=== PATIENT | male | born 1945 | race Two or more races ===

== ENCOUNTER 2020-03-23 13:17 | Outpatient (REF) | payer MEDICARE, SELFPAY | END 2020-03-23 13:18 | disposition home or self-care (01) | LOC: HO.LAB 13:17 | PROVIDERS: Absent Provider Internal Medicine; PCP Internal Medicine; Visit Provider Internal Medicine | DX: Z20.828 Contact with and (suspected) exposure to other viral communicable diseases (principal) | CPT/HCPCS: 85610; 99211; C9803; U0003 ==

== ENCOUNTER → 2020-04-27 10:31 | Outpatient (BNVA) | payer MEDICARE, SELFPAY | PROVIDERS: PCP Internal Medicine; Visit Provider Internal Medicine | DX: I48.0 Paroxysmal atrial fibrillation (principal); Z79.01 Long term (current) use of anticoagulants; Z51.81 Encounter for therapeutic drug level monitoring | CPT/HCPCS: 85610; 99211 ==

== ENCOUNTER → 2020-05-25 08:52 | Outpatient (BNVA) | payer MEDICARE, SELFPAY | PROVIDERS: PCP Internal Medicine; Visit Provider Internal Medicine | DX: I48.0 Paroxysmal atrial fibrillation (principal); Z51.81 Encounter for therapeutic drug level monitoring; Z79.01 Long term (current) use of anticoagulants | CPT/HCPCS: 85610; 99211 ==

== ENCOUNTER → 2020-06-23 10:00 | Outpatient (BNVA) | payer MEDICARE, SELFPAY | PROVIDERS: PCP Internal Medicine; Visit Provider Internal Medicine | DX: I48.0 Paroxysmal atrial fibrillation (principal); Z51.81 Encounter for therapeutic drug level monitoring; Z79.01 Long term (current) use of anticoagulants | CPT/HCPCS: 85610; 99211 ==

== ENCOUNTER → 2020-07-21 10:07 | Outpatient (BNVA) | payer MEDICARE, SELFPAY | PROVIDERS: PCP Internal Medicine; Visit Provider Internal Medicine | DX: I48.0 Paroxysmal atrial fibrillation (principal); Z79.01 Long term (current) use of anticoagulants; Z51.81 Encounter for therapeutic drug level monitoring | CPT/HCPCS: 85610; 99211 ==

== ENCOUNTER 2020-08-04 21:27 | Emergency (ER) | payer MEDICARE, SELFPAY ==
--- NOTE | ~2020-08-04 | XR_ITS ---
EXAMINATION: RIGHT FOOT 3 VIEWS CLINICAL INFORMATION: Pain and swelling following injury. COMPARISON: None. TECHNIQUE: AP, lateral, oblique views of the right foot were obtained. FINDINGS: There are no fractures or dislocations. There is no significant soft tissue swelling. No ankle joint effusion is identified. There are small calcaneal spurs. XR/XR foot RT min 3V IMPRESSION: No evidence for acute injury. Small calcaneal spurs.
[2020-08-04 21:43] VITALS: BP 140/74; PULSE 95; RESP 16; TEMP 36.7; O2SAT 97; BMI 30.5
[2020-08-04 21:55] VITALS: BP 140/74; PULSE 95; RESP 16; TEMP 36.7; O2SAT 97
--- NOTE | 2020-08-04 22:51 | ED.LOWEXIN ---
HPI - Extremity Injury (Lower) General Chief Complaint: Extremity Injury, Lower Stated Complaint: Leg injury Time Seen by Provider: 08/04/20 22:51 Source: patient Mode of arrival: ambulatory Limitations: language barrier (Patient's friend is interpreting for him.) History of Present Illness HPI Narrative: Patient is a 75-year-old male with a past medical history of AFib on Coumadin who presents with his friend after dropping a heavy pipe on his left foot 3 days ago. He states he is able to ambulate but is limping secondary to pain. He states he took Tylenol but that did not help him. He denies any other injuries or lacerations. Related Data Home Medications Medication Instructions Recorded Confirmed atorvastatin 80 mg tablet 80 mg PO DAILY 04/27/20 04/27/20 blood sugar diagnostic #10 ea 04/27/20 04/27/20 dulaglutide 0.75 mg/0.5 mL mg SUBCUT QWEEK 04/27/20 04/27/20 subcutaneous pen injector glipizide 5 mg tablet 0 mg PO 04/27/20 04/27/20 lisinopril 5 mg tablet 5 mg PO DAILY 04/27/20 04/27/20 tamsulosin 0.4 mg capsule 0 mg PO 04/27/20 04/27/20 tramadol 50 mg tablet 50 mg PO TID PRN 04/27/20 04/27/20 Previous Rx's Medication Instructions Recorded warfarin 5 mg tablet 5 mg PO DAILY #90 tab 03/23/20 Allergies Allergy/AdvReac Type Severity Reaction Status Date / Time ibuprofen [From Motrin] Allergy Mild SWELLING Verified 07/21/20 10:08 SALMON AdvReac Mild VOMITING Uncoded 12/31/19 15:55 Review of Systems Review of Systems: Yes all other systems are reviewed and are negative [facility] Past Medical History Medical History Diabetes Social History Social History Advance Directives: No Advance Directives Information Provided: Yes Physical Exam Vital Signs: Vital Signs: Last Vital Signs Temp 98.1 F 08/04/20 21:55 Pulse 95 08/04/20 21:55 Resp 16 08/04/20 21:55 BP 140/74 H 08/04/20 21:55 Pulse Ox 97 08/04/20 21:55 Body Mass Index 30.5 Const: General: cooperative, healthy appearing, comfortable and no acute distress Nutritional Appearance: average body habitus Orientation/consciousness: patient oriented x3 Eyes: General: appearance normal, both eyes and all related structures Neck: Neck: Yes normal visual inspection, Yes full ROM and Yes supple Resp: Effort & Inspection: normal respiratory effort and able to speak in complete sentences Neuro: General: patient oriented x3 Extrem: Right lower extremity: ankle Details: normal to inspection and normal ROM; no tenderness, no swelling, no abrasions, no lacerations and no ecchymosis and foot Details: normal capillary refill, abnormal to inspection Details: joint swelling (all MCP joints have full ROM but painful with ecchymosis, slight swelling); not erythematous, tenderness Location: of the dorsal foot and of the mid foot, toes with normal ROM, ecchymosis, vascular exam Details: dorsalis pedis pulse present, posterior tibial pulse present and normal capillary refill; not cool and no cyanosis, tendon exam Details: active flexion normal, active flexion abnormal, active extension normal and active extension abnormal and motor-sensory exam Details: light-touch normal; no abrasion and no laceration MDM - Extremity Injury (Lower) Imaging Data xray right foot: Attestation: I personally reviewed and interpreted this imaging study as follows: Radiologist's impression: [address] [id number] ReportSigned Patient: Tono De Los Santos#: [id number]: 1945cct:[id number]/Sex: 75 / MADM Date: 08/04/20Loc: HO.EDAttending Dr: Ordering Physician: Generic ED Physician Date of Service: 08/04/20 Procedure(s): XR foot RT min 3V Accession Number(s): [id number] cc: Generic ED Physician~ EXAMINATION: RIGHT FOOT 3 VIEWS CLINICAL INFORMATION: Pain and swelling following injury. COMPARISON: None. TECHNIQUE: AP, lateral, oblique views of the right foot were obtained. FINDINGS: There are no fractures or dislocations. There is no significant soft tissue swelling. No ankle joint effusion is identified. There are small calcaneal spurs. XR/XR foot RT min 3V IMPRESSION: No evidence for acute injury. Small calcaneal spurs. Dictated By:HARRY ANGULO MDSigned By:<Electronically signed by HARRY ANGULO MD in OV>08/04/202233 DD/ 49TD/TT: Track Coach: WP Discharge Plan Discharge Clinical Impression: Contusion of foot, right Qualifiers: Encounter type: initial encounter Qualified Code(s): S90.31XA - Contusion of right foot, initial encounter Patient Disposition: Home, Self-Care Instructions: Contusion in Adults (ED) Additional Instructions: Today, your x-ray of right foot was negative for any fracture or dislocation. We will wrap the foot for you in give you a walker to help you ambulate. Please rest it ice it and if her pain gets worse, please follow-up with your PCP or the orthopedic doctor I have referred you to, see below. Prescriptions: No Action warfarin 5 mg tablet 5 mg PO DAILY Qty: 90 RF: 0 tamsulosin 0.4 mg capsule 0 mg PO RF: 0 Trulicity 0.75 mg/0.5 mL pen injector subcut QWEEK RF: 0 tramadol 50 mg tablet 50 mg PO TID PRNRF: 0 atorvastatin 80 mg tablet 80 mg PO DAILY RF: 0 glipizide 5 mg tablet 0 mg PO RF: 0 lisinopril 5 mg tablet 5 mg PO DAILY RF: 0 (DME) FreeStyle Lite Strips Strip See Rx Instructions ea Not Applicable BID Qty: 10 RF: 0 Referrals: Marquez Rice MD [Physician] - 2 days (right foot contusion)
[2020-08-04 22:55] VITALS: BP 103/65; PULSE 88; RESP 16; TEMP 36.8; O2SAT 98
== END 2020-08-04 23:24 | disposition home or self-care (01) ==
PROVIDERS: Emergency Provider Internal Medicine; PCP Internal Medicine
DX: S90.31XA Contusion of right foot, initial encounter (principal); M79.671 Pain in right foot; Y29.XXXA Contact with blunt object, undetermined intent, initial encounter; Y93.9 Activity, unspecified; Y92.009 Unspecified place in unspecified non-institutional (private) residence as the place of occurrence of the external cause; Y99.9 Unspecified external cause status; Z79.899 Other long term (current) drug therapy
CPT/HCPCS: 73630; 99284

== ENCOUNTER 2020-10-12 01:06 | Emergency (ER) | payer MEDICARE, SELFPAY ==
--- NOTE | ~2020-10-12 | CT_ITS ---
EXAMINATION: CT HEAD WITHOUT CONTRAST CLINICAL INFORMATION: closed head injury, on Coumadin COMPARISON: 03/09/2013 TECHNIQUE: Contiguous axial imaging was performed from the skull base to vertex without intravenous administration of contrast. This CT examination was performed using dose optimization techniques as appropriate, variously including the following: *Automated exposure control *Adjustment of mA and/or kV according to patient size (this includes techniques or standardized protocols for targeted exams where dose is matched to indication/reason for exam; i.e. extremities or head) *Use of iterative reconstruction technique DLP: 703 mGy-cm FINDINGS: There is no evidence of acute intracranial hemorrhage or territorial infarction. No abnormal mass effect or midline shift is seen. Meneses to white matter differentiation is well preserved. No extra-axial fluid collections are identified. The ventricles are normal in size. There is no abnormal attenuation within the brain parenchyma. Calcific atherosclerosis is present within the cavernous and supraclinoid segments of the internal carotid arteries. Globes are aphakic. The osseous structures and soft tissues are normal. The mastoid air cells and visualized portions of the paranasal sinuses are well aerated. CT/CT head/brain wo con IMPRESSION: No acute intracranial pathology.
[2020-10-12 01:25] VITALS: BP 130/70; BP 152/73; PULSE 70; PULSE 73; RESP 15; TEMP 36.5; O2SAT 98; BMI 30.1
--- NOTE | 2020-10-12 01:41 | ED.DIZZY ---
HPI - Dizziness General Chief Complaint: Dizziness Stated Complaint: DIARRHEA AND DIZZINESS Time Seen by Provider: 10/12/20 01:41 Source: patient Mode of arrival: ambulatory Limitations: no limitations History of Present Illness HPI Narrative: patient withhistory of AFib on Coumadin was working outside all day around 11 a.m. hit by a small metal to right forehead without any significant injury no loss of consciousness no nausea no vomiting later during the day patient started feeling weak and dizzy with slight headache went to [employer] which was also very hot feel weak and dizzy since then had 3 loose bowels no significant abdominal pain no chest pain no palpitation or shortness of breath Related Data Home Medications Medication Instructions Recorded Confirmed atorvastatin 80 mg tablet 80 mg PO DAILY 04/27/20 04/27/20 blood sugar diagnostic #10 ea 04/27/20 04/27/20 dulaglutide 0.75 mg/0.5 mL mg SUBCUT QWEEK 04/27/20 04/27/20 subcutaneous pen injector glipizide 5 mg tablet 0 mg PO 04/27/20 04/27/20 lisinopril 5 mg tablet 5 mg PO DAILY 04/27/20 04/27/20 tamsulosin 0.4 mg capsule 0 mg PO 04/27/20 04/27/20 tramadol 50 mg tablet 50 mg PO TID PRN 04/27/20 04/27/20 Previous Rx's Medication Instructions Recorded warfarin 5 mg tablet 5 mg PO DAILY #90 tab 03/23/20 Allergies Allergy/AdvReac Type Severity Reaction Status Date / Time ibuprofen [From Motrin] Allergy Mild SWELLING Verified 07/21/20 10:08 SALMON AdvReac Mild VOMITING Uncoded 12/31/19 15:55 Review of Systems Review of Systems: Constitutional : No Weight loss, No Fever, No Chills ENT/Mouth : No sore throat, No Rhinorrhea Eyes: No Eye Pain, No Swelling Cardiovascular : No Chest Pain, no palpitations Respiratory : No Cough, No Sputum, no shortness of breath Gastrointestinal : no Nausea, No Vomiting, + Diarrhea, No abdominal Pain, no black stools Genitourinary : No Dysuria, No Urinary Frequency Musculoskeletal : No joint pain, No Myalgias, No Joint Swelling Skin : No Skin Lesions, No rash Neuro : No Weakness, No Numbness, + Dizziness, + Headache Psych : No Anxiety/Panic, No Depression Heme/Lymph: No Bruising, No Lymphadenopathy Endocrine : No Polyuria, No Polydipsia All other systems reviewed and are negative [facility] Past Medical History Medical History Diabetes Diabetes High cholesterol Hypertension Social History Social History Alcohol intake: never Patient Tobacco Use Status: Never used Tobacco Use of substances other than those prescribed or required for medical reasons: No Advance Directives: No Advance Directives Information Provided: No Physical Exam Vital Signs: Vital Signs: Last Vital Signs Temp 97.7 F 10/12/20 01:25 Pulse 70 10/12/20 01:25 Resp 15 10/12/20 01:25 BP 152/73 H 10/12/20 01:25 Pulse Ox 98 10/12/20 01:25 Body Mass Index 30.1 Appearance: Alert. Oriented X3. No acute distress. Eyes: PERRLA, No Nystagmus HEENT: Pharynx normal. Oral Mucosa moist superficial abrasion at right eyebrow Neck: Normal inspection. Neck supple. CVS: Normal heart rate and rhythm. Pulses normal. Respiratory: No respiratory distress. Equal air entry bilateral, no wheezing/rales/rhonchi Abdomen: Soft and nontender. Bowel sounds are present, no mass palpable, no CVA tenderness Skin: Skin warm and dry. Normal skin color. Normal skin turgor. Extremities: No lower extremity edema. No calf tenderness Neuro: Oriented X 3. No motor deficit. No sensory deficit.No cerebellar signs , cranial nerves II-XII intact MDM - Dizziness MDM Narrative Medical decision making narrative: patient's symptoms likely from heat exhaustion CT head is negative for any acute bleed labs stable discharge patient home Lab Data Attestation: I reviewed the patient's lab results. Result diagrams: 10/12/20 02:55 10/12/20 02:55 Labs: Lab Results 10/12/20 10/12/20 10/12/20 Range/Units 02:55 02:55 02:55 WBC 12.7 H (4.8-10.8) X10*3/uL RBC 4.58 L (4.60-5.80) X10*6/uL Hgb 14.4 (14.0-18.0) g/dl Hct 42.0 (42-52) % MCV 91.7 (80-98) fL MCH 31.4 (27.0-33.0) pg MCHC 34.3 (31.0-36.0) g/dl RDW 13.4 (11.0-16.0) % Plt Count 162 (160-400) X10*3/uL MPV 9.8 (9.4-12.4) fL Immature Gran % (Auto) 0.2 (0.0-0.4) % Neut % (Auto) 78.2 H (45-73) % Lymph % (Auto) 15.6 L (20-40) % Fillmore % (Auto) 4.9 (2-11) % Eos % (Auto) 0.9 (0-4) % Baso % (Auto) 0.2 (0-2) % Lymph # (Auto) 2.0 (1.2-4.9) X10*3/uL Fill[place] # (Auto) 0.6 (0.1-1.2) X10*3/uL Eos # (Auto) 0.1 (0.0-0.4) X10*3/uL Baso # (Auto) 0.0 (0.0-0.2) X10*3/uL Abs Immat Gran (auto) 0.03 (0.00-0.03) X10*3/uL Absolute Neuts (auto) 9.9 H (2.0-8.3) X10*3/uL Absolute Nucleated RBC 0.000 (0.0-0.012) X10*3/uL Nucleated RBC % (auto) 0.0 (0.0-0.2) /100WBC PT 36.9 H (10.8-13.0) SEC INR 3.1 H (0.9-1.1) Sodium 138 (135-145) mmol/L Potassium 3.9 (3.3-5.1) mmol/L Chloride 106 (96-108) mmol/L Carbon Dioxide 22 (22-29) mmol/L Anion Gap 14 (12-20) BUN 16 (9-16) mg/dL Creatinine 1.00 (0.5-1.4) mg/dL Estim Creat Clear Calc 59.5 Estimated GFR > 60 Random Glucose 257 H (60-115) mg/dL Calcium 9.1 (8.4-10.2) mg/dL Magnesium 2.1 (1.6-2.6) mg/dL Total Bilirubin 0.6 (0.0-1.0) mg/dL Direct Bilirubin 0.2 (0.0-0.5) mg/dL AST 18 (5-37) U/L ALT 20 (0-40) U/L Alkaline Phosphatase 102 (39-117) U/L Total Protein 6.7 (6.5-8.0) g/dL Albumin 3.9 (3.5-5.0) g/dL ECG Data Attestation: I personally reviewed and interpreted this ECG as follows: Interpretation: normal sinus rhythm heart rate 74 beats per minute normal axis normal intervals no acute ischemia Discharge Plan Discharge Clinical Impression: Minor closed head injury Heat exhaustion Qualifiers: Encounter type: initial encounter Qualified Code(s): T67.5XXA - Heat exhaustion, unspecified, initial encounter Patient Disposition: Home, Self-Care Instructions: Heat Exhaustion (ED), Head Injury (ED) Additional Instructions: stay in cool shaded area Drink plenty of fluids. Follow with PCP if any concern Prescriptions: No Action warfarin 5 mg tablet 5 mg PO DAILY Qty: 90 RF: 0 tamsulosin 0.4 mg capsule 0 mg PO RF: 0 Trulicity 0.75 mg/0.5 mL pen injector subcut QWEEK RF: 0 tramadol 50 mg tablet 50 mg PO TID PRNRF: 0 atorvastatin 80 mg tablet 80 mg PO DAILY RF: 0 glipizide 5 mg tablet 0 mg PO RF: 0 lisinopril 5 mg tablet 5 mg PO DAILY RF: 0 (DME) FreeStyle Lite Strips Strip See Rx Instructions ea Not Applicable BID Qty: 10 RF: 0
--- NOTE | 2020-10-12 01:48 | ECG_ITS ---
Test Reason : DIZZYNESS Blood Pressure : / mmHG Vent. Rate : 074 BPM Atrial Rate : 074 BPM P-R Int : 182 ms QRS Dur : 088 ms QT Int : 430 ms P-R-T Axes : 074 079 068 degrees QTc Int : 477 ms Normal sinus rhythm Normal ECG When compared with ECG of 12-OCT-2020 02:09, Premature supraventricular complexes are no longer Present Referred By: Wilton Galvez Electronically Signed By:HERBERT BELTRE MD
[2020-10-12] MEDS: 0.9 % Sodium Chloride 1,000 ML 999 ML IVCONT (02:30)
[2020-10-12 02:59] LABS: MANUAL DIFF FLAG NO
[2020-10-12 03:04] LABS: Basophils Percent Auto 0.2 % (0-2); Eosinophils Absolute Auto 0.1 X10*3/uL (0.0-0.4); Eosinophils Percent Auto 0.9 % (0-4); Hemoglobin 14.4 g/dl (14.0-18.0); Imm Gran Abs Auto 0.03 X10*3/uL (0.00-0.03); Imm Gran Pct Auto 0.2 % (0.0-0.4); Lymphocytes Percent Auto 15.6 % (20-40); Mean Corpuscular HGB Conc 34.3 g/dl (31.0-36.0); Mean Corpuscular Hemoglobin 31.4 pg (27.0-33.0); Mean Corpuscular Volume 91.7 fL (80-98); Mean Platelet Volume 9.8 fL (9.4-12.4); Monocytes Absolute Auto 0.6 X10*3/uL (0.1-1.2); Monocytes Percent Auto 4.9 % (2-11); Neutrophils Absolute Auto 9.9 X10*3/uL (2.0-8.3); Neutrophils Percent Auto 78.2 % (45-73); Platelet Count 162 X10*3/uL (160-400); Red Blood Count 4.58 X10*6/uL (4.60-5.80); Red Cell Distribution Width 13.4 % (11.0-16.0); White Blood Count 12.7 X10*3/uL (4.8-10.8)
[2020-10-12 03:12] LABS: INTERNATIONAL NORM RATIO 3.1 (0.9-1.1); Prothrombin Time 36.9 SEC (10.8-13.0)
[2020-10-12 03:37] LABS: Alanine Aminotransferase 20 U/L (0-40); Albumin Level 3.9 g/dL (3.5-5.0); Alkaline Phosphatase 102 U/L (39-117); Anion Gap 14 (12-20); Aspartate Amino Transferase 18 U/L (5-37); Bilirubin Direct 0.2 mg/dL (0.0-0.5); Bilirubin Total 0.6 mg/dL (0.0-1.0); Blood Urea Nitrogen 16 mg/dL (9-16); Calcium 9.1 mg/dL (8.4-10.2); Carbon Dioxide 22 mmol/L (22-29); Chloride 106 mmol/L (96-108); Creatinine Clr Calc Pharmacy 59.5; Estimated Glomerular Filt Rate > 60; Glucose Random 257 mg/dL (60-115); Magnesium 2.1 mg/dL (1.6-2.6); Potassium 3.9 mmol/L (3.3-5.1); Sodium 138 mmol/L (135-145); Total Protein 6.7 g/dL (6.5-8.0)
== END 2020-10-12 04:15 | disposition home or self-care (01) ==
PROVIDERS: Emergency Provider Internal Medicine
DX: S09.90XA Unspecified injury of head, initial encounter (principal); W22.8XXA Striking against or struck by other objects, initial encounter; T67.5XXA Heat exhaustion, unspecified, initial encounter; X58.XXXA Exposure to other specified factors, initial encounter; I10 Essential (primary) hypertension; E11.9 Type 2 diabetes mellitus without complications; I48.91 Unspecified atrial fibrillation; Z79.01 Long term (current) use of anticoagulants; Z79.84 Long term (current) use of oral hypoglycemic drugs; Z79.899 Other long term (current) drug therapy; Y93.9 Activity, unspecified; Y92.89 Other specified places as the place of occurrence of the external cause; Y99.9 Unspecified external cause status
CPT/HCPCS: 36415; 70450; 80048; 80076; 83735; 85025; 85610; 93005; 96360; 99284

== ENCOUNTER → 2020-10-26 09:57 | Outpatient (BNVA) | payer MEDICARE, SELFPAY | PROVIDERS: PCP Internal Medicine; Visit Provider Internal Medicine | DX: I48.0 Paroxysmal atrial fibrillation (principal); Z51.81 Encounter for therapeutic drug level monitoring; Z79.01 Long term (current) use of anticoagulants | CPT/HCPCS: 85610; 99211 ==

== ENCOUNTER → 2020-11-09 10:15 | Outpatient (BNVA) | payer MEDICARE, SELFPAY | PROVIDERS: PCP Internal Medicine; Visit Provider Internal Medicine | DX: I48.0 Paroxysmal atrial fibrillation (principal); Z51.81 Encounter for therapeutic drug level monitoring; Z79.01 Long term (current) use of anticoagulants | CPT/HCPCS: 85610; 99211 ==

== ENCOUNTER 2020-11-17 18:53 | Emergency (ER) | payer MEDICARE, SELFPAY ==
--- NOTE | ~2020-11-17 | XR_ITS ---
EXAMINATION: XR CHEST CLINICAL INFORMATION: Cough and mucus. Pain COMPARISON: Chest 04/27/2019 TECHNIQUE: 2 views of the chest were obtained. FINDINGS: The lungs are well-expanded and clear. There is a calcified 4 mm nodule left upper lobe, stable. Heart size and pulmonary vascularity is normal. No gross bony abnormality seen. XR/XR chest 2V IMPRESSION: No acute cardiac pulmonary process seen. No major change compared 04/27/2019.
[2020-11-17 19:05] VITALS: BP 137/64; PULSE 93; RESP 18; TEMP 36.8; O2SAT 97; BMI 30.5
[2020-11-17 20:04] LABS: IDNOW Serial# 9DD0AD1C; Strep A Nucleic Acid Negative (Negative)
[2020-11-17 20:21] LABS: Influenza A PCR NEGATIVE (Negative); Influenza B PCR NEGATIVE (Negative); Resp Syncy Virus RNA Qual PCR NEGATIVE (Negative); SARS COV2 PCR INHOUSE NEGATIVE (Negative)
--- NOTE | 2020-11-17 21:46 | ED.URI ---
HPI - URI/Sore Throat General Chief Complaint: Upper Respiratory Symptoms Stated Complaint: weakness Time Seen by Provider: 11/17/20 21:40 Source: patient Mode of arrival: ambulatory Limitations: no limitations History of Present Illness HPI Narrative: This is a 75 years old the presented to the emergency department complaining of cough congestion green sputum, and sore throat. Denies any fever shortness of breath MD elicited complaint: cough Onset (ago): day(s) (3) Consistency: constant Severity: moderate Description of mucous: green Exacerbating factors: nothing Relieving factors: nothing Associated symptoms: denies other symptoms Related Data Home Medications Medication Instructions Recorded Confirmed atorvastatin 80 mg tablet 80 mg PO DAILY 04/27/20 04/27/20 blood sugar diagnostic #10 ea 04/27/20 04/27/20 dulaglutide 0.75 mg/0.5 mL mg SUBCUT QWEEK 04/27/20 04/27/20 subcutaneous pen injector glipizide 5 mg tablet 0 mg PO 04/27/20 04/27/20 lisinopril 5 mg tablet 5 mg PO DAILY 04/27/20 04/27/20 tamsulosin 0.4 mg capsule 0 mg PO 04/27/20 04/27/20 tramadol 50 mg tablet 50 mg PO TID PRN 04/27/20 04/27/20 Previous Rx's Medication Instructions Recorded warfarin 5 mg tablet 5 mg PO DAILY #90 tab 03/23/20 doxycycline monohydrate 100 mg 100 mg PO BID #14 cap 11/17/20 capsule Allergies Allergy/AdvReac Type Severity Reaction Status Date / Time ibuprofen [From Motrin] Allergy Mild SWELLING Verified 11/17/20 19:05 SALMON AdvReac Mild VOMITING Uncoded 12/31/19 15:55 Review of Systems Review of Systems: Yes all other systems are reviewed and are negative Constitutional: Constitutional: Reports as per HPI and Reports no additional constitutional complaints Cardiovascular: Cardiovascular: Reports no additional cardiovascular complaints Respiratory: Respiratory: Reports chest congestion and Reports cough Integumentary/Breasts: Skin/Breast: Reports system reviewed and no additional complaints, except as docu Neurologic: Reports system reviewed and no additional complaints, except as documented Psychiatric: Psychiatric: Reports no additional psychiatric complaints PMFSH Past Medical History Attestation statement: The following information was validated with the patient. Medical History Diabetes Diabetes Heart attack High cholesterol Hypertension Social History Social History Alcohol intake: never Patient Tobacco Use Status: Never used Tobacco Advance Directives: No Advance Directives Information Provided: No Physical Exam Vital Signs: Vital Signs: Last Vital Signs Temp 98.3 F 11/17/20 19:05 Pulse 93 11/17/20 19:05 Resp 18 11/17/20 19:05 BP 137/64 11/17/20 19:05 Pulse Ox 97 11/17/20 19:05 Body Mass Index 30.5 Const: Other: He looks well is not toxic-appearing is comfortable sitting in the chair General: cooperative HENMT: Head: Yes normal to inspection Ears: hearing grossly normal bilaterally Mouth: Normal oral and palatal mucosa present Throat: Yes other (Redness of the pharynx noted and no exudation) Neck: Neck: Yes normal visual inspection and Yes full ROM Thyroid: Thyroid normal Chest: Chest palpation & inspection: normal inspection of the chest Resp: Effort & Inspection: normal respiratory effort and able to speak in complete sentences Auscultation: clear to auscultation bilaterally Cardio: Jugular venous distension: no JVD and JVD Heart sounds: S1 normal heart sound present GI: Inspection: Yes normal to inspection Palpation (GI): Soft to palpation Skin: General skin exam: no rashes or lesions noted and elasticity normal MDM - URI/Sore Throat Lab Data Attestation: I reviewed the patient's lab results. Labs: Lab Results 11/17/20 11/17/20 Range/Units 19:38 19:38 Coronavirus (PCR) NEGATIVE (Negative) Influenza Type A (PCR) NEGATIVE (Negative) Influenza Type B (PCR) NEGATIVE (Negative) RSV RNA Qual (PCR) NEGATIVE (Negative) S. pyogenes GrpA YANELIS Negative (Negative) Imaging Data Chest x-ray: My impression: NAD Discharge Plan Discharge Clinical Impression: Bronchitis Patient Disposition: Home, Self-Care Instructions: Acute Bronchitis (ED) Additional Instructions: Please follow-up with your primary care physician or return if you worse Prescriptions: New doxycycline monohydrate 100 mg capsule 100 mg PO BID Qty: 14 RF: 0 No Action warfarin 5 mg tablet 5 mg PO DAILY Qty: 90 RF: 0 tamsulosin 0.4 mg capsule 0 mg PO RF: 0 Trulicity 0.75 mg/0.5 mL pen injector subcut QWEEK RF: 0 tramadol 50 mg tablet 50 mg PO TID PRNRF: 0 atorvastatin 80 mg tablet 80 mg PO DAILY RF: 0 glipizide 5 mg tablet 0 mg PO RF: 0 lisinopril 5 mg tablet 5 mg PO DAILY RF: 0 (DME) FreeStyle Lite Strips Strip See Rx Instructions ea Not Applicable BID Qty: 10 RF: 0 Referrals: Stef Valencia MD [Primary Care Provider] - 2 days Interventions: ED Discharge Assessment Last Done: 11/17/20 22:08 Discharge Date/Time: 11/17/20 22:10
== END 2020-11-17 22:10 | disposition home or self-care (01) ==
PROVIDERS: Emergency Provider Emergency Medicine; PCP Internal Medicine
DX: J20.8 Acute bronchitis due to other specified organisms (principal); R05 Cough; Z20.822 Contact with and (suspected) exposure to COVID-19; Z79.899 Other long term (current) drug therapy
CPT/HCPCS: 0241U; 36415; 71046; 87651; 99283

== ENCOUNTER → 2021-02-14 08:32 | Outpatient (BNVA) | payer MEDICARE, SELFPAY | PROVIDERS: PCP Internal Medicine; Visit Provider Internal Medicine | DX: I48.0 Paroxysmal atrial fibrillation (principal); Z51.81 Encounter for therapeutic drug level monitoring; Z79.01 Long term (current) use of anticoagulants | CPT/HCPCS: 85610; 99211 ==

== ENCOUNTER 2021-03-11 19:15 | Emergency (ER) | payer MEDICARE, SELFPAY ==
[2021-03-11 20:02] LABS: COVID-19 Test Negative (Negative)
[2021-03-11 20:15] VITALS: BP 109/56; PULSE 83; RESP 15; TEMP 36.8; O2SAT 98; BMI 31.5
[2021-03-11] MEDS: Acetaminophen 325 MG TABLET 975 MG PO (21:25)
--- NOTE | 2021-03-11 21:45 | ED_ITS ---
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 Related Data Home Medications Medication Instructions Recorded Confirmed atorvastatin 80 mg tablet 80 mg PO DAILY 04/27/20 02/14/21 blood sugar diagnostic #10 ea 04/27/20 02/14/21 dulaglutide 0.75 mg/0.5 mL mg SUBCUT QWEEK 04/27/20 02/14/21 subcutaneous pen injector glipizide 5 mg tablet 0 mg PO 04/27/20 02/14/21 lisinopril 5 mg tablet 5 mg PO DAILY 04/27/20 02/14/21 tamsulosin 0.4 mg capsule 0 mg PO 04/27/20 02/14/21 tramadol 50 mg tablet 50 mg PO TID PRN 04/27/20 02/14/21 Previous Rx's Medication Instructions Recorded warfarin 5 mg tablet 5 mg PO DAILY #90 tab 03/23/20 doxycycline monohydrate 100 mg 100 mg PO BID #14 cap 11/17/20 capsule Allergies Allergy/AdvReac Type Severity Reaction Status Date / Time ibuprofen [From Motrin] Allergy Mild SWELLING Verified 02/14/21 08:42 SALMON AdvReac Mild VOMITING Uncoded 02/14/21 08:42 Review of Systems Review of Systems: Pertinent positives and negatives as stated in HPI 10 point review of systems is otherwise negative. REPLACED BY [facility] Past Medical History Source: nursing notes reviewed Medical History Diabetes Diabetes Heart attack High cholesterol Hypertension Social History Social History Alcohol intake: never Patient Tobacco Use Status: Never used Tobacco Advance Directives: No Physical Exam Vital Signs: Vital Signs: Last Vital Signs Temp 98.2 F 03/11/21 20:15 Pulse 83 03/11/21 20:15 Resp 15 03/11/21 20:15 BP 109/56 L 03/11/21 20:15 Pulse Ox 98 03/11/21 20:15 Body Mass Index 31.5 VITAL SIGNS: Reviewed. GENERAL: Well developed, well nourished, in no acute distress. HEAD: Normocephalic/atraumatic EYES: PERRLA, EOMI OROPHARYNX: no oral lesions noted, posterior pharynx clear LUNGS: Normal breath sounds. No adventitious sounds or accessory muscle use. SpO2<98> CARDIOVASCULAR: Regular rate and rhythm without noted murmurs, no JVD or lower extremity edema. ABDOMEN: Soft, non-tender, non-distended with bowel sounds. NEUROLOGIC: Alert and oriented x 4. Course Course Course Narrative: This is a 75-year-old male, COVID-19 vaccinated and asymptomatic for any symptoms despite exposure 2 days ago. Review of COVID-19 testing is negative and patient was informed of all results and cautioned that he would need to be retested in 3-4 days and in the meantime should practice social distancing and continue to wear a mask at all times. Medical Decision Making Lab Data Labs: Lab Results 03/11/21 Range/Units 19:41 COVID-19 ([facility]ORDON) Negative (Negative) COVID-19 Clin Com See Note Discharge Plan Discharge Clinical Impression: Exposure to COVID-19 virus, Lab test negative for COVID-19 virus Patient Disposition: Home, Self-Care Instructions: COVID-19 (Coronavirus Disease 2019) (ED), Covid-19 Viral Syndrome and Novel Coronavirus (ED) Hey/Ath Additional Instructions: 1. Reanude todos los medicamentos caseros. 2. Darinel un seguimiento con goodman proveedor de atenci?n primaria en los pr?ximos 2-3 d?as para reevaluar goodman prueba de COVID 19. 3. Contin?e con la distancia social y use goodman m?scara en todo momento. Regrese a la fidencio de emergencias si los s?ntomas empeoran, марина fiebre, escalofr?os, dolor de garganta, p?rdida del gusto u olfato. Prescriptions: No Action doxycycline monohydrate 100 mg capsule 100 mg PO BID Qty: 14 RF: 0 warfarin 5 mg tablet 5 mg PO DAILY Qty: 90 RF: 0 tamsulosin 0.4 mg capsule 0 mg PO RF: 0 Trulicity 0.75 mg/0.5 mL pen injector subcut QWEEK RF: 0 tramadol 50 mg tablet 50 mg PO TID PRNRF: 0 atorvastatin 80 mg tablet 80 mg PO DAILY RF: 0 glipizide 5 mg tablet 0 mg PO RF: 0 lisinopril 5 mg tablet 5 mg PO DAILY RF: 0 (DME) FreeStyle Lite Strips Strip See Rx Instructions ea Not Applicable BID Qty: 10 RF: 0 Referrals: Stef Valencia MD [Primary Care Provider] - 2 days (COVID-19 exposure but testing negative) Print Language: Congolese
== END 2021-03-11 21:58 | disposition home or self-care (01) ==
PROVIDERS: Emergency Provider Student in an Organized Health Care Education/Training Program; PCP Internal Medicine
DX: R51.9 Headache, unspecified (principal); E11.9 Type 2 diabetes mellitus without complications; I10 Essential (primary) hypertension; I25.2 Old myocardial infarction; Z20.822 Contact with and (suspected) exposure to COVID-19
CPT/HCPCS: 36415; 87635; 99283; 99284

== ENCOUNTER → 2021-03-17 14:41 | Outpatient (BNVA) | payer MEDICARE, SELFPAY | PROVIDERS: PCP Internal Medicine; Visit Provider Internal Medicine | DX: I48.0 Paroxysmal atrial fibrillation (principal); Z51.81 Encounter for therapeutic drug level monitoring; Z79.01 Long term (current) use of anticoagulants | CPT/HCPCS: 85610; 99211 ==

== ENCOUNTER 2021-04-21 13:46 | Outpatient (REF) | payer MEDICARE, SELFPAY ==
[2021-04-21 14:55] LABS: Binax Internal Control QC Valid; Binax Now Covid-19 Ag Negative (Negative)
== END 2021-04-21 13:47 | disposition home or self-care (01) ==
LOC: HO.LAB 13:46
PROVIDERS: Visit Provider Internal Medicine
DX: Z20.822 Contact with and (suspected) exposure to COVID-19 (principal)
CPT/HCPCS: 36415; C9803

== ENCOUNTER → 2021-06-13 09:22 | Outpatient (BNVA) | payer MEDICARE, SELFPAY | PROVIDERS: PCP Internal Medicine; Visit Provider Internal Medicine | DX: I48.0 Paroxysmal atrial fibrillation (principal); Z51.81 Encounter for therapeutic drug level monitoring; Z79.01 Long term (current) use of anticoagulants | CPT/HCPCS: 85610; 99211 ==

== ENCOUNTER → 2021-06-19 09:35 | Outpatient (BNVA) | payer MEDICARE, SELFPAY | PROVIDERS: PCP Internal Medicine; Visit Provider Internal Medicine | DX: I48.0 Paroxysmal atrial fibrillation (principal); Z51.81 Encounter for therapeutic drug level monitoring; Z79.01 Long term (current) use of anticoagulants | CPT/HCPCS: 85610; 99211 ==

== ENCOUNTER → 2021-06-26 09:20 | Outpatient (BNVA) | payer MEDICARE, SELFPAY | PROVIDERS: PCP Internal Medicine; Visit Provider Internal Medicine | DX: I48.0 Paroxysmal atrial fibrillation (principal); Z51.81 Encounter for therapeutic drug level monitoring; Z79.01 Long term (current) use of anticoagulants | CPT/HCPCS: 85610; 99211 ==

== ENCOUNTER → 2021-07-03 09:02 | Outpatient (BNVA) | payer MEDICARE, SELFPAY | PROVIDERS: PCP Internal Medicine; Visit Provider Internal Medicine | DX: Z13.89 Encounter for screening for other disorder (principal) ==

== ENCOUNTER → 2021-07-04 09:32 | Outpatient (BNVA) | payer MEDICARE, SELFPAY | PROVIDERS: PCP Internal Medicine; Visit Provider Internal Medicine | DX: I48.0 Paroxysmal atrial fibrillation (principal); Z51.81 Encounter for therapeutic drug level monitoring; Z79.01 Long term (current) use of anticoagulants | CPT/HCPCS: 85610; 99211 ==

== ENCOUNTER 2021-10-30 14:30 | Outpatient (REF) | payer MEDICARE, SELFPAY ==
[2021-10-30 14:57] LABS: COVID-19 Test Negative (Negative); IDNOW Serial# 55D5AD1C
== END 2021-10-30 14:31 | disposition home or self-care (01) ==
LOC: HO.LAB 14:30
PROVIDERS: Visit Provider Internal Medicine
DX: Z20.822 Contact with and (suspected) exposure to COVID-19 (principal)
CPT/HCPCS: 87635; C9803

== ENCOUNTER → 2021-11-01 10:23 | Outpatient (BNVA) | payer MEDICARE, SELFPAY | PROVIDERS: PCP Internal Medicine; Visit Provider Internal Medicine | DX: I48.0 Paroxysmal atrial fibrillation (principal); Z51.81 Encounter for therapeutic drug level monitoring; Z79.01 Long term (current) use of anticoagulants | CPT/HCPCS: 85610; 99211 ==

== ENCOUNTER → 2021-11-29 09:30 | Outpatient (BNVA) | payer MEDICARE, SELFPAY | PROVIDERS: PCP Internal Medicine; Visit Provider Internal Medicine | DX: I48.0 Paroxysmal atrial fibrillation (principal); Z79.01 Long term (current) use of anticoagulants; Z51.81 Encounter for therapeutic drug level monitoring | CPT/HCPCS: 85610; 99211 ==

== ENCOUNTER → 2021-12-13 09:35 | Outpatient (BNVA) | payer MEDICARE, SELFPAY | PROVIDERS: PCP Internal Medicine; Visit Provider Internal Medicine | DX: I48.0 Paroxysmal atrial fibrillation (principal); Z79.01 Long term (current) use of anticoagulants; Z51.81 Encounter for therapeutic drug level monitoring | CPT/HCPCS: 85610; 99211 ==

== ENCOUNTER → 2022-01-03 09:41 | Outpatient (BNVA) | payer MEDICARE, SELFPAY | PROVIDERS: PCP Internal Medicine; Visit Provider Internal Medicine | DX: I48.0 Paroxysmal atrial fibrillation (principal); Z79.01 Long term (current) use of anticoagulants; Z51.81 Encounter for therapeutic drug level monitoring | CPT/HCPCS: 85610; 99211 ==

== ENCOUNTER → 2022-03-06 10:09 | Outpatient (BNVA) | payer MEDICARE, SELFPAY | PROVIDERS: PCP Internal Medicine; Visit Provider Internal Medicine | DX: I48.0 Paroxysmal atrial fibrillation (principal); Z79.01 Long term (current) use of anticoagulants; Z51.81 Encounter for therapeutic drug level monitoring | CPT/HCPCS: 85610; 99211 ==

== ENCOUNTER → 2022-03-20 10:18 | Outpatient (BNVA) | payer MEDICARE, SELFPAY | PROVIDERS: PCP Internal Medicine; Visit Provider Internal Medicine | DX: I48.0 Paroxysmal atrial fibrillation (principal); Z79.01 Long term (current) use of anticoagulants; Z51.81 Encounter for therapeutic drug level monitoring | CPT/HCPCS: 85610; 99211 ==

== ENCOUNTER 2022-04-05 16:55 | Emergency (ER) | payer MEDICARE, SELFPAY ==
--- NOTE | ~2022-04-05 | CT_ITS ---
EXAMINATION: CT ANGIOGRAM OF THE CHEST WITH AND WITHOUT CONTRAST (CT PULMONARY ANGIOGRAM FOR PE) CLINICAL INFORMATION: Short of breath COMPARISON: Chest radiograph from today. CT 10/22/2015 TECHNIQUE: Prior to contrast administration, noncontrast localization images were obtained. Subsequently, multidetector volumetric imaging was performed from the thoracic inlet to below the diaphragms following the administration of 65 mL Omnipaque 350 intravenous contrast. No contrast reaction reported Sagittal, coronal, and MIP oblique sagittal reformatted images were obtained on the CT workstation, uploaded to PACS, and reviewed. This CT examination was performed using dose optimization techniques as appropriate, variously including the following: *Automated exposure control *Adjustment of mA and/or kV according to patient size (this includes techniques or standardized protocols for targeted exams where dose is matched to indication/reason for exam; i.e. extremities or head) *Use of iterative reconstruction technique Total exam dose-length product 282 mGy-cm FINDINGS: QUALITY OF STUDY/CONTRAST BOLUS: Satisfactory. PULMONARY ARTERIES: No central or segmental pulmonary emboli. THORACIC AORTA: No aneurysm or dissection. LUNG: The central airways are patent. Calcified granuloma of the left upper lobe. Bronchial wall thickening, particularly in the lower lungs. No suspicious pulmonary nodules. PLEURA: No pleural effusion or pneumothorax. MEDIASTINUM: Normal heart size. Mild coronary artery calcifications. No pericardial effusion. No hilar or mediastinal lymphadenopathy. No evidence of septal bowing or right heart strain. CHEST WALL/AXILLA: No axillary or internal mammary lymphadenopathy.
[2022-04-05 17:09] VITALS: BP 146/80; PULSE 108; RESP 20; TEMP 36.8; O2SAT 96; BMI 31.5
--- NOTE | 2022-04-05 17:11 | ED.GENADULT ---
HPI - General Adult General Chief complaint: Upper Respiratory Symptoms <BING Mcdonald - Last Filed: 04/09/22 12:50> Stated complaint: cough,sob <BING Mcdonald - Last Filed: 04/09/22 12:50> Time Seen by Provider: 04/05/22 17:43 <BING Mcdonald - Last Filed: 04/09/22 12:50> Source: patient <Lora Chou MD - Last Filed: 04/06/22 02:07> Mode of arrival: ambulatory <Lora Chou MD - Last Filed: 04/06/22 02:07> Limitations: no limitations <Lora Chou MD - Last Filed: 04/06/22 02:07> History of Present Illness HPI narrative: Patient comes to the emergency room complaining of coughing and sore throat. When patient arrived to the emergency room, it was noted the patient's heart rate was between 160-190. Patient states that he has no chest pain or shortness of breath, no fluttering sensation. Patient states that he has history of atrial fibrillation, to his knowledge he does not take any medication for rate control, takes Coumadin daily. <Lora Chou MD - Last Filed: 04/06/22 02:07> Related Data Home medications: Home Medications Medication Instructions Recorded Confirmed atorvastatin 80 mg tablet 80 mg PO DAILY 04/27/20 06/19/21 blood sugar diagnostic #10 ea 04/27/20 06/19/21 glipizide 5 mg tablet 0 mg PO 04/27/20 06/19/21 lisinopril 5 mg tablet 5 mg PO DAILY 04/27/20 06/19/21 tamsulosin 0.4 mg capsule 0 mg PO 04/27/20 06/19/21 tramadol 50 mg tablet 50 mg PO TID PRN 04/27/20 06/19/21 blood-glucose meter (FreeStyle #1 ea 06/19/21 06/19/21 Lite Meter kit) finasteride 5 mg tablet 5 mg PO DAILY 06/19/21 06/19/21 pen needle, diabetic 32 gauge x #50 ea 06/19/21 06/19/21 5/32 (BD Keira 2nd Gen Pen Needle) semaglutide 0.25 mg or 0.5 mg (2 0.25 mg subcut QWEEK 06/19/21 06/19/21 mg/1.5 mL) subcutaneous pen injector (Ozempic) Previous Rx's Medication Instructions Recorded warfarin 5 mg tablet 5 mg PO DAILY #90 tabs 03/23/20 benzocaine 15 mg lozenges 15 mg mucous membrane Q2-3H PRN 04/06/22 sore throat #18 ea metoprolol succinate 50 mg 50 mg PO DAILY #30 tabs 04/06/22 tablet,extended release 24 hr <BING Mcdonald - Last Filed: 04/09/22 12:50> Allergies/adverse reactions: Allergies Allergy/AdvReac Type Severity Reaction Status Date / Time ibuprofen [From Motrin] Allergy Mild SWELLING Verified 03/20/22 10:18 SALMON AdvReac Mild VOMITING Uncoded 03/20/22 10:18 <BING Mcdonald - Last Filed: 04/09/22 12:50> Review of Systems Review of Systems: Constitutional : No Weight loss, No Fever, No Chills, No Night Sweats, No Fatigue, No Malaise ENT/Mouth : No Hearing loss, No Ear Pain, No Nasal Congestion, No Sinus Pain, No Hoarseness, No sore throat, No Rhinorrhea, No Swallowing Difficulty Eyes: No Eye Pain, No Swelling, No Redness, No Foreign Body, No Discharge, No Vision Changes Cardiovascular : No Chest Pain, No SOB, No Dyspnea on Exertion, No Orthopnea, No Edema, No Palpitations Respiratory : Complaining of dry cough, sore throat from coughing, no wheezing. Gastrointestinal : No Nausea, No Vomiting, No Diarrhea, No Constipation, No abdominal Pain, No Hematochezia, No Melena Genitourinary : no irregular bleeding, No Dysuria, No Urinary Frequency, No Hematuria, No Urinary Incontinence, No Urgency, No Flank Pain, No Urinary Flow Changes, No Hesitancy Musculoskeletal : No joint pain, No Myalgias, No Joint Swelling Skin : No Skin Lesions, No rash Neuro : No Weakness, No Numbness, No Paresthesias, No Loss of Consciousness, No Dizziness, No Headache Psych : No Anxiety/Panic, No Depression, No SI/HI/AH/VH, No Social Issues, Heme/Lymph: No Bruising, No Bleeding,No Lymphadenopathy Endocrine : No Polyuria, No Polydipsia, No Temperature Intolerance <Lora Chou MD - Last Filed: 04/06/22 02:07> [facility] Past Medical History Medical History: Medical History Current use of anticoagulant therapy Diabetes Diabetes Heart attack High cholesterol Hypertension Paroxysmal A-fib <BING Mcdonald - Last Filed: 04/09/22 12:50> Social History Social History: Social History Alcohol intake: never Patient Tobacco Use Status: Never used Tobacco Smoked in Last 30 Days: No Use of substances other than those prescribed or required for medical reasons: No Advance Directives: No Advance Directives Information Provided: Yes <BING Mcdonald - Last Filed: 04/09/22 12:50> Physical Exam ED Vital Signs: Vital Signs - 24 hr 04/05/22 17:09 04/05/22 18:11 04/05/22 20:58 Temperature 98.3 F 98.3 F Pulse Rate 108 H 120 H 91 Respiratory Rate 20 18 17 Blood Pressure 146/80 H 102/64 113/73 Pulse Oximetry 96 98 Oxygen Delivery Method Room Air Room Air 04/05/22 23:37 04/06/22 01:12 04/06/22 01:53 Temperature 98.4 F 98.3 F Pulse Rate 111 H 90 Respiratory Rate 17 14 Blood Pressure 126/84 121/67 Pulse Oximetry 98 97 98 Oxygen Delivery Method Room Air Room Air Room Air BMI result Body Mass Index 31.5 <BING Mcdonald - Last Filed: 04/09/22 12:50> Vital Signs - 24 hr 04/05/22 17:09 04/05/22 18:11 04/05/22 20:58 Temperature 98.3 F 98.3 F Pulse Rate 108 H 120 H 91 Respiratory Rate 20 18 17 Blood Pressure 146/80 H 102/64 113/73 Pulse Oximetry 96 98 Oxygen Delivery Method Room Air Room Air 04/05/22 23:37 04/06/22 01:12 04/06/22 01:53 Temperature 98.4 F 98.3 F Pulse Rate 111 H 90 Respiratory Rate 17 14 Blood Pressure 126/84 121/67 Pulse Oximetry 98 97 98 Oxygen Delivery Method Room Air Room Air Room Air BMI result Body Mass Index 31.5 <Lora Chou MD - Last Filed: 04/06/22 02:07> Const Other: Appearance: Alert. Oriented X3. No acute distress. Well-appearing Eyes: Pupils equal, round and reactive to light. ENT: Pharynx normal. Neck: Normal inspection. Neck supple. No lymph nodes noted. No crepitus CVS: Irregularly irregular heart rate between 160 and 190 Pulses normal. Normal S1 and S2 Respiratory: No respiratory distress. Breath sounds normal. No Wheezing. No rales Abdomen: Soft and nontender. No rigidity. No distention. Skin: Skin warm and dry. Normal skin color. Normal skin turgor. Extremities: No lower extremity edema. No Lacerations. No Rash Neuro: Oriented X 3. No motor deficit. No sensory deficit. Moving all extremities. No slurred speech. CN 2 through 12 grossly intact Psych: calm, cooperative, normal affect <Lora Chou MD - Last Filed: 04/06/22 02:07> Course Course Course Narrative: RME: Patient states he had covid two weeks ago, but still has the same cough from when he had covid. patient had antibiotides treatment and is now negative, but the cough never left. Chest xray. EKG and cardiac labs ordered due to slight tachycardia. <BING Mcdonald - Last Filed: 04/09/22 12:50> RME: Patient states he had covid two weeks ago, but still has the same cough from when he had covid. patient had antibiotides treatment and is now negative, but the cough never left. Chest xray. EKG and cardiac labs ordered due to slight tachycardia. Patient's blood pressure initially 102/64, heart rate between 160 and 190. Patient was given 1 dose of digoxin IV push 0.25mg Patient also received 1 dose of calcium gluconate, current blood pressure 129/71 Well, would recommend a CT scan for pulmonary embolism. EKG has low voltage, unclear reason why patient was initially hypotensive. D-dimer negative, patient's INR is 3.8. CT scan. Pulmonary embolism is negative. Patient received an additional dose of 15 mg of Cardizem, patient's heart rate in the 90s, blood pressure 124 systolic. Patient asymptomatic. Patient requesting medication for his sore throat. Discussed with the patient possible admission for observation. Patient declined, patient states that he would prefer to be sent home, patient feels well. Discussed with the patient that he will be started on metoprolol for rate control, it is to follow-up with Cardiology, agrees with plan. <Lora Chou MD - Last Filed: 04/06/22 02:07> Medications Administered Discontinued Medications Generic Name Dose Route Start Last Admin Trade Name Freq PRN Reason Stop Dose Admin Digoxin 0.25 mg 04/05/22 17:53 04/05/22 17:58 Digoxin 0.5 Mg/2 Ml Ampul IVPUSH 04/05/22 17:54 0.25 mg ONCE ONE Administration Diltiazem HCl 20 mg 04/05/22 19:12 04/05/22 20:13 Diltiazem Hcl 50 Mg/10 Ml Vial IVPUSH 04/05/22 19:13 20 mg STAT STA Administration Diltiazem HCl 15 mg 04/06/22 00:27 04/06/22 01:11 Diltiazem Hcl 50 Mg/10 Ml Vial IVPUSH 04/06/22 00:28 15 mg STAT STA Administration Calcium Gluconate 2 gm in 100 mls @ 50 mls/hr 04/05/22 17:55 04/05/22 19:56 Calcium Gluconate IV 04/05/22 19:54 Infused ONCE ONE Infusion Iohexol 100 ml 04/05/22 20:06 04/05/22 20:07 Iohexol 350 Mg/Ml 100 Ml Infus..Btl IV 04/05/22 20:07 65 ml ONCE ONE Administration Lidocaine HCl 15 ml 04/06/22 02:04 04/06/22 03:23 Lidocaine Hcl Viscous 2 % 15 Ml Solution MUCOUS MEM 04/06/22 02:05 15 ml ONCE ONE Administration <BING Mcdonald - Last Filed: 04/09/22 12:50> Medications Administered Discontinued Medications Generic Name Dose Route Start Last Admin Trade Name Freq PRN Reason Stop Dose Admin Digoxin 0.25 mg 04/05/22 17:53 04/05/22 17:58 Digoxin 0.5 Mg/2 Ml Ampul IVPUSH 04/05/22 17:54 0.25 mg ONCE ONE Administration Diltiazem HCl 20 mg 04/05/22 19:12 04/05/22 20:13 Diltiazem Hcl 50 Mg/10 Ml Vial IVPUSH 04/05/22 19:13 20 mg STAT STA Administration Diltiazem HCl 15 mg 04/06/22 00:27 04/06/22 01:11 Diltiazem Hcl 50 Mg/10 Ml Vial IVPUSH 04/06/22 00:28 15 mg STAT STA Administration Calcium Gluconate 2 gm in 100 mls @ 50 mls/hr 04/05/22 17:55 04/05/22 19:56 Calcium Gluconate IV 04/05/22 19:54 Infused ONCE ONE Infusion Iohexol 100 ml 04/05/22 20:06 04/05/22 20:07 Iohexol 350 Mg/Ml 100 Ml Infus..Btl IV 04/05/22 20:07 65 ml ONCE ONE Administration Lidocaine HCl 15 ml 04/06/22 02:04 04/06/22 03:23 Lidocaine Hcl Viscous 2 % 15 Ml Solution MUCOUS MEM 04/06/22 02:05 15 ml ONCE ONE Administration <Lora Chou MD - Last Filed: 04/06/22 02:07> Medical Decision Making Lab Data Result Diagrams: : 04/05/22 17:51 04/05/22 17:51 <BING Mcdonald - Last Filed: 04/09/22 12:50> Labs: Lab Results 04/05/22 04/05/22 04/05/22 Range/Units 17:51 17:51 17:51 WBC 10.1 (4.8-10.8) X10*3/uL RBC 5.55 (4.60-5.80) X10*6/uL Hgb 16.7 (14.0-18.0) g/dl Hct 50.0 (42.0-52.0) % MCV 90.1 (80.0-98.0) fL MCH 30.1 (27.0-33.0) pg MCHC 33.4 (31.0-36.0) g/dl RDW 13.2 (11.0-16.0) % Plt Count 218 (160-400) X10*3/uL MPV 9.3 L (9.4-12.4) fL Immature Gran % (Auto) 0.4 (0.0-0.4) % Neut % (Auto) 61.5 (45-73) % Lymph % (Auto) 28.2 (20-40) % [place] % (Auto) 8.4 (2-11) % Eos % (Auto) 1.2 (0-4) % Baso % (Auto) 0.3 (0-2) % Lymph # (Auto) 2.9 (1.2-4.9) X10*3/uL [place] # (Auto) 0.9 (0.1-1.2) X10*3/uL Eos # (Auto) 0.1 (0.0-0.4) X10*3/uL Baso # (Auto) 0.0 (0.0-0.2) X10*3/uL Abs Immat Gran (auto) 0.04 H (0.00-0.03) X10*3/uL Absolute Neuts (auto) 6.2 (2.0-8.3) x10*3/uL Absolute Nucleated RBC 0.000 (0.0-0.012) X10*3/uL Nucleated RBC % (auto) 0.0 (0.0-0.2) /100WBC PT 45.9 H (10.0-13.1) SEC INR 3.8 H (0.9-1.1) APTT 47.4 H (26.0-36.4) SEC D-Dimer High Sensitivty < 150 NG/ML Sodium 136 (135-145) mmol/L Potassium 4.4 (3.3-5.1) mmol/L Chloride 104 (96-108) mmol/L Carbon Dioxide 21 L (22-29) mmol/L Anion Gap 15 (12-20) BUN 10 (9-16) mg/dL Creatinine 0.96 (0.5-1.4) mg/dL Estim Creat Clear Calc 62.4 Estimated GFR > 60 Random Glucose 214 H (60-115) mg/dL Calcium 9.1 (8.4-10.2) mg/dL Total Bilirubin 1.4 H (0.0-1.0) mg/dL AST 31 (5-37) U/L ALT 27 (0-40) U/L Alkaline Phosphatase 108 (39-117) U/L Troponin I High Sens (<3.5-35.0) ng/L B-Natriuretic Peptide (<100) pg/mL Total Protein 7.5 (6.5-8.0) g/dL Albumin 3.8 (3.5-5.0) g/dL 04/05/22 04/05/22 Range/Units 17:51 17:51 WBC (4.8-10.8) X10*3/uL RBC (4.60-5.80) X10*6/uL Hgb (14.0-18.0) g/dl Hct (42.0-52.0) % MCV (80.0-98.0) fL MCH (27.0-33.0) pg MCHC (31.0-36.0) g/dl RDW (11.0-16.0) % Plt Count (160-400) X10*3/uL MPV (9.4-12.4) fL Immature Gran % (Auto) (0.0-0.4) % Neut % (Auto) (45-73) % Lymph % (Auto) (20-40) % [place] % (Auto) (2-11) % Eos % (Auto) (0-4) % Baso % (Auto) (0-2) % Lymph # (Auto) (1.2-4.9) X10*3/uL [place] # (Auto) (0.1-1.2) X10*3/uL Eos # (Auto) (0.0-0.4) X10*3/uL Baso # (Auto) (0.0-0.2) X10*3/uL Abs Immat Gran (auto) (0.00-0.03) X10*3/uL Absolute Neuts (auto) (2.0-8.3) x10*3/uL Absolute Nucleated RBC (0.0-0.012) X10*3/uL Nucleated RBC % (auto) (0.0-0.2) /100WBC PT (10.0-13.1) SEC INR (0.9-1.1) APTT (26.0-36.4) SEC D-Dimer High Sensitivty NG/ML Sodium (135-145) mmol/L Potassium (3.3-5.1) mmol/L Chloride (96-108) mmol/L Carbon Dioxide (22-29) mmol/L Anion Gap (12-20) BUN (9-16) mg/dL Creatinine (0.5-1.4) mg/dL Estim Creat Clear Calc Estimated GFR Random Glucose (60-115) mg/dL Calcium (8.4-10.2) mg/dL Total Bilirubin (0.0-1.0) mg/dL AST (5-37) U/L ALT (0-40) U/L Alkaline Phosphatase (39-117) U/L Troponin I High Sens < 3.5 (<3.5-35.0) ng/L B-Natriuretic Peptide 75 (<100) pg/mL Total Protein (6.5-8.0) g/dL Albumin (3.5-5.0) g/dL <BING Mcdonald - Last Filed: 04/09/22 12:50> Lab Results 04/05/22 04/05/22 04/05/22 Range/Units 17:51 17:51 17:51 WBC 10.1 (4.8-10.8) X10*3/uL RBC 5.55 (4.60-5.80) X10*6/uL Hgb 16.7 (14.0-18.0) g/dl Hct 50.0 (42.0-52.0) % MCV 90.1 (80.0-98.0) fL MCH 30.1 (27.0-33.0) pg MCHC 33.4 (31.0-36.0) g/dl RDW 13.2 (11.0-16.0) % Plt Count 218 (160-400) X10*3/uL MPV 9.3 L (9.4-12.4) fL Immature Gran % (Auto) 0.4 (0.0-0.4) % Neut % (Auto) 61.5 (45-73) % Lymph % (Auto) 28.2 (20-40) % [place] % (Auto) 8.4 (2-11) % Eos % (Auto) 1.2 (0-4) % Baso % (Auto) 0.3 (0-2) % Lymph # (Auto) 2.9 (1.2-4.9) X10*3/uL [place] # (Auto) 0.9 (0.1-1.2) X10*3/uL Eos # (Auto) 0.1 (0.0-0.4) X10*3/uL Baso # (Auto) 0.0 (0.0-0.2) X10*3/uL Abs Immat Gran (auto) 0.04 H (0.00-0.03) X10*3/uL Absolute Neuts (auto) 6.2 (2.0-8.3) x10*3/uL Absolute Nucleated RBC 0.000 (0.0-0.012) X10*3/uL Nucleated RBC % (auto) 0.0 (0.0-0.2) /100WBC PT 45.9 H (10.0-13.1) SEC INR 3.8 H (0.9-1.1) APTT 47.4 H (26.0-36.4) SEC D-Dimer High Sensitivty < 150 NG/ML Sodium 136 (135-145) mmol/L Potassium 4.4 (3.3-5.1) mmol/L Chloride 104 (96-108) mmol/L Carbon Dioxide 21 L (22-29) mmol/L Anion Gap 15 (12-20) BUN 10 (9-16) mg/dL Creatinine 0.96 (0.5-1.4) mg/dL Estim Creat Clear Calc 62.4 Estimated GFR > 60 Random Glucose 214 H (60-115) mg/dL Calcium 9.1 (8.4-10.2) mg/dL Total Bilirubin 1.4 H (0.0-1.0) mg/dL AST 31 (5-37) U/L ALT 27 (0-40) U/L Alkaline Phosphatase 108 (39-117) U/L Troponin I High Sens (<3.5-35.0) ng/L B-Natriuretic Peptide (<100) pg/mL Total Protein 7.5 (6.5-8.0) g/dL Albumin 3.8 (3.5-5.0) g/dL 04/05/22 04/05/22 Range/Units 17:51 17:51 WBC (4.8-10.8) X10*3/uL RBC (4.60-5.80) X10*6/uL Hgb (14.0-18.0) g/dl Hct (42.0-52.0) % MCV (80.0-98.0) fL MCH (27.0-33.0) pg MCHC (31.0-36.0) g/dl RDW (11.0-16.0) % Plt Count (160-400) X10*3/uL MPV (9.4-12.4) fL Immature Gran % (Auto) (0.0-0.4) % Neut % (Auto) (45-73) % Lymph % (Auto) (20-40) % [place] % (Auto) (2-11) % Eos % (Auto) (0-4) % Baso % (Auto) (0-2) % Lymph # (Auto) (1.2-4.9) X10*3/uL [place] # (Auto) (0.1-1.2) X10*3/uL Eos # (Auto) (0.0-0.4) X10*3/uL Baso # (Auto) (0.0-0.2) X10*3/uL Abs Immat Gran (auto) (0.00-0.03) X10*3/uL Absolute Neuts (auto) (2.0-8.3) x10*3/uL Absolute Nucleated RBC (0.0-0.012) X10*3/uL Nucleated RBC % (auto) (0.0-0.2) /100WBC PT (10.0-13.1) SEC INR (0.9-1.1) APTT (26.0-36.4) SEC D-Dimer High Sensitivty NG/ML Sodium (135-145) mmol/L Potassium (3.3-5.1) mmol/L Chloride (96-108) mmol/L Carbon Dioxide (22-29) mmol/L Anion Gap (12-20) BUN (9-16) mg/dL Creatinine (0.5-1.4) mg/dL Estim Creat Clear Calc Estimated GFR Random Glucose (60-115) mg/dL Calcium (8.4-10.2) mg/dL Total Bilirubin (0.0-1.0) mg/dL AST (5-37) U/L ALT (0-40) U/L Alkaline Phosphatase (39-117) U/L Troponin I High Sens < 3.5 (<3.5-35.0) ng/L B-Natriuretic Peptide 75 (<100) pg/mL Total Protein (6.5-8.0) g/dL Albumin (3.5-5.0) g/dL <Lora Chou MD - Last Filed: 04/06/22 02:07> Critical Care Time Critical Care Time Critical Care Time: Yes <Lora Chou MD - Last Filed: 04/06/22 02:07> Total Critical Care Time: 60 <Lora Chou MD - Last Filed: 04/06/22 02:07> Attestation: I have personally provided critical care time. Time includes review of lab data, radiology results, discussion with consultants, and monitoring for potential decompensation. Intervention performed as documented. <Lora Chou MD - Last Filed: 04/06/22 02:07> Discharge Plan Discharge Clinical Impression: Paroxysmal A-fib <BING Mcdonald - Last Filed: 04/09/22 12:50> Patient Disposition: Home, Self-Care <BING Mcdonald - Last Filed: 04/09/22 12:50> Instructions: A-fib (Atrial Fibrillation) (DC) <BING Mcdonald - Last Filed: 04/09/22 12:50> Additional Instructions: Please follow-up with your primary care physician tomorrow. If you have any worsening or new symptoms, please return to the emergency room or call 911 <BING Mcdonald - Last Filed: 04/09/22 12:50> Prescriptions: New metoprolol succinate 50 mg tablet extended release 24 hr 50 mg PO DAILY Qty: 30 0RF benzocaine 15 mg lozenge 15 mg mucous membrane Q2-3H PRN (Reason: sore throat) Qty: 18 0RF No Action warfarin 5 mg tablet 5 mg PO DAILY Qty: 90 0RF Protocol: Dose Management Condition: Saturday (Week One) Dose/Route: 2.5 mg Instruction: 0.5 x 5 mg tablets Condition: Saturday Dose/Route: 5 mg Instruction: 1 x 5 mg tablet Condition: Saturday Dose/Route: 2.5 mg Instruction: 0.5 x 5 mg tablets Condition: Saturday Dose/Route: 2.5 mg Instruction: 0.5 x 5 mg tablets Condition: Dose/Route: 5 mg Instruction: 1 x 5 mg tablet Condition: Saturday Dose/Route: 2.5 mg Instruction: 0.5 x 5 mg tablets Condition: Saturday Dose/Route: 2.5 mg Instruction: 0.5 x 5 mg tablets Condition: Saturday (Week Two) Dose/Route: 2.5 mg Instruction: 0.5 x 5 mg tablets Condition: Saturday Dose/Route: 5 mg Instruction: 1 x 5 mg tablet Condition: Saturday Dose/Route: 2.5 mg Instruction: 0.5 x 5 mg tablets Condition: Saturday Dose/Route: 2.5 mg Instruction: 0.5 x 5 mg tablets Condition: Dose/Route: 5 mg Instruction: 1 x 5 mg tablet Condition: Saturday Dose/Route: 2.5 mg Instruction: 0.5 x 5 mg tablets Condition: Saturday Dose/Route: 2.5 mg Instruction: 0.5 x 5 mg tablets Protocol Text: Adjustment Start Date: Saturday03/20/22 INR Value: 3.1 INR Date: 03/20/22 Recheck Date: 04/03/22 Additional Instructions: cont reg dosing eat greens to lower inr call with any medication chagnes Rx Instructions: 5MG X2, 2.5MGX5 tamsulosin 0.4 mg capsule 0 mg PO tramadol 50 mg tablet 50 mg PO TID PRN atorvastatin 80 mg tablet 80 mg PO DAILY glipizide 5 mg tablet 0 mg PO lisinopril 5 mg tablet 5 mg PO DAILY (DME) FreeStyle Lite Strips Strip See Rx Instructions Not Applicable BID Qty: 10 Rx Instructions: As directed Ozempic 0.25 mg or 0.5 mg(2 mg/1.5 mL) pen injector 0.25 mg subcut QWEEK (DME) pen needle, diabetic [BD Keira 2nd Gen Pen Needle] 32 gauge x 5/32 needle See Rx Instructions .ROUTE .MEDSUPPLY Qty: 50 Rx Instructions: As directed finasteride 5 mg tablet 5 mg PO DAILY (DME) blood-glucose meter [FreeStyle Lite Meter] Kit See Rx Instructions .ROUTE TID Qty: 1 Rx Instructions: As directed <BING Mcdonald - Last Filed: 04/09/22 12:50> Interventions: ED Discharge Assessment Last Done: 04/06/22 03:41 <BING Mcdonald - Last Filed: 04/09/22 12:50> Discharge Date/Time: 04/06/22 03:43 <BING Mcdonald - Last Filed: 04/09/22 12:50>
--- NOTE | 2022-04-05 17:12 | ECG_ITS ---
Test Reason : SOB Blood Pressure : / mmHG Vent. Rate : 145 BPM Atrial Rate : 000 BPM P-R Int : 000 ms QRS Dur : 080 ms QT Int : 270 ms P-R-T Axes : 000 088 052 degrees QTc Int : 419 ms Atrial fibrillation with rapid ventricular response Abnormal ECG When compared with ECG of 12-OCT-2020 02:12, Atrial fibrillation has replaced Sinus rhythm Vent. rate has increased BY 71 BPM Referred By: Lora Chou Electronically Signed By:Farrukh Mathis
--- NOTE | 2022-04-05 17:30 | ECG_ITS ---
Test Reason : TACHYCARDIA Blood Pressure : / mmHG Vent. Rate : 126 BPM Atrial Rate : 000 BPM P-R Int : 000 ms QRS Dur : 082 ms QT Int : 310 ms P-R-T Axes : 000 085 049 degrees QTc Int : 448 ms Atrial fibrillation with rapid ventricular response Low voltage QRS Abnormal ECG When compared with ECG of 05-APR-2022 17:34, No significant change was found Referred By: Duglas Shannon Electronically Signed By:Farrukh Mathis
[2022-04-05] MEDS: Digoxin 0.5 MG/2 ML AMPUL 0.25 MG IVPUSH (17:58)
[2022-04-05 18:01] LABS: MANUAL DIFF FLAG NO
[2022-04-05 18:05] LABS: Basophils Percent Auto 0.3 % (0-2); Eosinophils Absolute Auto 0.1 X10*3/uL (0.0-0.4); Eosinophils Percent Auto 1.2 % (0-4); Hemoglobin 16.7 g/dl (14.0-18.0); Imm Gran Abs Auto 0.04 X10*3/uL (0.00-0.03); Imm Gran Pct Auto 0.4 % (0.0-0.4); Lymphocytes Absolute Auto 2.9 X10*3/uL (1.2-4.9); Lymphocytes Percent Auto 28.2 % (20-40); Mean Corpuscular HGB Conc 33.4 g/dl (31.0-36.0); Mean Corpuscular Hemoglobin 30.1 pg (27.0-33.0); Mean Corpuscular Volume 90.1 fL (80.0-98.0); Mean Platelet Volume 9.3 fL (9.4-12.4); Monocytes Absolute Auto 0.9 X10*3/uL (0.1-1.2); Monocytes Percent Auto 8.4 % (2-11); Neutrophils Absolute Auto 6.2 x10*3/uL (2.0-8.3); Neutrophils Percent Auto 61.5 % (45-73); Platelet Count 218 X10*3/uL (160-400); Red Blood Count 5.55 X10*6/uL (4.60-5.80); Red Cell Distribution Width 13.2 % (11.0-16.0); White Blood Count 10.1 X10*3/uL (4.8-10.8)
[2022-04-05] MEDS: Calcium Gluconate/NaCl,Iso-Osm 2 GM/100 ML PLAST..BAG IV (18:07)
[2022-04-05 18:11] VITALS: BP 102/64; PULSE 120; RESP 18
[2022-04-05 18:13] LABS: INTERNATIONAL NORM RATIO 3.8 (0.9-1.1); Prothrombin Time 45.9 SEC (10.0-13.1)
[2022-04-05 18:15] LABS: Partial Thromboplastin Time 47.4 SEC (26.0-36.4)
[2022-04-05 18:27] LABS: D Dimer High Sensitivity < 150 NG/ML
[2022-04-05 18:30] LABS: Alanine Aminotransferase 27 U/L (0-40); Albumin Level 3.8 g/dL (3.5-5.0); Alkaline Phosphatase 108 U/L (39-117); Anion Gap 15 (12-20); Aspartate Amino Transferase 31 U/L (5-37); Bilirubin Total 1.4 mg/dL (0.0-1.0); Blood Urea Nitrogen 10 mg/dL (9-16); Calcium 9.1 mg/dL (8.4-10.2); Carbon Dioxide 21 mmol/L (22-29); Chloride 104 mmol/L (96-108); Creatinine Clr Calc Pharmacy 62.4; Estimated Glomerular Filt Rate > 60; Glucose Random 214 mg/dL (60-115); Potassium 4.4 mmol/L (3.3-5.1); Sodium 136 mmol/L (135-145); Total Protein 7.5 g/dL (6.5-8.0)
[2022-04-05 18:32] LABS: B Type Natriuretic Peptide 75 pg/mL (<100)
[2022-04-05 18:38] LABS: Troponin-I High Sensitivity < 3.5 ng/L (<3.5-35.0)
[2022-04-05] MEDS: iohexoL 350 MG/ML 100 ML INFUS..BTL IV (20:07)
[2022-04-05] MEDS: dilTIAZem HCL 50 MG/10 ML VIAL 20 MG IVPUSH (20:13)
[2022-04-05 20:58] VITALS: BP 113/73; PULSE 91; RESP 17; TEMP 36.8; O2SAT 98
[2022-04-05 23:37] VITALS: BP 126/84; PULSE 111; RESP 17; TEMP 36.9; O2SAT 98
[2022-04-06] MEDS: dilTIAZem HCL 50 MG/10 ML VIAL 15 MG IVPUSH (01:11)
[2022-04-06 01:12] VITALS: O2SAT 97
[2022-04-06 01:53] VITALS: BP 121/67; PULSE 90; RESP 14; TEMP 36.8; O2SAT 98
--- NOTE | 2022-04-06 02:46 | PM.IMHP ---
History of Present Illness Date of Service: 04/06/22 [facility] Medical History Current use of anticoagulant therapy Diabetes Diabetes Heart attack High cholesterol Hypertension Paroxysmal A-fib Social History Alcohol intake: never Patient Tobacco Use Status: Never used Tobacco Smoked in Last 30 Days: No Use of substances other than those prescribed or required for medical reasons: No Advance Directives: No Advance Directives Information Provided: Yes Meds Allergies Allergy/AdvReac Type Severity Reaction Status Date / Time ibuprofen [From Motrin] Allergy Mild SWELLING Verified 03/20/22 10:18 SALMON AdvReac Mild VOMITING Uncoded 03/20/22 10:18 Home Medications Medication Instructions Recorded Confirmed Last Taken Type atorvastatin 80 mg tablet 80 mg PO DAILY 04/27/20 06/19/21 Unknown History blood sugar diagnostic #10 ea 04/27/20 06/19/21 Unknown History glipizide 5 mg tablet 0 mg PO 04/27/20 06/19/21 Unknown History lisinopril 5 mg tablet 5 mg PO DAILY 04/27/20 06/19/21 Unknown History tamsulosin 0.4 mg capsule 0 mg PO 04/27/20 06/19/21 Unknown History tramadol 50 mg tablet 50 mg PO TID PRN 04/27/20 06/19/21 Unknown History blood-glucose meter (FreeStyle #1 ea 06/19/21 06/19/21 Unknown History Lite Meter kit) finasteride 5 mg tablet 5 mg PO DAILY 06/19/21 06/19/21 Unknown History pen needle, diabetic 32 gauge x #50 ea 06/19/21 06/19/21 Unknown History (BD Keira 2nd Gen Pen Needle) semaglutide 0.25 mg or 0.5 mg (2 0.25 mg subcut QWEEK 06/19/21 06/19/21 Unknown History mg/1.5 mL) subcutaneous pen injector (Ozempic) Physical Exam Vital Signs and Narrative: Vital Signs: Last Vital Signs Temp 98.3 F 04/06/22 01:53 Pulse 90 04/06/22 01:53 Resp 14 04/06/22 01:53 BP 121/67 04/06/22 01:53 Pulse Ox 98 04/06/22 01:53 O2 Del Method 04/06/22 01:53 BMI result Body Mass Index 31.5 Results Labs CBC and Chem 7: 04/05/22 17:51 04/05/22 17:51 Labs: Laboratory Results - last 24 hr 04/05/22 04/05/22 04/05/22 17:51 17:51 17:51 MCV 90.1 MCH 30.1 MCHC 33.4 RDW 13.2 Plt Count 218 MPV 9.3 L Immature Gran % (Auto) 0.4 Neut % (Auto) 61.5 Lymph % (Auto) 28.2 [place] % (Auto) 8.4 Eos % (Auto) 1.2 Baso % (Auto) 0.3 Lymph # (Auto) 2.9 [place] # (Auto) 0.9 Eos # (Auto) 0.1 Baso # (Auto) 0.0 Abs Immat Gran (auto) 0.04 H Absolute Neuts (auto) 6.2 Absolute Nucleated RBC 0.000 Nucleated RBC % (auto) 0.0 PT 45.9 H INR 3.8 H APTT 47.4 H D-Dimer High Sensitivty < 150 Anion Gap 15 Estim Creat Clear Calc 62.4 Estimated GFR > 60 Random Glucose 214 H Calcium 9.1 Total Bilirubin 1.4 H AST 31 ALT 27 Alkaline Phosphatase 108 Troponin I High Sens B-Natriuretic Peptide Total Protein 7.5 Albumin 3.8 04/05/22 04/05/22 17:51 17:51 MCV MCH MCHC RDW Plt Count MPV Immature Gran % (Auto) Neut % (Auto) Lymph % (Auto) [place] % (Auto) Eos % (Auto) Baso % (Auto) Lymph # (Auto) [place] # (Auto) Eos # (Auto) Baso # (Auto) Abs Immat Gran (auto) Absolute Neuts (auto) Absolute Nucleated RBC Nucleated RBC % (auto) PT INR APTT D-Dimer High Sensitivty Anion Gap Estim Creat Clear Calc Estimated GFR Random Glucose Calcium Total Bilirubin AST ALT Alkaline Phosphatase Troponin I High Sens < 3.5 B-Natriuretic Peptide 75 Total Protein Albumin Imaging Radiologist's Impressions: Impressions Chest X-Ray 04/05/22 17:22 IMPRESSION: Mild cardiomegaly. No acute process seen. 4 mm calcified nodule left upper lobe unchanged to previous chest x-ray 11/17/2020.. Chest CTA 04/05/22 20:04 IMPRESSION: 1. No pulmonary embolism. 2. Bronchial wall thickening can be seen with a small airways process such as asthma or atypical/viral infection. 3. Cholelithiasis. VTE: negative Assessment and Plan Time Spent With Patient Time: Total time managing care of this patient today ____ minutes. Quality VTE VTE Risk Level:: Medical - low VTE Device Contraindication: Treatment Not Indicated VTE Drug Contraindication: N/A - Med Ordered
[2022-04-06] MEDS: Lidocaine HCl Viscous 2 % 15 ML SOLUTION MUCOUS MEM (03:23)
== END 2022-04-06 03:43 | disposition home or self-care (01) ==
PROVIDERS: Physician Assistant; Emergency Provider Emergency Medicine; PCP Internal Medicine
DX: I48.0 Paroxysmal atrial fibrillation (principal); R06.02 Shortness of breath; E11.9 Type 2 diabetes mellitus without complications; I10 Essential (primary) hypertension; E78.5 Hyperlipidemia, unspecified; Z79.01 Long term (current) use of anticoagulants; Z79.02 Long term (current) use of antithrombotics/antiplatelets; Z79.899 Other long term (current) drug therapy
CPT/HCPCS: 36415; 71045; 71275; 80053; 83880; 84484; 85025; 85379; 85610; 85730; 93005; 96365; 96375; 96376; 99285; J0610; J1160; Q9967

== ENCOUNTER → 2022-04-11 10:03 | Outpatient (BNVA) | payer MEDICARE, SELFPAY | PROVIDERS: PCP Internal Medicine; Visit Provider Internal Medicine | DX: I48.0 Paroxysmal atrial fibrillation (principal); Z79.01 Long term (current) use of anticoagulants; Z51.81 Encounter for therapeutic drug level monitoring | CPT/HCPCS: 85610; 99211 ==

== ENCOUNTER → 2022-04-25 10:51 | Outpatient (BNVA) | payer MEDICARE, SELFPAY | PROVIDERS: PCP Internal Medicine; Visit Provider Internal Medicine | DX: I48.0 Paroxysmal atrial fibrillation (principal); Z79.01 Long term (current) use of anticoagulants; Z51.81 Encounter for therapeutic drug level monitoring | CPT/HCPCS: 85610; 99211 ==

== ENCOUNTER → 2022-05-09 10:07 | Outpatient (BNVA) | payer MEDICARE, SELFPAY | PROVIDERS: PCP Internal Medicine; Visit Provider Internal Medicine | DX: I48.0 Paroxysmal atrial fibrillation (principal); Z79.01 Long term (current) use of anticoagulants; Z51.81 Encounter for therapeutic drug level monitoring | CPT/HCPCS: 85610; 99211 ==

== ENCOUNTER → 2022-05-30 10:18 | Outpatient (BNVA) | payer MEDICARE, SELFPAY | PROVIDERS: PCP Internal Medicine; Visit Provider Internal Medicine | DX: I48.0 Paroxysmal atrial fibrillation (principal); Z51.81 Encounter for therapeutic drug level monitoring; Z79.01 Long term (current) use of anticoagulants | CPT/HCPCS: 85610; 99211 ==

== ENCOUNTER → 2022-07-05 09:01 | Outpatient (BNVA) | payer MEDICARE, SELFPAY | PROVIDERS: PCP Internal Medicine; Visit Provider Internal Medicine | DX: I48.0 Paroxysmal atrial fibrillation (principal); Z79.01 Long term (current) use of anticoagulants; Z51.81 Encounter for therapeutic drug level monitoring | CPT/HCPCS: 85610; 99211 ==

== ENCOUNTER → 2022-08-02 09:13 | Outpatient (BNVA) | payer MEDICARE, SELFPAY | PROVIDERS: PCP Internal Medicine; Visit Provider Internal Medicine | DX: I48.0 Paroxysmal atrial fibrillation (principal); Z79.01 Long term (current) use of anticoagulants; Z51.81 Encounter for therapeutic drug level monitoring | CPT/HCPCS: 85610; 99211 ==

== ENCOUNTER 2022-08-24 07:24 | Outpatient (REF) | payer MEDICARE, SELFPAY ==
--- NOTE | ~2022-08-24 | XR_ITS ---
EXAMINATION :AP bilateral knee standing. Bilateral knee. CLINICAL INDICATIONS: Pain in bilateral knee. TECHNIQUE: AP bilateral knee standing 1 view. 2 views each knee. FINDINGS: AP bilateral knee standing: There is moderate right and mild left medial compartment loss of joint space. There is a small defect along the medial femoral condyle articular surface suggestive of osteochondritis dissecans. Mild periapical spurring lateral compartment right knee is noted. Right knee: There is moderate loss of patellofemoral compartment joint space with periarticular spurring and minimal joints effusion. No bony spurring or fracture seen. Left knee: There is moderate suprapatellar joint effusion with loss of patellofemoral compartment joint space with anterior superior patellar spurring. No acute fracture or lytic process seen. XR/XR knee RT 2V IMPRESSION: 1. Degenerative arthritic changes medial and patellofemoral compartment both knees with periarticular spurring and minimal joint effusion right knee. Moderate joint effusion left knee 2. There is a small defect along the medial femoral condyle articular surface right knee suggestive of osteochondritis dissecans. 3. There is moderate suprapatellar joint effusion left knee.
--- NOTE | ~2022-08-24 | XR_ITS ---
EXAMINATION :AP bilateral knee standing. Bilateral knee. CLINICAL INDICATIONS: Pain in bilateral knee. TECHNIQUE: AP bilateral knee standing 1 view. 2 views each knee. FINDINGS: AP bilateral knee standing: There is moderate right and mild left medial compartment loss of joint space. There is a small defect along the medial femoral condyle articular surface suggestive of osteochondritis dissecans. Mild periapical spurring lateral compartment right knee is noted. Right knee: There is moderate loss of patellofemoral compartment joint space with periarticular spurring and minimal joints effusion. No bony spurring or fracture seen. Left knee: There is moderate suprapatellar joint effusion with loss of patellofemoral compartment joint space with anterior superior patellar spurring. No acute fracture or lytic process seen. XR/XR knee standing BI IMPRESSION: 1. Degenerative arthritic changes medial and patellofemoral compartment both knees with periarticular spurring and minimal joint effusion right knee. Moderate joint effusion left knee 2. There is a small defect along the medial femoral condyle articular surface right knee suggestive of osteochondritis dissecans. 3. There is moderate suprapatellar joint effusion left knee.
--- NOTE | ~2022-08-24 | XR_ITS ---
EXAMINATION :AP bilateral knee standing. Bilateral knee. CLINICAL INDICATIONS: Pain in bilateral knee. TECHNIQUE: AP bilateral knee standing 1 view. 2 views each knee. FINDINGS: AP bilateral knee standing: There is moderate right and mild left medial compartment loss of joint space. There is a small defect along the medial femoral condyle articular surface suggestive of osteochondritis dissecans. Mild periapical spurring lateral compartment right knee is noted. Right knee: There is moderate loss of patellofemoral compartment joint space with periarticular spurring and minimal joints effusion. No bony spurring or fracture seen. Left knee: There is moderate suprapatellar joint effusion with loss of patellofemoral compartment joint space with anterior superior patellar spurring. No acute fracture or lytic process seen. XR/XR knee LT 2V IMPRESSION: 1. Degenerative arthritic changes medial and patellofemoral compartment both knees with periarticular spurring and minimal joint effusion right knee. Moderate joint effusion left knee 2. There is a small defect along the medial femoral condyle articular surface right knee suggestive of osteochondritis dissecans. 3. There is moderate suprapatellar joint effusion left knee.
== END 2022-08-24 07:25 | disposition home or self-care (01) ==
LOC: HO.HOSX 07:24
PROVIDERS: Visit Provider Physician Assistant
DX: M17.0 Bilateral primary osteoarthritis of knee (principal); Z79.899 Other long term (current) drug therapy; Z79.01 Long term (current) use of anticoagulants
CPT/HCPCS: 73560; 73565; 99202

== ENCOUNTER 2022-08-31 18:30 | Emergency (ER) | payer MEDICARE, SELFPAY ==
--- NOTE | ~2022-08-31 | CT_ITS ---
EXAMINATION: CT ABDOMEN AND PELVIS WITH CONTRAST CLINICAL INFORMATION: Left lower quadrant pain COMPARISON: October 19, 2015 TECHNIQUE: Multidetector volumetric images were obtained from the superior aspect of the liver through the pubic symphysis following administration 85 mL of Omnipaque 350 intravenous contrast. Sagittal and coronal reformatted images were obtained on the technologist's workstation. Oral contrast: No This CT examination was performed using dose optimization techniques as appropriate, variously including the following: *Automated exposure control *Adjustment of mA and/or kV according to patient size (this includes techniques or standardized protocols for targeted exams where dose is matched to indication/reason for exam; i.e. extremities or head) *Use of iterative reconstruction technique DLP: 583 mGy-cm FINDINGS: LUNG BASES: There is some bronchial wall thickening seen. No confluent parenchymal disease. Artery artery calcifications seen. No pleural or pericardial effusion. LIVER, GALLBLADDER, AND BILIARY TREE: The liver is normal in size, shape, and attenuation. No focal hepatic lesion or biliary ductal dilatation is present. Cholelithiasis is present without evidence of acute cholecystitis. PANCREAS: Unremarkable. No mass or peripancreatic inflammatory change. SPLEEN: Unremarkable. ADRENAL GLANDS: Unremarkable. KIDNEYS AND URETERS: The kidneys are normal in size, shape, and attenuation. No hydronephrosis, hydroureter, or calculi seen. There is bilateral perinephric stranding present.. There is a 3.6 cm right renal cyst within the lower pole. BLADDER: Large mass impression from large prostate median lobe. Otherwise unremarkable. GASTROINTESTINAL TRACT: No dilated loops of large or small bowel are evident. No free air or free fluid is noted. There is moderate sigmoid diverticulosis without adjacent fat stranding or fluid collection to suggest acute diverticulitis. No pericolonic inflammatory change. No significant bowel wall thickening is appreciated. The appendix is visualized and appears unremarkable. ABDOMINAL WALL: No significant hernia is appreciated. LYMPH NODES: No lymphadenopathy appreciated. VASCULAR: No abdominal aortic aneurysm. Portal vein is patent. There is nonocclusive calcified plaque at the ostium of the visceral vessels. PELVIC VISCERA: Prostate gland is enlarged. OSSEOUS STRUCTURES: No suspicious destructive bony lesions identified. There is calcification of the anterior longitudinal ligament about the lower thoracic and upper lumbar spine. CT/CT abdomen pelvis w IV con IMPRESSION: Cholelithiasis without evidence of acute cholecystitis. No evidence of obstructive uropathy. No evidence of ileus or bowel obstruction. No findings to suggest acute diverticulitis. Fleischner guidelines were followed.
[2022-08-31 18:42] VITALS: BP 114/70; BP 159/70; PULSE 60; RESP 18; TEMP 36.3; O2SAT 98; BMI 31.7
--- NOTE | 2022-08-31 19:06 | ED.ABDPAIN ---
HPI - Abdominal Pain General Chief Complaint: Nausea/Vomiting/Diarrhea Stated Complaint: abdominal pain vomiting Time Seen by Provider: 08/31/22 18:57 Source: patient Mode of arrival: EMS Limitations: no limitations History of Present Illness HPI narrative: Patient comes to the emergency room complaining of left lower quadrant pain that started 1 hour prior to arrival. Patient states that he was sitting when the pain started suddenly. Patient states that the pain radiates towards the back. Patient vomited once, denies any diarrhea constipation, patient feeling attended. Denies fever chills. Patient denies flank pain but states that earlier today he might have passed a stone Related Data Home Medications Medication Instructions Recorded Confirmed atorvastatin 80 mg tablet 80 mg PO DAILY 04/27/20 08/24/22 blood sugar diagnostic #10 ea 04/27/20 08/24/22 glipizide 5 mg tablet 0 mg PO 04/27/20 08/24/22 tamsulosin 0.4 mg capsule 0 mg PO 04/27/20 08/24/22 tramadol 50 mg tablet 50 mg PO TID PRN 04/27/20 08/24/22 blood-glucose meter (FreeStyle #1 ea 06/19/21 08/24/22 Lite Meter kit) finasteride 5 mg tablet 5 mg PO DAILY 06/19/21 08/24/22 pen needle, diabetic 32 gauge x #50 ea 06/19/21 08/24/22 (BD Keira 2nd Gen Pen Needle) semaglutide 0.25 mg or 0.5 mg (2 0.25 mg subcut QWEEK 06/19/21 08/24/22 mg/1.5 mL) subcutaneous pen injector (Ozempic) lisinopril 5 mg tablet 5 mg PO DAILY 07/05/22 08/24/22 metoprolol succinate 25 mg 25 mg PO DAILY 07/05/22 08/24/22 tablet,extended release 24 hr dulaglutide 1.5 mg/0.5 mL mg subcut 08/24/22 08/24/22 subcutaneous pen injector (Trulicity) Previous Rx's Medication Instructions Recorded warfarin 5 mg tablet 5 mg PO DAILY #90 tabs 03/23/20 metoprolol succinate 50 mg 50 mg PO DAILY #30 tabs 04/06/22 tablet,extended release 24 hr hyoscyamine sulfate 0.125 mg tablet 0.125 mg PO QID #10 tabs 08/31/22 Allergies Allergy/AdvReac Type Severity Reaction Status Date / Time acetaminophen [From Percocet] Allergy Intermediate Headache Verified 08/24/22 08:27 oxycodone [From Percocet] Allergy Intermediate Headache Verified 08/24/22 08:27 ibuprofen [From Motrin] Allergy Mild SWELLING Verified 08/24/22 08:27 SALMON AdvReac Mild VOMITING Uncoded 08/24/22 08:27 Review of Systems Review of Systems Constitutional : No Weight loss, No Fever, No Chills, No Night Sweats, No Fatigue, No Malaise ENT/Mouth : No Hearing loss, No Ear Pain, No Nasal Congestion, No Sinus Pain, No Hoarseness, No sore throat, No Rhinorrhea, No Swallowing Difficulty Eyes: No Eye Pain, No Swelling, No Redness, No Foreign Body, No Discharge, No Vision Changes Cardiovascular : No Chest Pain, No SOB, No Dyspnea on Exertion, No Orthopnea, No Edema, No Palpitations Respiratory : No Cough, No Sputum, No Wheezing, No Smoke Exposure, No Dyspnea Gastrointestinal : Complaining of nausea involve No Diarrhea, No Constipation, complaining of left lower quadrant pain,, No Hematochezia, No Melena Genitourinary : no irregular bleeding, No Dysuria, No Urinary Frequency, No Hematuria, No Urinary Incontinence, No Urgency, No Flank Pain, No Urinary Flow Changes, No Hesitancy Musculoskeletal : No joint pain, No Myalgias, No Joint Swelling Skin : No Skin Lesions, No rash Neuro : No Weakness, No Numbness, No Paresthesias, No Loss of Consciousness, No Dizziness, No Headache Psych : No Anxiety/Panic, No Depression, No SI/HI/AH/VH, No Social Issues, Heme/Lymph: No Bruising, No Bleeding,No Lymphadenopathy Endocrine : No Polyuria, No Polydipsia, No Temperature Intolerance [facility] Past Medical History Medical History Current use of anticoagulant therapy Diabetes Diabetes Heart attack High cholesterol Hypertension Paroxysmal A-fib Social History Social History (Updated 08/24/22 @ 08:28 by [facility] Alcohol intake: never Patient Tobacco Use Status: Never used Tobacco Smoked in Last 30 Days: No Use of substances other than those prescribed or required for medical reasons: No Advance Directives: No Advance Directives Information Provided: Yes 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 Oriented X3. No acute distress. Eyes: Pupils equal, round and reactive to light. ENT: Pharynx normal. Neck: Normal inspection. Neck supple. No lymph nodes noted. No crepitus CVS: Normal heart rate and rhythm. Pulses normal. Normal S1 and S2 Respiratory: No respiratory distress. Breath sounds normal. No Wheezing. No rales Abdomen: Soft , mild tenderness to palpation in the left lower quadrant, no flank pain, No rigidity. No distention. Skin: Skin warm and dry. Normal skin color. Normal skin turgor. Extremities: No lower extremity edema. No Lacerations. No Rash Neuro: Oriented X 3. No motor deficit. No sensory deficit. Moving all extremities. No slurred speech. CN 2 through 12 grossly intact Psych: calm, cooperative, normal affect Course Course Course Narrative: -patient's labs pending -patient receiving IV fluids, Zofran morphine Medical Decision Making Medical Decision Making [facility] Narrative: Patient well blood cell count within normal limits. -CT scan does not show any abnormality that may explain the patient's pain. At this time, patient feels well, no abdominal pain. Patient ready for discharge Lab Data [facility] Lab Attestation statement: I reviewed the patient's lab results. 08/31/22 19:08/31/22 11:55 Labs: Lab Results 08/31/22 08/31/22 08/31/22 Range/Units 11:55 19: 19: WBC 10.6 (4.8-10.8) X10*3/uL RBC 4.69 (4.60-5.80) X10*6/uL Hgb 15.0 (14.0-18.0) g/dl Hct 42.9 (42.0-52.0) % MCV 91.5 (80.0-98.0) fL MCH 32.0 (27.0-33.0) pg MCHC 35.0 (31.0-36.0) g/dl RDW 13.2 (11.0-16.0) % Plt Count 177 (160-400) X10*3/uL MPV 9.5 (9.4-12.4) fL Immature Gran % (Auto) 0.3 (0.0-0.4) % Neut % (Auto) 62.2 (45-73) % Lymph % (Auto) 26.1 (20-40) % [place] % (Auto) 7.9 (2-11) % Eos % (Auto) 3.1 (0-4) % Baso % (Auto) 0.4 (0-2) % Lymph # (Auto) 2.8 (1.2-4.9) X10*3/uL [place] # (Auto) 0.8 (0.1-1.2) X10*3/uL Eos # (Auto) 0.3 (0.0-0.4) X10*3/uL Baso # (Auto) 0.0 (0.0-0.2) X10*3/uL Abs Immat Gran (auto) 0.03 (0.00-0.03) X10*3/uL Absolute Neuts (auto) 6.6 (2.0-8.3) x10*3/uL Absolute Nucleated RBC 0.000 (0.0-0.012) X10*3/uL Nucleated RBC % (auto) 0.0 (0.0-0.2) /100WBC PT 25.6 H (10.0-13.1) SEC INR 2.2 H (0.9-1.1) Sodium 144 (135-145) mmol/L Potassium 4.6 (3.3-5.1) mmol/L Chloride 105 (96-108) mmol/L Carbon Dioxide 32 H (22-29) mmol/L Anion Gap 12 (12-20) BUN 15 (9-16) mg/dL Creatinine 1.00 (0.5-1.4) mg/dL Estim Creat Clear Calc 59.2 Estimated GFR > 60 Random Glucose 170 H (60-115) mg/dL Calcium 10.0 D (8.4-10.2) mg/dL Magnesium 2.0 (1.6-2.6) mg/dL Total Bilirubin 1.2 H (0.0-1.0) mg/dL Direct Bilirubin 0.3 (0.0-0.5) mg/dL AST 44 H (5-37) U/L ALT 44 H (0-40) U/L Alkaline Phosphatase 97 (39-117) U/L Total Protein 7.8 (6.5-8.0) g/dL Albumin 4.3 (3.5-5.0) g/dL Lipase 37 (8-78) U/L Urine Color Urine Appearance Urine pH (5.0-9.0) Ur Specific [place] (1.005-1.025) Urine Protein (Neg-Trace) mg/dL Urine Glucose (UA) (Negative) mg/dL Urine Ketones (Negative) mg/dL Urine Blood (Negative) Urine Nitrite (Negative) Ur Leukocyte Esterase (Negative) 08/31/22 Range/Units 20:23 WBC (4.8-10.8) X10*3/uL RBC (4.60-5.80) X10*6/uL Hgb (14.0-18.0) g/dl Hct (42.0-52.0) % MCV (80.0-98.0) fL MCH (27.0-33.0) pg MCHC (31.0-36.0) g/dl RDW (11.0-16.0) % Plt Count (160-400) X10*3/uL MPV (9.4-12.4) fL Immature Gran % (Auto) (0.0-0.4) % Neut % (Auto) (45-73) % Lymph % (Auto) (20-40) % [place] % (Auto) (2-11) % Eos % (Auto) (0-4) % Baso % (Auto) (0-2) % Lymph # (Auto) (1.2-4.9) X10*3/uL [place] # (Auto) (0.1-1.2) X10*3/uL Eos # (Auto) (0.0-0.4) X10*3/uL Baso # (Auto) (0.0-0.2) X10*3/uL Abs Immat Gran (auto) (0.00-0.03) X10*3/uL Absolute Neuts (auto) (2.0-8.3) x10*3/uL Absolute Nucleated RBC (0.0-0.012) X10*3/uL Nucleated RBC % (auto) (0.0-0.2) /100WBC PT (10.0-13.1) SEC INR (0.9-1.1) Sodium (135-145) mmol/L Potassium (3.3-5.1) mmol/L Chloride (96-108) mmol/L Carbon Dioxide (22-29) mmol/L Anion Gap (12-20) BUN (9-16) mg/dL Creatinine (0.5-1.4) mg/dL Estim Creat Clear Calc Estimated GFR Random Glucose (60-115) mg/dL Calcium (8.4-10.2) mg/dL Magnesium (1.6-2.6) mg/dL Total Bilirubin (0.0-1.0) mg/dL Direct Bilirubin (0.0-0.5) mg/dL AST (5-37) U/L ALT (0-40) U/L Alkaline Phosphatase (39-117) U/L Total Protein (6.5-8.0) g/dL Albumin (3.5-5.0) g/dL Lipase (8-78) U/L Urine Color Yellow Urine Appearance Turbid Urine pH 7.5 (5.0-9.0) Ur Specific [place] 1.020 (1.005-1.025) Urine Protein Negative (Neg-Trace) mg/dL Urine Glucose (UA) Negative (Negative) mg/dL Urine Ketones Negative (Negative) mg/dL Urine Blood Negative (Negative) Urine Nitrite Negative (Negative) Ur Leukocyte Esterase Negative (Negative) Radiology Impression Discussion of test interpretation with radiology: I have reviewed the radiologist's reading. Radiologist Impression: FINDINGS: LUNG BASES: There is some bronchial wall thickening seen. No confluent parenchymal disease. Artery artery calcifications seen. No pleural or pericardial effusion. LIVER, GALLBLADDER, AND BILIARY TREE: The liver is normal in size, shape, and attenuation. No focal hepatic lesion or biliary ductal dilatation is present. Cholelithiasis is present without evidence of acute cholecystitis.? PANCREAS: Unremarkable. No mass or peripancreatic inflammatory change. SPLEEN: Unremarkable.? ADRENAL GLANDS: Unremarkable.? KIDNEYS AND URETERS: The kidneys are normal in size, shape, and attenuation. No hydronephrosis, hydroureter, or calculi seen. There is bilateral perinephric stranding present.. There is a 3.6 cm right renal cyst within the lower pole. BLADDER: Large mass impression from large prostate median lobe. Otherwise unremarkable.? GASTROINTESTINAL TRACT: No dilated loops of large or small bowel are evident. No free air or free fluid is noted. There is moderate sigmoid diverticulosis without adjacent fat stranding or fluid collection to suggest acute diverticulitis. No pericolonic inflammatory change. No significant bowel wall thickening is appreciated. The appendix is visualized and appears unremarkable.? ABDOMINAL WALL: No significant hernia is appreciated.? LYMPH NODES: No lymphadenopathy appreciated. VASCULAR: No abdominal aortic aneurysm. Portal vein is patent. There is nonocclusive calcified plaque at the ostium of the visceral vessels. PELVIC VISCERA: Prostate gland is enlarged.? OSSEOUS STRUCTURES: No suspicious destructive bony lesions identified. There is calcification of the anterior longitudinal ligament about the lower thoracic and upper lumbar spine.? CT/CT abdomen pelvis w IV con IMPRESSION: Cholelithiasis without evidence of acute cholecystitis. ? No evidence of obstructive uropathy. ? No evidence of ileus or bowel obstruction. ? No findings to suggest acute diverticulitis. ? Fleischner guidelines were followed. Medications Administered Discontinued Medications Generic Name Dose Route Start Last Admin Trade Name Freq PRN Reason Stop Dose Admin Sodium Chloride 1,000 mls @ 999 mls/hr 08/31/22 19:04 08/31/22 20:38 Ns IVCONT 08/31/22 20:04 Infused .Q1H1M ONE Infusion Iohexol 100 ml 08/31/22 20:34 08/31/22 20:35 Iohexol 350 Mg/Ml 100 Ml Infus..Btl IV 08/31/22 20:35 85 ml ONCE ONE Administration Morphine Sulfate 4 mg 08/31/22 19:04 08/31/22 19:25 Morphine Sulfate 4 Mg/Ml Cartridge IVPUSH 08/31/22 19:05 4 mg ONCE ONE Administration Protocol Ondansetron HCl 4 mg 08/31/22 19:04 08/31/22 19:25 Ondansetron Hcl 4 Mg/2 Ml Vial IVPUSH 08/31/22 19:05 4 mg ONCE ONE Administration Discharge Plan Discharge Clinical Impression: Abdominal pain Patient Disposition: Home, Self-Care Instructions: Abdominal Pain (ED) Additional Instructions: Please follow-up with your primary care physician tomorrow. If you have any worsening or new symptoms, please return to the emergency room or call 911 Prescriptions: New hyoscyamine sulfate 0.125 mg tablet 0.125 mg PO QID Qty: 10 0RF No Action metoprolol succinate 50 mg tablet extended release 24 hr 50 mg PO DAILY Qty: 30 0RF warfarin 5 mg tablet 5 mg PO DAILY Qty: 90 0RF Protocol: Dose Management Condition: Saturday (Week One) Dose/Route: 2.5 mg Instruction: 0.5 x 5 mg tablets Condition: Saturday Dose/Route: 5 mg Instruction: 1 x 5 mg tablet Condition: Saturday Dose/Route: 2.5 mg Instruction: 0.5 x 5 mg tablets Condition: Saturday Dose/Route: 2.5 mg Instruction: 0.5 x 5 mg tablets Condition: Dose/Route: 2.5 mg Instruction: 0.5 x 5 mg tablets Condition: Saturday Dose/Route: 2.5 mg Instruction: 0.5 x 5 mg tablets Condition: Saturday Dose/Route: 2.5 mg Instruction: 0.5 x 5 mg tablets Condition: Saturday (Week Two) Dose/Route: 2.5 mg Instruction: 0.5 x 5 mg tablets Condition: Saturday Dose/Route: 5 mg Instruction: 1 x 5 mg tablet Condition: Saturday Dose/Route: 2.5 mg Instruction: 0.5 x 5 mg tablets Condition: Saturday Dose/Route: 2.5 mg Instruction: 0.5 x 5 mg tablets Condition: Dose/Route: 2.5 mg Instruction: 0.5 x 5 mg tablets Condition: Saturday Dose/Route: 2.5 mg Instruction: 0.5 x 5 mg tablets Condition: Saturday Dose/Route: 2.5 mg Instruction: 0.5 x 5 mg tablets Protocol Text: Adjustment Start Date: 08/02/22 INR Value: 2.3 INR Date: 08/02/22 Recheck Date: 08/30/22 Additional Instructions: INR is in range continue same dosing balance greens and reds in diet, be consistent Rx Instructions: 5MG X2, 2.5MGX5 tamsulosin 0.4 mg capsule 0 mg PO tramadol 50 mg tablet 50 mg PO TID PRN atorvastatin 80 mg tablet 80 mg PO DAILY glipizide 5 mg tablet 0 mg PO (DME) FreeStyle Lite Strips Strip See Rx Instructions Not Applicable BID Qty: 10 Rx Instructions: As directed Ozempic 0.25 mg or 0.5 mg(2 mg/1.5 mL) pen injector 0.25 mg subcut QWEEK (DME) pen needle, diabetic [BD Keira 2nd Gen Pen Needle] 32 gauge x 5/32 needle See Rx Instructions .ROUTE .MEDSUPPLY Qty: 50 Rx Instructions: As directed finasteride 5 mg tablet 5 mg PO DAILY (DME) blood-glucose meter [FreeStyle Lite Meter] Kit See Rx Instructions .ROUTE TID Qty: 1 Rx Instructions: As directed lisinopril 5 mg tablet 5 mg PO DAILY metoprolol succinate 25 mg tablet extended release 24 hr 25 mg PO DAILY Trulicity 1.5 mg/0.5 mL pen injector subcut
[2022-08-31] MEDS: ondansetron HCL 4 MG/2 ML VIAL IVPUSH (19:25)
[2022-08-31] MEDS: Morphine Sulfate 4 MG/ML CARTRIDGE IVPUSH (19:25)
[2022-08-31 19:26] LABS: MANUAL DIFF FLAG NO
[2022-08-31] MEDS: 0.9 % Sodium Chloride 1,000 ML 999 ML IVCONT (19:27)
[2022-08-31 19:34] LABS: Basophils Percent Auto 0.4 % (0-2); Eosinophils Absolute Auto 0.3 X10*3/uL (0.0-0.4); Eosinophils Percent Auto 3.1 % (0-4); Hematocrit 42.9 % (42.0-52.0); Imm Gran Abs Auto 0.03 X10*3/uL (0.00-0.03); Imm Gran Pct Auto 0.3 % (0.0-0.4); Lymphocytes Absolute Auto 2.8 X10*3/uL (1.2-4.9); Lymphocytes Percent Auto 26.1 % (20-40); Mean Corpuscular Volume 91.5 fL (80.0-98.0); Mean Platelet Volume 9.5 fL (9.4-12.4); Monocytes Absolute Auto 0.8 X10*3/uL (0.1-1.2); Monocytes Percent Auto 7.9 % (2-11); Neutrophils Absolute Auto 6.6 x10*3/uL (2.0-8.3); Neutrophils Percent Auto 62.2 % (45-73); Platelet Count 177 X10*3/uL (160-400); Red Blood Count 4.69 X10*6/uL (4.60-5.80); Red Cell Distribution Width 13.2 % (11.0-16.0); White Blood Count 10.6 X10*3/uL (4.8-10.8)
[2022-08-31 19:44] LABS: INTERNATIONAL NORM RATIO 2.2 (0.9-1.1); Prothrombin Time 25.6 SEC (10.0-13.1)
[2022-08-31 19:55] LABS: Alanine Aminotransferase 44 U/L (0-40); Albumin Level 4.3 g/dL (3.5-5.0); Alkaline Phosphatase 97 U/L (39-117); Anion Gap 12 (12-20); Aspartate Amino Transferase 44 U/L (5-37); Bilirubin Direct 0.3 mg/dL (0.0-0.5); Bilirubin Total 1.2 mg/dL (0.0-1.0); Blood Urea Nitrogen 15 mg/dL (9-16); Carbon Dioxide 32 mmol/L (22-29); Chloride 105 mmol/L (96-108); Creatinine Clr Calc Pharmacy 59.2; Estimated Glomerular Filt Rate > 60; Glucose Random 170 mg/dL (60-115); Lipase 37 U/L (8-78); Potassium 4.6 mmol/L (3.3-5.1); Sodium 144 mmol/L (135-145); Total Protein 7.8 g/dL (6.5-8.0)
[2022-08-31 20:00] VITALS: BP 121/59; PULSE 91; RESP 16; TEMP 36.9; O2SAT 98
--- NOTE | 2022-08-31 20:24 | MHC.EDTECH ---
vitals sign taken ,patient urine sample collected and sent to lab .
[2022-08-31] MEDS: iohexoL 350 MG/ML 100 ML INFUS..BTL IV (20:35)
[2022-08-31 20:37] LABS: Appearance Urine Turbid; Color Urine Yellow; Glucose Urine UA Negative (Negative); Leukocyte Esterase Urine Negative (Negative); Nitrite Urine Negative (Negative); PH 7.5 (5.0-9.0); Urine Blood Negative (Negative); Urine Ketones Negative (Negative); Urine Protein Negative (Neg-Trace)
[2022-08-31 21:36] VITALS: BP 102/53; PULSE 84; RESP 16; TEMP 36.6; O2SAT 97
== END 2022-08-31 23:43 | disposition home or self-care (01) ==
PROVIDERS: Physician Assistant Medical; Emergency Provider Emergency Medicine
DX: R10.32 Left lower quadrant pain (principal); R11.2 Nausea with vomiting, unspecified; E11.9 Type 2 diabetes mellitus without complications; Z79.899 Other long term (current) drug therapy; Z79.01 Long term (current) use of anticoagulants; Z79.84 Long term (current) use of oral hypoglycemic drugs
CPT/HCPCS: 36415; 74177; 80048; 80076; 81003; 83690; 83735; 85025; 85610; 96361; 96374; 96375; 99284; J2270; J2405; Q9967

== ENCOUNTER → 2022-09-07 10:26 | Outpatient (BNVA) | payer MEDICARE, SELFPAY | PROVIDERS: PCP Internal Medicine; Visit Provider Internal Medicine | DX: I48.0 Paroxysmal atrial fibrillation (principal); Z79.01 Long term (current) use of anticoagulants; Z51.81 Encounter for therapeutic drug level monitoring | CPT/HCPCS: 85610; 99211 ==

== ENCOUNTER → 2022-09-24 10:49 | Outpatient (BNVA) | payer MEDICARE, SELFPAY | PROVIDERS: PCP Internal Medicine; Visit Provider Nurse Practitioner Family | DX: M79.662 Pain in left lower leg (principal); M17.0 Bilateral primary osteoarthritis of knee; M25.561 Pain in right knee; M25.562 Pain in left knee; Z79.01 Long term (current) use of anticoagulants | CPT/HCPCS: 99202 ==

== ENCOUNTER 2022-11-07 10:18 | Outpatient (AMB) | payer MEDICARE, SELFPAY ==
[2022-11-07 10:30] LABS: Prothrombin Time Whole Bld POC 33.5 sec (11.1-13.5); ~PT, ~INR - Anti Coag Clinic 2.8 (0.9-1.1)
--- NOTE | 2022-11-07 10:35 | MHC.OFFVISCO ---
Intake Intake Visit Reasons: Anticoagulation Allergies acetaminophen [From Percocet] Allergy (Intermediate, Verified 11/07/22 10:26) Headache oxycodone [From Percocet] Allergy (Intermediate, Verified 11/07/22 10:26) Headache ibuprofen [From Motrin] Allergy (Mild, Verified 11/07/22 10:26) SWELLING SALMON Adverse Reaction (Mild, Uncoded 09/07/22 10:28) VOMITING Medication List - Last Reconciled 11/07/22 by Essence Lay RN atorvastatin 80 mg PO DAILY blood sugar diagnostic As directed blood-glucose meter (FreeStyle Lite Meter kit) As directed dulaglutide (Trulicity) 0.75 mg subcut QWEEK dulaglutide (Trulicity) mg subcut finasteride 5 mg PO DAILY glipizide 0 mg PO hyoscyamine sulfate 0.125 mg PO QID lisinopril 5 mg PO DAILY metoprolol succinate ER 25 mg PO DAILY pen needle, diabetic (BD Keira 2nd Gen Pen Needle) As directed semaglutide (Ozempic) 0.25 mg subcut QWEEK tamsulosin 0 mg PO tramadol 50 mg PO TID PRN warfarin 5 mg See Protocol PO DAILY Nursing Note NO CP,SOB,DIET/MED CHANGES,FALLS OR SX OF BLEEDING. CONTINUE PRESENT DOSE AND FOLLOW-UP IN 4 WEEKS. GOOD UNDERSTANDING OF DOSING INSTR. Anti-Coag Initial Assessment Social Hx Patient Tobacco Use Status: Never used Tobacco alcohol intake: never Alcohol intake frequency: does not drink Coding Level of Care Code Est Patient Level 1 Diagnoses Current use of anticoagulant therapy Z79.01 Assessment & Plan Assessment & Plan (1) Current use of anticoagulant therapy: Code(s): Z79.01 - care home (current) use of anticoagulants Category: Medical
== END 2022-11-07 10:37 | disposition home or self-care (01) ==
LOC: HO.ACS 10:18
PROVIDERS: PCP Internal Medicine; Visit Provider Internal Medicine
DX: Z79.01 Long term (current) use of anticoagulants (principal)

== ENCOUNTER → 2022-11-07 10:18 | Outpatient (BNVA) | payer MEDICARE, SELFPAY | PROVIDERS: PCP Internal Medicine; Visit Provider Internal Medicine | DX: I48.0 Paroxysmal atrial fibrillation (principal); Z79.01 Long term (current) use of anticoagulants; Z51.81 Encounter for therapeutic drug level monitoring | CPT/HCPCS: 85610; 99211 ==

== ENCOUNTER 2022-11-23 19:15 | Inpatient (IN) | payer OTHER, SELFPAY ==
--- NOTE | ~2022-11-23 | CT_ITS ---
EXAMINATION: CT ABDOMEN AND PELVIS WITH CONTRAST CLINICAL INFORMATION: Epigastric pain radiating to the back. COMPARISON: 08/31/2022 TECHNIQUE: Multidetector volumetric images were obtained from the superior aspect of the liver through the pubic symphysis following administration 85 mL of Omnipaque 350 intravenous contrast. Sagittal and coronal reformatted images were obtained on the technologist's workstation. Oral contrast: No This CT examination was performed using dose optimization techniques as appropriate, variously including the following: *Automated exposure control *Adjustment of mA and/or kV according to patient size (this includes techniques or standardized protocols for targeted exams where dose is matched to indication/reason for exam; i.e. extremities or head) *Use of iterative reconstruction technique DLP: 557 mGy-cm FINDINGS: LUNG BASES: The visualized lung bases are clear. Coronary artery calcifications. LIVER, GALLBLADDER, AND BILIARY TREE: The liver is normal in size, shape, and attenuation. No focal hepatic lesion or biliary ductal dilatation is present. Distended gallbladder with multiple stones in the gallbladder lumen. No wall thickening or adjacent inflammation. PANCREAS: Unremarkable. SPLEEN: Unremarkable. ADRENAL GLANDS: Unremarkable. KIDNEYS AND URETERS: The kidneys are normal in size, shape, and attenuation. No hydronephrosis, hydroureter, or calculi seen. No perinephric stranding. Simple cyst at the lower pole of the right kidney. No specific follow-up recommended. BLADDER: Unremarkable. GASTROINTESTINAL TRACT: The stomach is unremarkable. Normal caliber small bowel. No obstruction. Fecalization of the distal ileum suggests slow transit. Normal appendix. Scattered colonic diverticulosis which is greatest at the sigmoid colon. No diverticulitis. No free air or free fluid. ABDOMINAL WALL: No significant hernia is appreciated. LYMPH NODES: Normal. VASCULAR: Normal caliber aorta with mild atherosclerotic calcifications. PELVIC VISCERA: Enlarged prostate encroaching into the base of the bladder. The prostate measures 5 cm transverse. OSSEOUS STRUCTURES: No acute or suspicious osseous abnormality. Degenerative change throughout the spine and of both hips. CT/CT abdomen pelvis w IV con IMPRESSION: 1. No acute findings in the abdomen or pelvis. No inflammatory changes. 2. Cholelithiasis without evidence of acute cholecystitis. 3. Colonic diverticulosis without diverticulitis. Fleischner guidelines were followed.
--- NOTE | ~2022-11-23 | MR_ITS ---
EXAMINATION: MR ABDOMEN WITHOUT CONTRAST CLINICAL INFORMATION: Gallstones. Rule out common bile duct stone. COMPARISON: Abdominal ultrasound and CT scan from yesterday TECHNIQUE: MR abdomen is performed without gadolinium contrast. MRCP sequences were also performed. FINDINGS: LUNG BASES: The visualized lung bases are unremarkable. LIVER, GALLBLADDER, AND BILIARY TREE: The liver is normal in size, smooth in contour. There is slight signal loss on out of phase sequences suggestive of mild fatty infiltration. No focal hepatic lesion or biliary ductal dilatation is present. The gallbladder is enlarged. There are gallstones. There is a small amount of pericholecystic fluid. Appearance is concerning for acute cholecystitis. No intra or extrahepatic biliary duct dilatation. The common bile duct measures 2 to 3 mm. No common bile duct stone is seen. There is trace ascites adjacent to the liver. PANCREAS: Unremarkable. Pancreas is normal in signal. The main pancreatic duct is normal in caliber. SPLEEN: Unremarkable. ADRENAL GLANDS: Unremarkable. KIDNEYS AND URETERS: The kidneys are normal in size and shape. No hydronephrosis. No perinephric stranding. 3 cm simple Bosniak type I right renal cyst in the lower pole. No imaging follow-up recommended. GASTROINTESTINAL TRACT: No bowel obstruction. No ascites or fluid collection. ABDOMINAL WALL: No significant hernia is appreciated. LYMPH NODES: No lymphadenopathy. VASCULAR: Unremarkable. OSSEOUS STRUCTURES: Marrow signal normal. MR/MR MRCP IMPRESSION: Enlarged gallbladder, gallstones and small amount of pericholecystic fluid. Appearance is suggestive of acute cholecystitis. Normal caliber intrahepatic and extrahepatic bile ducts. No common bile duct stone seen. Findings will be communicated by the [place] work flow computer engineering technologist.
--- NOTE | ~2022-11-23 | US_ITS ---
EXAMINATION: US ABDOMEN LIMITED CLINICAL INFORMATION: Right upper quadrant pain. COMPARISON: CT abdomen/pelvis from earlier today. TECHNIQUE: Real-time imaging of the gallbladder. US/US abdomen limited FINDINGS/IMPRESSION: Cholelithiasis with mild gallbladder wall thickening measuring up to 0.4 cm and with a positive Kennedy's sign suggesting acute cholecystitis in the appropriate clinical context.
[2022-11-23 19:59] VITALS: BP 124/72; BP 156/70; PULSE 66; PULSE 78; RESP 16; TEMP 36.8; O2SAT 100; O2SAT 96; BMI 32.2
[2022-11-23 20:06] VITALS: BP 164/67; PULSE 63; RESP 20; TEMP 36.6; O2SAT 100
[2022-11-23 20:32] LABS: MANUAL DIFF FLAG NO
[2022-11-23 20:34] LABS: Basophils Percent Auto 0.2 % (0-2); Eosinophils Absolute Auto 0.1 X10*3/uL (0.0-0.4); Eosinophils Percent Auto 0.4 % (0-4); Hemoglobin 14.9 g/dl (14.0-18.0); Imm Gran Abs Auto 0.05 X10*3/uL (0.00-0.03); Imm Gran Pct Auto 0.4 % (0.0-0.4); Lymphocytes Absolute Auto 1.6 X10*3/uL (1.2-4.9); Lymphocytes Percent Auto 12.8 % (20-40); Mean Corpuscular HGB Conc 34.7 g/dl (31.0-36.0); Mean Corpuscular Volume 92.5 fL (80.0-98.0); Mean Platelet Volume 9.4 fL (9.4-12.4); Monocytes Absolute Auto 0.4 X10*3/uL (0.1-1.2); Monocytes Percent Auto 3.5 % (2-11); Neutrophils Absolute Auto 10.5 x10*3/uL (2.0-8.3); Neutrophils Percent Auto 82.7 % (45-73); Platelet Count 167 X10*3/uL (160-400); Red Blood Count 4.65 X10*6/uL (4.60-5.80); White Blood Count 12.7 X10*3/uL (4.8-10.8)
--- NOTE | 2022-11-23 20:37 | ED_ITS ---
HPI - Abdominal Pain General Chief Complaint: Abdominal Pain Stated Complaint: abd pain since yesterday, per ems Time Seen by Provider: 11/23/22 19:36 Source: patient and family Mode of arrival: ambulatory Limitations: no limitations History of Present Illness HPI narrative: 77 yo male hx of PAF on coumadin, prior hernia repair, HLD, DM, HTN here with c/o 2 days upper abdominal pain radiating to the back with nausea but no vomiting and no fevers. He denies diarrhea. He has never had this before. MD elicited complaint: abdominal pain Pertinent past history: none Onset (ago): day(s) (2) Pain Consistency: constant Location: epigastric Severity: severe Quality: stabbing Radiation: back Migration to: no migration Exacerbating factors: eating Relieving factors: nothing Associated symptoms: nausea and vomiting Related Data Home Medications Medication Instructions Recorded Confirmed atorvastatin 80 mg tablet 80 mg PO DAILY 04/27/20 09/07/22 blood sugar diagnostic #10 ea 04/27/20 09/07/22 glipizide 5 mg tablet 0 mg PO 04/27/20 09/07/22 tamsulosin 0.4 mg capsule 0 mg PO 04/27/20 09/07/22 tramadol 50 mg tablet 50 mg PO TID PRN 04/27/20 09/07/22 blood-glucose meter (FreeStyle #1 ea 06/19/21 09/07/22 Lite Meter kit) finasteride 5 mg tablet 5 mg PO DAILY 06/19/21 09/07/22 pen needle, diabetic 32 gauge x #50 ea 06/19/21 09/07/22 (BD Keira 2nd Gen Pen Needle) semaglutide 0.25 mg or 0.5 mg (2 0.25 mg subcut QWEEK 06/19/21 09/07/22 mg/1.5 mL) subcutaneous pen injector (Ozempic) lisinopril 5 mg tablet 5 mg PO DAILY 07/05/22 09/07/22 metoprolol succinate 25 mg 25 mg PO DAILY 07/05/22 09/07/22 tablet,extended release 24 hr dulaglutide 1.5 mg/0.5 mL mg subcut 08/24/22 09/07/22 subcutaneous pen injector ([employer]) dulaglutide 0.75 mg/0.5 mL 0.75 mg subcut QWEEK 09/07/22 09/07/22 subcutaneous pen injector (Trulicity) Previous Rx's Medication Instructions Recorded warfarin 5 mg tablet 5 mg PO DAILY #90 tabs 03/23/20 hyoscyamine sulfate 0.125 mg tablet 0.125 mg PO QID #10 tabs 08/31/22 Allergies Allergy/AdvReac Type Severity Reaction Status Date / Time acetaminophen [From Percocet] Allergy Intermediate Headache Verified 11/07/22 10:26 oxycodone [From Percocet] Allergy Intermediate Headache Verified 11/07/22 10:26 ibuprofen [From Motrin] Allergy Mild SWELLING Verified 11/07/22 10:26 SALMON AdvReac Mild VOMITING Uncoded 09/07/22 10:28 Review of Systems Review of Systems Constitutional : No Weight loss, No Fever, No Chills ENT/Mouth : No sore throat, No Rhinorrhea Eyes: No Swelling, No Redness Cardiovascular : No Chest Pain, No SOB, NoEdema Respiratory : No Cough, No Sputum, No Wheezing Gastrointestinal : Positive Nausea, no Vomiting, no Diarrhea, positive abdominal Pain, No Hematochezia, No Melena Genitourinary : No Dysuria, No Urinary Frequency, No Hematuria, No Urgency Musculoskeletal : No joint pain, No Myalgias, No Joint Swelling Skin : No Skin Lesions, No rash Neuro : No Weakness, No Numbness, No Dizziness, No Headache Psych : No Anxiety/Panic, No Depression Heme/Lymph: No Bruising, No Lymphadenopathy Endocrine : No Polyuria, No Polydipsia All other systems reviewed and are negative. [facility] Past Medical History Attestation statement: The following information was validated with the patient. 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 Oriented X3. No acute distress. Eyes: Pupils equal, round and reactive to light. ENT: Pharynx normal. Neck: Normal inspection. Neck supple. CVS: Normal heart rate and rhythm. Pulses normal. Respiratory: No respiratory distress. Breath sounds normal. Abdomen: Soft and moderate RUQ pain + Stehekin sign Skin: Skin warm and dry. Normal skin color. Normal skin turgor. Extremities: No lower extremity edema. No calf ttp Neuro: Oriented X 3. No motor deficit. No sensory deficit. Course Course Course Narrative: US ordered for biliary colic Reevaluation(s) Reevaluation #1: 2nd dose of pain medications feels better but still in pain Medical Decision Making Medical Decision Making [facility] Narrative: 77 yo male hx of PAF on coumadin, prior hernia repair, HLD, DM, HTN here with c/o 2 days of nausea epigastric pain that radiates to the back no pulsatile mass felt and distal pulses intact dissection/aneurysm seem unlikely he has a + ferrera's sign at this time will obtain basic labs, IV morphine for pain, CT scan of abdomen for pancreatitis/cholelithiasis. Dispo per results and findings. 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 okay to give zon Lab Data [facility] Lab Attestation statement: I reviewed the patient's lab results. 11/23/22 20:25 11/23/22 20:25 Labs: Lab Results 11/23/22 11/23/22 11/23/22 Range/Units 20:25 20:25 20:25 WBC 12.7 H (4.8-10.8) X10*3/uL RBC 4.65 (4.60-5.80) X10*6/uL Hgb 14.9 (14.0-18.0) g/dl Hct 43.0 (42.0-52.0) % MCV 92.5 (80.0-98.0) fL MCH 32.0 (27.0-33.0) pg MCHC 34.7 (31.0-36.0) g/dl RDW 13.0 (11.0-16.0) % Plt Count 167 (160-400) X10*3/uL MPV 9.4 (9.4-12.4) fL Immature Gran % (Auto) 0.4 (0.0-0.4) % Neut % (Auto) 82.7 H (45-73) % Lymph % (Auto) 12.8 L (20-40) % Kendall % (Auto) 3.5 (2-11) % Eos % (Auto) 0.4 (0-4) % Baso % (Auto) 0.2 (0-2) % Lymph # (Auto) 1.6 (1.2-4.9) X10*3/uL Kendall # (Auto) 0.4 (0.1-1.2) X10*3/uL Eos # (Auto) 0.1 (0.0-0.4) X10*3/uL Baso # (Auto) 0.0 (0.0-0.2) X10*3/uL Abs Immat Gran (auto) 0.05 H (0.00-0.03) X10*3/uL Absolute Neuts (auto) 10.5 H (2.0-8.3) x10*3/uL Absolute Nucleated RBC 0.000 (0.0-0.012) X10*3/uL Nucleated RBC % (auto) 0.0 (0.0-0.2) /100WBC PT (11.1-13.3) SEC INR (0.9-1.1) Sodium 139 (135-145) mmol/L Potassium 5.2 H (3.3-5.1) mmol/L Chloride 104 (96-108) mmol/L Carbon Dioxide 24 (22-29) mmol/L Anion Gap 16 (12-20) BUN 17 H (9-16) mg/dL Creatinine 1.10 (0.5-1.4) mg/dL Estim Creat Clear Calc 52.2 Estimated GFR > 60 Random Glucose 240 H (60-115) mg/dL Calcium 9.9 (8.4-10.2) mg/dL Magnesium 1.9 (1.6-2.6) mg/dL Total Bilirubin 1.1 H (0.0-1.0) mg/dL AST 23 (5-37) U/L ALT 32 (0-40) U/L Alkaline Phosphatase 89 (39-117) U/L Total Protein 7.8 (6.5-8.0) g/dL Albumin 4.3 (3.5-5.0) g/dL Lipase 19 (8-78) U/L COVID-19 (GORDON) Negative (Negative) COVID-19 Clin Com See Note 11/23/22 Range/Units 21:10 WBC (4.8-10.8) X10*3/uL RBC (4.60-5.80) X10*6/uL Hgb (14.0-18.0) g/dl Hct (42.0-52.0) % MCV (80.0-98.0) fL MCH (27.0-33.0) pg MCHC (31.0-36.0) g/dl RDW (11.0-16.0) % Plt Count (160-400) X10*3/uL MPV (9.4-12.4) fL Immature Gran % (Auto) (0.0-0.4) % Neut % (Auto) (45-73) % Lymph % (Auto) (20-40) % Kendall % (Auto) (2-11) % Eos % (Auto) (0-4) % Baso % (Auto) (0-2) % Lymph # (Auto) (1.2-4.9) X10*3/uL Kendall # (Auto) (0.1-1.2) X10*3/uL Eos # (Auto) (0.0-0.4) X10*3/uL Baso # (Auto) (0.0-0.2) X10*3/uL Abs Immat Gran (auto) (0.00-0.03) X10*3/uL Absolute Neuts (auto) (2.0-8.3) x10*3/uL Absolute Nucleated RBC (0.0-0.012) X10*3/uL Nucleated RBC % (auto) (0.0-0.2) /100WBC PT 28.3 H (11.1-13.3) SEC INR 2.3 H (0.9-1.1) Sodium (135-145) mmol/L Potassium (3.3-5.1) mmol/L Chloride (96-108) mmol/L Carbon Dioxide (22-29) mmol/L Anion Gap (12-20) BUN (9-16) mg/dL Creatinine (0.5-1.4) mg/dL Estim Creat Clear Calc Estimated GFR Random Glucose (60-115) mg/dL Calcium (8.4-10.2) mg/dL Magnesium (1.6-2.6) mg/dL Total Bilirubin (0.0-1.0) mg/dL AST (5-37) U/L ALT (0-40) U/L Alkaline Phosphatase (39-117) U/L Total Protein (6.5-8.0) g/dL Albumin (3.5-5.0) g/dL Lipase (8-78) U/L COVID-19 (GORDON) (Negative) COVID-19 Clin Com Independent Interpretation I performed an independent interpretation of an: EKG, Ultrasound (cholecystitis) and CT Scan (gallstones) Interpretation: Rate: 68 Rhythm: NSR Gray: normal Normal P waves. Normal SONIA. Normal QRS complex. ST T wave : no MARIA E, inverted T wave in aVL qTC: normal prior studies: no acute ischemia The study has been interpreted contemporaneously by me. . Radiology Impression Discussion of test interpretation with radiology: I have reviewed the radiologist's reading. Independent Historian Clinical information obtained from an independent historian. History obtained from or confirmed by: Friend External Record Review External record reviewed: Inpatient record Medications Administered Discontinued Medications Generic Name Dose Route Start Last Admin Trade Name Freq PRN Reason Stop Dose Admin Iohexol 100 ml 11/23/22 21:31 11/23/22 21:31 Iohexol 350 Mg/Ml 100 Ml Infus..Btl IV 11/23/22 21:32 85 ml ONCE ONE Administration Morphine Sulfate 4 mg 11/23/22 20:41 11/23/22 21:50 Morphine Sulfate 4 Mg/Ml Cartridge IVPUSH 08/11/23 20:42 4 mg ONCE ONE Administration Protocol Ondansetron HCl 4 mg 11/23/22 20:41 11/23/22 21:50 Ondansetron Hcl 4 Mg/2 Ml Vial IVPUSH 11/23/22 20:42 4 mg ONCE ONE Administration Critical Care Time Critical Care Time Critical Care Time: Yes Total Critical Care Time: 35 Attestation: 2 doses of IV pain medications Discharge Plan Discharge Clinical Impression: Cholelithiasis Abdominal pain Qualifiers: Abdominal location: right upper quadrant Qualified Code(s): R10.11 - Right upper quadrant pain Patient Disposition: Admitted As Inpatient
[2022-11-23 20:46] LABS: COVID-19 Test Negative (Negative); IDNOW Serial# BCCEAD1C
[2022-11-23 20:49] LABS: Alanine Aminotransferase 32 U/L (0-40); Albumin Level 4.3 g/dL (3.5-5.0); Alkaline Phosphatase 89 U/L (39-117); Anion Gap 16 (12-20); Aspartate Amino Transferase 23 U/L (5-37); Bilirubin Total 1.1 mg/dL (0.0-1.0); Blood Urea Nitrogen 17 mg/dL (9-16); Calcium 9.9 mg/dL (8.4-10.2); Carbon Dioxide 24 mmol/L (22-29); Chloride 104 mmol/L (96-108); Creatinine Clr Calc Pharmacy 52.2; Estimated Glomerular Filt Rate > 60; Glucose Random 240 mg/dL (60-115); Lipase 19 U/L (8-78); Magnesium 1.9 mg/dL (1.6-2.6); Potassium 5.2 mmol/L (3.3-5.1); Sodium 139 mmol/L (135-145); Total Protein 7.8 g/dL (6.5-8.0)
[2022-11-23 21:26] LABS: INTERNATIONAL NORM RATIO 2.3 (0.9-1.1); Prothrombin Time 28.3 SEC (11.1-13.3)
[2022-11-23] MEDS: iohexoL 350 MG/ML 100 ML INFUS..BTL IV (21:31)
[2022-11-23] MEDS: Morphine Sulfate 4 MG/ML CARTRIDGE IVPUSH ×2 (21:50→23:00)
[2022-11-23] MEDS: ondansetron HCL 4 MG/2 ML VIAL IVPUSH (21:50)
--- NOTE | 2022-11-23 22:25 | ECG_ITS ---
Test Reason : GENERAL MEDICAL Blood Pressure : / mmHG Vent. Rate : 068 BPM Atrial Rate : 068 BPM P-R Int : 172 ms QRS Dur : 084 ms QT Int : 418 ms P-R-T Axes : 080 078 077 degrees QTc Int : 444 ms Sinus rhythm with PACs Low voltage QRS Borderline ECG When compared with ECG of 05-APR-2022 18:28, Sinus rhythm has replaced Atrial fibrillation Vent. rate has decreased BY 58 BPM Nonspecific T wave abnormality no longer evident in Inferior leads Referred By: Kamila Alan Electronically Signed By:Farrukh Mathis
[2022-11-23 22:42] VITALS: BP 170/60; PULSE 63; RESP 20; TEMP 36.8; O2SAT 99
[2022-11-23] MEDS: Piperacillin Sodium/Tazobactam 3.375 GM in 0.9 % Sodium Chloride 50 ML IV (23:00)
--- NOTE | 2022-11-23 23:14 | PC.NURSE ---
per dr looney no blood cultures needed prior to antibiotic administration
[2022-11-23 23:39] VITALS: BP 149/90; PULSE 95; RESP 16; TEMP 36.8; O2SAT 99
[2022-11-24] VITALS (13 sets, daily range): BP systolic 113–164; BP diastolic 65–89; PULSE 65–145; RESP 13–20; TEMP 36.2–37.1; O2SAT 96–100
--- NOTE | 2022-11-24 | ECG_ITS ---
Test Reason : afib Blood Pressure : / mmHG Vent. Rate : 115 BPM Atrial Rate : 000 BPM P-R Int : 000 ms QRS Dur : 080 ms QT Int : 340 ms P-R-T Axes : 000 084 079 degrees QTc Int : 470 ms Atrial fibrillation with rapid ventricular response Nonspecific ST abnormality Abnormal ECG When compared with ECG of 23-NOV-2022 22:49, Atrial fibrillation has replaced Sinus rhythm Vent. rate has increased BY 47 BPM Referred By: Marty Suresh Electronically Signed By:HERBERT BELTRE MD
[2022-11-24] MEDS: Lactated Ringers 500 ML 80 ML IV (00:16)
--- NOTE | 2022-11-24 00:19 | PC.NURSE ---
this rn confirmed with dr hewitt regarding fluid orders. per dr hewitt pt to received LR @ 80ml.hr 500ml tbvi. pt medicated according to mar
[2022-11-24 00:31] LABS: Appearance Urine Clear; Color Urine Yellow; Glucose Urine UA 500 mg/dL (Negative); Leukocyte Esterase Urine Negative (Negative); Nitrite Urine Negative (Negative); Specific Gravity - Urine >= 1.030 (1.005-1.025); Urine Blood Negative (Negative); Urine Ketones Trace mg/dL (Negative); Urine Protein Trace mg/dL (Neg-Trace)
--- NOTE | 2022-11-24 00:33 | MHC.EDTECH ---
PATIENT BELONGINGS LIST DONE ,URINE SAMPLE COLLECTED AND SENT TO LAB ,VITALS SIGN TAKEN .
--- NOTE | 2022-11-24 04:42 | MHC.EDTECH ---
,VITALS SIGN TAKEN ,350 ML URINE EMPTY FROM URINAL ,PT AWAKE IN BED .
[2022-11-24] MEDS: Morphine Sulfate 4 MG/ML CARTRIDGE 3 MG IVPUSH (05:04)
[2022-11-24] MEDS: ondansetron HCL 4 MG/2 ML VIAL IVPUSH (05:05)
--- NOTE | 2022-11-24 05:13 | PC.NURSE ---
pt medicated per Mar, Will continue to monitor. Notified RAMÍREZ Poole.
[2022-11-24] MEDS: Piperacillin Sodium/Tazobactam 3.375 GM in 0.9 % Sodium Chloride 50 ML IV ×3 (06:44→17:23)
[2022-11-24] MEDS: 0.9 % Sodium Chloride Flush 3 ML SYRINGE IVFLUSH (07:27)
--- NOTE | 2022-11-24 07:33 | PC.NURSE ---
pt a&ox3. respiration even and unlabored. pt reporting left and right lower abdominal pain. abdomen soft non tender. bowel sounds hypoactive x4 quadrants. pt normal sinus on tele.
--- NOTE | 2022-11-24 08:29 | PHA.MEDREC ---
Pharmacy Consult ? Medication Reconciliation Pharmacy has completed the medication reconciliation. Spoke to patient to confirm meds. Utilized outreach specialist services. Patient mentioned metformin twice a day, however pharmacy does not have a record of it and he stated that the medication was filled at [facility]. Left off of med rec because cannot confirm dose or dose regimen from pharmacy.
--- NOTE | 2022-11-24 09:13 | P.HPGS_ITS ---
History of Present Illness History of Present Illness Date of Service: 11/27/22 Chief complaint: right upper quadrant pain Narrative: Paulie De Los Santos is a 77 year old male here in the ED for abdominal pain x 2 days. He says this was diffuse but mostly on the lower abdomen and both flanks. He says this comes and goes. He describes having nausea and vomitting yesterday. He also states that he has a history of kidney stones and had cystoscopy in the past. He denies dysuria. He still has this episodic abdominal pain that seems unchanged. Review of Systems Constitutional: Constitutional: Denies chills and Denies fever(s) Cardiovascular: Cardiovascular: Denies chest pain, Denies dyspnea and Denies dyspnea on exertion Respiratory: Respiratory: Denies cough, Denies dyspnea and Denies dyspnea on exertion Gastrointestinal: Gastrointestinal: Denies hematochezia and Denies change in bowel habits Genitourinary: Genitourinary: Denies hematuria and Denies difficulty urinating Musculoskeletal: Musculoskeletal: Denies back pain and Denies limited range of motion Neurologic: Denies focal weakness and Denies convulsions Psychiatric: Psychiatric: Denies depression and Denies mood swings PMFSH Past Medical History Medical History Current use of anticoagulant therapy Diabetes Diabetes Heart attack High cholesterol Hypertension Paroxysmal A-fib Social History Social History Alcohol intake: never Patient Tobacco Use Status: Never used Tobacco service: No Current occupational status: 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 Allergies Allergy/AdvReac Type Severity Reaction Status Date / Time acetaminophen [From Percocet] Allergy Intermediate Headache Verified 11/07/22 10:26 oxycodone [From Percocet] Allergy Intermediate Headache Verified 11/07/22 10:26 ibuprofen [From Motrin] Allergy Mild SWELLING Verified 11/07/22 10:26 SALMON AdvReac Mild VOMITING Uncoded 09/07/22 10:28 Active Medications: Current Medications Piperacillin Sod/Tazobactam (Sod 3.375 gm/ Sodium Chloride) 50 mls @ 100 mls/hr IV Q6H SHANE Last Infusion: 11/24/22 07:26 Dose: Infused Sodium Chloride (Ns) 1,000 mls @ 80 mls/hr IVCONT .[id number] [facility] Last Admin: 11/24/22 00:12 Dose: Not Given Insulin Human Lispro (Insulin Lispro 100 Unit/Ml 3 Ml Vial) 0 unit SUBCUT QIDACHS [facility]; Protocol Morphine Sulfate (Morphine Sulfate 4 Mg/Ml Cartridge) 3 mg IVPUSH Q3H PRN; Protocol PRN Reason: Pain, Severe (Pain Scale 7-10) Last Admin: 11/24/22 05:04 Dose: 3 mg Ondansetron HCl (Ondansetron Hcl 4 Mg/2 Ml Vial) 4 mg IVPUSH Q6H PRN PRN Reason: Nausea Last Admin: 11/24/22 05:05 Dose: 4 mg Pharmacy Consult (Consult Rx Perform Med Rec) 1 each MISCELLANE ONCE PRN PRN Reason: Consult order Sodium Chloride (0.9 % Sodium Chloride Flush 3 Ml Syringe) [facility] Last Admin: 11/24/22 07:27 Dose: 3 ml Home Medications Medication Instructions Recorded Confirmed Last Taken Type atorvastatin 80 mg tablet 80 mg PO DAILY 04/27/20 11/24/22 11/23/22 History blood sugar diagnostic #10 ea 04/27/20 09/07/22 Unknown History tramadol 50 mg tablet 50 mg PO TID PRN Pain 04/27/20 11/24/22 Unknown History blood-glucose meter (FreeStyle #1 ea 06/19/21 09/07/22 Unknown History Lite Meter kit) pen needle, diabetic 32 gauge x #50 ea 06/19/21 09/07/22 Unknown History (BD Keira 2nd Gen Pen Needle) lisinopril 5 mg tablet 5 mg PO DAILY 07/05/22 11/24/22 11/23/22 History metoprolol succinate 25 mg 25 mg PO BID 07/05/22 11/24/22 11/23/22 History tablet,extended release 24 hr dulaglutide 3 mg/0.5 mL 3 mg subcut BECKHAM@0900 11/24/22 11/24/22 11/23/22 History subcutaneous [facility] ([facility]) glipizide 5 mg tablet 10 mg PO BID 11/24/22 11/24/22 11/23/22 History multivitamin 1 tab PO DAILY 11/24/22 11/24/22 11/23/22 History omega 9-qbw-nfy-fish oil 300 1 cap PO DAILY 11/24/22 11/24/22 11/23/22 History mg-1,000 mg capsule,delayed release (Fish Oil) tamsulosin 0.4 mg capsule 0.4 mg PO Q12H 11/24/22 11/24/22 11/23/22 History warfarin 5 mg tablet 2.5 mg PO SUTUWETHFRSA@1800 11/24/22 11/24/22 11/23/22 History warfarin 5 mg tablet 5 mg PO MO@1800 11/24/22 11/24/22 11/19/22 History Physical Exam Vital Signs: Vital Signs: Last Vital Signs Temp 98.1 F 11/24/22 07:27 Pulse 72 11/24/22 07:27 Resp 16 11/24/22 07:27 BP 164/80 H 11/24/22 07:27 Pulse Ox 100 11/24/22 07:27 O2 Del Method Room Air 11/24/22 07:27 BMI result Body Mass Index 32.2 Const: General: no acute distress Orientation/consciousness: patient oriented x3 Neck: Neck: Yes no lymphadenopathy Resp: Auscultation: clear to auscultation bilaterally Cardio: Rhythm: regular rhythm GI: Palpation (GI): Soft to palpation, not firm, Tenderness to palpation present (GI) (tender diffusely but mostly on the lower abdomen, no Kennedy's sign) and no guarding Neuro: General: patient oriented x3 Results Results Labs: Short CBC 11/23/22 Range/Units 20:25 WBC 12.7 H (4.8-10.8) X10*3/uL Hgb 14.9 (14.0-18.0) g/dl Hct 43.0 (42.0-52.0) % Plt Count 167 (160-400) X10*3/uL BMP 11/23/22 20:25 Sodium 139 Potassium 5.2 H Chloride 104 Carbon Dioxide 24 BUN 17 H Creatinine 1.10 Calcium 9.9 Liver Function 11/23/22 Range/Units 20:25 Total Bilirubin 1.1 H (0.0-1.0) mg/dL AST 23 (5-37) U/L ALT 32 (0-40) U/L Alkaline Phosphatase 89 (39-117) U/L Albumin 4.3 (3.5-5.0) g/dL Urine 11/24/22 Range/Units 00:18 Urine Color Yellow Urine Appearance Clear Urine pH 7.0 (5.0-9.0) Ur Specific [place] >= 1.030 H (1.005-1.025) Urine Protein Trace (Neg-Trace) mg/dL Urine Glucose (UA) 500 H (Negative) mg/dL Additional studies: Laboratory Results WBC 12.7 X10*3/uL (4.8-10.8) H 11/23/22 20:25 RBC 4.65 X10*6/uL (4.60-5.80) 11/23/22 20:25 Hgb 14.9 g/dl (14.0-18.0) 11/23/22 20:25 Hct 43.0 % (42.0-52.0) 11/23/22 20:25 MCV 92.5 fL (80.0-98.0) 11/23/22 20:25 MCH 32.0 pg (27.0-33.0) 11/23/22 20:25 MCHC 34.7 g/dl (31.0-36.0) 11/23/22 20:25 RDW 13.0 % (11.0-16.0) 11/23/22 20:25 Plt Count 167 X10*3/uL (160-400) 11/23/22 20:25 MPV 9.4 fL (9.4-12.4) 11/23/22 20:25 Immature Gran % (Auto) 0.4 % (0.0-0.4) 11/23/22 20:25 Neut % (Auto) 82.7 % (45-73) H 11/23/22 20:25 Lymph % (Auto) 12.8 % (20-40) L 11/23/22 20:25 [place] % (Auto) 3.5 % (2-11) 11/23/22 20:25 Eos % (Auto) 0.4 % (0-4) 11/23/22 20:25 Baso % (Auto) 0.2 % (0-2) 11/23/22 20:25 Lymph # (Auto) 1.6 X10*3/uL (1.2-4.9) 11/23/22 20:25 [place] # (Auto) 0.4 X10*3/uL (0.1-1.2) 11/23/22 20:25 Eos # (Auto) 0.1 X10*3/uL (0.0-0.4) 11/23/22 20:25 Baso # (Auto) 0.0 X10*3/uL (0.0-0.2) 11/23/22 20:25 Abs Immat Gran (auto) 0.05 X10*3/uL (0.00-0.03) H 11/23/22 20:25 Absolute Neuts (auto) 10.5 x10*3/uL (2.0-8.3) H 11/23/22 20:25 Absolute Nucleated RBC 0.000 X10*3/uL (0.0-0.012) 11/23/22 20:25 Nucleated RBC % (auto) 0.0 /100WBC (0.0-0.2) 11/23/22 20:25 PT 28.3 SEC (11.1-13.3) H 11/23/22 21:10 INR 2.3 (0.9-1.1) H 11/23/22 21:10 Sodium 139 mmol/L (135-145) 11/23/22 20:25 Potassium 5.2 mmol/L (3.3-5.1) H 11/23/22 20:25 Chloride 104 mmol/L (96-108) 11/23/22 20:25 Carbon Dioxide 24 mmol/L (22-29) 11/23/22 20:25 Anion Gap 16 (12-20) 11/23/22 20:25 BUN 17 mg/dL (9-16) H 11/23/22 20:25 Creatinine 1.10 mg/dL (0.5-1.4) 11/23/22 20:25 Estim Creat Clear Calc 52.2 11/23/22 20:25 Estimated GFR > 60 11/23/22 20:25 Random Glucose 240 mg/dL (60-115) H 11/23/22 20:25 Calcium 9.9 mg/dL (8.4-10.2) 11/23/22 20:25 Magnesium 1.9 mg/dL (1.6-2.6) 11/23/22 20:25 Total Bilirubin 1.1 mg/dL (0.0-1.0) H 11/23/22 20:25 AST 23 U/L (5-37) 11/23/22 20:25 ALT 32 U/L (0-40) 11/23/22 20:25 Alkaline Phosphatase 89 U/L (39-117) 11/23/22 20:25 Total Protein 7.8 g/dL (6.5-8.0) 11/23/22 20:25 Albumin 4.3 g/dL (3.5-5.0) 11/23/22 20:25 Lipase 19 U/L (8-78) 11/23/22 20:25 Urine Color Yellow 11/24/22 00:18 Urine Appearance Clear 11/24/22 00:18 Urine pH 7.0 (5.0-9.0) 11/24/22 00:18 Ur Specific [place] >= 1.030 (1.005-1.025) H 11/24/22 00:18 Urine Protein Trace mg/dL (Neg-Trace) 11/24/22 00:18 Urine Glucose (UA) 500 mg/dL (Negative) H 11/24/22 00:18 Urine Ketones Trace mg/dL (Negative) 11/24/22 00:18 Urine Blood Negative (Negative) 11/24/22 00:18 Urine Nitrite Negative (Negative) 11/24/22 00:18 Ur Leukocyte Esterase Negative (Negative) 11/24/22 00:18 COVID-19 (GORDON) Negative (Negative) 11/23/22 20:25 COVID-19 Clin Com See Note 11/23/22 20:25 Impressions Abdomen/Pelvis CT 11/23/22 21:34 IMPRESSION: 1. No acute findings in the abdomen or pelvis. No inflammatory changes. 2. Cholelithiasis without evidence of acute cholecystitis. 3. Colonic diverticulosis without diverticulitis. Fleischner guidelines were followed. Abdomen Ultrasound 11/23/22 22:05 FINDINGS/IMPRESSION: Cholelithiasis with mild gallbladder wall thickening measuring up to 0.4 cm and with a positive Kennedy's sign suggesting acute cholecystitis in the appropriate clinical context. Assessment and Plan (1) Abdominal pain: Qualifiers: Abdominal location: right upper quadrant Qualified Code(s): R10.11 - Right upper quadrant pain Status: Acute Plan He has had abdominal pain x 2 days. HE describes this is episodic and can be severe. However, he says this is mostly on the lower abdomen and flanks. I have reviewed his CT scan and US images. The GB actuallyly does not appear inflammed on CT although the US was read as with some mild GB wall thickening. His overall pain and tenderness seems quite atypical for cholecystitis. I am waiting for repeat labs including LFTs. In the meantime, I have started him on IV abx. He is written for IV pain meds as well as PO meds. I have held his Coumadin to allow his INR to be subtherapeutic in the event he will require surgery. I have consulted the hospitalist because of his atrial fibrillation. Hs was with him during the discussion. He does not appears toxic. The itnerview was done with an intrepreter. Time Spent With Patient Time: Total time managing care of this patient today ____ minutes. Quality Stroke Does the patient have a stroke diagnosis?: No VTE Prior VTE?: No VTE Risk Level:: Medical - moderate - high VTE Device Contraindication: N/A - Device Ordered VTE Drug Contraindication: Treatment Not Indicated Procedures Date of Service Date of Service: 11/27/22
--- NOTE | 2022-11-24 09:50 | PM.IMCN ---
History of Present Illness Data of Consult Service Date: 11/24/22 Primary Care Provider: Unknown Physician HPI Reason for consult: Medical problems evaluation A 77 year old male with PMH of PAF on Warfarin, DM II, HLD, HTN, BPH among others who presents to the hospital with RUQ pain and tenderness. found to have acute cholecystitis. Hx of afib on Warfarin with rate controlled on Metoprolol. No chest pain, palpitations, SOB, nausea, vomiting, diarrhea or urinary symptoms. Admitted for surgical team. Hospitalist team asked to evaluate for medical problems. 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 Allergies Allergy/AdvReac Type Severity Reaction Status Date / Time acetaminophen [From Percocet] Allergy Intermediate Headache Verified 11/07/22 10:26 oxycodone [From Percocet] Allergy Intermediate Headache Verified 11/07/22 10:26 ibuprofen [From Motrin] Allergy Mild SWELLING Verified 11/07/22 10:26 SALMON AdvReac Mild VOMITING Uncoded 09/07/22 10:28 Active Medications: Current Medications Hydromorphone HCl (Hydromorphone Hcl 0.5 Mg/0.5 Ml Syringe) 0.5 mg IVPUSH Q4H PRN; Protocol PRN Reason: Pain, Severe (Pain Scale 7-10) Piperacillin Sod/Tazobactam (Sod 3.375 gm/ Sodium Chloride) 50 mls @ 100 mls/hr IV Q6H [facility] Last Infusion: 11/24/22 07:26 Dose: Infused Sodium Chloride (Ns) 1,000 mls @ 80 mls/hr IVCONT .[id number] [facility] Last Admin: 11/24/22 00:12 Dose: Not Given Insulin Human Lispro (Insulin Lispro 100 Unit/Ml 3 Ml Vial) 0 unit SUBCUT QIDACHS [facility]; Protocol Ondansetron HCl (Ondansetron Hcl 4 Mg/2 Ml Vial) 4 mg IVPUSH Q6H PRN PRN Reason: Nausea Last Admin: 11/24/22 05:05 Dose: 4 mg Pharmacy Consult (Consult Rx Perform Med Rec) 1 each MISCELLANE ONCE PRN PRN Reason: Consult order Sodium Chloride (0.9 % Sodium Chloride Flush 3 Ml Syringe) 3 ml IVFLUSH [facility] Last Admin: 11/24/22 07:27 Dose: 3 ml Home Medications Medication Instructions Recorded Confirmed Last Taken Type atorvastatin 80 mg tablet 80 mg PO DAILY 04/27/20 11/24/22 11/23/22 History blood sugar diagnostic #10 ea 04/27/20 09/07/22 Unknown History tramadol 50 mg tablet 50 mg PO TID PRN Pain 04/27/20 11/24/22 Unknown History blood-glucose meter (FreeStyle #1 ea 06/19/21 09/07/22 Unknown History Lite Meter kit) pen needle, diabetic 32 gauge x #50 ea 06/19/21 09/07/22 Unknown History (BD Keira 2nd Gen Pen Needle) lisinopril 5 mg tablet 5 mg PO DAILY 07/05/22 11/24/22 11/23/22 History metoprolol succinate 25 mg 25 mg PO BID 07/05/22 11/24/22 11/23/22 History tablet,extended release 24 hr dulaglutide 3 mg/0.5 mL 3 mg subcut BECKHAM@0900 11/24/22 11/24/22 11/23/22 [facility] glipizide 5 mg tablet 10 mg PO BID 11/24/22 11/24/22 11/23/22 History multivitamin 1 tab PO DAILY 11/24/22 11/24/22 11/23/22 History omega 6-qcb-hqn-fish oil 300 1 cap PO DAILY 11/24/22 11/24/22 11/23/22 History mg-1,000 mg capsule,delayed release (Fish Oil) tamsulosin 0.4 mg capsule 0.4 mg PO Q12H 11/24/22 11/24/22 11/23/22 History warfarin 5 mg tablet 2.5 mg PO SUTUWETHFRSA@1800 11/24/22 11/24/22 11/23/22 History warfarin 5 mg tablet 5 mg PO MO@1800 11/24/22 11/24/22 11/19/22 History Physical Exam Vital Signs and Narrative: Vital Signs: Last Vital Signs Temp 98.1 F 11/24/22 07:27 Pulse 72 11/24/22 07:27 Resp 16 11/24/22 07:27 BP 164/80 H 11/24/22 07:27 Pulse Ox 100 11/24/22 07:27 O2 Del Method Room Air 11/24/22 07:27 BMI result Body Mass Index 32.2 Const: Other: Constitutional : Awake, interactive, not in distress Neck : Normal inspection, Supple Cardiovascular : irregular irregular, tachycardia, no JVP, no lower extremity edema Respiratory : good bilateral air entry, no crackles, wheezes or rhonchi Gastrointestinal: soft, lax, Normal bowel sounds, mild RUQ tenderness with positive ferrera sign Skin : Warm, Dry Neurological : Alert & oriented x3, No focal deficit Results Labs 11/23/22 20:25 11/23/22 20:25 Labs: Laboratory Results - last 24 hr 11/23/22 11/23/22 11/23/22 20:25 20:25 20:25 MCV 92.5 MCH 32.0 MCHC 34.7 RDW 13.0 Plt Count 167 MPV 9.4 Immature Gran % (Auto) 0.4 Neut % (Auto) 82.7 H Lymph % (Auto) 12.8 L [place] % (Auto) 3.5 Eos % (Auto) 0.4 Baso % (Auto) 0.2 Lymph # (Auto) 1.6 [place] # (Auto) 0.4 Eos # (Auto) 0.1 Baso # (Auto) 0.0 Abs Immat Gran (auto) 0.05 H Absolute Neuts (auto) 10.5 H Absolute Nucleated RBC 0.000 Nucleated RBC % (auto) 0.0 PT INR Anion Gap 16 Estim Creat Clear Calc 52.2 Estimated GFR > 60 Random Glucose 240 H Calcium 9.9 Magnesium 1.9 Total Bilirubin 1.1 H AST 23 ALT 32 Alkaline Phosphatase 89 Total Protein 7.8 Albumin 4.3 Lipase 19 Urine Color Urine Appearance Urine pH Ur Specific [place] Urine Protein Urine Glucose (UA) Urine Ketones Urine Blood Urine Nitrite Ur Leukocyte Esterase COVID-19 ([facility]) Negative COVID-19 Clin Com See Note 11/23/22 11/24/22 21:10 00:18 MCV MCH MCHC RDW Plt Count MPV Immature Gran % (Auto) Neut % (Auto) Lymph % (Auto) [place] % (Auto) Eos % (Auto) Baso % (Auto) Lymph # (Auto) [place] # (Auto) Eos # (Auto) Baso # (Auto) Abs Immat Gran (auto) Absolute Neuts (auto) Absolute Nucleated RBC Nucleated RBC % (auto) PT 28.3 H INR 2.3 H Anion Gap Estim Creat Clear Calc Estimated GFR Random Glucose Calcium Magnesium Total Bilirubin AST ALT Alkaline Phosphatase Total Protein Albumin Lipase Urine Color Yellow Urine Appearance Clear Urine pH 7.0 Ur Specific [place] >= 1.030 H Urine Protein Trace Urine Glucose (UA) 500 H Urine Ketones Trace Urine Blood Negative Urine Nitrite Negative Ur Leukocyte Esterase Negative COVID-19 ([facility]) COVID-19 Clin Com Imaging Radiologist's Impressions: Impressions Abdomen/Pelvis CT 11/23/22 21:34 IMPRESSION: 1. No acute findings in the abdomen or pelvis. No inflammatory changes. 2. Cholelithiasis without evidence of acute cholecystitis. 3. Colonic diverticulosis without diverticulitis. Fleischner guidelines were followed. Abdomen Ultrasound 11/23/22 22:05 FINDINGS/IMPRESSION: Cholelithiasis with mild gallbladder wall thickening measuring up to 0.4 cm and with a positive Ferrera's sign suggesting acute cholecystitis in the appropriate clinical context. Assessment and Plan (1) Cholelithiasis: Status: Acute (2) Paroxysmal A-fib: Status: Acute Plan A 77 year old male with PMH of PAF on Warfarin, DM II, HLD, HTN, BPH among others who presents to the hospital with RUQ pain and tenderness. found to have acute cholecystitis. Acute cholecystitis As reported on CT and US On IV Abx surgical team following Hold Warfarin for possible surgical intervention EKG reviewed, no chest pain The patient carries mild-moderate radha-operative risk for complication, can go ahead with surgery with no further testing needed Hx PAF w RvR Hold Warfarin full dose Lovenox restart his home Metoprolol XL Use IV MEtoprolol if needed BPH Tamsulosin DM II SSI Hold PO medicaitons HTN Hld Lisinopril and monitor BP Thank you for the consult. will continue to monitor with you as needed Time Spent With Patient Time: Total time managing care of this patient today ____ minutes.
[2022-11-24 09:51] LABS: Hematocrit 46.3 % (42.0-52.0); Hemoglobin 16.1 g/dl (14.0-18.0); Mean Corpuscular HGB Conc 34.8 g/dl (31.0-36.0); Mean Corpuscular Hemoglobin 32.5 pg (27.0-33.0); Mean Corpuscular Volume 93.3 fL (80.0-98.0); Mean Platelet Volume 9.5 fL (9.4-12.4); Platelet Count 181 X10*3/uL (160-400); Red Blood Count 4.96 X10*6/uL (4.60-5.80); Red Cell Distribution Width 13.1 % (11.0-16.0); White Blood Count 14.4 X10*3/uL (4.8-10.8)
[2022-11-24 09:55] LABS: INTERNATIONAL NORM RATIO 1.8 (0.9-1.1); Prothrombin Time 21.8 SEC (11.1-13.3)
[2022-11-24 10:06] LABS: Alanine Aminotransferase 29 U/L (0-40); Albumin Level 4.3 g/dL (3.5-5.0); Alkaline Phosphatase 98 U/L (39-117); Anion Gap 16 (12-20); Aspartate Amino Transferase 20 U/L (5-37); Bilirubin Direct 0.4 mg/dL (0.0-0.5); Bilirubin Total 1.4 mg/dL (0.0-1.0); Blood Urea Nitrogen 13 mg/dL (9-16); Calcium 9.8 mg/dL (8.4-10.2); Carbon Dioxide 27 mmol/L (22-29); Chloride 101 mmol/L (96-108); Creatinine Clr Calc Pharmacy 60.5; Estimated Glomerular Filt Rate > 60; Glucose Random 219 mg/dL (60-115); Potassium 4.5 mmol/L (3.3-5.1); Sodium 139 mmol/L (135-145)
--- NOTE | 2022-11-24 10:17 | ECG_ITS ---
Test Reason : afib Blood Pressure : / mmHG Vent. Rate : 115 BPM Atrial Rate : 000 BPM P-R Int : 000 ms QRS Dur : 080 ms QT Int : 340 ms P-R-T Axes : 000 084 079 degrees QTc Int : 470 ms Atrial fibrillation with rapid ventricular response Nonspecific ST abnormality Abnormal ECG When compared with ECG of 23-NOV-2022 22:49, Atrial fibrillation has replaced Sinus rhythm Vent. rate has increased BY 47 BPM Referred By: Generic ED Physician Electronically Signed By:Farrukh Mathis
--- NOTE | 2022-11-24 10:29 | PC.NURSE ---
pt went into rapid afib. hospitalist notified. ekg obtained. pt reports abdominal pain radiating towards his epigastric region. blood pressure stable at this time. pt medicated for pain. 8/10 pain reported.
[2022-11-24] MEDS: HYDROmorphone HCl 0.5 MG/0.5 ML SYRINGE IVPUSH ×2 (10:32→19:49)
--- NOTE | 2022-11-24 10:43 | PC.NURSE ---
pain meds given to pt. heart rate ranging from 120-160. BP stable.
[2022-11-24] MEDS: 0.9 % Sodium Chloride 1,000 ML 80 ML IVCONT (11:22)
[2022-11-24 11:38] LABS: Glucose, Whole Blood 235 mg/dL (60-115)
[2022-11-24] MEDS: Enoxaparin Sodium 80 MG/0.8 ML SYRINGE SUBCUT ×2 (11:54→23:59)
--- NOTE | 2022-11-24 11:54 | PC.NURSE ---
pt currently is in normal sinus rhythm.
[2022-11-24] MEDS: Metoprolol Succinate ER 25 MG TAB.ER.24H PO ×2 (11:55→21:55)
[2022-11-24] MEDS: Tamsulosin HCL 0.4 MG CAPSULE PO ×2 (11:55→21:55)
[2022-11-24 13:09] LABS: Glucose, Whole Blood 229 mg/dL (60-115)
[2022-11-24] MEDS: Insulin Lispro 100 UNIT/ML 3 ML VIAL SUBCUT ×3 (13:09→21:55)
--- NOTE | 2022-11-24 14:29 | MHC.CM.PN ---
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 PT LIVES WITH SPOUSE. INDEPENDENT AT BASELINE. USES [employer]. + HCP ON FILE +COVID VAX X1 PCP AT [facility]. DP: HOME, NO SERVICES ANTICIPATED BUT OPEN TO [facility] IF NEEDED. FAMILY WILL TRANSPORT. CM WILL CONTINUE TO FOLLOW FOR DC NEEDS/PLAN
--- NOTE | 2022-11-24 15:00 | PC.NURSE ---
report given to S3 nurse.
[2022-11-24 17:23] LABS: Glucose, Whole Blood 210 mg/dL (60-115)
--- NOTE | 2022-11-24 17:28 | PM.EVENT ---
Event Note Date of Service: 11/25/22 Event Note: now comfortable pain much improved abd soft, mild tenderness right side stable VS MRCP reviewed - some GB wall thickening suggestive of acute cholecystitis no CBD stones hold Coumadin to allow INR to become subtherapeutic plan cholecystectomy as inpatient he iand jonadouglas the plan Time Spent With Patient Time: Total time managing care of this patient today ____ minutes.
[2022-11-24 20:36] LABS: Glucose, Whole Blood 213 mg/dL (60-115)
[2022-11-25] VITALS (7 sets, daily range): BP systolic 97–136; BP diastolic 53–88; PULSE 54–110; RESP 16–20; TEMP 36.4–36.8; O2SAT 94–97
[2022-11-25] MEDS: HYDROmorphone HCl 0.5 MG/0.5 ML SYRINGE IVPUSH ×2 (00:01→19:49)
[2022-11-25] MEDS: Metoprolol Tartrate 5 MG/5 ML VIAL IVPUSH ×2 (04:18→08:19)
--- NOTE | 2022-11-25 04:43 | PC.NURSE ---
Patient converted to AFIB on the monitor, fluctuating rate between 130's -140's . Blood pressure 136/88, denies chest pain ,palpation and dizziness. Dr. Ordonez notified, ordered 5 mg of Lopressor IV push. Lopressor given, patient resting, aware of plan of care. Will continue to monitor.
[2022-11-25] MEDS: Piperacillin Sodium/Tazobactam 3.375 GM in 0.9 % Sodium Chloride 50 ML IV ×5 (05:32→23:40)
[2022-11-25 05:39] LABS: Hematocrit 47.7 % (42.0-52.0); Hemoglobin 16.4 g/dl (14.0-18.0); Mean Corpuscular HGB Conc 34.4 g/dl (31.0-36.0); Mean Corpuscular Hemoglobin 32.3 pg (27.0-33.0); Mean Corpuscular Volume 94.1 fL (80.0-98.0); Mean Platelet Volume 10.2 fL (9.4-12.4); Platelet Count 189 X10*3/uL (160-400); Red Blood Count 5.07 X10*6/uL (4.60-5.80); Red Cell Distribution Width 13.2 % (11.0-16.0); White Blood Count 18.5 X10*3/uL (4.8-10.8)
[2022-11-25 05:44] LABS: Prothrombin Time 23.8 SEC (11.1-13.3)
[2022-11-25 05:56] LABS: Alanine Aminotransferase 28 U/L (0-40); Albumin Level 3.7 g/dL (3.5-5.0); Alkaline Phosphatase 79 U/L (39-117); Anion Gap 14 (12-20); Aspartate Amino Transferase 20 U/L (5-37); Bilirubin Direct 0.4 mg/dL (0.0-0.5); Bilirubin Total 1.4 mg/dL (0.0-1.0); Blood Urea Nitrogen 11 mg/dL (9-16); Calcium 8.8 mg/dL (8.4-10.2); Carbon Dioxide 23 mmol/L (22-29); Chloride 105 mmol/L (96-108); Creatinine Clr Calc Pharmacy 66.8; Estimated Glomerular Filt Rate > 60; Glucose Random 201 mg/dL (60-115); Potassium 3.9 mmol/L (3.3-5.1); Sodium 138 mmol/L (135-145); Total Protein 7.2 g/dL (6.5-8.0)
[2022-11-25] MEDS: Metoprolol Succinate ER 25 MG TAB.ER.24H PO (06:15)
--- NOTE | 2022-11-25 06:25 | PC.NURSE ---
Patient still in AFIB on the monitor, maintaining a rate of 100's with occasional spike to 150's. Patient denied chest pain, denies palpitations. Blood pressure 146/86. Dr. Ordonez updated, instructed this RN to give an unscheduled dose of 25 mg of metoprolol. Metoprolol given, patient resting and aware of plan of care. Will continue to monitor.
[2022-11-25] MEDS: Tamsulosin HCL 0.4 MG CAPSULE PO ×2 (07:42→19:49)
[2022-11-25] MEDS: Atorvastatin Calcium 80 MG TABLET PO (07:42)
[2022-11-25] MEDS: Insulin Lispro 100 UNIT/ML 3 ML VIAL SUBCUT ×3 (07:43→16:46)
[2022-11-25 07:50] LABS: Glucose, Whole Blood 209 mg/dL (60-115)
[2022-11-25] MEDS: 0.9 % Sodium Chloride 1,000 ML 999 ML IV (08:20)
[2022-11-25 08:31] LABS: Magnesium 2.1 mg/dL (1.6-2.6)
--- NOTE | 2022-11-25 08:32 | PC.NURSE ---
Addendum entered by Svetlana Lamas RN 11/25/22 15:05: Per MD Riley gtt to be started. Furniture Painter made aware of need for tele bed. Report given to RAMÍREZ Bear and patient transferred to [facility] at approximately 1430. At this time pt stable A&Ox4 and understands needs for transfer, denies chest pain or SOB, HR fluctuating between 120's to 150's Afib. Addendum entered by Svetlana Lamas RN 11/25/22 13:26: Pt HR fluctuating between one teens sand one-thirties, pt asymptomatic, aware. Original Note: MD Mullen made aware via tiger text Pt HR spiked into 190s with ambulation rhythm Afib. At rest pt HR sustaining in 140'-150's, BP 102/71. Pt denies chest pain and SOB. IV metoprolol and NaCl bolus given as ordered. Pt continues to be on tele monitoring.
--- NOTE | 2022-11-25 10:25 | P.PNIM_ITS ---
Subjective Subjective Date of Service: 11/25/22 Interval History: Seen and evaluated this morning in Afib w RvR BP soft Denies any chest pain or SOB but reports feeling palpitations INR at 2 pain under fair control Review of Systems Review of Systems: Yes all other systems are reviewed and are negative Physical Exam Vital Signs: Vital Signs: Last Vital Signs Temp 97.6 F 11/25/22 07:37 Pulse 99 11/25/22 09:38 Resp 17 11/25/22 09:38 BP 130/72 11/25/22 09:38 Pulse Ox 96 11/25/22 09:38 O2 Del Method Room Air 11/25/22 07:37 BMI result Body Mass Index 32.2 Const: Other: Constitutional : Awake, interactive, not in distress Neck : Normal inspection, Supple Cardiovascular : irregular irregular, tachycardia, no JVP, no lower extremity edema Respiratory : good bilateral air entry, no crackles, wheezes or rhonchi Gastrointestinal: soft, lax, Normal bowel sounds, mild RUQ tenderness with positive ferrera sign Skin : Warm, Dry Neurological : Alert & oriented x3, No focal deficit Objective Data Active Medications Acetaminophen (Acetaminophen 325 Mg Tablet) 650 mg PO Q6H PRN PRN Reason: Pain, Mild (Pain Scale 1-3) Atorvastatin Calcium (Atorvastatin Calcium 80 Mg Tablet) 80 mg PO DAILY [facility] Last Admin: 11/25/22 07:42 Dose: 80 mg Documented By: JR Enoxaparin Sodium (Enoxaparin Sodium 80 Mg/0.8 Ml Syringe) 80 mg 1 mg/kg (80 mg) SUBCUT Q12H [facility] Last Admin: 11/24/22 23:59 Dose: 80 mg Documented By: EYAL Hydromorphone HCl (Hydromorphone Hcl 0.5 Mg/0.5 Ml Syringe) 0.5 mg IVPUSH Q4H PRN; Protocol PRN Reason: Pain, Severe (Pain Scale 7-10) Last Admin: 11/25/22 00:01 Dose: 0.5 mg Documented By: EYAL Piperacillin Sod/Tazobactam (Sod 3.375 gm/ Sodium Chloride) 50 mls @ 100 mls/hr IV Q6H [facility] Last Infusion: 11/25/22 06:13 Dose: 0 mls/hr Documented By: HO.OZORALB Sodium Chloride (Ns) 1,000 mls @ 80 mls/hr IVCONT .[id number] [facility] Last Admin: 11/25/22 00:00 Dose: 80 mls/hr Documented By: EYAL Insulin Human Lispro (Insulin Lispro 100 Unit/Ml 3 Ml Vial) 0 unit SUBCUT QIDACHS [facility]; Protocol Last Admin: 11/25/22 07:43 Dose: 4 unit Documented By: JR Metoprolol Succinate (Metoprolol Succinate Er 25 Mg Tab.Er.24h) 25 mg PO BID [facility]; Protocol Last Admin: 11/25/22 07:41 Dose: Not Given Documented By: JR Non-Admin Reason: 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 Ondansetron HCl (Ondansetron Hcl 4 Mg/2 Ml Vial) 4 mg IVPUSH Q6H PRN PRN Reason: Nausea Last Admin: 11/24/22 05:05 Dose: 4 mg Documented By: ELINA Pharmacy Consult (Consult Rx Perform Med Rec) 1 each MISCELLANE ONCE PRN PRN Reason: Consult order Sodium Chloride (0.9 % Sodium Chloride Flush 3 Ml Syringe) 3 ml IVFLUSH QSHIFT [facility] Last Admin: 11/25/22 07:43 Dose: Not Given Documented By: JR Non-Admin Reason: IV Running Tamsulosin HCl (Tamsulosin Hcl 0.4 Mg Capsule) 0.4 mg PO BID [facility] Last Admin: 11/25/22 07:42 Dose: 0.4 mg Documented By: JR Labs 11/25/22 05:13 11/25/22 05:13 Labs: Laboratory Results - last 24 hr 11/24/22 11/24/22 11/24/22 11:30 13:02 17:18 MCV MCH MCHC RDW Plt Count MPV Absolute Nucleated RBC Nucleated RBC % (auto) PT INR Anion Gap Estim Creat Clear Calc Estimated GFR POC Glucose 235 H 229 H 210 H Random Glucose Calcium Magnesium Total Bilirubin Direct Bilirubin AST ALT Alkaline Phosphatase Total Protein Albumin 11/24/22 11/25/22 11/25/22 20:31 05:13 05:13 MCV 94.1 MCH 32.3 MCHC 34.4 RDW 13.2 Plt Count 189 MPV 10.2 Absolute Nucleated RBC 0.000 Nucleated RBC % (auto) 0.0 PT 23.8 H INR 2.0 H Anion Gap Estim Creat Clear Calc Estimated GFR POC Glucose 213 H Random Glucose Calcium Magnesium Total Bilirubin Direct Bilirubin AST ALT Alkaline Phosphatase Total Protein Albumin 11/25/22 11/25/22 05:13 07:34 MCV MCH MCHC RDW Plt Count MPV Absolute Nucleated RBC Nucleated RBC % (auto) PT INR Anion Gap 14 Estim Creat Clear Calc 66.8 Estimated GFR > 60 POC Glucose 209 H Random Glucose 201 H Calcium 8.8 D Magnesium 2.1 Total Bilirubin 1.4 H Direct Bilirubin 0.4 AST 20 ALT 28 Alkaline Phosphatase 79 Total Protein 7.2 Albumin 3.7 Assessment and Plan (1) Cholelithiasis: Status: Acute (2) Atrial fibrillation with rapid ventricular response: Status: Acute Plan A 77 year old male with PMH of PAF on Warfarin, DM II, HLD, HTN, BPH among others who presents to the hospital with RUQ pain and tenderness. found to have acute cholecystitis. Acute cholecystitis As reported on CT and US On IV Abx surgical team following Hold Warfarin for surgery tomorrow , INR 2 EKG reviewed, no chest pain The patient carries mild-moderate radha-operative risk for complication, can go ahead with surgery with no further testing needed Hx PAF w RvR better controlled Hold Warfarin full dose Lovenox restart his home Metoprolol XL Use IV MEtoprolol if needed BPH Tamsulosin DM II SSI Hold PO medicaitons HTN Hld Lisinopril and monitor BP Thank you for the consult. will continue to monitor with you as needed Time Spent With Patient Time: Total time managing care of this patient today ____ minutes. Quality Stroke Does the patient have a stroke diagnosis?: No VTE Prior VTE?: No VTE Risk Level:: Medical - moderate - high VTE Device Contraindication: N/A - Device Ordered VTE Drug Contraindication: Treatment Not Indicated
--- NOTE | 2022-11-25 10:37 | P.PNGS_ITS ---
Subjective Subjective Date of Service: 11/25/22 Interval history: says he still has pain but feels better describes pain as mostly in lower abdomen tolerating clear liquid no fever Physical Exam Vital Signs: Vital Signs: Last Vital Signs Temp 97.6 F 11/25/22 07:37 Pulse 99 11/25/22 09:38 Resp 17 11/25/22 09:38 BP 130/72 11/25/22 09:38 Pulse Ox 96 11/25/22 09:38 O2 Del Method Room Air 11/25/22 07:37 BMI result Body Mass Index 32.2 Const: General: comfortable and no acute distress Resp: Effort & Inspection: normal respiratory effort Cardio: Rhythm: abnormal rhythm GI: Other: some tenderness, seems to be diffuse although very benign abdomen Palpation (GI): Soft to palpation, not firm and no guarding Objective Data Active Medications Acetaminophen (Acetaminophen 325 Mg Tablet) 650 mg PO Q6H PRN PRN Reason: Pain, Mild (Pain Scale 1-3) Atorvastatin Calcium (Atorvastatin Calcium 80 Mg Tablet) 80 mg PO DAILY [facility] Last Admin: 11/25/22 07:42 Dose: 80 mg Documented By: JR Enoxaparin Sodium (Enoxaparin Sodium 80 Mg/0.8 Ml Syringe) 80 mg 1 mg/kg (80 mg) SUBCUT Q12H [facility] Last Admin: 11/24/22 23:59 Dose: 80 mg Documented By: EYAL Hydromorphone HCl (Hydromorphone Hcl 0.5 Mg/0.5 Ml Syringe) 0.5 mg IVPUSH Q4H PRN; Protocol PRN Reason: Pain, Severe (Pain Scale 7-10) Last Admin: 11/25/22 00:01 Dose: 0.5 mg Documented By: EYAL Piperacillin Sod/Tazobactam (Sod 3.375 gm/ Sodium Chloride) 50 mls @ 100 mls/hr IV Q6H [facility] Last Infusion: 11/25/22 06:13 Dose: 0 mls/hr Documented By: EYAL Sodium Chloride (Ns) 1,000 mls @ 80 mls/hr IVCONT .[id number] [facility] Last Admin: 11/25/22 00:00 Dose: 80 mls/hr Documented By: EYAL Insulin Human Lispro (Insulin Lispro 100 Unit/Ml 3 Ml Vial) 0 unit SUBCUT QIDACHS [facility]; Protocol Last Admin: 11/25/22 07:43 Dose: 4 unit Documented By: JR Metoprolol Succinate (Metoprolol Succinate Er 25 Mg Tab.Er.24h) 25 mg PO BID [facility]; Protocol Last Admin: 11/25/22 07:41 Dose: Not Given Documented By: JR Non-Admin Reason: 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 Ondansetron HCl (Ondansetron Hcl 4 Mg/2 Ml Vial) 4 mg IVPUSH Q6H PRN PRN Reason: Nausea Last Admin: 11/24/22 05:05 Dose: 4 mg Documented By: ELINA Pharmacy Consult (Consult Rx Perform Med Rec) 1 each MISCELLANE ONCE PRN PRN Reason: Consult order Sodium Chloride (0.9 % Sodium Chloride Flush 3 Ml Syringe) 3 ml IVFLUSH QSHIFT [facility] Last Admin: 11/25/22 07:43 Dose: Not Given Documented By: JR Non-Admin Reason: IV Running Tamsulosin HCl (Tamsulosin Hcl 0.4 Mg Capsule) 0.4 mg PO BID [facility] Last Admin: 11/25/22 07:42 Dose: 0.4 mg Documented By: JR Labs 11/25/22 05:13 11/25/22 05:13 Labs: Laboratory Results - last 24 hr 11/24/22 11/24/22 11/24/22 11:30 13:02 17:18 MCV MCH MCHC RDW Plt Count MPV Absolute Nucleated RBC Nucleated RBC % (auto) PT INR Anion Gap Estim Creat Clear Calc Estimated GFR POC Glucose 235 H 229 H 210 H Random Glucose Calcium Magnesium Total Bilirubin Direct Bilirubin AST ALT Alkaline Phosphatase Total Protein Albumin 11/24/22 11/25/22 11/25/22 20:31 05:13 05:13 MCV 94.1 MCH 32.3 MCHC 34.4 RDW 13.2 Plt Count 189 MPV 10.2 Absolute Nucleated RBC 0.000 Nucleated RBC % (auto) 0.0 PT 23.8 H INR 2.0 H Anion Gap Estim Creat Clear Calc Estimated GFR POC Glucose 213 H Random Glucose Calcium Magnesium Total Bilirubin Direct Bilirubin AST ALT Alkaline Phosphatase Total Protein Albumin 08/13/23 08/13/23 05:13 07:34 MCV MCH MCHC RDW Plt Count MPV Absolute Nucleated RBC Nucleated RBC % (auto) PT INR Anion Gap 14 Estim Creat Clear Calc 66.8 Estimated GFR > 60 POC Glucose 209 H Random Glucose 201 H Calcium 8.8 D Magnesium 2.1 Total Bilirubin 1.4 H Direct Bilirubin 0.4 AST 20 ALT 28 Alkaline Phosphatase 79 Total Protein 7.2 Albumin 3.7 Procedures Date of Service Date of Service: 11/25/22 Progress Note: A&P Assessment and plan (1) Cholelithiasis: Status: Acute Assessment and Plan: pain continues to improve but still with leukocytosis MRCP does not suggest CBD stones gallbladder wall edema noted no other abdominal pathology has been identified plan for cholecystectomy INR still elevated continue to hold Coumadin I explained to the technique of laparoscopic cholecystectomy and possible open cholecystectomy. I reviewed the risks including but not limited to bleeding, infections, injury to bowel, liver, bile ducts, bile leak, retained stones, as well as the benefits and alternatives exam remains very benign in clinically well despite leukocytosis so will await for acceptable INR - plan OR for tomorrow reviewed case with hospitalist Time Spent With Patient Time: Total time managing care of this patient today ____ minutes. Quality Stroke Does the patient have a stroke diagnosis?: No VTE Prior VTE?: No VTE Risk Level:: Medical - moderate - high VTE Device Contraindication: N/A - Device Ordered VTE Drug Contraindication: Treatment Not Indicated
[2022-11-25 11:23] LABS: Glucose, Whole Blood 168 mg/dL (60-115)
[2022-11-25] MEDS: Acetaminophen 325 MG TABLET 650 MG PO ×2 (11:39→19:48)
[2022-11-25] MEDS: 0.9 % Sodium Chloride 1,000 ML 80 ML IVCONT ×3 (11:39→14:51)
[2022-11-25 14:44] LABS: Glucose, Whole Blood 165 mg/dL (60-115)
[2022-11-25] MEDS: dilTIAZem HCL 125 MG in 0.9 % Sodium Chloride 100 ML 10 MG IVCONT (14:52)
[2022-11-25] MEDS: 0.9 % Sodium Chloride Flush 3 ML SYRINGE IVFLUSH ×2 (14:52→19:49)
--- NOTE | 2022-11-25 15:15 | P.EN_ITS ---
Event Note Date of Service: 11/25/22 Event Note: has been in and out of afib with RVR since admission transferred to [facility] for cardiblazem drip abd remains soft, benign says he continues to feel better he wans to proceed with lap cholecystectomy tomorrow he understands the procedure as well as the risks, benefits and alternatives his was wih him during the discussion check INR in AM Time Spent With Patient Time: Total time managing care of this patient today ____ minutes.
[2022-11-25 16:31] LABS: Glucose, Whole Blood 181 mg/dL (60-115)
[2022-11-25 21:16] LABS: Glucose, Whole Blood 151 mg/dL (60-115)
[2022-11-26] VITALS (7 sets, daily range): BP systolic 101–130; BP diastolic 54–68; PULSE 66–113; RESP 16–20; TEMP 36.1–37.2; O2SAT 96–98
[2022-11-26] MEDS: 0.9 % Sodium Chloride 1,000 ML 80 ML IVCONT (03:05)
[2022-11-26] MEDS: Piperacillin Sodium/Tazobactam 3.375 GM in 0.9 % Sodium Chloride 50 ML IV ×3 (05:50→18:31)
[2022-11-26 06:50] LABS: Hematocrit 41.1 % (42.0-52.0); INTERNATIONAL NORM RATIO 1.7 (0.9-1.1); Mean Corpuscular HGB Conc 34.1 g/dl (31.0-36.0); Mean Corpuscular Volume 93.8 fL (80.0-98.0); Mean Platelet Volume 9.8 fL (9.4-12.4); Platelet Count 132 X10*3/uL (160-400); Prothrombin Time 20.8 SEC (11.1-13.3); Red Blood Count 4.38 X10*6/uL (4.60-5.80); Red Cell Distribution Width 13.1 % (11.0-16.0); White Blood Count 10.7 X10*3/uL (4.8-10.8)
[2022-11-26 06:55] LABS: Glucose, Whole Blood 163 mg/dL (60-115)
--- NOTE | 2022-11-26 08:18 | PM.EVENT ---
Event Note Date of Service: 11/27/22 Event Note: says he feels well states he has very minimal pain looks comfortable abd soft, minimal tenderness diffusely on Cardizem drip for a fib INR 1.7 plan lap steve possible open today Vit K now Time Spent With Patient Time: Total time managing care of this patient today ____ minutes.
[2022-11-26] MEDS: Metoprolol Succinate ER 25 MG TAB.ER.24H PO ×2 (08:33→20:27)
[2022-11-26 09:42] LABS: Anion Gap 11 (12-20); Blood Urea Nitrogen 13 mg/dL (9-16); Calcium 8.5 mg/dL (8.4-10.2); Carbon Dioxide 23 mmol/L (22-29); Chloride 109 mmol/L (96-108); Creatinine Clr Calc Pharmacy 63.8; Estimated Glomerular Filt Rate > 60; Glucose Random 127 mg/dL (60-115); Magnesium 2.2 mg/dL (1.6-2.6); Potassium 3.7 mmol/L (3.3-5.1); Sodium 139 mmol/L (135-145)
[2022-11-26] MEDS: Phytonadione (Vit K1) 2.5 MG in 0.9 % Sodium Chloride 50 ML 50.25 MG IV (09:47)
--- NOTE | 2022-11-26 09:58 | P.CONAN_ITS ---
[facility] Active Problems Active Problems: All Active Problems (Updated 11/25/22 @ 10:31 by Emmanuel Mullen MD) Atrial fibrillation with rapid ventricular response (Acute) Cholelithiasis (Acute) Abdominal pain (Acute) Bilateral knee pain (Acute) Pain of left calf (Acute) Osteoarthritis of knees, bilateral (Acute) Current use of anticoagulant therapy (Acute) Paroxysmal A-fib (Acute) Exposure to COVID-19 virus (Acute) Lab test negative for COVID-19 virus (Acute) Past Medical History Medical History Current use of anticoagulant therapy Diabetes Diabetes Heart attack High cholesterol Hypertension Paroxysmal A-fib Functional capacity: independent ambulation Social History Social History Alcohol intake: never Patient Tobacco Use Status: Never used Tobacco service: No Current occupational status: 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 Allergies Allergy/AdvReac Type Severity Reaction Status Date / Time acetaminophen [From Percocet] Allergy Intermediate Headache Verified 11/07/22 10:26 oxycodone [From Percocet] Allergy Intermediate Headache Verified 11/07/22 10:26 ibuprofen [From Motrin] Allergy Mild SWELLING Verified 11/07/22 10:26 SALMON AdvReac Mild VOMITING Uncoded 09/07/22 10:28 Active Medications: Current Medications Acetaminophen (Acetaminophen 325 Mg Tablet) 650 mg PO Q6H PRN PRN Reason: Pain, Mild (Pain Scale 1-3) Last Admin: 11/25/22 19:48 Dose: 650 mg Atorvastatin Calcium (Atorvastatin Calcium 80 Mg Tablet) 80 mg PO DAILY [facility] Last Admin: 11/26/22 08:28 Dose: Not Given Enoxaparin Sodium (Enoxaparin Sodium 80 Mg/0.8 Ml Syringe) 80 mg 1 mg/kg (80 mg) SUBCUT Q12H [facility] Last Admin: 11/24/22 23:59 Dose: 80 mg Hydromorphone HCl (Hydromorphone Hcl 0.5 Mg/0.5 Ml Syringe) 0.5 mg IVPUSH Q4H PRN; Protocol PRN Reason: Pain, Severe (Pain Scale 7-10) Last Admin: 11/25/22 19:49 Dose: 0.5 mg Piperacillin Sod/Tazobactam (Sod 3.375 gm/ Sodium Chloride) 50 mls @ 100 mls/hr IV Q6H [facility] Last Infusion: 11/26/22 07:03 Dose: Infused Sodium Chloride (Ns) 1,000 mls @ 80 mls/hr IVCONT .[id number] [facility] Last Admin: 11/26/22 03:05 Dose: 80 mls/hr Diltiazem HCl 125 mg/ Sodium (Chloride) 125 mls @ 0 mls/hr IVCONT .Q0M [facility]; Protocol Last Titration: 11/26/22 08:35 Dose: 10 mg/hr, 10 mls/hr Insulin Human Lispro (Insulin Lispro 100 Unit/Ml 3 Ml Vial) 0 unit SUBCUT QIDACHS [facility]; Protocol Last Admin: 11/26/22 07:01 Dose: Not Given Metoprolol Succinate (Metoprolol Succinate Er 25 Mg Tab.Er.24h) 25 mg PO BID [facility]; Protocol Last Admin: 11/26/22 08:33 Dose: 25 mg Ondansetron HCl (Ondansetron Hcl 4 Mg/2 Ml Vial) 4 mg IVPUSH Q6H PRN PRN Reason: Nausea Last Admin: 11/24/22 05:05 Dose: 4 mg Pharmacy Consult (Consult Rx Perform Med Rec) 1 each MISCELLANE ONCE PRN PRN Reason: Consult order Sodium Chloride (0.9 % Sodium Chloride Flush 3 Ml Syringe) 3 ml IVFLUSH QSHIFT [facility] Last Admin: 11/26/22 08:01 Dose: Not Given Tamsulosin HCl (Tamsulosin Hcl 0.4 Mg Capsule) 0.4 mg PO BID [facility] Last Admin: 11/26/22 08:29 Dose: Not Given Home Medications Medication Instructions Recorded Confirmed Last Taken Type atorvastatin 80 mg tablet 80 mg PO DAILY 04/27/20 11/24/22 11/23/22 History blood sugar diagnostic #10 ea 04/27/20 09/07/22 Unknown History tramadol 50 mg tablet 50 mg PO TID PRN Pain 04/27/20 11/24/22 Unknown History blood-glucose meter (FreeStyle #1 ea 06/19/21 09/07/22 Unknown History Lite Meter kit) pen needle, diabetic 32 gauge x #50 ea 06/19/21 09/07/22 Unknown History (BD Keira 2nd Gen Pen Needle) lisinopril 5 mg tablet 5 mg PO DAILY 07/05/22 11/24/22 11/23/22 History metoprolol succinate 25 mg 25 mg PO BID 07/05/22 11/24/22 11/23/22 History tablet,extended release 24 hr dulaglutide 3 mg/0.5 mL 3 mg subcut BECKHAM@0900 11/24/22 11/24/22 11/23/22 History subcutaneous pen injector (Trulicity) glipizide 5 mg tablet 10 mg PO BID 11/24/22 11/24/22 11/23/22 History multivitamin 1 tab PO DAILY 11/24/22 11/24/22 11/23/22 History omega 3-imy-hrl-fish oil 300 1 cap PO DAILY 11/24/22 11/24/22 11/23/22 History mg-1,000 mg capsule,delayed release (Fish Oil) tamsulosin 0.4 mg capsule 0.4 mg PO Q12H 11/24/22 11/24/22 11/23/22 History warfarin 5 mg tablet 2.5 mg PO SUTUWETHFRSA@1800 11/24/22 11/24/22 11/23/22 History warfarin 5 mg tablet 5 mg PO MO@1800 11/24/22 11/24/22 11/19/22 History Exam Exam Date and Time: November 26, 2022 0958 Height,Weight and Vital Signs: Height 5 ft 2 in Weight 79.832 kg Last Vital Signs Temp 98.9 F 11/26/22 07:05 Pulse 113 H 11/26/22 07:05 Resp 16 11/26/22 07:05 BP 126/59 L 11/26/22 07:05 Pulse Ox 98 11/26/22 07:05 O2 Del Method Room Air 11/26/22 07:05 Pertinent Lab Results Pertinent Lab Results: Laboratory Tests 11/23/22 11/23/22 11/23/22 20:25 20:25 20:25 WBC 12.7 H RBC 4.65 Hgb 14.9 Hct 43.0 MCV 92.5 MCH 32.0 MCHC 34.7 RDW 13.0 Plt Count 167 MPV 9.4 Immature Gran % (Auto) 0.4 Neut % (Auto) 82.7 H Lymph % (Auto) 12.8 L [place] % (Auto) 3.5 Eos % (Auto) 0.4 Baso % (Auto) 0.2 Lymph # (Auto) 1.6 Boundary # (Auto) 0.4 Eos # (Auto) 0.1 Baso # (Auto) 0.0 Abs Immat Gran (auto) 0.05 H Absolute Neuts (auto) 10.5 H Absolute Nucleated RBC 0.000 Nucleated RBC % (auto) 0.0 PT INR Sodium 139 Potassium 5.2 H Chloride 104 Carbon Dioxide 24 Anion Gap 16 BUN 17 H Creatinine 1.10 Estim Creat Clear Calc 52.2 Estimated GFR > 60 POC Glucose Random Glucose 240 H Calcium 9.9 Magnesium 1.9 Total Bilirubin 1.1 H Direct Bilirubin AST 23 ALT 32 Alkaline Phosphatase 89 Total Protein 7.8 Albumin 4.3 Lipase 19 Urine Color Urine Appearance Urine pH Ur Specific [place] Urine Protein Urine Glucose (UA) Urine Ketones Urine Blood Urine Nitrite Ur Leukocyte Esterase COVID-19 ([facility]) Negative COVID-19 Clin Com See Note 11/23/22 11/24/22 11/24/22 21:10 00:18 09:42 WBC 14.4 H RBC 4.96 Hgb 16.1 Hct 46.3 MCV 93.3 MCH 32.5 MCHC 34.8 RDW 13.1 Plt Count 181 MPV 9.5 Immature Gran % (Auto) Neut % (Auto) Lymph % (Auto) [place] % (Auto) Eos % (Auto) Baso % (Auto) Lymph # (Auto) Bound[place] # (Auto) Eos # (Auto) Baso # (Auto) Abs Immat Gran (auto) Absolute Neuts (auto) Absolute Nucleated RBC 0.000 Nucleated RBC % (auto) 0.0 PT 28.3 H INR 2.3 H Sodium Potassium Chloride Carbon Dioxide Anion Gap BUN Creatinine Estim Creat Clear Calc Estimated GFR POC Glucose Random Glucose Calcium Magnesium Total Bilirubin Direct Bilirubin AST ALT Alkaline Phosphatase Total Protein Albumin Lipase Urine Color Yellow Urine Appearance Clear Urine pH 7.0 Ur Specific [place] >= 1.030 H Urine Protein Trace Urine Glucose (UA) 500 H Urine Ketones Trace Urine Blood Negative Urine Nitrite Negative Ur Leukocyte Esterase Negative COVID-19 ([facility]) COVID-19 Clin Com 11/24/22 11/24/22 11/24/22 09:42 09:42 11:30 WBC RBC Hgb Hct MCV MCH MCHC RDW Plt Count MPV Immature Gran % (Auto) Neut % (Auto) Lymph % (Auto) [place] % (Auto) Eos % (Auto) Baso % (Auto) Lymph # (Auto) Bound[place] # (Auto) Eos # (Auto) Baso # (Auto) Abs Immat Gran (auto) Absolute Neuts (auto) Absolute Nucleated RBC Nucleated RBC % (auto) PT 21.8 H D INR 1.8 H Sodium 139 Potassium 4.5 Chloride 101 Carbon Dioxide 27 Anion Gap 16 BUN 13 Creatinine 0.95 Estim Creat Clear Calc 60.5 Estimated GFR > 60 POC Glucose 235 H Random Glucose 219 H Calcium 9.8 Magnesium Total Bilirubin 1.4 H Direct Bilirubin 0.4 AST 20 ALT 29 Alkaline Phosphatase 98 Total Protein 8.0 Albumin 4.3 Lipase Urine Color Urine Appearance Urine pH Ur Specific [place] Urine Protein Urine Glucose (UA) Urine Ketones Urine Blood Urine Nitrite Ur Leukocyte Esterase COVID-19 ([facility]) COVID-19 Clin Peer5 11/24/22 11/24/22 11/24/22 13:02 17:18 20:31 WBC RBC Hgb Hct MCV MCH MCHC RDW Plt Count MPV Immature Gran % (Auto) Neut % (Auto) Lymph % (Auto) [place] % (Auto) Eos % (Auto) Baso % (Auto) Lymph # (Auto) Bound[place] # (Auto) Eos # (Auto) Baso # (Auto) Abs Immat Gran (auto) Absolute Neuts (auto) Absolute Nucleated RBC Nucleated RBC % (auto) PT INR Sodium Potassium Chloride Carbon Dioxide Anion Gap BUN Creatinine Estim Creat Clear Calc Estimated GFR POC Glucose 229 H 210 H 213 H Random Glucose Calcium Magnesium Total Bilirubin Direct Bilirubin AST ALT Alkaline Phosphatase Total Protein Albumin Lipase Urine Color Urine Appearance Urine pH Ur Specific [place] Urine Protein Urine Glucose (UA) Urine Ketones Urine Blood Urine Nitrite Ur Leukocyte Esterase COVID-19 ([facility]) COVID-19 Clin Com 11/25/22 11/25/22 11/25/22 05:13 05:13 05:13 WBC 18.5 H RBC 5.07 Hgb 16.4 Hct 47.7 MCV 94.1 MCH 32.3 MCHC 34.4 RDW 13.2 Plt Count 189 MPV 10.2 Immature Gran % (Auto) Neut % (Auto) Lymph % (Auto) [place] % (Auto) Eos % (Auto) Baso % (Auto) Lymph # (Auto) Bound[place] # (Auto) Eos # (Auto) Baso # (Auto) Abs Immat Gran (auto) Absolute Neuts (auto) Absolute Nucleated RBC 0.000 Nucleated RBC % (auto) 0.0 PT 23.8 H INR 2.0 H Sodium 138 Potassium 3.9 Chloride 105 Carbon Dioxide 23 Anion Gap 14 BUN 11 Creatinine 0.86 Estim Creat Clear Calc 66.8 Estimated GFR > 60 POC Glucose Random Glucose 201 H Calcium 8.8 D Magnesium 2.1 Total Bilirubin 1.4 H Direct Bilirubin 0.4 AST 20 ALT 28 Alkaline Phosphatase 79 Total Protein 7.2 Albumin 3.7 Lipase Urine Color Urine Appearance Urine pH Ur Specific [place] Urine Protein Urine Glucose (UA) Urine Ketones Urine Blood Urine Nitrite Ur Leukocyte Esterase COVID-19 ([facility]) COVID-19 Attention Point 11/25/22 11/25/22 11/25/22 07:34 11:14 14:39 WBC RBC Hgb Hct MCV MCH MCHC RDW Plt Count MPV Immature Gran % (Auto) Neut % (Auto) Lymph % (Auto) [place] % (Auto) Eos % (Auto) Baso % (Auto) Lymph # (Auto) [place] # (Auto) Eos # (Auto) Baso # (Auto) Abs Immat Gran (auto) Absolute Neuts (auto) Absolute Nucleated RBC Nucleated RBC % (auto) PT INR Sodium Potassium Chloride Carbon Dioxide Anion Gap BUN Creatinine Estim Creat Clear Calc Estimated GFR POC Glucose 209 H 168 H 165 H Random Glucose Calcium Magnesium Total Bilirubin Direct Bilirubin AST ALT Alkaline Phosphatase Total Protein Albumin Lipase Urine Color Urine Appearance Urine pH Ur Specific [place] Urine Protein Urine Glucose (UA) Urine Ketones Urine Blood Urine Nitrite Ur Leukocyte Esterase COVID-19 ([facility]) COVID-19 Attention Point 11/25/22 11/25/22 11/26/22 16:23 21:13 06:08 WBC RBC Hgb Hct MCV MCH MCHC RDW Plt Count MPV Immature Gran % (Auto) Neut % (Auto) Lymph % (Auto) [place] % (Auto) Eos % (Auto) Baso % (Auto) Lymph # (Auto) [place] # (Auto) Eos # (Auto) Baso # (Auto) Abs Immat Gran (auto) Absolute Neuts (auto) Absolute Nucleated RBC Nucleated RBC % (auto) PT 20.8 H INR 1.7 H Sodium Potassium Chloride Carbon Dioxide Anion Gap BUN Creatinine Estim Creat Clear Calc Estimated GFR POC Glucose 181 H 151 H Random Glucose Calcium Magnesium Total Bilirubin Direct Bilirubin AST ALT Alkaline Phosphatase Total Protein Albumin Lipase Urine Color Urine Appearance Urine pH Ur Specific [place] Urine Protein Urine Glucose (UA) Urine Ketones Urine Blood Urine Nitrite Ur Leukocyte Esterase COVID-19 ([facility]) COVID-19 Attention Point 11/26/22 11/26/22 11/26/22 06:08 06:08 06:51 WBC 10.7 RBC 4.38 L Hgb 14.0 Hct 41.1 L MCV 93.8 MCH 32.0 MCHC 34.1 RDW 13.1 Plt Count 132 L D MPV 9.8 Immature Gran % (Auto) Neut % (Auto) Lymph % (Auto) [place] % (Auto) Eos % (Auto) Baso % (Auto) Lymph # (Auto) [place] # (Auto) Eos # (Auto) Baso # (Auto) Abs Immat Gran (auto) Absolute Neuts (auto) Absolute Nucleated RBC 0.000 Nucleated RBC % (auto) 0.0 PT INR Sodium 139 Potassium 3.7 Chloride 109 H Carbon Dioxide 23 Anion Gap 11 L BUN 13 Creatinine 0.90 Estim Creat Clear Calc 63.8 Estimated GFR > 60 POC Glucose 163 H Random Glucose 127 H Calcium 8.5 Magnesium 2.2 Total Bilirubin Direct Bilirubin AST ALT Alkaline Phosphatase Total Protein Albumin Lipase Urine Color Urine Appearance Urine pH Ur Specific [place] Urine Protein Urine Glucose (UA) Urine Ketones Urine Blood Urine Nitrite Ur Leukocyte Esterase COVID-19 ([facility]) COVID-19 [employer] Com
[2022-11-26 11:11] LABS: Glucose, Whole Blood 202 mg/dL (60-115)
--- NOTE | 2022-11-26 12:02 | MHC.CM.PN ---
EMR reviewed and per MD rounds, pt is not medically cleared for D/C and is awaiting cholecystectomy surgery today. CM will continue to follow.
--- NOTE | 2022-11-26 12:05 | P.CONCA_ITS ---
History of Present Illness History of Present Illness Date of Service: 11/26/22 Requesting physician: Marty Suresh Consult reason: atrial fibrillation and pre-op evaluation Chief complaint: right upper quadrant pain Narrative: I was asked to see Paulie in cardiology consultation today for preoperative cardiovascular risk stratification prior to gallbladder surgery under general anesthesia. History was obtained with help of a bedside admitting office escort. Patient is a pleasant 77-year-old male who is generally very well control with prior history of what appears to be paroxysmal atrial fibrillation although patient was not aware of the condition but says he is on warfarin for it and prior history of [facility] many [facility] status post intervention although he does not recall the details of it. Since then he has been doing well. Present hospital with right upper quadrant discomfort was noted to have acute cholecystitis and was recommended to undergo urgent cholecystectomy. Patient was noted to be in atrial fibrillation rapid ventricular strong without acute ST T wave changes and was started on IV Cardizem drip. Since started on Cardizem drip is converted back to sinus rhythm at 11:36 this morning. Patient's warfa rin has been withheld. Patient was not aware that his heart rate in atrial fibrillation. Has no symptoms of palpitation irregular heartbeat. Denies any lightheadedness, syncope. Has no symptoms of chest pain shortness of breath. Recently prior to hospitalization as per the he has been pretty active. He declines any recent heart failure symptoms or Review of Systems Constitutional: Constitutional: Reports no additional constitutional complaints Eyes: Eyes: Reports no additional eye complaints Cardiovascular: Cardiovascular: Reports no additional cardiovascular complaints, Denies chest pain, Denies palpitations and Denies orthopnea Respiratory: Respiratory: Reports no additional respiratory complaints Gastrointestinal: Gastrointestinal: Reports abdominal pain Musculoskeletal: Musculoskeletal: Reports no additional musculoskeletal complaints Integumentary/Breasts: Skin/Breast: Reports system reviewed and no additional complaints, except as docu Neurologic: Reports system reviewed and no additional complaints, except as documented Psychiatric: Psychiatric: Reports no additional psychiatric complaints Endocrine: Endocrine: Denies palpitations Hematologic/Lymphatic: Hematologic/Lymphatic: Reports no additional hematologic/lymphatic complaints [facility] Past Medical History Medical History Current use of anticoagulant therapy Diabetes Diabetes Heart attack High cholesterol Hypertension Paroxysmal A-fib Functional capacity: independent ambulation Social History Social History Alcohol intake: never Patient Tobacco Use Status: Never used Tobacco service: No Current occupational status: 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 Allergies Allergy/AdvReac Type Severity Reaction Status Date / Time acetaminophen [From Percocet] Allergy Intermediate Headache Verified 11/07/22 10:26 oxycodone [From Percocet] Allergy Intermediate Headache Verified 11/07/22 10:26 ibuprofen [From Motrin] Allergy Mild SWELLING Verified 11/07/22 10:26 SALMON AdvReac Mild VOMITING Uncoded 09/07/22 10:28 Active Medications: Current Medications Acetaminophen (Acetaminophen 325 Mg Tablet) 650 mg PO Q6H PRN PRN Reason: Pain, Mild (Pain Scale 1-3) Last Admin: 11/25/22 19:48 Dose: 650 mg Atorvastatin Calcium (Atorvastatin Calcium 80 Mg Tablet) 80 mg PO DAILY [facility] Last Admin: 11/26/22 08:28 Dose: Not Given Enoxaparin Sodium (Enoxaparin Sodium 80 Mg/0.8 Ml Syringe) 80 mg 1 mg/kg (80 mg) SUBCUT Q12H [facility] Last Admin: 11/24/22 23:59 Dose: 80 mg Hydromorphone HCl (Hydromorphone Hcl 0.5 Mg/0.5 Ml Syringe) 0.5 mg IVPUSH Q4H PRN; Protocol PRN Reason: Pain, Severe (Pain Scale 7-10) Last Admin: 11/25/22 19:49 Dose: 0.5 mg Piperacillin Sod/Tazobactam (Sod 3.375 gm/ Sodium Chloride) 50 mls @ 100 mls/hr IV Q6H [facility] Last Infusion: 11/26/22 07:03 Dose: Infused Sodium Chloride (Ns) 1,000 mls @ 80 mls/hr IVCONT .[id number] [facility] Last Admin: 11/26/22 03:05 Dose: 80 mls/hr Diltiazem HCl 125 mg/ Sodium (Chloride) 125 mls @ 0 mls/hr IVCONT .Q0M [facility]; Protocol Last Titration: 11/26/22 08:35 Dose: 10 mg/hr, 10 mls/hr Insulin Human Lispro (Insulin Lispro 100 Unit/Ml 3 Ml Vial) 0 unit SUBCUT QIDACHS [facility]; Protocol Last Admin: 11/26/22 07:01 Dose: Not Given Metoprolol Succinate (Metoprolol Succinate Er 25 Mg Tab.Er.24h) 25 mg PO BID [facility]; Protocol Last Admin: 11/26/22 08:33 Dose: 25 mg Ondansetron HCl (Ondansetron Hcl 4 Mg/2 Ml Vial) 4 mg IVPUSH Q6H PRN PRN Reason: Nausea Last Admin: 11/24/22 05:05 Dose: 4 mg Pharmacy Consult (Consult Rx Perform Med Rec) 1 each MISCELLANE ONCE PRN PRN Reason: Consult order Sodium Chloride (0.9 % Sodium Chloride Flush 3 Ml Syringe) 3 ml IVFLUSH QSHIFT [facility] Last Admin: 11/26/22 08:01 Dose: Not Given Tamsulosin HCl (Tamsulosin Hcl 0.4 Mg Capsule) 0.4 mg PO BID [facility] Last Admin: 11/26/22 08:29 Dose: Not Given Home Medications Medication Instructions Recorded Confirmed Last Taken Type atorvastatin 80 mg tablet 80 mg PO DAILY 04/27/20 11/24/22 11/23/22 History blood sugar diagnostic #10 ea 04/27/20 09/07/22 Unknown History tramadol 50 mg tablet 50 mg PO TID PRN Pain 04/27/20 11/24/22 Unknown History blood-glucose meter (FreeStyle #1 ea 06/19/21 09/07/22 Unknown History Lite Meter kit) pen needle, diabetic 32 gauge x #50 ea 06/19/21 09/07/22 Unknown History (BD Keira 2nd Gen Pen Needle) lisinopril 5 mg tablet 5 mg PO DAILY 07/05/22 11/24/22 11/23/22 History metoprolol succinate 25 mg 25 mg PO BID 07/05/22 11/24/22 11/23/22 History tablet,extended release 24 hr dulaglutide 3 mg/0.5 mL 3 mg subcut BECKHAM@0900 11/24/22 11/24/22 11/23/22 [facility] glipizide 5 mg tablet 10 mg PO BID 11/24/22 11/24/22 11/23/22 History multivitamin 1 tab PO DAILY 11/24/22 11/24/22 11/23/22 History omega 6-wtf-tvt-fish oil 300 1 cap PO DAILY 11/24/22 11/24/22 11/23/22 History mg-1,000 mg capsule,delayed release (Fish Oil) tamsulosin 0.4 mg capsule 0.4 mg PO Q12H 11/24/22 11/24/22 11/23/22 History warfarin 5 mg tablet 2.5 mg PO SUTUWETHFRSA@1800 11/24/22 11/24/22 11/23/22 History warfarin 5 mg tablet 5 mg PO MO@1800 11/24/22 11/24/22 11/19/22 History Physical Exam Vital Signs: Vital Signs: Last Vital Signs Temp 97.8 F 11/26/22 11:06 Pulse 70 11/26/22 11:06 Resp 16 11/26/22 11:06 BP 130/68 11/26/22 11:06 Pulse Ox 98 11/26/22 11:06 O2 Del Method Room Air 11/26/22 11:06 BMI result Body Mass Index 32.2 Const: General: cooperative, comfortable, no acute distress, alert and awake Nutritional Appearance: overweight Orientation/consciousness: patient oriented x3 Limitations: no limitations HEENT: Head: Yes normocephalic and Yes atraumatic Neck: Neck: Yes trachea midline, Yes supple and Yes no JVD Resp: Effort & Inspection: normal respiratory effort Auscultation: clear to auscultation bilaterally Cardio: Jugular venous distension: no JVD Palpation: normal PMI Rate: regular rate Rhythm: regular rhythm Heart sounds: S1 normal heart sound present, S2 normal heart sound present, no click, no gallops, no murmurs and no rubs GI: Auscultation: normal bowel sounds Skin: General skin exam: no rashes or lesions noted Neuro: General: patient oriented x3 and no focal motor deficits Extrem: General: Yes no clubbing, cyanosis or edema Psych: Appearance: grossly normal Objective Labs and Meds 11/26/22 06:08 11/26/22 06:08 Lab results: Laboratory Results - last 24 hr 11/25/22 11/25/22 11/25/22 14:39 16:23 21:13 WBC RBC Hgb Hct MCV MCH MCHC RDW Plt Count MPV Absolute Nucleated RBC Nucleated RBC % (auto) PT INR Sodium Potassium Chloride Carbon Dioxide Anion Gap BUN Creatinine Estim Creat Clear Calc Estimated GFR POC Glucose 165 H 181 H 151 H Random Glucose Calcium Magnesium Blood Type Antibody Screen 11/26/22 11/26/22 11/26/22 06:08 06:08 06:08 WBC 10.7 RBC 4.38 L Hgb 14.0 Hct 41.1 L MCV 93.8 MCH 32.0 MCHC 34.1 RDW 13.1 Plt Count 132 L D MPV 9.8 Absolute Nucleated RBC 0.000 Nucleated RBC % (auto) 0.0 PT 20.8 H INR 1.7 H Sodium 139 Potassium 3.7 Chloride 109 H Carbon Dioxide 23 Anion Gap 11 L BUN 13 Creatinine 0.90 Estim Creat Clear Calc 63.8 Estimated GFR > 60 POC Glucose Random Glucose 127 H Calcium 8.5 Magnesium 2.2 Blood Type Antibody Screen 11/26/22 11/26/22 11/26/22 06:51 10:33 11:05 WBC RBC Hgb Hct MCV MCH MCHC RDW Plt Count MPV Absolute Nucleated RBC Nucleated RBC % (auto) PT INR Sodium Potassium Chloride Carbon Dioxide Anion Gap BUN Creatinine Estim Creat Clear Calc Estimated GFR POC Glucose 163 H 202 H Random Glucose Calcium Magnesium Blood Type O Positive Antibody Screen NEGATIVE EKG shows atrial fibrillation rapid ventricular response with nonspecific ST T wave changes Assessment and Plan (1) Preoperative cardiovascular examination: Status: Acute Preoperative cardiovascular risk stratification this elderly gentleman with prior history of paroxysmal atrial fibrillation as well as CAD although details not available. Patient is in good functional status prior to this hospitalization as per the . He has no symptoms of angina with no evidence of acute myocardial ischemia or signs of heart failure. He was in atrial fibri llation rapid ventricular response without any overt symptoms. Converted back to sinus rhythm on IV Cardizem drip. Patient is currently optimized to undergo surgery with low to intermediate risk for perioperative cardiovascular morbidity mortality. Continue IV Cardizem drip in the perioperative. Follow-up monitoring on cardiac telemetry fo up to 48 hours. r (2) Paroxysmal A-fib: Status: Acute Prior history of atrial fibrillation, most likely triggered by his acute medical/surgical illness. Converted back to sinus rhythm. Continue IV Cardizem therapy. Currently on warfarin therapy as for planned surgery. Resume oral a nticoagulation as soon as possible. Discussed with patient about possible use of direct oral anticoagulant if the insurance is reasonable. If he has recurrent episodes, may need to pursue antiarrhythmic drug therapy. Will follow up if need be. Thank you for allowing me to partake in his care Time Spent With Patient Time: Total time managing care of this patient today ____ minutes. Procedures Date of Service Date of Service: 11/26/22
[2022-11-26] MEDS: dilTIAZem HCL 125 MG in 0.9 % Sodium Chloride 100 ML 10 MG IVCONT (12:55)
--- NOTE | 2022-11-26 13:19 | P.PNIM_ITS ---
Subjective Subjective Date of Service: 11/26/22 Interval History: Seen and evaluated this morning in Afib w RvR this morning, converted to sinus earlier last night. BP better reports feeling palpitations INR at 1.7 pain under fair control Review of Systems Review of Systems: Yes all other systems are reviewed and are negative Physical Exam Vital Signs: Vital Signs: Last Vital Signs Temp 97.8 F 11/26/22 11:06 Pulse 70 11/26/22 11:06 Resp 16 11/26/22 11:06 BP 130/68 11/26/22 11:06 Pulse Ox 98 11/26/22 11:06 O2 Del Method Room Air 11/26/22 11:06 BMI result Body Mass Index 32.2 Const: Other: Constitutional : Awake, interactive, not in distress Neck : Normal inspection, Supple Cardiovascular : irregular irregular, tachycardia, no JVP, no lower extremity edema Respiratory : good bilateral air entry, no crackles, wheezes or rhonchi Gastrointestinal: soft, lax, Normal bowel sounds, mild RUQ tenderness with positive ferrera sign Skin : Warm, Dry Neurological : Alert & oriented x3, No focal deficit Objective Data Active Medications Acetaminophen (Acetaminophen 325 Mg Tablet) 650 mg PO Q6H PRN PRN Reason: Pain, Mild (Pain Scale 1-3) Last Admin: 11/25/22 19:48 Dose: 650 mg Documented By: GEOVANI Atorvastatin Calcium (Atorvastatin Calcium 80 Mg Tablet) 80 mg PO DAILY [facility] Last Admin: 11/26/22 08:28 Dose: Not Given Documented By: TYLER Non-Admin Reason: NPO Enoxaparin Sodium (Enoxaparin Sodium 80 Mg/0.8 Ml Syringe) 80 mg 1 mg/kg (80 mg) SUBCUT Q12H [facility] Last Admin: 11/24/22 23:59 Dose: 80 mg Documented By: OZORALB Hydromorphone HCl (Hydromorphone Hcl 0.5 Mg/0.5 Ml Syringe) 0.5 mg IVPUSH Q4H PRN; Protocol PRN Reason: Pain, Severe (Pain Scale 7-10) Last Admin: 11/25/22 19:49 Dose: 0.5 mg Documented By: GEOVANI Piperacillin Sod/Tazobactam (Sod 3.375 gm/ Sodium Chloride) 50 mls @ 100 mls/hr IV Q6H [facility] Last Admin: 11/26/22 12:54 Dose: 100 mls/hr Documented By: TYLER Sodium Chloride (Ns) 1,000 mls @ 80 mls/hr IVCONT .[id number] [facility] Last Admin: 11/26/22 03:05 Dose: 80 mls/hr Documented By: GEOVANI Diltiazem HCl 125 mg/ Sodium (Chloride) 125 mls @ 0 mls/hr IVCONT .Q0M [facility]; Protocol Last Admin: 11/26/22 12:55 Dose: 10 mg/hr, 10 mls/hr Documented By: TYLER Insulin Human Lispro (Insulin Lispro 100 Unit/Ml 3 Ml Vial) 0 unit SUBCUT QIDACHS [facility]; Protocol Last Admin: 11/26/22 12:22 Dose: Not Given Documented By: TYLER Non-Admin Reason: NPO Metoprolol Succinate (Metoprolol Succinate Er 25 Mg Tab.Er.24h) 25 mg PO BID [facility]; Protocol Last Admin: 11/26/22 08:33 Dose: 25 mg Documented By: TYLER Ondansetron HCl (Ondansetron Hcl 4 Mg/2 Ml Vial) 4 mg IVPUSH Q6H PRN PRN Reason: Nausea Last Admin: 11/24/22 05:05 Dose: 4 mg Documented By: ELINA Pharmacy Consult (Consult Rx Perform Med Rec) 1 each MISCELLANE ONCE PRN PRN Reason: Consult order Sodium Chloride (0.9 % Sodium Chloride Flush 3 Ml Syringe) 3 ml IVFLUSH QSHIFT [facility] Last Admin: 11/26/22 08:01 Dose: Not Given Documented By: TYLER Non-Admin Reason: IV Running Tamsulosin HCl (Tamsulosin Hcl 0.4 Mg Capsule) 0.4 mg PO BID [facility] Last Admin: 11/26/22 08:29 Dose: Not Given Documented By: TYLER Non-Tigist Reason: NPO Labs 11/26/22 06:08 11/26/22 06:08 Labs: Laboratory Results - last 24 hr 11/25/22 11/25/22 11/25/22 14:39 16:23 21:13 MCV MCH MCHC RDW Plt Count MPV Absolute Nucleated RBC Nucleated RBC % (auto) PT INR Anion Gap Estim Creat Clear Calc Estimated GFR POC Glucose 165 H 181 H 151 H Random Glucose Calcium Magnesium Blood Type Antibody Screen 11/26/22 11/26/22 11/26/22 06:08 06:08 06:08 MCV 93.8 MCH 32.0 MCHC 34.1 RDW 13.1 Plt Count 132 L D MPV 9.8 Absolute Nucleated RBC 0.000 Nucleated RBC % (auto) 0.0 PT 20.8 H INR 1.7 H Anion Gap 11 L Estim Creat Clear Calc 63.8 Estimated GFR > 60 POC Glucose Random Glucose 127 H Calcium 8.5 Magnesium 2.2 Blood Type Antibody Screen 11/26/22 11/26/22 11/26/22 06:51 10:33 11:05 MCV MCH MCHC RDW Plt Count MPV Absolute Nucleated RBC Nucleated RBC % (auto) PT INR Anion Gap Estim Creat Clear Calc Estimated GFR POC Glucose 163 H 202 H Random Glucose Calcium Magnesium Blood Type O Positive Antibody Screen NEGATIVE Assessment and Plan (1) Atrial fibrillation with rapid ventricular response: Status: Acute (2) Cholelithiasis: Status: Acute Plan A 77 year old male with PMH of PAF on Warfarin, DM II, HLD, HTN, BPH among others who presents to the hospital with RUQ pain and tenderness. found to have acute cholecystitis. Acute cholecystitis As reported on CT and US On IV Abx surgical team following Hold Warfarin for surgery tomorrow , INR 1.7 EKG reviewed, no chest pain Hx PAF w RvR converted back to sinus rhythm with Cardizem drip Hold Warfarin full dose Lovenox restart his home Metoprolol XL Cardiology input appreciated Elevated INR had Vit K follow INR BPH Tamsulosin DM II SSI Hold PO medicaitons HTN Hld Lisinopril and monitor BP Thank you for the consult. will continue to monitor with you as needed Time Spent With Patient Time: Total time managing care of this patient today ____ minutes. Quality Stroke Does the patient have a stroke diagnosis?: No VTE Prior VTE?: No VTE Risk Level:: Medical - moderate - high VTE Device Contraindication: N/A - Device Ordered VTE Drug Contraindication: Treatment Not Indicated
--- NOTE | 2022-11-26 14:41 | PM.EVENT ---
Event Note Date of Service: 11/26/22 Event Note: Patient was scheduled to undergo cholecystectomy today However, this was canceled by the anesthesiologist Anesthesiologist stated that patient needed to be evaluated by mobile device engineer Structural Engineer already so the patient and is cleared Will proceed with lap steve Patient remains labile says he is hungry Feels comfortable with very minimal pain at this time NPO after midnight Time Spent With Patient Time: Total time managing care of this patient today ____ minutes.
[2022-11-26 15:59] LABS: Glucose, Whole Blood 215 mg/dL (60-115)
[2022-11-26] MEDS: Acetaminophen 325 MG TABLET 650 MG PO (16:10)
[2022-11-26] MEDS: Enoxaparin Sodium 80 MG/0.8 ML SYRINGE SUBCUT (16:10)
[2022-11-26] MEDS: Insulin Lispro 100 UNIT/ML 3 ML VIAL SUBCUT (16:12)
[2022-11-26 20:19] LABS: Glucose, Whole Blood 131 mg/dL (60-115)
[2022-11-26] MEDS: Tamsulosin HCL 0.4 MG CAPSULE PO (20:27)
[2022-11-27] VITALS (13 sets, daily range): BP systolic 103–144; BP diastolic 49–67; PULSE 66–118; RESP 14–20; TEMP 36.2–37.5; O2SAT 94–98
[2022-11-27] MEDS: Piperacillin Sodium/Tazobactam 3.375 GM in 0.9 % Sodium Chloride 50 ML IV ×4 (00:30→17:38)
[2022-11-27] MEDS: 0.9 % Sodium Chloride 1,000 ML 80 ML IVCONT ×2 (02:10→15:44)
[2022-11-27] MEDS: dilTIAZem HCL 125 MG in 0.9 % Sodium Chloride 100 ML IVCONT (04:14)
--- NOTE | 2022-11-27 05:43 | PC.NURSE ---
This RN maintained 10 mg/hr Cardizem drip infusions at 10 ml/hr as per the elevator technician note to keep drip running preoperative and per the RN Rowan's report. Patient is Normal sinus on Tele monitor with heart rate of 62 BPM, blood pressure at 117/56. Charge nurse Serenity concerned for patient blood pressure and heart rate dropping at the current Cardizem rate. Infusion pulsed briefly and notified, instructed this RN to decrease rate to 5mL/5mg hr and continued infusion. A new bag was started. Patient rhythm remained in normal sinus Pt resting,denies chest pain or palpitations .All questions answered, patient has no concerns at this time and is aware of plan of care.
[2022-11-27 07:08] LABS: Hemoglobin 13.4 g/dl (14.0-18.0); Mean Corpuscular HGB Conc 33.5 g/dl (31.0-36.0); Mean Corpuscular Hemoglobin 31.1 pg (27.0-33.0); Mean Corpuscular Volume 92.8 fL (80.0-98.0); Mean Platelet Volume 9.9 fL (9.4-12.4); Platelet Count 147 X10*3/uL (160-400); Red Blood Count 4.31 X10*6/uL (4.60-5.80); Red Cell Distribution Width 12.9 % (11.0-16.0); White Blood Count 8.4 X10*3/uL (4.8-10.8)
[2022-11-27 07:11] LABS: INTERNATIONAL NORM RATIO 1.2 (0.9-1.1); Prothrombin Time 14.5 SEC (11.1-13.3)
[2022-11-27 07:26] LABS: Anion Gap 11 (12-20); Blood Urea Nitrogen 7 mg/dL (9-16); Calcium 8.6 mg/dL (8.4-10.2); Carbon Dioxide 23 mmol/L (22-29); Chloride 111 mmol/L (96-108); Creatinine Clr Calc Pharmacy 71.8; Estimated Glomerular Filt Rate > 60; Glucose Random 130 mg/dL (60-115); Potassium 3.5 mmol/L (3.3-5.1); Sodium 141 mmol/L (135-145)
[2022-11-27 07:43] LABS: Glucose, Whole Blood 163 mg/dL (60-115)
--- NOTE | 2022-11-27 07:58 | HO.ANESPROP2 ---
Documented by User: Mona Pandey MD 11/27/22 10:10 [facility] Active Problems Active Problems: All Active Problems (Updated 11/26/22 @ 12:25 by Jose Oshea MD) Preoperative cardiovascular examination (Acute) Atrial fibrillation with rapid ventricular response (Acute) Cholelithiasis (Acute) Abdominal pain (Acute) Bilateral knee pain (Acute) Pain of left calf (Acute) Osteoarthritis of knees, bilateral (Acute) Current use of anticoagulant therapy (Acute) Paroxysmal A-fib (Acute) Exposure to COVID-19 virus (Acute) Lab test negative for COVID-19 virus (Acute) Past Medical History Medical History Current use of anticoagulant therapy Diabetes Diabetes Heart attack High cholesterol Hypertension Paroxysmal A-fib Functional capacity: independent ambulation Surgical History History of Problems with Anesthesia: No Social History Social History Alcohol intake: never Patient Tobacco Use Status: Never used Tobacco service: No 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 occupational status: 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 Allergies Allergy/AdvReac Type Severity Reaction Status Date / Time acetaminophen [From Percocet] Allergy Intermediate Headache Verified 11/07/22 10:26 oxycodone [From Percocet] Allergy Intermediate Headache Verified 11/07/22 10:26 ibuprofen [From Motrin] Allergy Mild SWELLING Verified 11/07/22 10:26 SALMON AdvReac Mild VOMITING Uncoded 09/07/22 10:28 Active Medications: Current Medications Acetaminophen (Acetaminophen 325 Mg Tablet) 650 mg PO Q6H PRN PRN Reason: Pain, Mild (Pain Scale 1-3) Last Admin: 11/26/22 16:10 Dose: 650 mg Atorvastatin Calcium (Atorvastatin Calcium 80 Mg Tablet) 80 mg PO DAILY [facility] Last Admin: 11/26/22 08:28 Dose: Not Given Enoxaparin Sodium (Enoxaparin Sodium 80 Mg/0.8 Ml Syringe) 80 mg 1 mg/kg (80 mg) SUBCUT Q12H [facility] Last Admin: 11/24/22 23:59 Dose: 80 mg Hydromorphone HCl (Hydromorphone Hcl 0.5 Mg/0.5 Ml Syringe) 0.5 mg IVPUSH Q4H PRN; Protocol PRN Reason: Pain, Severe (Pain Scale 7-10) Last Admin: 11/25/22 19:49 Dose: 0.5 mg Piperacillin Sod/Tazobactam (Sod 3.375 gm/ Sodium Chloride) 50 mls @ 100 mls/hr IV Q6H [facility] Last Infusion: 11/27/22 06:48 Dose: Infused Sodium Chloride (Ns) 1,000 mls @ 80 mls/hr IVCONT .[id number] [facility] Last Admin: 11/27/22 02:10 Dose: 80 mls/hr Diltiazem HCl 125 mg/ Sodium (Chloride) 125 mls @ 0 mls/hr IVCONT .Q0M [facility]; Protocol Last Titration: 11/27/22 07:19 Dose: 7.5 mg/hr, 7.5 mls/hr Insulin Human Lispro (Insulin Lispro 100 Unit/Ml 3 Ml Vial) 0 unit SUBCUT QIDACHS [facility]; Protocol Last Admin: 11/26/22 20:38 Dose: Not Given Metoprolol Succinate (Metoprolol Succinate Er 25 Mg Tab.Er.24h) 25 mg PO BID [facility]; Protocol Last Admin: 11/26/22 20:27 Dose: 25 mg Ondansetron HCl (Ondansetron Hcl 4 Mg/2 Ml Vial) 4 mg IVPUSH Q6H PRN PRN Reason: Nausea Last Admin: 11/24/22 05:05 Dose: 4 mg Pharmacy Consult (Consult Rx Perform Med Rec) 1 each MISCELLANE ONCE PRN PRN Reason: Consult order Sodium Chloride (0.9 % Sodium Chloride Flush 3 Ml Syringe) 3 ml IVFLUSH QSHIFT [facility] Last Admin: 11/27/22 00:14 Dose: Not Given Tamsulosin HCl (Tamsulosin Hcl 0.4 Mg Capsule) 0.4 mg PO BID [facility] Last Admin: 11/26/22 20:27 Dose: 0.4 mg Home Medications Medication Instructions Recorded Confirmed Last Taken Type atorvastatin 80 mg tablet 80 mg PO DAILY 04/27/20 11/24/22 11/23/22 History blood sugar diagnostic #10 ea 04/27/20 09/07/22 Unknown History tramadol 50 mg tablet 50 mg PO TID PRN Pain 04/27/20 11/24/22 Unknown History blood-glucose meter (FreeStyle #1 ea 06/19/21 09/07/22 Unknown History Lite Meter kit) pen needle, diabetic 32 gauge x #50 ea 06/19/21 09/07/22 Unknown History (BD Keira 2nd Gen Pen Needle) lisinopril 5 mg tablet 5 mg PO DAILY 07/05/22 11/24/22 11/23/22 History metoprolol succinate 25 mg 25 mg PO BID 07/05/22 11/24/22 11/23/22 History tablet,extended release 24 hr dulaglutide 3 mg/0.5 mL 3 mg subcut BECKHAM@0900 11/24/22 11/24/22 11/23/22 History subcutaneous pen injector (Trulicity) glipizide 5 mg tablet 10 mg PO BID 11/24/22 11/24/22 11/23/22 History multivitamin 1 tab PO DAILY 11/24/22 11/24/22 11/23/22 History omega 9-krk-kli-fish oil 300 1 cap PO DAILY 11/24/22 11/24/22 11/23/22 History mg-1,000 mg capsule,delayed release (Fish Oil) tamsulosin 0.4 mg capsule 0.4 mg PO Q12H 11/24/22 11/24/22 11/23/22 History warfarin 5 mg tablet 2.5 mg PO SUTUWETHFRSA@1800 11/24/22 11/24/22 11/23/22 History warfarin 5 mg tablet 5 mg PO MO@1800 11/24/22 11/24/22 11/19/22 History Exam Exam Date and Time: November 27, 2022 0538 Height,Weight and Vital Signs: Height 5 ft 2 in Weight 79.832 kg Last Vital Signs Temp 97.1 F 11/27/22 07:36 Pulse 118 H 11/27/22 07:36 Resp 18 11/27/22 07:36 BP 124/60 11/27/22 07:36 Pulse Ox 97 11/27/22 07:36 O2 Del Method Room Air 11/27/22 07:36 Pertinent Lab Results Pertinent Lab Results: Laboratory Tests 11/23/22 11/23/22 11/23/22 20:25 20:25 20:25 WBC 12.7 H RBC 4.65 Hgb 14.9 Hct 43.0 MCV 92.5 MCH 32.0 MCHC 34.7 RDW 13.0 Plt Count 167 MPV 9.4 Immature Gran % (Auto) 0.4 Neut % (Auto) 82.7 H Lymph % (Auto) 12.8 L O'Brien % (Auto) 3.5 Eos % (Auto) 0.4 Baso % (Auto) 0.2 Lymph # (Auto) 1.6 O'Brien # (Auto) 0.4 Eos # (Auto) 0.1 Baso # (Auto) 0.0 Abs Immat Gran (auto) 0.05 H Absolute Neuts (auto) 10.5 H Absolute Nucleated RBC 0.000 Nucleated RBC % (auto) 0.0 PT INR Sodium 139 Potassium 5.2 H Chloride 104 Carbon Dioxide 24 Anion Gap 16 BUN 17 H Creatinine 1.10 Estim Creat Clear Calc 52.2 Estimated GFR > 60 POC Glucose Random Glucose 240 H Calcium 9.9 Magnesium 1.9 Total Bilirubin 1.1 H Direct Bilirubin AST 23 ALT 32 Alkaline Phosphatase 89 Total Protein 7.8 Albumin 4.3 Lipase 19 Urine Color Urine Appearance Urine pH Ur Specific Shonto Urine Protein Urine Glucose (UA) Urine Ketones Urine Blood Urine Nitrite Ur Leukocyte Esterase COVID-19 ([facility]) Negative COVID-19 Clin Com See Note Blood Type Antibody Screen 11/23/22 11/24/22 11/24/22 21:10 00:18 09:42 WBC 14.4 H RBC 4.96 Hgb 16.1 Hct 46.3 MCV 93.3 MCH 32.5 MCHC 34.8 RDW 13.1 Plt Count 181 MPV 9.5 Immature Gran % (Auto) Neut % (Auto) Lymph % (Auto) O'Brien % (Auto) Eos % (Auto) Baso % (Auto) Lymph # (Auto) O'Brien # (Auto) Eos # (Auto) Baso # (Auto) Abs Immat Gran (auto) Absolute Neuts (auto) Absolute Nucleated RBC 0.000 Nucleated RBC % (auto) 0.0 PT 28.3 H INR 2.3 H Sodium Potassium Chloride Carbon Dioxide Anion Gap BUN Creatinine Estim Creat Clear Calc Estimated GFR POC Glucose Random Glucose Calcium Magnesium Total Bilirubin Direct Bilirubin AST ALT Alkaline Phosphatase Total Protein Albumin Lipase Urine Color Yellow Urine Appearance Clear Urine pH 7.0 Ur Specific Shonto >= 1.030 H Urine Protein Trace Urine Glucose (UA) 500 H Urine Ketones Trace Urine Blood Negative Urine Nitrite Negative Ur Leukocyte Esterase Negative COVID-19 ([facility]) COVID-19 Clin Com Blood Type Antibody Screen 11/24/22 11/24/22 11/24/22 09:42 09:42 11:30 WBC RBC Hgb Hct MCV MCH MCHC RDW Plt Count MPV Immature Gran % (Auto) Neut % (Auto) Lymph % (Auto) O'Brien % (Auto) Eos % (Auto) Baso % (Auto) Lymph # (Auto) O'Brien # (Auto) Eos # (Auto) Baso # (Auto) Abs Immat Gran (auto) Absolute Neuts (auto) Absolute Nucleated RBC Nucleated RBC % (auto) PT 21.8 H D INR 1.8 H Sodium 139 Potassium 4.5 Chloride 101 Carbon Dioxide 27 Anion Gap 16 BUN 13 Creatinine 0.95 Estim Creat Clear Calc 60.5 Estimated GFR > 60 POC Glucose 235 H Random Glucose 219 H Calcium 9.8 Magnesium Total Bilirubin 1.4 H Direct Bilirubin 0.4 AST 20 ALT 29 Alkaline Phosphatase 98 Total Protein 8.0 Albumin 4.3 Lipase Urine Color Urine Appearance Urine pH Ur Specific [place] Urine Protein Urine Glucose (UA) Urine Ketones Urine Blood Urine Nitrite Ur Leukocyte Esterase COVID-19 ([facility]) COVID-19 [email or web address] Blood Type Antibody Screen 11/24/22 11/24/22 11/24/22 13:02 17:18 20:31 WBC RBC Hgb Hct MCV MCH MCHC RDW Plt Count MPV Immature Gran % (Auto) Neut % (Auto) Lymph % (Auto) O'Brien % (Auto) Eos % (Auto) Baso % (Auto) Lymph # (Auto) O'Brien # (Auto) Eos # (Auto) Baso # (Auto) Abs Immat Gran (auto) Absolute Neuts (auto) Absolute Nucleated RBC Nucleated RBC % (auto) PT INR Sodium Potassium Chloride Carbon Dioxide Anion Gap BUN Creatinine Estim Creat Clear Calc Estimated GFR POC Glucose 229 H 210 H 213 H Random Glucose Calcium Magnesium Total Bilirubin Direct Bilirubin AST ALT Alkaline Phosphatase Total Protein Albumin Lipase Urine Color Urine Appearance Urine pH Ur Specific [place] Urine Protein Urine Glucose (UA) Urine Ketones Urine Blood Urine Nitrite Ur Leukocyte Esterase COVID-19 ([facility]) [email or web address] Blood Type Antibody Screen 11/25/22 11/25/22 11/25/22 05:13 05:13 05:13 WBC 18.5 H RBC 5.07 Hgb 16.4 Hct 47.7 MCV 94.1 MCH 32.3 MCHC 34.4 RDW 13.2 Plt Count 189 MPV 10.2 Immature Gran % (Auto) Neut % (Auto) Lymph % (Auto) O'Brien % (Auto) Eos % (Auto) Baso % (Auto) Lymph # (Auto) O'Brien # (Auto) Eos # (Auto) Baso # (Auto) Abs Immat Gran (auto) Absolute Neuts (auto) Absolute Nucleated RBC 0.000 Nucleated RBC % (auto) 0.0 PT 23.8 H INR 2.0 H Sodium 138 Potassium 3.9 Chloride 105 Carbon Dioxide 23 Anion Gap 14 BUN 11 Creatinine 0.86 Estim Creat Clear Calc 66.8 Estimated GFR > 60 POC Glucose Random Glucose 201 H Calcium 8.8 D Magnesium 2.1 Total Bilirubin 1.4 H Direct Bilirubin 0.4 AST 20 ALT 28 Alkaline Phosphatase 79 Total Protein 7.2 Albumin 3.7 Lipase Urine Color Urine Appearance Urine pH Ur Specific [place] Urine Protein Urine Glucose (UA) Urine Ketones Urine Blood Urine Nitrite Ur Leukocyte Esterase COVID-19 ([facility]) COVID-[facility] Blood Type Antibody Screen 11/25/22 11/25/22 11/25/22 07:34 11:14 14:39 WBC RBC Hgb Hct MCV MCH MCHC RDW Plt Count MPV Immature Gran % (Auto) Neut % (Auto) Lymph % (Auto) O'Brien % (Auto) Eos % (Auto) Baso % (Auto) Lymph # (Auto) O'Brien # (Auto) Eos # (Auto) Baso # (Auto) Abs Immat Gran (auto) Absolute Neuts (auto) Absolute Nucleated RBC Nucleated RBC % (auto) PT INR Sodium Potassium Chloride Carbon Dioxide Anion Gap BUN Creatinine Estim Creat Clear Calc Estimated GFR POC Glucose 209 H 168 H 165 H Random Glucose Calcium Magnesium Total Bilirubin Direct Bilirubin AST ALT Alkaline Phosphatase Total Protein Albumin Lipase Urine Color Urine Appearance Urine pH Ur Specific [place] Urine Protein Urine Glucose (UA) Urine Ketones Urine Blood Urine Nitrite Ur Leukocyte Esterase COVID-19 ([facility]) COVID-19 [facility] Blood Type Antibody Screen 11/25/22 11/25/22 11/26/22 16:23 21:13 06:08 WBC RBC Hgb Hct MCV MCH MCHC RDW Plt Count MPV Immature Gran % (Auto) Neut % (Auto) Lymph % (Auto) O'Brien % (Auto) Eos % (Auto) Baso % (Auto) Lymph # (Auto) O'Brien # (Auto) Eos # (Auto) Baso # (Auto) Abs Immat Gran (auto) Absolute Neuts (auto) Absolute Nucleated RBC Nucleated RBC % (auto) PT 20.8 H INR 1.7 H Sodium Potassium Chloride Carbon Dioxide Anion Gap BUN Creatinine Estim Creat Clear Calc Estimated GFR POC Glucose 181 H 151 H Random Glucose Calcium Magnesium Total Bilirubin Direct Bilirubin AST ALT Alkaline Phosphatase Total Protein Albumin Lipase Urine Color Urine Appearance Urine pH Ur Specific [place] Urine Protein Urine Glucose (UA) Urine Ketones Urine Blood Urine Nitrite Ur Leukocyte Esterase COVID-19 ([facility]) COVID-19 [facility] Blood Type Antibody Screen 11/26/22 11/26/22 11/26/22 06:08 06:08 06:51 WBC 10.7 RBC 4.38 L Hgb 14.0 Hct 41.1 L MCV 93.8 MCH 32.0 MCHC 34.1 RDW 13.1 Plt Count 132 L D MPV 9.8 Immature Gran % (Auto) Neut % (Auto) Lymph % (Auto) O'Brien % (Auto) Eos % (Auto) Baso % (Auto) Lymph # (Auto) O'Brien # (Auto) Eos # (Auto) Baso # (Auto) Abs Immat Gran (auto) Absolute Neuts (auto) Absolute Nucleated RBC 0.000 Nucleated RBC % (auto) 0.0 PT INR Sodium 139 Potassium 3.7 Chloride 109 H Carbon Dioxide 23 Anion Gap 11 L BUN 13 Creatinine 0.90 Estim Creat Clear Calc 63.8 Estimated GFR > 60 POC Glucose 163 H Random Glucose 127 H Calcium 8.5 Magnesium 2.2 Total Bilirubin Direct Bilirubin AST ALT Alkaline Phosphatase Total Protein Albumin Lipase Urine Color Urine Appearance Urine pH Ur Specific [place] Urine Protein Urine Glucose (UA) Urine Ketones Urine Blood Urine Nitrite Ur Leukocyte Esterase COVID-19 ([facility]) COVID-19 [facility] Blood Type Antibody Screen 11/26/22 11/26/22 11/26/22 10:33 11:05 15:55 WBC RBC Hgb Hct MCV MCH MCHC RDW Plt Count MPV Immature Gran % (Auto) Neut % (Auto) Lymph % (Auto) O'Brien % (Auto) Eos % (Auto) Baso % (Auto) Lymph # (Auto) O'Brien # (Auto) Eos # (Auto) Baso # (Auto) Abs Immat Gran (auto) Absolute Neuts (auto) Absolute Nucleated RBC Nucleated RBC % (auto) PT INR Sodium Potassium Chloride Carbon Dioxide Anion Gap BUN Creatinine Estim Creat Clear Calc Estimated GFR POC Glucose 202 H 215 H Random Glucose Calcium Magnesium Total Bilirubin Direct Bilirubin AST ALT Alkaline Phosphatase Total Protein Albumin Lipase Urine Color Urine Appearance Urine pH Ur Specific [place] Urine Protein Urine Glucose (UA) Urine Ketones Urine Blood Urine Nitrite Ur Leukocyte Esterase COVID-19 ([facility]) COVID-19 Clin Com Blood Type O Positive Antibody Screen NEGATIVE 11/26/22 11/27/22 11/27/22 20:11 06:14 06:14 WBC 8.4 RBC 4.31 L Hgb 13.4 L Hct 40.0 L MCV 92.8 MCH 31.1 MCHC 33.5 RDW 12.9 Plt Count 147 L MPV 9.9 Immature Gran % (Auto) Neut % (Auto) Lymph % (Auto) O'Brien % (Auto) Eos % (Auto) Baso % (Auto) Lymph # (Auto) O'Brien # (Auto) Eos # (Auto) Baso # (Auto) Abs Immat Gran (auto) Absolute Neuts (auto) Absolute Nucleated RBC 0.000 Nucleated RBC % (auto) 0.0 PT INR Sodium 141 Potassium 3.5 Chloride 111 H Carbon Dioxide 23 Anion Gap 11 L BUN 7 L Creatinine 0.80 Estim Creat Clear Calc 71.8 Estimated GFR > 60 POC Glucose 131 H Random Glucose 130 H Calcium 8.6 Magnesium Total Bilirubin Direct Bilirubin AST ALT Alkaline Phosphatase Total Protein Albumin Lipase Urine Color Urine Appearance Urine pH Ur Specific [place] Urine Protein Urine Glucose (UA) Urine Ketones Urine Blood Urine Nitrite Ur Leukocyte Esterase COVID-19 ([facility]) COVID-19 [facility] Com Blood Type Antibody Screen 11/27/22 11/27/22 06:14 07:39 WBC RBC Hgb Hct MCV MCH MCHC RDW Plt Count MPV Immature Gran % (Auto) Neut % (Auto) Lymph % (Auto) O'Brien % (Auto) Eos % (Auto) Baso % (Auto) Lymph # (Auto) O'Brien # (Auto) Eos # (Auto) Baso # (Auto) Abs Immat Gran (auto) Absolute Neuts (auto) Absolute Nucleated RBC Nucleated RBC % (auto) PT INR Sodium Potassium Chloride Carbon Dioxide Anion Gap BUN Creatinine Estim Creat Clear Calc Estimated GFR POC Glucose 163 H Random Glucose Calcium Magnesium 2.0 Total Bilirubin Direct Bilirubin AST ALT Alkaline Phosphatase Total Protein Albumin Lipase Urine Color Urine Appearance Urine pH Ur Specific [place] Urine Protein Urine Glucose (UA) Urine Ketones Urine Blood Urine Nitrite Ur Leukocyte Esterase COVID-19 ([facility]) COVID-19 Clin Com Blood Type Antibody Screen Airway Mallampati Class: III Assessment and Plan Final Anesthetic Review History of Problems with Anesthesia: No ASA Class: II Documented by User: Naif Lee MD 11/27/22 09:01 [facility] Past Medical History Medical History Current use of anticoagulant therapy Diabetes Diabetes Heart attack High cholesterol Hypertension Paroxysmal A-fib Narrative: Had episode of rapid afib this morning. Now in SR, on Diltiazem gtt at 7.5 mg/hr. HR 83. Family History Family history of problems with anesthesia: No Surgical History History of Problems with Anesthesia: Yes (PONV. 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 Allergies Allergy/AdvReac Type Severity Reaction Status Date / Time acetaminophen [From Percocet] Allergy Intermediate Headache Verified 11/07/22 10:26 oxycodone [From Percocet] Allergy Intermediate Headache Verified 11/07/22 10:26 ibuprofen [From Motrin] Allergy Mild SWELLING Verified 11/07/22 10:26 SALMON AdvReac Mild VOMITING Uncoded 09/07/22 10:28 Home Medications Medication Instructions Recorded Confirmed Last Taken Type atorvastatin 80 mg tablet 80 mg PO DAILY 04/27/20 11/24/22 11/23/22 History blood sugar diagnostic #10 ea 04/27/20 09/07/22 Unknown History tramadol 50 mg tablet 50 mg PO TID PRN Pain 04/27/20 11/24/22 Unknown History blood-glucose meter (FreeStyle #1 ea 06/19/21 09/07/22 Unknown History Lite Meter kit) pen needle, diabetic 32 gauge x #50 ea 06/19/21 09/07/22 Unknown History (BD Keira 2nd Gen Pen Needle) lisinopril 5 mg tablet 5 mg PO DAILY 07/05/22 11/24/22 11/23/22 History metoprolol succinate 25 mg 25 mg PO BID 07/05/22 11/24/22 11/23/22 History tablet,extended release 24 hr dulaglutide 3 mg/0.5 mL 3 mg subcut BECKHAM@0900 11/24/22 11/24/22 11/23/22 History subcutaneous pen injector (Trulicity) glipizide 5 mg tablet 10 mg PO BID 11/24/22 11/24/22 11/23/22 History multivitamin 1 tab PO DAILY 11/24/22 11/24/22 11/23/22 History omega 3-nlj-fdj-fish oil 300 1 cap PO DAILY 11/24/22 11/24/22 11/23/22 History mg-1,000 mg capsule,delayed release (Fish Oil) tamsulosin 0.4 mg capsule 0.4 mg PO Q12H 11/24/22 11/24/22 11/23/22 History warfarin 5 mg tablet 2.5 mg PO SUTUWETHFRSA@1800 11/24/22 11/24/22 11/23/22 History warfarin 5 mg tablet 5 mg PO MO@1800 11/24/22 11/24/22 11/19/22 History Exam Airway Mallampati Class: I TM Dist: >3cm Neck ROM: Full Loose/Missing/Broken Teeth: No Heart: OK Lungs: OK. SpO2 98% on RA. Assessment and Plan Assessment Anesthesia Assessment: Anesthesia Plan Discussed and Chart Reviewed Final Anesthetic Review Family History of Problems with Anesthesia: No History of Problems with Anesthesia: Yes (PONV. Took scope patch in past) NPO: Yes ASA Class: III Final Preanesthetic Review: No Changes in Pt Med Stat, Meds/Allgs Chart Reviewed, Consent Obtained/Reviewed and Anes Risks/Benef Reviewed Patient Risk: Intermediate Procedure Risk: Intermediate Anesthetic Plan Anesthetic Plan: GA (scopol patch preop.) and Agree w/ Assess. and Plan Disposition: Standard PACU
[2022-11-27] MEDS: Metoprolol Succinate ER 25 MG TAB.ER.24H PO ×2 (08:09→22:17)
[2022-11-27] MEDS: Atorvastatin Calcium 80 MG TABLET PO (08:10)
[2022-11-27] MEDS: Tamsulosin HCL 0.4 MG CAPSULE PO ×2 (08:10→22:17)
[2022-11-27] MEDS: Acetaminophen 325 MG TABLET 650 MG PO (08:11)
[2022-11-27] MEDS: Scopolamine 1.5 MG PATCH.TD.3 EAR-BEHIND (09:03)
--- NOTE | 2022-11-27 10:46 | W.PM.OPN ---
Operative Note Operative Note Date of Service: 11/27/22 Narrative: Preop diagnosis: Acute cholecystitis Postop diagnosis: Acute cholecystitis calculus, with hydrops Procedure: Laparoscopic cholecystectomy Surgeon: Marty Suresh MD 1st special education educational assistant: BING Yo The patient is a 77-year-old male admitted for abdominal pain with CT scan and MRI findings showing acute cholecystitis with gallstones. He was on anticoagulation so we had to hold his Coumadin. He understood the technique of the planned procedure and was aware of the risks, benefits, and alternatives Was brought to the operating room placed supine under general anesthesia via endotracheal tube. The abdomen was prepped and draped in the usual sterile fashion. A surgical time-out was done. The patient was receiving scheduled Zosyn. A short supraumbilical incision was made on the skin using blade 15. And this was carried down through the full-thickness of the skin and subcutaneous fat down to the fascia. The fascia was incised. The peritoneum was entered. Through this incision a John port was introduced. Pneumoperitoneum was introduced to a pressure of 15 minutes hg. From here on the rest of the procedure was done under vision with the laparoscope. We initially used a 10 mm flat scope. With laparoscopic visualization, I inserted a 5/12 mm to the gastric air below the subcostal margin. Two 5 mm were introduced through small incisions below the subcostal margin along the anterior axillary line and the midclavicular line. Graspers were placed through these working ports. The patient was placed in head-up and [id number] position. The gallbladder was seen. This very inflamed, distended with a thickened wall. Were however able to apply grasper on the fundus and were able to retract the gallbladder cephalad. At this point, there was a tear on the wall where the grasper was and there was note of clear fluid consistent with hydrops the gallbladder. We were able to apply another grasper towards the pouch of the gallbladder and this was used to retract the gallbladder laterally. There was note of a lot of inflamed fibrosis and IR tissue surrounding the neck. We had to carefully dissect this with the [place] dissector to sleep this off. This part of the procedure was done in a debit manner until was able to visualize what appeared to be the cystic duct. We gently dissected the cystic duct using the [place] dissector until I was able to achieve a circumferential dissection. This also allowed me to confirm its confluence with the neck of the gallbladder. I thinned out the rest of this inflamed inflammatory tissue surrounding this area and there were no other large tubular structures. We had therefore achieved a critical view of the hepatocystic triangle. We therefore applied clips on the cystic duct with 2 clips being applied distally. The cystic duct was transected between clips with Endo scissors. We proceeded to continue to dissect the surrounding area until was able to visualize what appeared to be a thin cystic artery. This was clipped and transected between clips with Endo scissors. Proceeded to then carefully divide through the hilum, gently dissecting through the inflamed CR tissue until we reached the interface of the bladder and the liver bed. I used the hook electrocautery to incise the thickened peritoneum of the wall the gallbladder to gently define a plane of dissection between the gallbladder wall and the liver bed. We carefully dissected along this plane of dissection. This was not a very define plane in view of the severe edema and inflammatory changes of the gallbladder wall. We continued to dissect and separate the gallbladder but we did encounter very dense adhesions between the gallbladder wall and the liver bed and at some point, we entered the when of the gallbladder. We retrieve large stones. I continued to gently separate the gallbladder but at some point we had to leave some of the gallbladder wall behind to be able to completely remove the entire gallbladder. We were able to retrieve the gallbladder through endobag through the umbilical incision. I cauterized the remaining mucosa I applied a Surgicel on the liver bed because of some mild oozing. I examined the rest of the abdomen there were no other pathology or any suggestion of any bowel injury or bile leak. I copies leak irrigated the subhepatic space. A suction done irrigant fluid. There was no other gallstone speech seen that may have spilled from the gallbladder Once hemostasis was confirmed, I positioned a 10. CHRISTINA drain on the subhepatic space. This was brought out through the lateral-most port site and secured to the skin with nylon 3-0 ankle extension After confirming hemostasis, I plated and removed all the ports under vision with the last per scope. The umbilical port was removed last. The fascia of the umbilical incision was closed with [id number] Dexon 0 stitch. Skin closure was achieved on all incisions using Polysorb 4-0 subcuticular running sutures. Dressings were applied. All incisions were infiltrated with Marcaine 0.5% for postop SIERRA. The procedure was completed The patient tolerated procedure well. There were no immediate complications. Initial and final counts of sponges instruments were correct. Estimated blood loss was about 75 cc The patient was extubated without difficulty and transferred to the recovery room with stable vital signs
[2022-11-27] MEDS: fentaNYL citrate/PF 100 MCG/2 ML VIAL 25 MCG IVPUSH ×4 (11:07→11:22)
[2022-11-27 11:57] LABS: Glucose, Whole Blood 194 mg/dL (60-115)
[2022-11-27] MEDS: HYDROmorphone HCl 0.5 MG/0.5 ML SYRINGE IVPUSH (12:11)
[2022-11-27] MEDS: 0.9 % Sodium Chloride Flush 3 ML SYRINGE IVFLUSH ×3 (12:21→22:18)
--- NOTE | 2022-11-27 14:46 | PM.EVENT ---
Event Note Date of Service: 11/27/22 Event Note: seen postop underwent lap cholecystectomy earlier looks comfortable wants to eat abd soft stable VS in afib on and off CHRISTINA - serosanguinous doing well postop in room - updated Time Spent With Patient Time: Total time managing care of this patient today ____ minutes.
[2022-11-27 15:54] LABS: Glucose, Whole Blood 336 mg/dL (60-115)
[2022-11-27] MEDS: Insulin Lispro 100 UNIT/ML 3 ML VIAL SUBCUT ×2 (16:01→22:17)
--- NOTE | 2022-11-27 20:32 | PC.NURSE ---
Assumed care at 07:00, A&Ox4, all PO meds given but held insulin per OR nurse this morning. Returned from OR with 2 lab steve sites and a CHRISTINA drain. CHRISTINA drain emptied for 30 ccs of sanguineous drainage at 16:30. Patient returned from PACU with 20/10 pain, IV dilaudid with effect, return of pain 10/10 and IV dilaudid with effect, then denies pain at dinner. IV diltiazem gtt off by 16:30 after discussion with MD, may restart as needed, continues on PO metoprolol.
[2022-11-27 21:19] LABS: Glucose, Whole Blood 236 mg/dL (60-115)
[2022-11-28] MEDS: Piperacillin Sodium/Tazobactam 3.375 GM in 0.9 % Sodium Chloride 50 ML IV ×5 (00:57→23:47)
[2022-11-28 03:46] VITALS: BP 136/63; PULSE 67; RESP 18; TEMP 36.3; O2SAT 96
[2022-11-28] MEDS: HYDROmorphone HCl 2 MG TABLET PO (03:53)
[2022-11-28] MEDS: 0.9 % Sodium Chloride 1,000 ML 80 ML IVCONT (04:55)
[2022-11-28 07:14] VITALS: BP 140/70; PULSE 71; RESP 18; TEMP 36.3; O2SAT 97
[2022-11-28 07:26] LABS: Glucose, Whole Blood 171 mg/dL (60-115)
[2022-11-28] MEDS: Insulin Lispro 100 UNIT/ML 3 ML VIAL SUBCUT ×4 (09:03→20:47)
[2022-11-28] MEDS: 0.9 % Sodium Chloride Flush 3 ML SYRINGE IVFLUSH ×3 (09:04→20:48)
[2022-11-28] MEDS: lisinopriL 5 MG TABLET PO (09:05)
[2022-11-28] MEDS: Atorvastatin Calcium 80 MG TABLET PO (09:06)
[2022-11-28] MEDS: Tamsulosin HCL 0.4 MG CAPSULE PO ×2 (09:06→20:47)
[2022-11-28] MEDS: Metoprolol Succinate ER 25 MG TAB.ER.24H PO (09:06)
--- NOTE | 2022-11-28 09:43 | P.PNCA_ITS ---
Subjective Subjective Date of Service: 11/28/22 Principal diagnosis: Paroxysmal atrial fibrillation Interval history: patient status post surgery yesterday. Maintaining sinus rhythm. Cardizem drip was discontinued last evening. Hemodynamically stable. Complains of some abdominal discomfort. No cardiac symptoms at this time. Review of Systems Constitutional: Reports no additional constitutional complaints Cardiovascular: Reports no additional cardiovascular complaints Gastrointestinal: Reports abdominal pain Musculoskeletal: Reports no additional musculoskeletal complaints Reports system reviewed and no additional complaints, except as documented Physical Exam Vital Signs: Last Vital Signs Temp 97.4 F 11/28/22 07:14 Pulse 71 11/28/22 07:14 Resp 18 11/28/22 07:14 BP 140/70 H 11/28/22 07:14 Pulse Ox 97 11/28/22 07:14 O2 Del Method Room Air 11/28/22 07:14 BMI result Body Mass Index 32.2 Const General: cooperative, comfortable, no acute distress, alert and awake Nutritional Appearance: overweight Orientation/consciousness: patient oriented x3 Limitations: no limitations Neck Neck: Yes trachea midline, Yes supple and Yes no JVD Resp Effort & Inspection: normal respiratory effort Auscultation: crackles bilateral at the base Cardio Jugular venous distension: no JVD Palpation: normal PMI Rate: regular rate Rhythm: regular rhythm Heart sounds: S1 normal heart sound present, S2 normal heart sound present, no click, no gallops, no murmurs and no rubs GI Auscultation: normal bowel sounds Skin General skin exam: no rashes or lesions noted Neuro General: patient oriented x3 and no focal motor deficits Extrem General: Yes no clubbing, cyanosis or edema Psych Appearance: grossly normal Objective Labs and Meds 11/27/22 06:14 11/27/22 06:14 Lab results: Laboratory Results - last 24 hr 11/27/22 11/27/22 11/27/22 11:53 15:49 21:13 POC Glucose 194 H 336 H 236 H 11/28/22 07:22 POC Glucose 171 H Progress Note: A&P Assessment and plan (1) Paroxysmal A-fib: Status: Acute Assessment and Plan: Paroxysmal atrial fibrillation in this elderly gentleman, remaining in sinus rhythm. Status post surgery. Switch to metoprolol tartrate 25 mg p.o. q.6 hour s to reduce risk of recurrent atrial fibrillation. Eventually once he tolerates this can switch to 50 twice a day of metoprolol when he is discharged. Restart oral anticoagulation therapy as planned. Currently on warfarin therapy. Target INR between 2 and 3. From cardiac perspective no further recommendation at this point time and will sign of the case. Thank you for allowing us to partake in his care Time Spent With Patient Time: Total time managing care of this patient today ____ minutes. Progress Note: Quality Stroke Does the patient have a stroke diagnosis?: No Procedures Date of Service Date of Service: 11/28/22
--- NOTE | 2022-11-28 10:29 | HO.POSTANES ---
Post Anesthesia Evaluation Post Anesthesia Evaluation Date of Service: 11/27/22 Vital Signs: Vital Signs Temp Pulse Resp BP Pulse Ox O2 Del Method 11/28/22 07:14 97.4 F 71 18 140/70 H 97 Room Air 11/28/22 03:46 97.4 F 67 18 136/63 96 Room Air 11/27/22 23:20 99.5 F 84 18 144/67 H 96 Room Air Anesthesia: General Endotracheal-GETA Mental Status: Awake Pain Control: Satisfactory Nausea/Vomiting: None Hydration: Adequate Anesthesia-Related Issues: No Anes. Related Issues
--- NOTE | 2022-11-28 10:38 | PM.PNGS ---
Subjective Subjective Date of Service: 11/28/22 <Kathie Yo PA-C - Last Filed: 11/28/22 10:42> 11/28/22 <Simeon Monge MD - Last Filed: 11/28/22 11:12> Interval history: Feels better. Having pain at incision sites- tried the dilaudid 2mg and it did not help at all. Tolerating diet. OOB to bathroom. <Kathie Yo PA-C - Last Filed: 11/28/22 10:42> Physical Exam Vital Signs: Vital Signs: Last Vital Signs Temp 97.4 F 11/28/22 07:14 Pulse 71 11/28/22 07:14 Resp 18 11/28/22 07:14 BP 140/70 H 11/28/22 07:14 Pulse Ox 97 11/28/22 07:14 O2 Del Method Room Air 11/28/22 07:14 BMI result Body Mass Index 32.2 <Kathie Yo PA-C - Last Filed: 11/28/22 10:42> Const: General: comfortable, no acute distress and alert <Kathie Yo PA-C - Last Filed: 11/28/22 10:42> Orientation/consciousness: patient oriented x3 <Kathie Yo PA-C - Last Filed: 11/28/22 10:42> Resp: Effort & Inspection: normal respiratory effort <Kathie Yo PA-C - Last Filed: 11/28/22 10:42> Cardio: Rate: regular rate <Kathie Yo PA-C - Last Filed: 11/28/22 10:42> GI: Other: dressings intact, umbilical dressing saturated and changed with pressure dressing CHRISTINA with sanguineous output <Kathie Yo PA-C - Last Filed: 11/28/22 10:42> Inspection: No distended and Yes incision <CONNOR Charles Last Filed: 11/28/22 10:42> Palpation (GI): Soft to palpation, Tenderness to palpation present (GI) (mild incisional), no guarding and not rigid <Kathie Yo PA-C - Last Filed: 11/28/22 10:42> Skin: General skin exam: no rashes or lesions noted and no jaundice <Kathie Yo PA-C - Last Filed: 11/28/22 10:42> Neuro: General: patient oriented x3 and moves all extremities <Kathie Yo PA-C - Last Filed: 11/28/22 10:42> Objective Data Active Medications Acetaminophen (Acetaminophen 325 Mg Tablet) 650 mg PO Q6H PRN PRN Reason: Pain, Mild (Pain Scale 1-3) Last Admin: 11/27/22 08:11 Dose: 650 mg Documented By: BLANCA Atorvastatin Calcium (Atorvastatin Calcium 80 Mg Tablet) 80 mg PO DAILY [facility] Last Admin: 11/28/22 09:06 Dose: 80 mg Documented By: CLAUDIO Enoxaparin Sodium (Enoxaparin Sodium 80 Mg/0.8 Ml Syringe) 80 mg 1 mg/kg (80 mg) SUBCUT Q12H [facility] Last Admin: 11/24/22 23:59 Dose: 80 mg Documented By: EYAL Hydromorphone HCl (Hydromorphone Hcl 0.5 Mg/0.5 Ml Syringe) 0.5 mg IVPUSH Q4H PRN; Protocol PRN Reason: Pain, Severe (Pain Scale 7-10) Last Admin: 11/27/22 12:11 Dose: 0.5 mg Documented By: BLANCA Hydromorphone HCl (Hydromorphone Hcl 2 Mg Tablet) 2 mg PO Q4H PRN PRN Reason: Pain, Moderate(Pain Scale 4-6) Last Admin: 11/28/22 03:53 Dose: 2 mg Documented By: ОЛЬГА Hydromorphone HCl (Hydromorphone Hcl 4 Mg Tablet) 4 mg PO Q4H PRN PRN Reason: Pain, Severe (Pain Scale 7-10) Last Admin: 11/28/22 09:08 Dose: 4 mg Documented By: CLAUDIO Piperacillin Sod/Tazobactam (Sod 3.375 gm/ Sodium Chloride) 50 mls @ 100 mls/hr IV Q6H [facility] Last Infusion: 11/28/22 06:19 Dose: 0 mls/hr Documented By: ОЛЬГА Sodium Chloride (Ns) 1,000 mls @ 80 mls/hr IVCONT .[id number] [facility] Last Admin: 11/28/22 04:55 Dose: 80 mls/hr Documented By: ОЛЬГА Diltiazem HCl 125 mg/ Sodium (Chloride) 125 mls @ 0 mls/hr IVCONT .Q0M [facility]; Protocol Last Titration: 11/27/22 16:30 Dose: 0 mg/hr, 0 mls/hr Documented By: BLANCA Insulin Human Lispro (Insulin Lispro 100 Unit/Ml 3 Ml Vial) 0 unit SUBCUT QIDACHS [facility]; Protocol Last Admin: 11/28/22 09:03 Dose: 2 unit Documented By: CLAUDIO Lisinopril (Lisinopril 5 Mg Tablet) 5 mg PO DAILY [facility]; Protocol Last Admin: 11/28/22 09:05 Dose: 5 mg Documented By: CLAUDIO Metoprolol Tartrate (Metoprolol Tartrate 25 Mg Tablet) 25 mg PO Q6H [facility]; Protocol Ondansetron HCl (Ondansetron Hcl 4 Mg/2 Ml Vial) 4 mg IVPUSH Q6H PRN PRN Reason: Nausea Last Admin: 11/24/22 05:05 Dose: 4 mg Documented By: ELINA Pharmacy Consult (Consult Rx Perform Med Rec) 1 each MISCELLANE ONCE PRN PRN Reason: Consult order Sodium Chloride (0.9 % Sodium Chloride Flush 3 Ml Syringe) 3 ml IVFLUSH QSHIFT [facility] Last Admin: 11/28/22 09:04 Dose: 3 ml Documented By: CLAUDIO Tamsulosin HCl (Tamsulosin Hcl 0.4 Mg Capsule) 0.4 mg PO BID [facility] Last Admin: 11/28/22 09:06 Dose: 0.4 mg Documented By: CLAUDIO Warfarin Sodium (Warfarin Sodium 2.5 Mg Tablet) 2.5 mg PO SUTUWETHFRSA@1800 [facility] Warfarin Sodium (Warfarin Sodium 5 Mg Tablet) 5 mg PO MO@1800 [facility] Warfarin Sodium (Warfarin Sodium 5 Mg Tablet) 5 mg PO DAILY@1800 [facility] <Kathie Yo PA-C - Last Filed: 11/28/22 10:42> Labs CBC & Chem 7: 11/27/22 06:14 11/27/22 06:14 <Kathie Yo PA-C - Last Filed: 11/28/22 10:42> Labs: Laboratory Results - last 24 hr 11/27/22 11/27/22 11/27/22 11:53 15:49 21:13 POC Glucose 194 H 336 H 236 H 11/28/22 07:22 POC Glucose 171 H <Kathie Yo PA-C - Last Filed: 11/28/22 10:42> Procedures Date of Service Date of Service: 11/28/22 <Kathie Yo PA-C - Last Filed: 11/28/22 10:42> 11/28/22 <Simeon Monge MD - Last Filed: 11/28/22 11:12> Progress Note: A&P Assessment and plan (1) Atrial fibrillation with rapid ventricular response: Status: Acute <Kathie Yo PA-C - Last Filed: 11/28/22 10:42> (2) S/P laparoscopic cholecystectomy: Status: Acute <Kathie Yo PA-C - Last Filed: 11/28/22 10:42> Assessment and Plan: 77 year old female admitted with acute cholecystitis now POD #1 s/p lap CCY. Doing well post op. Tolerating diet, OOB without difficulty. Abd exam benign with appropriate post op tenderness, dressings reinforced. CHRISTINA with sanguineous output, will keep in place upon dc. Can resume coumadin tonight. Will reassess for dc to home with services later today or tomorrow. <Kathie Yo PA-C - Last Filed: 11/28/22 10:42> 77 year old female admitted with acute cholecystitis now POD #1 s/p lap CCY. Doing well post op. Tolerating diet, OOB without difficulty. Abd exam benign with appropriate post op tenderness, dressings reinforced. CHRISTINA with sanguineous output, will keep in place upon dc. Can resume coumadin tonight. Will reassess for dc to home with services later today or tomorrow. Patient seen and examined and agree with the above assessment and plan. CHRISTINA drain with serosanguineous output. Plan for restarting Coumadin today. <Simeon Monge MD - Last Filed: 11/28/22 11:12> Time Spent With Patient Time: Total time managing care of this patient today ____ minutes. <Kathie Yo PA-C - Last Filed: 11/28/22 10:42> Quality Stroke Does the patient have a stroke diagnosis?: No <Kathie Yo PA-C - Last Filed: 11/28/22 10:42> VTE Prior VTE?: No <Kathie Yo PA-C - Last Filed: 11/28/22 10:42> VTE Risk Level:: Medical - moderate - high <Kathie Yo PA-C - Last Filed: 11/28/22 10:42> VTE Device Contraindication: N/A - Device Ordered <Kathie Yo PA-C - Last Filed: 11/28/22 10:42> VTE Drug Contraindication: Treatment Not Indicated <Kathie Yo PA-C - Last Filed: 11/28/22 10:42>
[2022-11-28 11:17] LABS: Glucose, Whole Blood 177 mg/dL (60-115)
[2022-11-28 11:58] VITALS: BP 135/78; PULSE 63; RESP 18; TEMP 36.6; O2SAT 97
--- NOTE | 2022-11-28 14:33 | P.PNIM_ITS ---
Subjective Subjective Date of Service: 11/28/22 Interval History: Seen and evaluated this morning in Afib, rate controlled BP better reports feeling better but overall weak INR at 1.2 pain under fair control Review of Systems Review of Systems: Yes all other systems are reviewed and are negative Physical Exam Vital Signs: Vital Signs: Last Vital Signs Temp 98 F 11/28/22 11:58 Pulse 63 11/28/22 11:58 Resp 18 11/28/22 11:58 BP 135/78 11/28/22 11:58 Pulse Ox 97 11/28/22 11:58 O2 Del Method Room Air 11/28/22 11:58 BMI result Body Mass Index 32.2 Const: Other: Constitutional : Awake, interactive, not in distress Neck : Normal inspection, Supple Cardiovascular : irregular irregular, tachycardia, no JVP, no lower extremity edema Respiratory : good bilateral air entry, no crackles, wheezes or rhonchi Gastrointestinal: soft, lax, Normal bowel sounds, no significant tenderness, drain still in place w bloody drainage Skin : Warm, Dry Neurological : Alert & oriented x3, No focal deficit Objective Data Active Medications Acetaminophen (Acetaminophen 325 Mg Tablet) 650 mg PO Q6H PRN PRN Reason: Pain, Mild (Pain Scale 1-3) Last Admin: 11/27/22 08:11 Dose: 650 mg Documented By: BLANCA Atorvastatin Calcium (Atorvastatin Calcium 80 Mg Tablet) 80 mg PO DAILY [facility] Last Admin: 11/28/22 09:06 Dose: 80 mg Documented By: CLAUDIO Enoxaparin Sodium (Enoxaparin Sodium 80 Mg/0.8 Ml Syringe) 80 mg 1 mg/kg (80 mg) SUBCUT Q12H [facility] Last Admin: 11/24/22 23:59 Dose: 80 mg Documented By: BHANUORALAnette Hydromorphone HCl (Hydromorphone Hcl 0.5 Mg/0.5 Ml Syringe) 0.5 mg IVPUSH Q4H PRN; Protocol PRN Reason: Pain, Severe (Pain Scale 7-10) Last Admin: 11/27/22 12:11 Dose: 0.5 mg Documented By: BLANCA Hydromorphone HCl (Hydromorphone Hcl 2 Mg Tablet) 2 mg PO Q4H PRN PRN Reason: Pain, Moderate(Pain Scale 4-6) Last Admin: 11/28/22 03:53 Dose: 2 mg Documented By: ОЛЬГА Hydromorphone HCl (Hydromorphone Hcl 4 Mg Tablet) 4 mg PO Q4H PRN PRN Reason: Pain, Severe (Pain Scale 7-10) Last Admin: 11/28/22 09:08 Dose: 4 mg Documented By: CLAUDIO Piperacillin Sod/Tazobactam (Sod 3.375 gm/ Sodium Chloride) 50 mls @ 100 mls/hr IV Q6H [facility] Last Infusion: 11/28/22 14:02 Dose: 0 mls/hr Documented By: CLAUDIO Diltiazem HCl 125 mg/ Sodium (Chloride) 125 mls @ 0 mls/hr IVCONT .Q0M [facility]; Protocol Last Titration: 11/27/22 16:30 Dose: 0 mg/hr, 0 mls/hr Documented By: BLANCA Insulin Human Lispro (Insulin Lispro 100 Unit/Ml 3 Ml Vial) 0 unit SUBCUT QIDACHS [facility]; Protocol Last Admin: 11/28/22 13:19 Dose: 2 unit Documented By: CLAUDIO Lisinopril (Lisinopril 5 Mg Tablet) 5 mg PO DAILY [facility]; Protocol Last Admin: 11/28/22 09:05 Dose: 5 mg Documented By: CLAUDIO Metoprolol Tartrate (Metoprolol Tartrate 25 Mg Tablet) 25 mg PO Q6H [facility]; Timo col Ondansetron HCl (Ondansetron Hcl 4 Mg/2 Ml Vial) 4 mg IVPUSH Q6H PRN PRN Reason: Nausea Last Admin: 11/24/22 05:05 Dose: 4 mg Documented By: ELINA Pharmacy Consult (Consult Rx Perform Med Rec) 1 each MISCELLANE ONCE PRN PRN Reason: Consult order Sodium Chloride (0.9 % Sodium Chloride Flush 3 Ml Syringe) [facility] Last Admin: 11/28/22 09:04 Dose: 3 ml Documented By: CLAUDIO Tamsulosin HCl (Tamsulosin Hcl 0.4 Mg Capsule) 0.4 mg PO BID [facility] Last Admin: 11/28/22 09:06 Dose: 0.4 mg Documented By: CLAUDIO Warfarin Sodium (Warfarin Sodium 2.5 Mg Tablet) 2.5 mg PO SUTUWETHFRSA@1800 [facility] Warfarin Sodium (Warfarin Sodium 5 Mg Tablet) 5 mg PO MO@1800 [facility] Warfarin Sodium (Warfarin Sodium 5 Mg Tablet) 5 mg PO DAILY@1800 [facility] Labs 11/27/22 06:14 11/27/22 06:14 Labs: Laboratory Results - last 24 hr 11/27/22 11/27/22 11/28/22 15:49 21:13 07:22 POC Glucose 336 H 236 H 171 H 11/28/22 11:14 POC Glucose 177 H Assessment and Plan (1) S/P laparoscopic cholecystectomy: Status: Acute (2) Atrial fibrillation with rapid ventricular response: Status: Acute Plan A 77 year old male with PMH of PAF on Warfarin, DM II, HLD, HTN, BPH among others who presents to the hospital with RUQ pain and tenderness. found to have acute cholecystitis. Acute cholecystitis POD 1 On IV Abx surgical team following EKG reviewed, no chest pain Hx PAF w RvR rate controlled DC Cardizem drip INR 1.2 restart Warfarin and bridge with full dose Lovenox restart his home Metoprolol XL Cardiology input appreciated BPH Tamsulosin DM II SSI Hold PO medicaitons HTN Hld Lisinopril and monitor BP Thank you for the consult. will continue to monitor with you as needed Time Spent With Patient Time: Total time managing care of this patient today ____ minutes. Quality Stroke Does the patient have a stroke diagnosis?: No VTE Prior VTE?: No VTE Risk Level:: Medical - moderate - high VTE Device Contraindication: N/A - Device Ordered VTE Drug Contraindication: Treatment Not Indicated
[2022-11-28 15:05] VITALS: BP 127/64; PULSE 59; RESP 20; TEMP 36.6; O2SAT 97
[2022-11-28 16:04] LABS: Glucose, Whole Blood 163 mg/dL (60-115)
[2022-11-28] MEDS: Metoprolol Tartrate 25 MG TABLET PO (16:17)
[2022-11-28] MEDS: Warfarin Sodium 2.5 MG TABLET PO (18:38)
[2022-11-28] MEDS: Warfarin Sodium 5 MG TABLET PO (18:39)
[2022-11-28 19:00] VITALS: BP 136/60; PULSE 68; RESP 20; TEMP 36.6; O2SAT 97
[2022-11-28 19:43] LABS: Glucose, Whole Blood 249 mg/dL (60-115)
[2022-11-28 23:00] VITALS: BP 138/74; PULSE 75; RESP 18; TEMP 36.3; O2SAT 97
[2022-11-28] MEDS: Enoxaparin Sodium 80 MG/0.8 ML SYRINGE SUBCUT (23:46)
[2022-11-29 03:41] VITALS: BP 138/71; PULSE 66; RESP 18; TEMP 36.8; O2SAT 97
[2022-11-29] MEDS: Piperacillin Sodium/Tazobactam 3.375 GM in 0.9 % Sodium Chloride 50 ML IV ×2 (05:18→12:23)
[2022-11-29 07:00] VITALS: BP 144/69; PULSE 69; RESP 18; TEMP 36.2; O2SAT 98
[2022-11-29 07:00] LABS: Hematocrit 37.7 % (42.0-52.0); Mean Corpuscular HGB Conc 34.5 g/dl (31.0-36.0); Mean Corpuscular Hemoglobin 32.3 pg (27.0-33.0); Mean Corpuscular Volume 93.5 fL (80.0-98.0); Platelet Count 160 X10*3/uL (160-400); Red Blood Count 4.03 X10*6/uL (4.60-5.80); Red Cell Distribution Width 13.2 % (11.0-16.0); White Blood Count 9.6 X10*3/uL (4.8-10.8)
[2022-11-29 07:01] LABS: INTERNATIONAL NORM RATIO 1.2 (0.9-1.1); Prothrombin Time 14.1 SEC (11.1-13.3)
[2022-11-29 07:40] LABS: Glucose, Whole Blood 124 mg/dL (60-115)
[2022-11-29] MEDS: Tamsulosin HCL 0.4 MG CAPSULE PO (08:32)
[2022-11-29] MEDS: Metoprolol Tartrate 25 MG TABLET PO ×2 (08:32→15:26)
[2022-11-29] MEDS: lisinopriL 5 MG TABLET PO (08:32)
[2022-11-29] MEDS: 0.9 % Sodium Chloride Flush 3 ML SYRINGE IVFLUSH (08:32)
[2022-11-29] MEDS: Atorvastatin Calcium 80 MG TABLET PO (08:32)
--- NOTE | 2022-11-29 09:08 | P.PNGS_ITS ---
Subjective Subjective Date of Service: 11/29/22 Interval history: Feels much better this morning. Having some incisional pain but comfortable with dilaudid 4mg PO. Tolerating diet. OOB and ambulating without difficulty. Wants to go home. Physical Exam Vital Signs: Vital Signs: Last Vital Signs Temp 97.2 F 11/29/22 07:00 Pulse 69 11/29/22 07:00 Resp 18 11/29/22 07:00 BP 144/69 H 11/29/22 07:00 Pulse Ox 98 11/29/22 07:00 O2 Del Method Room Air 11/29/22 07:00 BMI result Body Mass Index 32.2 Const: General: comfortable, no acute distress and alert Orientation/consciousness: patient oriented x3 Resp: Effort & Inspection: normal respiratory effort GI: Other: CHRISTINA more serosanguineous this am Inspection: No distended and Yes incision (dressings c/d/i) Skin: General skin exam: no rashes or lesions noted and no jaundice Neuro: General: patient oriented x3 and moves all extremities Objective Data Active Medications Acetaminophen (Acetaminophen 325 Mg Tablet) 650 mg PO Q6H PRN PRN Reason: Pain, Mild (Pain Scale 1-3) Last Admin: 11/27/22 08:11 Dose: 650 mg Documented By: BLANCA Atorvastatin Calcium (Atorvastatin Calcium 80 Mg Tablet) 80 mg PO DAILY [facility] Last Admin: 11/29/22 08:32 Dose: 80 mg Documented By: CLAUDIO Enoxaparin Sodium (Enoxaparin Sodium 80 Mg/0.8 Ml Syringe) 80 mg 1 mg/kg (80 mg) SUBCUT Q12H [facility] Last Admin: 11/28/22 23:46 Dose: 80 mg Documented By: BULMARO Hydromorphone HCl (Hydromorphone Hcl 0.5 Mg/0.5 Ml Syringe) 0.5 mg IVPUSH Q4H PRN; Protocol PRN Reason: Pain, Severe (Pain Scale 7-10) Last Admin: 11/27/22 12:11 Dose: 0.5 mg Documented By: BLANCA Hydromorphone HCl (Hydromorphone Hcl 2 Mg Tablet) 2 mg PO Q4H PRN PRN Reason: Pain, Moderate(Pain Scale 4-6) Last Admin: 11/28/22 03:53 Dose: 2 mg Documented By: ОЛЬГА Hydromorphone HCl (Hydromorphone Hcl 4 Mg Tablet) 4 mg PO Q4H PRN PRN Reason: Pain, Severe (Pain Scale 7-10) Last Admin: 11/29/22 08:32 Dose: 4 mg Documented By: CLAUDIO Piperacillin Sod/Tazobactam (Sod 3.375 gm/ Sodium Chloride) 50 mls @ 100 mls/hr IV Q6H [facility] Last Infusion: 11/29/22 05:52 Dose: 0 mls/hr Documented By: ANTONIA Insulin Human Lispro (Insulin Lispro 100 Unit/Ml 3 Ml Vial) 0 unit SUBCUT QIDACHS [facility]; Protocol Last Admin: 11/29/22 07:53 Dose: Not Given Documented By: CLAUDIO Non-Admin Reason: No Insulin Coverage Lisinopril (Lisinopril 5 Mg Tablet) 5 mg PO DAILY [facility]; Protocol Last Admin: 11/29/22 08:32 Dose: 5 mg Documented By: CLAUDIO Metoprolol Tartrate (Metoprolol Tartrate 25 Mg Tablet) 25 mg PO Q6H [facility]; Protocol Last Admin: 11/29/22 08:32 Dose: 25 mg Documented By: CLAUDIO Ondansetron HCl (Ondansetron Hcl 4 Mg/2 Ml Vial) 4 mg IVPUSH Q6H PRN PRN Reason: Nausea Last Admin: 11/24/22 05:05 Dose: 4 mg Documented By: ELINA Pharmacy Consult (Consult Rx Perform Med Rec) 1 each MISCELLANE ONCE PRN PRN Reason: Consult order Sodium Chloride (0.9 % Sodium Chloride Flush 3 Ml Syringe) 3 ml IVFLUSH QSHIFT [facility] Last Admin: 11/29/22 08:32 Dose: 3 ml Documented By: CLAUDIO Tamsulosin HCl (Tamsulosin Hcl 0.4 Mg Capsule) 0.4 mg PO BID [facility] Last Admin: 11/29/22 08:32 Dose: 0.4 mg Documented By: CLAUDIO Warfarin Sodium (Warfarin Sodium 2.5 Mg Tablet) 2.5 mg PO SUTUWETHFRSA@1800 [facility] Last Admin: 11/28/22 18:38 Dose: 2.5 mg Documented By: CLAUDIO Warfarin Sodium (Warfarin Sodium 5 Mg Tablet) 5 mg PO MO@1800 [facility] Warfarin Sodium (Warfarin Sodium 5 Mg Tablet) 5 mg PO DAILY@1800 [facility] Last Admin: 11/28/22 18:39 Dose: 5 mg Documented By: CLAUDIO Labs 11/29/22 06:17 11/27/22 06:14 Labs: Laboratory Results - last 24 hr 11/28/22 11/28/22 11/28/22 11:14 16:01 19:37 MCV MCH MCHC RDW Plt Count MPV Absolute Nucleated RBC Nucleated RBC % (auto) PT INR POC Glucose 177 H 163 H 249 H 11/29/22 11/29/22 11/29/22 06:17 06:17 07:34 MCV 93.5 MCH 32.3 MCHC 34.5 RDW 13.2 Plt Count 160 MPV 10.0 Absolute Nucleated RBC 0.000 Nucleated RBC % (auto) 0.0 PT 14.1 H INR 1.2 H POC Glucose 124 H Procedures Date of Service Date of Service: 11/29/22 Progress Note: A&P Assessment and plan (1) S/P laparoscopic cholecystectomy: Status: Acute (2) Atrial fibrillation with rapid ventricular response: Status: Acute Plan 77 year old female admitted with acute cholecystitis now POD #2 s/p lap CCY. Continues to do well post op and tolerating diet, OOB without difficulty. Abd exam benign with appropriate post op tenderness, dressings clean, CHRISTINA with more serosanguineous output this am, will keep in place. AM labs reviewed. Feels ready for discharge and is medically cleared. Stable for dc to home today with VNA services for drain care. Patient comfortable with plan. F/u in office in 1 week. Time Spent With Patient Time: Total time managing care of this patient today ____ minutes. Quality Stroke Does the patient have a stroke diagnosis?: No VTE Prior VTE?: No VTE Risk Level:: Medical - moderate - high VTE Device Contraindication: N/A - Device Ordered VTE Drug Contraindication: Treatment Not Indicated
--- NOTE | 2022-11-29 11:00 | P.F2F_ITS ---
Service Date Service Date: 11/29/22 Encounter Date of encounter: 11/29/22 Reasons for Services Signs and symptoms assessed: abdominal pain, abdominal tenderness, incision sites, CHRISTINA drain output Homebound: Leaving the home is medically contraindicated at this time without the asist of a device and/or another person due th the listed conditions above and below. Reason homebound: weakness related to hospital stay and unable to drive Homebound supporting statement: Mr. De Los Santos is s/p laparoscopic cholecystectomy. He will need home VNA services for CHRISTINA drain care. Certification: Based on the above findings, I certify that this patient is confined to the home and needs intermittent intermediate care, physical therapy and/or speech therapy, or continues to need occupational therapy. The patient is under my care, and I have initiated the establishment of the plan of care. The patient will be followed by a physician who will periodically review the plan of care. Time Spent With Patient Time: Total time managing care of this patient today ____ minutes.
[2022-11-29 11:15] LABS: Glucose, Whole Blood 196 mg/dL (60-115)
[2022-11-29] MEDS: Enoxaparin Sodium 80 MG/0.8 ML SYRINGE SUBCUT (12:22)
[2022-11-29] MEDS: Insulin Lispro 100 UNIT/ML 3 ML VIAL SUBCUT (12:22)
--- NOTE | 2022-11-29 12:49 | P.DS_ITS ---
DS: Providers Provider Date of Service: 11/29/22 Date of admission: 11/23/22 22:49 Primary care physician: None Physician Attending physician on admission: Marty Suresh Consults: 11/23/22 22:56 Consult to Hospitalist Routine Comment: Consulting Provider: Hospitalist Reason For Exam: DM, afib 11/26/22 10:44 Consult to Cardiology Stat Consulting Provider: [facility] Reason for consultation: pre-op clearance per anesthesia, pt on cardizem drip for afib Attending physician on discharge: Simeon Monge DS: Diagnosis Discharge Diagnosis (1) S/P laparoscopic cholecystectomy: Status: Acute (2) Atrial fibrillation with rapid ventricular response: Status: Acute DS: Summary Hospital Course Hospital Course: HPI AT ADMISSION: Paulie De Los Santos is a 77 year old male here in the ED for abdominal pain x 2 days. He says this was diffuse but mostly on the lower abdomen and both flanks. He says this comes and goes. He describes having nausea and vomitting yesterday. He also states that he has a history of kidney stones and had cystoscopy in the past. He denies dysuria. He still has this episodic abdominal pain that seems unchanged. HOSPITAL COURSE: He was admitted to the surgical service for further work up and management of his abdominal pain. His imaging was reviewed and his GB actually did not appear inflamed on CT although the US was read as with some mild GB wall thickening. His overall pain and tenderness was quite atypical for cholecystitis. His labs were repeated but started on IV zosyn empirically. His Coumadin was held to allow his INR to be subtherapeutic in the event he will require surgery. Hospitalist consult was obtained for management of his medical comorbidities. His LFTs remained elevated. MRCP was therefore obtained and showed some GB wall thickening suggestive of acute cholecystitis but no CBD stones. It was therefore recommended to proceed with laparoscopic cholecystectomy possible open. He was in and out of afib with RVR since admission, thought secondary to the cholecystitis and transferred to [facility] [place] for cardizem drip. The cholecystectomy was planned for the following day when his INR was improved however anethesia wanted a cardiology consult pre operatively. They deemed him optimized to undergo surgery with low to intermediate risk for perioperative cardiovascular morbidity mortality. HE was therefore added onto the following day. On 11/27/22, a laparoscopic cholecystectomy was performed by Dr. Suresh without complication. He tolerated the procedure well. He had an uncomplicated recovery course and remained inpatient for pain control, resumption of his coumadin which was restarted on POD #1. On the day of discharge, he was tolerating a solid diet without nausea or vomiting, had good pain control on oral analgesics and was out of bed without difficulty. His abdomen was benign with clean dressings and appropriate post op tenderness. His CHRISTINA drain had serosanguineous output and was continued. He felt ready for discharge. He was discharged on 11/29/22 with [facility] services. He is to follow up in the office in 1 week for drain removal. Status at Discharge Functional status at discharge: independent ambulation Overall status at discharge: patient is progressing back to baseline Time Spent with Patient Time attestation: Total time managing care of this patient today ____ minutes. Discharge coordination time: Less than 30 minutes Quality: Safe Use of Opioids Does Pt have an Active Cancer Diagnosis on the Problem List?: No Quality: Stroke Does the patient have a stroke diagnosis?: No Physical Exam Vital Signs: Vital Signs: Last Vital Signs Temp 97.2 F 11/29/22 07:00 Pulse 69 11/29/22 07:00 Resp 18 11/29/22 07:00 BP 144/69 H 11/29/22 07:00 Pulse Ox 98 11/29/22 07:00 O2 Del Method Room Air 11/29/22 07:00 BMI result Body Mass Index 32.2 Const: General: comfortable, no acute distress and alert Orientation/consciousness: patient oriented x3 Resp: Effort & Inspection: normal respiratory effort Cardio: Rate: regular rate GI: Other: CHRISTINA drain serosanguineous output Inspection: Yes incision (clean, dressings intact) Palpation (GI): Soft to palpation, Tenderness to palpation present (GI) (mild incisional), no guarding and not rigid Skin: General skin exam: no rashes or lesions noted and no jaundice Neuro: General: patient oriented x3 and moves all extremities DS: Data Data Completed and Pending Completed studies during hospitalization [Text1]: 11/27/22 10:36 Surgical [PTH] Routine Gallbladder, cholecystectomy: Acute on chronic cholecystitis with cholelithiasis. Labs on day of discharge: Laboratory Results - last 24 hr 11/28/22 11/28/22 11/29/22 16:01 19:37 06:17 WBC 9.6 RBC 4.03 L Hgb 13.0 L Hct 37.7 L MCV 93.5 MCH 32.3 MCHC 34.5 RDW 13.2 Plt Count 160 MPV 10.0 Absolute Nucleated RBC 0.000 Nucleated RBC % (auto) 0.0 PT INR POC Glucose 163 H 249 H 11/29/22 11/29/22 11/29/22 06:17 07:34 11:07 WBC RBC Hgb Hct MCV MCH MCHC RDW Plt Count MPV Absolute Nucleated RBC Nucleated RBC % (auto) PT 14.1 H INR 1.2 H POC Glucose 124 H 196 H Discharge Plan Discharge Anticipated Discharge Date/Time: 11/28/22 14:26 Patient Disposition: Home Health Service Discharge Diagnosis: acute cholecystitis, s/p laparoscopic cholecystectomy Referrals: [facility] [Other] - 1 Week Marty Suresh MD [Physician] - 1 Week Physician,Claudia Nelson [Physician] - 1 Week Discharge Medications: New docusate sodium [Colace] 100 mg capsule 100 mg PO BID PRN (Reason: constipation) Qty: 30 0RF hydromorphone [Dilaudid] 2 mg tablet 2 mg PO Q4-6H PRN (Reason: pain (scale score 7-10)) Qty: 24 0RF Rx Instructions: Partial Fill upon patient request. Take 1-2 tablets every 4-6 hours PRN pain. Continued tamsulosin 0.4 mg capsule 0.4 mg PO Q12H glipizide 5 mg tablet 10 mg PO BID Trulicity 3 mg/0.5 mL pen injector 3 mg subcut BECKHAM@0900 multivitamin Tablet 1 tab PO DAILY warfarin 5 mg tablet 2.5 mg PO SUTUWETHFRSA@1800 omega 7-joa-gya-fish oil [Fish Oil] 300-1,000 mg Capsule,Delayed Release(Dr/Ec) 1 cap PO DAILY warfarin 5 mg tablet 5 mg PO MO@1800 Protocol: Dose Management Condition: Saturday (Week One) Dose/Route: 2.5 mg Instruction: 0.5 x 5 mg tablets Condition: Saturday Dose/Route: 5 mg Instruction: 1 x 5 mg tablet Condition: Saturday Dose/Route: 2.5 mg Instruction: 0.5 x 5 mg tablets Condition: Saturday Dose/Route: 2.5 mg Instruction: 0.5 x 5 mg tablets Condition: Dose/Route: 2.5 mg Instruction: 0.5 x 5 mg tablets Condition: Saturday Dose/Route: 2.5 mg Instruction: 0.5 x 5 mg tablets Condition: Saturday Dose/Route: 2.5 mg Instruction: 0.5 x 5 mg tablets Condition: Saturday (Week Two) Dose/Route: 2.5 mg Instruction: 0.5 x 5 mg tablets Condition: Saturday Dose/Route: 5 mg Instruction: 1 x 5 mg tablet Condition: Saturday Dose/Route: 2.5 mg Instruction: 0.5 x 5 mg tablets Condition: Saturday Dose/Route: 2.5 mg Instruction: 0.5 x 5 mg tablets Condition: Dose/Route: 2.5 mg Instruction: 0.5 x 5 mg tablets Condition: Saturday Dose/Route: 2.5 mg Instruction: 0.5 x 5 mg tablets Condition: Saturday Dose/Route: 2.5 mg Instruction: 0.5 x 5 mg tablets Protocol Text: Adjustment Start Date: Saturday11/07/22 INR Value: 2.8 INR Date: 11/07/22 Recheck Date: 12/05/22 tramadol 50 mg tablet 50 mg PO TID PRN (Reason: Pain) atorvastatin 80 mg tablet 80 mg PO DAILY (DME) blood sugar diagnostic Strip See Rx Instructions Not Applicable BID Qty: 10 Rx Instructions: As directed (DME) pen needle, diabetic [BD Keira 2nd Gen Pen Needle] 32 gauge x 5/32 needle See Rx Instructions .ROUTE .MEDSUPPLY Qty: 50 Rx Instructions: As directed (DME) blood-glucose meter [FreeStyle Lite Meter] Kit See Rx Instructions .ROUTE TID Qty: 1 Rx Instructions: As directed lisinopril 5 mg tablet 5 mg PO DAILY metoprolol succinate 25 mg tablet extended release 24 hr 25 mg PO BID Discharge Orders: Discharge Order (Routine); Ordered 11/29/22 Ordered By: Kathie Yo Diet: Low fat, low cholesterol Activity on Discharge: No heavy lifting Stand Alone Forms: Patient Portal Discharge page Activity Restrictions/Additional Instructions: If the incision area is tender, you may apply an ice pack for short intervals (No more than 20 minutes on, followed by at least 20 minutes off). Do not apply heat. Do not use creams, lotions, or topical antibiotics. These can cause infection or allergic reaction. Ok to shower 24 hours after your surgery. Remove bandaids in 2 days and replace. You have steri strips (small white cloth strips) covering your incision- these will fall off ~1 week. Follow up in office with Dr. Suresh in 2 weeks. ([phone]) CHRISTINA drain care- empty daily and as needed. No heavy lifting (>10-20lbs) or strenuous activity! Call Your Doctor If: -Your temperature exceeds 101.5? F -You experience excessive pain or swelling -You have an unexpected reaction to medication -You have excessive bleeding -You experience continued vomiting/nausea -Your incision begins to separate -Your incision shows signs of infection such as increased redness, swelling, excessive pain, drainage (light blood or clear fluid is normal) or heat Care Plan Goals: Return to baseline health and resume normal activities following recovery p eriod. Health Concerns: a fib acute cholecystitis Plan of Treatment: s/p laparoscopic cholecystectomy [facility] services f/u in office drain care Assessment: Doing well post op. Discharge Date/Time: 11/29/22 16:33
--- NOTE | 2022-11-29 14:20 | MHC.CM.PN ---
Patient has been medically cleared for dc to home today with services. [facility] has accepted Patient and are aware of today's dc. IMM addressed today at bedside, with Patient(original has been given to Patient and a copy has been placed on the chart).
[2022-11-29 15:00] VITALS: BP 139/67; PULSE 72; RESP 14; TEMP 36.5; O2SAT 96
== END 2022-11-29 16:33 | disposition home health service (06) | DRG 418 ==
LOC: HO.ED 22:44 → HO.EDOVER 22:54 → HO.S3 11-24 13:25 → HO.IMC 11-25 13:45
PROVIDERS: Physician Assistant; Student in an Organized Health Care Education/Training Program; Admitting Provider Surgery; Emergency Provider Emergency Medicine; Visit Provider Surgery
PROC: 0FT44ZZ Resection of Gallbladder, Percutaneous Endoscopic Approach (ICD-10-PCS; CPT 47562; principal; 2022-11-27 13:30)
DX: K80.00 Calculus of gallbladder with acute cholecystitis without obstruction (principal); K82.1 Hydrops of gallbladder; I10 Essential (primary) hypertension; E11.9 Type 2 diabetes mellitus without complications; I48.0 Paroxysmal atrial fibrillation; R79.1 Abnormal coagulation profile; N40.0 Benign prostatic hyperplasia without lower urinary tract symptoms; E78.00 Pure hypercholesterolemia, unspecified; Z20.822 Contact with and (suspected) exposure to COVID-19; Z79.01 Long term (current) use of anticoagulants; Z79.84 Long term (current) use of oral hypoglycemic drugs; Z79.85 Long-term (current) use of injectable non-insulin antidiabetic drugs; Z79.899 Other long term (current) drug therapy
CPT/HCPCS: 36415; 74177; 74181; 76705; 80048; 80053; 80076; 81003; 82947; 83690; 83735; 85025; 85027; 85610; 86850; 86900; 86901; 87635; 88304; 93005; 99285; J1100; J1170; J1650; J2250; J2270; J2371; J2405; J2543; J3010; J3430; Q9967

== ENCOUNTER → 2022-11-23 22:25 | Outpatient (BNV) | payer MEDICARE, SELFPAY | PROVIDERS: Admitting Provider Surgery; Emergency Provider Emergency Medicine; Visit Provider Internal Medicine Cardiovascular Disease | DX: I49.1 Atrial premature depolarization (principal) | CPT/HCPCS: 93010 ==

== ENCOUNTER 2022-11-23 22:49 | Outpatient (BNV) | payer MEDICARE, SELFPAY | END 2022-11-24 10:17 | PROVIDERS: Admitting Provider Surgery; Emergency Provider Emergency Medicine; Visit Provider Internal Medicine Cardiovascular Disease | DX: I48.91 Unspecified atrial fibrillation (principal) | CPT/HCPCS: 93010 ==

== ENCOUNTER → 2022-11-23 22:49 | Outpatient (BNV) | payer MEDICARE, SELFPAY | PROVIDERS: Admitting Provider Surgery; Emergency Provider Emergency Medicine; Visit Provider Student in an Organized Health Care Education/Training Program | DX: I48.91 Unspecified atrial fibrillation (principal); Z90.49 Acquired absence of other specified parts of digestive tract | CPT/HCPCS: 99222; 99232 ==

== ENCOUNTER → 2022-11-23 22:49 | Outpatient (BNV) | payer MEDICARE, SELFPAY | PROVIDERS: Admitting Provider Surgery; Emergency Provider Emergency Medicine; Visit Provider Surgery | DX: R10.11 Right upper quadrant pain (principal) | CPT/HCPCS: 47562; 99024; 99222; 99232; 99499; G0180 ==

== ENCOUNTER → 2022-11-23 22:49 | Outpatient (BNV) | payer OTHER, SELFPAY | PROVIDERS: Admitting Provider Surgery; Emergency Provider Emergency Medicine; Visit Provider Internal Medicine Cardiovascular Disease | DX: I48.0 Paroxysmal atrial fibrillation (principal) | CPT/HCPCS: 99222; 99232 ==

== ENCOUNTER 2022-12-03 14:03 | Outpatient (AMB) | payer OTHER, SELFPAY ==
--- NOTE | 2022-12-03 14:05 | MHC.OFFVIS ---
Intake Vital Signs 12/03/22 14:17 Height 5 ft 2 in Weight 165 lb 12.602 oz BMI 30.3 BP 148/69 H Blood Pressure Location Lt brachial Position Sitting Pulse 97 Intake Visit Reasons: post lap steve Intake Note: Patient is seen in office for post op assessment post laparoscopic cholecystectomy. Patient c/o: admits to sore and tender, emptying drain daily, unsure of the amount of output. Crating And Moving Estimator Required: Yes Crating And Moving Estimator Language: Vocal Music Instructor Name: Farrah CHAMBERLAIN Information Interpreted: non-clinical & clinical Accompanied by: Family/Other Allergies acetaminophen [From Percocet] Allergy (Intermediate, Verified 12/03/22 14:17) Headache oxycodone [From Percocet] Allergy (Intermediate, Verified 12/03/22 14:17) Headache ibuprofen [From Motrin] Allergy (Mild, Verified 12/03/22 14:17) SWELLING SALMON Adverse Reaction (Mild, Uncoded 12/03/22 14:17) VOMITING HPI post lap steve HPI Details 77-year-old male here for postop visit. He had undergone laparoscopic cholecystectomy past 11/27/2022. He had hydrops of the gallbladder along with severe acute cholecystitis at that time. He had a drain in place. He says he is doing well at home. He has good oral intake. He denies any fever or chills. His says that there has been minimal serosanguineous drainage from the CHRISTINA drain. 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 Review of Systems Const Denies chills and Denies fever(s) Card Denies chest pain and Denies dyspnea Resp Denies cough and Denies dyspnea GI Denies abdominal pain, Denies diarrhea, Denies nausea and Denies vomiting Physical Exam Vital Signs: Last Vital Signs Pulse 97 12/03/22 14:17 BP 148/69 H 12/03/22 14:17 BMI result Body Mass Index 30.3 Const General: comfortable and no acute distress Eyes Other: Nonicteric Resp Effort & Inspection: normal respiratory effort Cardio Rate: regular rate GI Other: All incisions clean and dry, CHRISTINA drain with serosanguineous scanty output Palpation (GI): Soft to palpation, not firm and no guarding Assessment & Plan Assessment & Plan (1) S/P laparoscopic cholecystectomy: Code(s): Z90.49 - Acquired absence of other specified parts of digestive tract Plan: He appears to be doing very well postop. Has been minimal serosanguineous drainage from his CHRISTINA drain so I removed this All incisions are healing well He has good oral intake . I reminded him to not do any heavy lifting more than 20 lb for at least 3 more weeks. He is back on his anticoagulant treatment with Coumadin. He can follow up with me on a p.r.n. basis. I also instructed him to make sure that he follows up with his primary care physician. Medications: Discontinued warfarin 5MG X2, 2.5MGX5 5 mg See Protocol PO DAILY 90 tabs 0RF Coding Level of Care Code Global (16832) Diagnoses S/P laparoscopic cholecystectomy Z90.49
[2022-12-03 14:17] VITALS: BP 148/69; PULSE 97; BMI 30.3
== END 2022-12-03 14:37 | disposition home or self-care (01) ==
PROVIDERS: Visit Provider Surgery
DX: Z90.49 Acquired absence of other specified parts of digestive tract (principal)
CPT/HCPCS: 99024

== ENCOUNTER → 2022-12-03 14:03 | Outpatient (BNVA) | payer OTHER, SELFPAY | PROVIDERS: Visit Provider Surgery ==

== ENCOUNTER → 2022-12-10 12:48 | Outpatient (BNVA) | payer OTHER, SELFPAY | PROVIDERS: PCP Internal Medicine; Visit Provider Internal Medicine ==

== ENCOUNTER → 2022-12-18 15:54 | Outpatient (BNVA) | payer OTHER, SELFPAY | PROVIDERS: PCP Internal Medicine; Visit Provider Internal Medicine ==

== ENCOUNTER → 2022-12-25 13:37 | Outpatient (BNVA) | payer OTHER, SELFPAY | PROVIDERS: PCP Internal Medicine; Visit Provider Internal Medicine ==

== ENCOUNTER → 2023-01-01 14:46 | Outpatient (BNVA) | payer OTHER, SELFPAY | PROVIDERS: PCP Internal Medicine; Visit Provider Internal Medicine ==

== ENCOUNTER → 2023-01-08 13:28 | Outpatient (BNVA) | payer OTHER, SELFPAY | PROVIDERS: PCP Internal Medicine; Visit Provider Internal Medicine ==

== ENCOUNTER → 2023-01-17 13:06 | Outpatient (BNVA) | payer OTHER, SELFPAY | PROVIDERS: PCP Internal Medicine; Visit Provider Internal Medicine ==

== ENCOUNTER 2023-01-22 16:12 | Outpatient (AMB) | payer OTHER, SELFPAY ==
--- NOTE | 2023-01-22 16:13 | MHC.OFFVISCO ---
Intake Intake Visit Reasons: Anticoagulation Allergies acetaminophen [From Percocet] Allergy (Intermediate, Verified 01/22/23 16:18) Headache oxycodone [From Percocet] Allergy (Intermediate, Verified 01/22/23 16:18) Headache ibuprofen [From Motrin] Allergy (Mild, Verified 01/22/23 16:18) SWELLING SALMON Adverse Reaction (Mild, Uncoded 01/22/23 16:18) VOMITING Medication List - Last Reconciled 01/22/23 by Soraya Roberts RN atorvastatin 80 mg PO DAILY blood sugar diagnostic As directed blood-glucose meter (FreeStyle Lite Meter kit) As directed docusate sodium (Colace) 100 mg PO BID PRN dulaglutide (Trulicity) 3 mg subcut BECKHAM@0900 glipizide 10 mg PO BID hydromorphone (Dilaudid) 2 mg PO Q4-6H PRN lisinopril 5 mg PO DAILY metoprolol succinate ER 25 mg PO BID multivitamin 1 tab PO DAILY omega 7-xhj-ytv-fish oil 300-1,000 mg (Fish Oil) 1 cap PO DAILY pen needle, diabetic (BD Keira 2nd Gen Pen Needle) As directed tamsulosin 0.4 mg PO Q12H tramadol 50 mg PO TID PRN warfarin 2.5 mg See Protocol PO SUTUWETHFRSA@1800 warfarin 5 mg See Protocol PO MO@1800 Nursing Note INR received from [facility] nurse Galan INR today is 3.8 T/c to nurse Kira T/c to patient - he already took warfarin today Patient status: doing better s/p gallbladder surg 11/2022 Denies any signs and symptoms of any unusual bruising, bleeding or clotting Medication or supplements: PT ALREADY TOOK TODAY'S WARFARIN DOSE Diet: GOOD, ENC [place] TODAY THEN 2 SERVINGS / WEEK Activity: TOLERATED Dose: HOLD TOMORROW'S DOSE, THEN RESUME USUAL DOSE 5MG MON, 2.5MG X 6 DAYS Dosing and diet instructions given with next retest date of 01/29/23, Nurse and patient verbalizes understanding of instructions given with accurate read back Anti-Coag Initial Assessment Social Hx Patient Tobacco Use Status: Never used Tobacco alcohol intake: never Alcohol intake frequency: former alcohol drinker Coding Level of Care Code Est Patient Level 1 Diagnoses Current use of anticoagulant therapy Z79.01 Results AMB INR Fingerstick AMB INR Fingerstick 3.8 Last Edit by Soraya Roberts RN on 01/22/23 16:20 [facility] Assessment & Plan Assessment & Plan (1) Current use of anticoagulant therapy: Code(s): Z79.01 - roasterman (current) use of anticoagulants Category: Medical
== END 2023-01-22 16:25 | disposition home or self-care (01) ==
LOC: HO.ACS 16:12
PROVIDERS: PCP Internal Medicine; Visit Provider Internal Medicine
DX: Z79.01 Long term (current) use of anticoagulants (principal)

== ENCOUNTER → 2023-01-22 16:12 | Outpatient (BNVA) | payer OTHER, SELFPAY | PROVIDERS: PCP Internal Medicine; Visit Provider Internal Medicine | DX: I48.0 Paroxysmal atrial fibrillation (principal); Z79.01 Long term (current) use of anticoagulants; Z51.81 Encounter for therapeutic drug level monitoring | CPT/HCPCS: 99211 ==

== ENCOUNTER 2023-01-23 09:33 | Emergency (ER) | payer OTHER, SELFPAY ==
--- NOTE | ~2023-01-23 | CT_ITS ---
EXAMINATION: CT ABDOMEN AND PELVIS WITHOUT CONTRAST CLINICAL INFORMATION: Abdominal pain and inability to void. COMPARISON: None available. TECHNIQUE: Multidetector volumetric imaging was performed from the superior aspect of the liver through the pubic symphysis. Sagittal and coronal reformatted images were obtained on the technologist's workstation. This CT examination was performed using dose optimization techniques as appropriate, variously including the following: *Automated exposure control *Adjustment of mA and/or kV according to patient size (this includes techniques or standardized protocols for targeted exams where dose is matched to indication/reason for exam; i.e. extremities or head) *Use of iterative reconstruction technique DLP: 561 mGy-cm FINDINGS: LUNG BASES: The lung bases are clear. The heart size is normal. There is mild coronary artery calcification. LIVER, GALLBLADDER, AND BILIARY TREE: The liver is normal in size, shape, and attenuation. No focal hepatic lesion or biliary ductal dilatation is present. The gallbladder has been surgically removed. PANCREAS: Unremarkable. SPLEEN: Unremarkable. ADRENAL GLANDS: Unremarkable. KIDNEYS AND URETERS: The kidneys are normal in size, shape, and attenuation. No hydronephrosis, hydroureter, or calculi seen. There is a 3.5 cm cyst lower pole right kidney. Mild bilateral perinephric stranding is noted. BLADDER: The bladder is nondistended with mild bladder wall thickening. GASTROINTESTINAL TRACT: There is scattered stool, diverticuli and gas seen throughout the colon without significant distention. There is no evidence of diverticulitis. The small bowel loops are normal caliber. Appendix is normal caliber. Stomach is nondistended no free air or inflammatory process seen. ABDOMINAL WALL: There is mild wall thickening of the umbilicus but no evidence of hernia. LYMPH NODES: No abnormal size pelvic or retroperitoneal lymph nodes seen. VASCULAR: Unremarkable. PELVIC VISCERA: The prostate gland is mildly enlarged there are punctate central gland calcification. The bladder is nondistended mild lobulated bladder wall thickening. OSSEOUS STRUCTURES: No lytic or sclerotic process. There is mild ventral spondylosis lower dorsal and upper lumbar spine. No aggressive lytic or sclerotic process seen. CT/CT abdomen pelvis wo IV con IMPRESSION: 1. No acute intra-abdominal process seen. 2. Colonic diverticulosis without diverticulitis. Mild constipation. 3. Right renal cyst. No radiopaque urolith or hydroureteronephrosis. 4. Nondistended urinary bladder with mild bladder wall thickening. Fleischner guidelines were followed.
[2023-01-23 09:50] VITALS: BP 103/55; PULSE 96; RESP 19; TEMP 36.6; O2SAT 98; BMI 30.6
[2023-01-23 10:52] LABS: Alanine Aminotransferase 28 U/L (0-40); Albumin Level 4.2 g/dL (3.5-5.0); Alkaline Phosphatase 78 U/L (39-117); Anion Gap 14 (12-20); Aspartate Amino Transferase 26 U/L (5-37); Bilirubin Direct 0.3 mg/dL (0.0-0.5); Bilirubin Total 1.2 mg/dL (0.0-1.0); Blood Urea Nitrogen 14 mg/dL (9-16); Calcium 9.9 mg/dL (8.4-10.2); Carbon Dioxide 22 mmol/L (22-29); Chloride 107 mmol/L (96-108); Creatinine Clr Calc Pharmacy 69.2; Estimated Glomerular Filt Rate > 60; Glucose Random 167 mg/dL (60-115); Lipase 45 U/L (8-78); Potassium 3.7 mmol/L (3.3-5.1); Sodium 139 mmol/L (135-145); Total Protein 7.5 g/dL (6.5-8.0)
--- NOTE | 2023-01-23 11:45 | ED_ITS ---
HPI - Abdominal Pain General Chief Complaint: Abdominal Pain Stated Complaint: Stomach Pain Time Seen by Provider: 01/23/23 11:45 Source: patient Mode of arrival: ambulatory Limitations: no limitations History of Present Illness HPI narrative: 77 year old male history of PAF on coumadin, HTN, HLD, DM presenting w/ abdominal pain, nausea, no bowel movements, difficulty w/ urination X 3 days. patient with reports diffuse abdominal discomfort with intermittent nausea. He reports last time he had something like this was after a surgical procedure, no recent surgeries. Patient is on chronic opiates for pain. Denies fevers, chills, vomiting, chest pain, shortness of breath, headache, vision changes, dizziness, weakness. Related Data Home Medications Medication Instructions Recorded Confirmed atorvastatin 80 mg tablet 80 mg PO DAILY 04/27/20 01/22/23 blood sugar diagnostic #10 ea 04/27/20 01/22/23 tramadol 50 mg tablet 50 mg PO TID PRN Pain 04/27/20 01/22/23 blood-glucose meter (FreeStyle #1 ea 06/19/21 01/22/23 Lite Meter kit) pen needle, diabetic 32 gauge x #50 ea 06/19/21 01/22/23 (BD Keira 2nd Gen Pen Needle) lisinopril 5 mg tablet 5 mg PO DAILY 07/05/22 01/22/23 metoprolol succinate 25 mg 25 mg PO BID 07/05/22 01/22/23 tablet,extended release 24 hr dulaglutide 3 mg/0.5 mL 3 mg subcut BECKHAM@0900 11/24/22 01/22/23 subcutaneous pen injector ([facility]) glipizide 5 mg tablet 10 mg PO BID 11/24/22 01/22/23 multivitamin 1 tab PO DAILY 11/24/22 01/22/23 omega 2-ahp-ndd-fish oil 300 1 cap PO DAILY 11/24/22 01/22/23 mg-1,000 mg capsule,delayed release (Fish Oil) tamsulosin 0.4 mg capsule 0.4 mg PO Q12H 11/24/22 01/22/23 warfarin 5 mg tablet 2.5 mg PO SUTUWETHFRSA@1800 11/24/22 01/22/23 warfarin 5 mg tablet 5 mg PO MO@1800 11/24/22 01/22/23 Previous Rx's Medication Instructions Recorded docusate sodium 100 mg capsule 100 mg PO BID PRN constipation #30 11/29/22 (Colace) caps hydromorphone 2 mg tablet 2 mg PO Q4-6H PRN pain (scale 11/29/22 (Dilaudid) score 7-10) #24 tabs cefuroxime axetil 250 mg tablet 250 mg PO BID 7 days #14 tabs 01/23/23 docusate sodium 100 mg capsule 100 mg PO BID #20 caps 01/23/23 (Colace) polyethylene glycol 3350 17 17 g PO BID #238 grams 01/23/23 gram/dose oral powder (Miralax) sennosides 8.6 mg tablet (senna) 8.6 mg PO BEDTIME #14 tabs 01/23/23 Allergies Allergy/AdvReac Type Severity Reaction Status Date / Time acetaminophen [From Percocet] Allergy Intermediate Headache Verified 01/23/23 09:50 oxycodone [From Percocet] Allergy Intermediate Headache Verified 01/23/23 09:50 ibuprofen [From Motrin] Allergy Mild SWELLING Verified 01/23/23 09:50 SALMON AdvReac Mild VOMITING Uncoded 01/23/23 09:50 Review of Systems Review of Systems Constitutional : No Weight loss, No Fever, No Chills, No Fatigue, No Malaise ENT/Mouth : No sore throat, No Rhinorrhea Eyes: No Eye Pain, No Swelling, No Redness Cardiovascular : No Chest Pain, No SOB, No Dyspnea on Exertion, No Orthopnea, No Edema, No Palpitations Respiratory : No Cough, No Sputum, No Wheezing Gastrointestinal : + Nausea, No Vomiting, No Diarrhea, + Constipation, + abdominal Pain, No Hematochezia, No Melena Genitourinary : No Dysuria, No Urinary Frequency, No Hematuria, Musculoskeletal : No joint pain, No Myalgias, No Joint Swelling Skin : No Skin Lesions, No rash Neuro : No Weakness, No Numbness, No Dizziness, No Headache Psych : No Anxiety/Panic, No Depression All other systems reviewed and are negative Yes all other systems are reviewed and are negative [facility] Past Medical History Attestation statement: The following information was validated with the patient. 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 Appearance: Alert.? Oriented X3.? No acute distress.? Head: Normocephalic, atraumatic, no step-offs or deformities Eyes: Pupils equal, round and reactive to light.? ENT: Pharynx normal.? Neck: Normal inspection.? Neck supple.? CVS: Normal heart rate and rhythm.? Pulses normal.? Respiratory: No respiratory distress.? Breath sounds normal.? Abdomen: Soft and nontender.? Skin: Skin warm and dry.? Normal skin color.? Normal skin turgor.? Extremities: No lower extremity edema.? No calf ttp. 5/5 strength to bilateral upper and lower extremities Neuro: Oriented X 3.? No motor deficit.? No sensory deficit. CN 2-12 intact Course Reevaluation(s) Reevaluation #1: CBC within normal limits. Chemistry unremarkable. Patient's hypercoagulable at this time PTT 42.5 INR 3.5.UA with small amount of leukocyte esterases and blood, concerns for bloody cystitis versus UTI, no bacteria however culture will be sent will treat for UTI regardless. CT abdomen and pelvis pending. Bladder scan 135. Time: 13:05 Reevaluation #2: KUB showing mild constipation. CT abdomen and pelvis with no acute intra- abdominal process. Colonic diverticulosis without diverticulitis mild constipation. Right renal cyst no radiopaque urolithiasis or hydroureteronephrosis. Nondistended urinary bladder with mild wall thickening consistent with cystitis. Patient had a large volume bowel movement and feels better after soapsuds enema, reports symptomatic improvement, also able to urinate, hematuria noted. Plan is for discharge with PCP and urology follow-up. Will send him home on stool softeners Time: 15:06 Reevaluation #3: Discussed INR results w/ Dr. Dos Santos who recommends continuing normal coumadin. Time: 15:26 Medical Decision Making Medical Decision Making [facility] Narrative: 1215 77-year-old male presents with nausea, abdominal discomfort, difficulty with bowel movements and urination x3 days. Physical examination diffuse abdominal tenderness peer concerns for constipation versus opiate related constipationversus obstruction versus viral illness versus UTI versus cystitis. verses urinary retention. Unlikely acute abdomen, pyelonephritis, obstructing uropathy, mesenteric ischemia, diverticulitis, appendicitis, cholecystitis, pancreatitis. Will rule out metabolic derangements and anemia. Unlikely lower GI bleed. Plan labs, imaging, urine and bladder scan Differential Diagnosis Differential Diagnoses: The differential diagnosis associated with the presentation includes concerns for constipation versus opiate related constipationv versus obstruction versus viral illness versus UTI versus cystitis. verses urinary retention. Unlikely acute abdomen, pyelonephritis, obstructing uropathy, mesenteric ischemia, diverticulitis, appendicitis, cholecystitis, pancreatitis. Will rule out metabolic derangements and anemia. Unlikely lower GI bleed. Admission/Observation Consideration of admission/observation: Escalation of care including admission/observation considered possible Lab Data [facility] Lab Attestation statement: I reviewed the patient's lab results. 01/23/23 10:32 01/23/23 10:32 Labs: Lab Results 01/23/23 01/23/23 Range/Units 10:32 12:41 WBC 8.5 (4.8-10.8) X10*3/uL RBC 4.71 (4.60-5.80) X10*6/uL Hgb 14.9 (14.0-18.0) g/dl Hct 43.5 (42.0-52.0) % MCV 92.4 (80.0-98.0) fL MCH 31.6 (27.0-33.0) pg MCHC 34.3 (31.0-36.0) g/dl RDW 13.6 (11.0-16.0) % Plt Count 192 (160-400) X10*3/uL MPV 9.7 (9.4-12.4) fL Immature Gran % (Auto) 0.2 (0.0-0.4) % Neut % (Auto) 67.9 (45-73) % Lymph % (Auto) 25.3 (20-40) % Ida % (Auto) 5.2 (2-11) % Eos % (Auto) 1.2 (0-4) % Baso % (Auto) 0.2 (0-2) % Lymph # (Auto) 2.1 (1.2-4.9) X10*3/uL Ida # (Auto) 0.4 (0.1-1.2) X10*3/uL Eos # (Auto) 0.1 (0.0-0.4) X10*3/uL Baso # (Auto) 0.0 (0.0-0.2) X10*3/uL Abs Immat Gran (auto) 0.02 (0.00-0.03) X10*3/uL Absolute Neuts (auto) 5.7 (2.0-8.3) x10*3/uL Absolute Nucleated RBC 0.000 (0.0-0.012) X10*3/uL Nucleated RBC % (auto) 0.0 (0.0-0.2) /100WBC PT 42.5 H D (11.1-13.3) SEC INR 3.5 H D (0.9-1.1) Sodium 139 (135-145) mmol/L Potassium 3.7 (3.3-5.1) mmol/L Chloride 107 (96-108) mmol/L Carbon Dioxide 22 (22-29) mmol/L Anion Gap 14 (12-20) BUN 14 (9-16) mg/dL Creatinine 0.87 (0.5-1.4) mg/dL Estim Creat Clear Calc 69.2 Estimated GFR > 60 Random Glucose 167 H (60-115) mg/dL Calcium 9.9 D (8.4-10.2) mg/dL Total Bilirubin 1.2 H (0.0-1.0) mg/dL Direct Bilirubin 0.3 (0.0-0.5) mg/dL AST 26 (5-37) U/L ALT 28 (0-40) U/L Alkaline Phosphatase 78 (39-117) U/L Total Protein 7.5 (6.5-8.0) g/dL Albumin 4.2 (3.5-5.0) g/dL Lipase 45 (8-78) U/L Urine Color RED Urine Appearance Turbid Urine pH 5.0 (5.0-9.0) Ur Specific [place] 1.020 (1.005-1.025) Urine Protein See Note (Neg-Trace) mg/dL Urine Glucose (UA) Negative (Negative) mg/dL Urine Ketones See Note (Negative) mg/dL Urine Blood Large (3+) H (Negative) Urine Nitrite See Note (Negative) Ur Leukocyte Esterase Small (1+) H (Negative) Urine RBC >20 H (0-2) /HPF Urine WBC 11-20 H (0-5) /HPF Ur Squamous Epith Cells 0-2 (0-2) /HPF Urine Bacteria None Seen (None Seen) Hyaline Casts 0-2 (0-2) /LPF Independent Interpretation I performed an independent interpretation of an: CT Scan Radiology Impression Discussion of test interpretation with radiology: I have reviewed the radiologist's reading. External Record Review External record reviewed: Inpatient record, Office record, Outpatient record, Prior outpatient labs, Prior outpatient radiology, Primary care record and Outside ED record Chronic Conditions Patient?s care impacted by: Hypertension and Other (afib ) Medications Administered Discontinued Medications Generic Name Dose Route Start Last Admin Trade Name Freq PRN Reason Stop Dose Admin Docusate Sodium 200 mg 01/23/23 13:26 01/23/23 14:20 Docusate Sodium 100 Mg Capsule PO 01/23/23 13:27 200 mg ONCE ONE Administration Polyethylene Glycol 17 gm 01/23/23 13:26 01/23/23 14:20 Polyethylene Glycol 3350 17 Gm Powd.Pack PO 01/23/23 13:27 17 gm ONCE ONE Administration Senna 15 ml 01/23/23 13:26 01/23/23 14:20 Senna Carlock Extract Oral Syrup 15 Ml Syrup PO 01/23/23 13:27 15 ml ONCE ONE Administration Critical Care Time Critical Care Time Critical Care Time: No Discharge Plan Discharge Clinical Impression: Constipation, Acute UTI Patient Disposition: Home, Self-Care Instructions: Urinary Tract Infection in Men (ED), High Fiber Diet (ED), Fleet Enema (ED) Additional Instructions: Take your medications as prescribed. If you were prescribed antibiotics today, it is important that you take your medication to their entirety, do not skip any doses, do not finish them early. Follow-up with your primary care provider this week. Follow up with urology within a week Return to the emergency department with new or worsening symptoms. Such as fevers, chills, chest pain, shortness of breath, nausea, vomiting, dizziness, headache, vision changes, lethargy In case of emergency call 911 PT 42.5, INR 3.5 --> repeat level in a day or two. CT/CT abdomen pelvis wo IV con IMPRESSION: 1. No acute intra-abdominal process seen. 2. Colonic diverticulosis without diverticulitis. Mild constipation. 3. Right renal cyst. No radiopaque urolith or hydroureteronephrosis. 4. Nondistended urinary bladder with mild bladder wall thickening. Fleischner guidelines were followed. XR/XR KUB IMPRESSION: Mild constipation. No acute process seen. Prescriptions: New docusate sodium [Colace] 100 mg capsule 100 mg PO BID Qty: 20 0RF polyethylene glycol 3350 [Miralax] 17 gram/dose powder 17 g PO BID Qty: 238 0RF sennosides [senna] 8.6 mg tablet 8.6 mg PO BEDTIME Qty: 14 0RF cefuroxime axetil 250 mg tablet 250 mg PO BID 7 Days Qty: 14 0RF No Action tamsulosin 0.4 mg capsule 0.4 mg PO Q12H glipizide 5 mg tablet 10 mg PO BID Trulicity 3 mg/0.5 mL pen injector 3 mg subcut BECKHAM@0900 multivitamin Tablet 1 tab PO DAILY warfarin 5 mg tablet 2.5 mg PO SUTUWETHFRSA@1800 Protocol: Dose Management Condition: Saturday (Week One) Dose/Route: 2.5 mg Instruction: 0.5 x 5 mg tablets Condition: Saturday Dose/Route: 5 mg Instruction: 1 x 5 mg tablet Condition: Saturday Dose/Route: 2.5 mg Instruction: 0.5 x 5 mg tablets Condition: Saturday Dose/Route: 0 mg Instruction: 0 tablets Condition: Dose/Route: 2.5 mg Instruction: 0.5 x 5 mg tablets Condition: Saturday Dose/Route: 2.5 mg Instruction: 0.5 x 5 mg tablets Condition: Saturday Dose/Route: 2.5 mg Instruction: 0.5 x 5 mg tablets Condition: Saturday ( Two) Dose/Route: 2.5 mg Instruction: 0.5 x 5 mg tablets Condition: Saturday Dose/Route: 5 mg Instruction: 1 x 5 mg tablet Condition: Saturday Dose/Route: 2.5 mg Instruction: 0.5 x 5 mg tablets Condition: Saturday Dose/Route: 2.5 mg Instruction: 0.5 x 5 mg tablets Condition: Dose/Route: 2.5 mg Instruction: 0.5 x 5 mg tablets Condition: Saturday Dose/Route: 2.5 mg Instruction: 0.5 x 5 mg tablets Condition: Saturday Dose/Route: 2.5 mg Instruction: 0.5 x 5 mg tablets Protocol Text: Adjustment Start Date: Saturday01/22/23 INR Value: 3.8 INR Date: 01/22/23 Recheck Date: 01/29/23 Additional Instructions: HOLD TOMORROW - EAT GREENS TODAY THEN RESUME USUAL DIET WITH GREENS WEEKLY omega 4-fbk-rka-fish oil [Fish Oil] 300-1,000 mg Capsule,Delayed Release(Dr/Ec) 1 cap PO DAILY warfarin 5 mg tablet 5 mg PO MO@1800 Protocol: Dose Management Condition: Saturday (Week One) Dose/Route: 2.5 mg Instruction: 0.5 x 5 mg tablets Condition: Saturday Dose/Route: 5 mg Instruction: 1 x 5 mg tablet Condition: Saturday Dose/Route: 2.5 mg Instruction: 0.5 x 5 mg tablets Condition: Saturday Dose/Route: 0 mg Instruction: 0 tablets Condition: Dose/Route: 2.5 mg Instruction: 0.5 x 5 mg tablets Condition: Saturday Dose/Route: 2.5 mg Instruction: 0.5 x 5 mg tablets Condition: Saturday Dose/Route: 2.5 mg Instruction: 0.5 x 5 mg tablets Condition: Saturday (Week Two) Dose/Route: 2.5 mg Instruction: 0.5 x 5 mg tablets Condition: Saturday Dose/Route: 5 mg Instruction: 1 x 5 mg tablet Condition: Saturday Dose/Route: 2.5 mg Instruction: 0.5 x 5 mg tablets Condition: Saturday Dose/Route: 2.5 mg Instruction: 0.5 x 5 mg tablets Condition: Dose/Route: 2.5 mg Instruction: 0.5 x 5 mg tablets Condition: Saturday Dose/Route: 2.5 mg Instruction: 0.5 x 5 mg tablets Condition: Saturday Dose/Route: 2.5 mg Instruction: 0.5 x 5 mg tablets Protocol Text: Adjustment Start Date: Saturday01/22/23 INR Value: 3.8 INR Date: 01/22/23 Recheck Date: 01/29/23 Additional Instructions: HOLD TOMORROW - EAT GREENS TODAY THEN RESUME USUAL DIET WITH GREENS WEEKLY docusate sodium [Colace] 100 mg capsule 100 mg PO BID PRN (Reason: constipation) Qty: 30 0RF hydromorphone [Dilaudid] 2 mg tablet 2 mg PO Q4-6H PRN (Reason: pain (scale score 7-10)) Qty: 24 0RF Rx Instructions: Partial Fill upon patient request. Take 1-2 tablets every 4-6 hours PRN pain. tramadol 50 mg tablet 50 mg PO TID PRN (Reason: Pain) atorvastatin 80 mg tablet 80 mg PO DAILY (DME) blood sugar diagnostic Strip See Rx Instructions Not Applicable BID Qty: 10 Rx Instructions: As directed (DME) pen needle, diabetic [BD Keira 2nd Gen Pen Needle] 32 gauge x 5/32 needle See Rx Instructions .ROUTE .MEDSUPPLY Qty: 50 Rx Instructions: As directed (DME) blood-glucose meter [FreeStyle Lite Meter] Kit See Rx Instructions .ROUTE TID Qty: 1 Rx Instructions: As directed lisinopril 5 mg tablet 5 mg PO DAILY metoprolol succinate 25 mg tablet extended release 24 hr 25 mg PO BID [place]: [facility] [place] [facility] [place]] - 2 days Stef Valencia III, MD [Primary Care Provider] - 2 days Stand Alone Forms: Work/School Release
[2023-01-23 12:13] VITALS: BP 130/68; PULSE 81; RESP 16; TEMP 36.8; O2SAT 98
--- NOTE | 2023-01-23 12:22 | PC.NURSE ---
pt a&ox3, vss and up to date. pt comes in today after not being able to urinate/have a BM for the past 3 days. pt c/o nausea/difficulty urinating. denies other urinary sx/fever/chills at this time. bladder scan = 135mL - provider aware of volume at this time. pt's bedside for support. respirations even and unlabored. call schmitz placed within reach.
--- NOTE | 2023-01-23 12:49 | PC.NURSE ---
straight catheterization performed. urine sample obtained and sent to lab. pt tolerated procedure well. 140ml of hematuria/small blood clots noted within urine. documented in I&O section. pt denies pain at this time. cleaned up and resting comfortably in no apparent distress. call schmitz placed within reach.
--- NOTE | 2023-01-23 14:25 | PC.NURSE ---
medication administered per provider order. soap suds enema administered at this time. this RN instructed pt to hold fluid in as long as he can tolerate for best outcome. pt currently resting on right side in no apparent distress. commode placed bedside to utilize when needed. call schmitz placed within reach.
== END 2023-01-23 15:37 | disposition home or self-care (01) ==
PROVIDERS: Emergency Provider Emergency Medicine Emergency Medical Services; PCP Internal Medicine
DX: K59.00 Constipation, unspecified (principal); N39.0 Urinary tract infection, site not specified; E11.9 Type 2 diabetes mellitus without complications; I10 Essential (primary) hypertension; I48.0 Paroxysmal atrial fibrillation; E78.5 Hyperlipidemia, unspecified; G89.4 Chronic pain syndrome; Z90.49 Acquired absence of other specified parts of digestive tract; Z79.01 Long term (current) use of anticoagulants; Z79.85 Long-term (current) use of injectable non-insulin antidiabetic drugs; Z79.891 Long term (current) use of opiate analgesic; Z79.899 Other long term (current) drug therapy
CPT/HCPCS: 36415; 51701; 51798; 74018; 74176; 80048; 80076; 81001; 81003; 83690; 85025; 85610; 87086; 99284; 99285

== ENCOUNTER 2023-01-29 13:17 | Outpatient (AMB) | payer OTHER, SELFPAY ==
[2023-01-29 13:39] LABS: Prothrombin Time Whole Bld POC 27.3 sec (11.1-13.5); ~PT, ~INR - Anti Coag Clinic 2.3 (0.9-1.1)
--- NOTE | 2023-01-29 13:44 | MHC.OFFVISCO ---
Intake Intake Visit Reasons: Anticoagulation Allergies acetaminophen [From Percocet] Allergy (Intermediate, Verified 01/29/23 13:33) Headache oxycodone [From Percocet] Allergy (Intermediate, Verified 01/29/23 13:33) Headache ibuprofen [From Motrin] Allergy (Mild, Verified 01/29/23 13:33) SWELLING [place] Adverse Reaction (Mild, Uncoded 01/29/23 13:33) VOMITING Medication List - Last Reconciled 01/29/23 by Soraya Roberts RN atorvastatin 80 mg PO DAILY blood sugar diagnostic As directed blood-glucose meter (FreeStyle Lite Meter kit) As directed docusate sodium (Colace) 100 mg PO BID dulaglutide (Trulicity) 3 mg subcut BECKHAM@0900 glipizide 10 mg PO BID lisinopril 5 mg PO DAILY metoprolol succinate ER 25 mg PO BID multivitamin 1 tab PO DAILY omega 0-qcc-xrw-fish oil 300-1,000 mg (Fish Oil) 1 cap PO DAILY pen needle, diabetic (BD Keira 2nd Gen Pen Needle) As directed polyethylene glycol 3350 (Miralax) 17 grams PO BID sennosides (senna) 8.6 mg PO BEDTIME tamsulosin 0.4 mg PO Q12H tramadol 50 mg PO TID PRN warfarin 2.5 mg See Protocol PO SUTUWETHFRSA@1800 warfarin 5 mg See Protocol PO MO@1800 Nursing Note INR: 2.3 in therapeutic range Medications and supplements reviewed Pt recovered from gallbaldder removal surgery- states feeling better now, eating less fat now Denies any signs and symptoms of bleeding or bruising or clotting. Bleeding, bruising, clotting discussed Nutritional guidance given - keep eating greens weekly Dose: keep same dose for now: 5mg x 1 day/ 2.5mg x 6 days f/u 2 weeks F/U INR: 02/13/23 Patient verbalizes understanding of instructions given Anti-Coag Initial Assessment Social Hx Patient Tobacco Use Status: Never used Tobacco alcohol intake: never Alcohol intake frequency: former alcohol drinker Coding Level of Care Code Est Patient Level 1 Diagnoses Current use of anticoagulant therapy Z79.01 Assessment & Plan Assessment & Plan (1) Current use of anticoagulant therapy: Code(s): Z79.01 - senior living (current) use of anticoagulants Category: Medical
== END 2023-01-29 13:46 | disposition home or self-care (01) ==
LOC: HO.ACS 13:17
PROVIDERS: PCP Internal Medicine; Visit Provider Internal Medicine
DX: Z79.01 Long term (current) use of anticoagulants (principal)

== ENCOUNTER → 2023-01-29 13:17 | Outpatient (BNVA) | payer OTHER, SELFPAY | PROVIDERS: PCP Internal Medicine; Visit Provider Internal Medicine | DX: I48.0 Paroxysmal atrial fibrillation (principal); Z79.01 Long term (current) use of anticoagulants; Z51.81 Encounter for therapeutic drug level monitoring | CPT/HCPCS: 85610; 99211 ==

== ENCOUNTER 2023-02-21 09:31 | Outpatient (AMB) | payer OTHER, SELFPAY ==
[2023-02-21 09:44] LABS: Prothrombin Time Whole Bld POC 24.6 sec (11.1-13.5); ~PT, ~INR - Anti Coag Clinic 2.1 (0.9-1.1)
--- NOTE | 2023-02-21 09:49 | MHC.OFFVISCO ---
Intake Intake Visit Reasons: Anticoagulation Allergies acetaminophen [From Percocet] Allergy (Intermediate, Verified 02/21/23 09:39) Headache oxycodone [From Percocet] Allergy (Intermediate, Verified 02/21/23 09:39) Headache ibuprofen [From Motrin] Allergy (Mild, Verified 02/21/23 09:39) SWELLING SALMON Adverse Reaction (Mild, Uncoded 02/21/23 09:39) VOMITING Medication List - Last Reconciled 02/21/23 by Soraya Roberts RN atorvastatin 80 mg PO DAILY blood sugar diagnostic As directed blood-glucose meter (FreeStyle Lite Meter kit) As directed docusate sodium (Colace) 100 mg PO BID dulaglutide (Trulicity) 3 mg subcut BECKHAM@0900 glipizide 10 mg PO BID lisinopril 5 mg PO DAILY metoprolol succinate ER 25 mg PO BID multivitamin 1 tab PO DAILY omega 8-syn-nil-fish oil 300-1,000 mg (Fish Oil) 1 cap PO DAILY pen needle, diabetic (BD Keira 2nd Gen Pen Needle) As directed polyethylene glycol 3350 (Miralax) 17 grams PO BID sennosides (senna) 8.6 mg PO BEDTIME tamsulosin 0.4 mg PO Q12H tramadol 50 mg PO TID PRN warfarin 2.5 mg See Protocol PO SUTUWETHFRSA@1800 warfarin 5 mg See Protocol PO MO@1800 Nursing Note INR: 2.1 in therapeutic range Medications and supplements reviewed No changes in health, diet, medications, or supplements, Denies any signs and symptoms of bleeding or bruising or clotting. Bleeding, bruising, clotting discussed Nutritional guidance given - enc to keep greens in diet weekly Dose: 5mg x 1 day / 2.5mg x 6 days F/U INR: 4 weeks Patient verbalizes understanding of instructions given Anti-Coag Initial Assessment Social Hx Patient Tobacco Use Status: Never used Tobacco alcohol intake: never Alcohol intake frequency: former alcohol drinker Coding Level of Care Code Est Patient Level 1 Diagnoses Current use of anticoagulant therapy Z79.01 Assessment & Plan Assessment & Plan (1) Current use of anticoagulant therapy: Code(s): Z79.01 - bed bug exterminator (current) use of anticoagulants Category: Medical Medications: Changed From warfarin 5 mg See Protocol PO MO@1800 To warfarin See Protocol 5 mg orally 5mg x 1 day/ 2.5mg x 6 days;
== END 2023-02-21 09:51 | disposition home or self-care (01) ==
LOC: HO.ACS 09:31
PROVIDERS: PCP Internal Medicine; Visit Provider Internal Medicine
DX: Z79.01 Long term (current) use of anticoagulants (principal)

== ENCOUNTER → 2023-02-21 09:31 | Outpatient (BNVA) | payer OTHER, SELFPAY | PROVIDERS: PCP Internal Medicine; Visit Provider Internal Medicine | DX: I48.0 Paroxysmal atrial fibrillation (principal); Z79.01 Long term (current) use of anticoagulants; Z51.81 Encounter for therapeutic drug level monitoring | CPT/HCPCS: 85610; 99211 ==

== ENCOUNTER → 2023-03-21 15:50 | Outpatient (BNVA) | payer OTHER, SELFPAY | PROVIDERS: PCP Internal Medicine; Visit Provider Internal Medicine ==

== ENCOUNTER 2023-04-05 10:52 | Outpatient (AMB) | payer OTHER, SELFPAY ==
--- NOTE | 2023-04-05 11:05 | MHC.OFFVISCO ---
Intake Intake Visit Reasons: Anticoagulation Allergies acetaminophen [From Percocet] Allergy (Intermediate, Verified 04/05/23 10:59) Headache oxycodone [From Percocet] Allergy (Intermediate, Verified 04/05/23 10:59) Headache ibuprofen [From Motrin] Allergy (Mild, Verified 04/05/23 10:59) SWELLING SALMON Adverse Reaction (Mild, Uncoded 04/05/23 10:59) VOMITING Medication List - Last Reconciled 04/05/23 by Soraya Roberts RN atorvastatin 80 mg PO DAILY blood sugar diagnostic As directed blood-glucose meter (FreeStyle Lite Meter kit) As directed docusate sodium (Colace) 100 mg PO BID dulaglutide (Trulicity) 3 mg subcut BECKHAM@0900 glipizide 10 mg PO BID lisinopril 5 mg PO DAILY metoprolol succinate ER 25 mg PO BID multivitamin 1 tab PO DAILY omega 0-xfn-gzq-fish oil 300-1,000 mg (Fish Oil) 1 cap PO DAILY pen needle, diabetic (BD Keira 2nd Gen Pen Needle) As directed polyethylene glycol 3350 (Miralax) 17 grams PO BID sennosides (senna) 8.6 mg PO BEDTIME tamsulosin 0.4 mg PO Q12H tramadol 50 mg PO TID PRN warfarin See Protocol 5 mg orally 5mg x 1 day/ 2.5mg x 6 days; Nursing Note INR: 2.1 in therapeutic range Medications and supplements reviewed No changes in health, diet, medications, or supplements, - PT STATES HE FEELS FINE NO PAIN OR DISCOMFORT WITH ARTHRITIS TODAY Denies any signs and symptoms of bleeding or bruising or clotting. Bleeding, bruising, clotting discussed Nutritional guidance given Dose: 5MG X 1 DAY/ 2.5MG X 6 DAYS F/U INR: 4 WEEKS Patient verbalizes understanding of instructions given Anti-Coag Initial Assessment Social Hx Patient Tobacco Use Status: Never used Tobacco alcohol intake: never Alcohol intake frequency: former alcohol drinker Coding Level of Care Code Est Patient Level 1 Diagnoses Current use of anticoagulant therapy Z79.01 Results AMB INR Fingerstick AMB INR Fingerstick 2.1 Last Edit by Soraya Roberts RN on 04/05/23 11:07 FAILED INTERFACIN ON GOING MANUAL ENTRY ON GOING Assessment & Plan Assessment & Plan (1) Current use of anticoagulant therapy: Code(s): Z79.01 - detention (current) use of anticoagulants Category: Medical
[2023-04-05 11:06] LABS: Prothrombin Time Whole Bld POC 24.9 sec (11.1-13.5); ~PT, ~INR - Anti Coag Clinic 2.1 (0.9-1.1)
== END 2023-04-05 11:10 | disposition home or self-care (01) ==
LOC: HO.ACS 10:52
PROVIDERS: PCP Internal Medicine; Visit Provider Internal Medicine
DX: Z79.01 Long term (current) use of anticoagulants (principal)

== ENCOUNTER → 2023-04-05 10:52 | Outpatient (BNVA) | payer OTHER, SELFPAY | PROVIDERS: PCP Internal Medicine; Visit Provider Internal Medicine | DX: I48.0 Paroxysmal atrial fibrillation (principal); Z51.81 Encounter for therapeutic drug level monitoring; Z79.01 Long term (current) use of anticoagulants | CPT/HCPCS: 85610; 99211 ==

== ENCOUNTER → 2023-05-06 10:43 | Outpatient (BNVA) | payer OTHER, SELFPAY | PROVIDERS: PCP Internal Medicine; Visit Provider Internal Medicine | DX: I48.0 Paroxysmal atrial fibrillation (principal); Z79.01 Long term (current) use of anticoagulants; Z51.81 Encounter for therapeutic drug level monitoring | CPT/HCPCS: 85610; 99211 ==

== ENCOUNTER 2023-05-20 10:43 | Outpatient (AMB) | payer OTHER, SELFPAY ==
--- NOTE | 2023-05-20 11:09 | MHC.OFFVISCO ---
Intake Intake Visit Reasons: Anticoagulation Allergies acetaminophen [From Percocet] Allergy (Intermediate, Verified 05/20/23 11:05) Headache oxycodone [From Percocet] Allergy (Intermediate, Verified 05/20/23 11:05) Headache ibuprofen [From Motrin] Allergy (Mild, Verified 05/20/23 11:05) SWELLING SALMON Adverse Reaction (Mild, Uncoded 05/06/23 10:55) VOMITING Medication List - Last Reconciled 05/20/23 by Ifrah Mandel RN atorvastatin 80 mg PO DAILY blood sugar diagnostic As directed blood-glucose meter (FreeStyle Lite Meter kit) As directed docusate sodium (Colace) 100 mg PO BID dulaglutide (Trulicity) 3 mg subcut BECKHAM@0900 glipizide 10 mg PO BID lisinopril 5 mg PO DAILY metoprolol succinate ER 25 mg PO BID multivitamin 1 tab PO DAILY omega 0-why-hcz-fish oil 300-1,000 mg (Fish Oil) 1 cap PO DAILY pen needle, diabetic (BD Keira 2nd Gen Pen Needle) As directed polyethylene glycol 3350 (Miralax) 17 grams PO BID sennosides (senna) 8.6 mg PO BEDTIME tamsulosin 0.4 mg PO Q12H tramadol 50 mg PO TID PRN warfarin See Protocol 5 mg orally 5mg x 1 day/ 2.5mg x 6 days; Nursing Note INR: [2.0-in therapeutic range of 2-3 Medications and supplements reviewed- no changes No changes in health, diet, medications, or supplements, Denies any signs and symptoms of bleeding or bruising or clotting. 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
[2023-05-20 11:10] LABS: Prothrombin Time Whole Bld POC 24.5 sec (11.1-13.5)
== END 2023-05-20 12:06 | disposition home or self-care (01) ==
LOC: HO.ACS 10:43
PROVIDERS: PCP Internal Medicine; Visit Provider Internal Medicine
DX: Z79.01 Long term (current) use of anticoagulants (principal)

== ENCOUNTER → 2023-05-20 10:43 | Outpatient (BNVA) | payer OTHER, SELFPAY | PROVIDERS: PCP Internal Medicine; Visit Provider Internal Medicine | DX: I48.0 Paroxysmal atrial fibrillation (principal); Z51.81 Encounter for therapeutic drug level monitoring; Z79.01 Long term (current) use of anticoagulants | CPT/HCPCS: 85610; 99211 ==

== ENCOUNTER 2023-06-10 09:18 | Outpatient (AMB) | payer OTHER, SELFPAY ==
[2023-06-10 09:46] LABS: Prothrombin Time Whole Bld POC 23.1 sec (11.1-13.5); ~PT, ~INR - Anti Coag Clinic 1.9 (0.9-1.1)
--- NOTE | 2023-06-10 09:46 | MHC.OFFVISCO ---
Intake Intake Visit Reasons: Anticoagulation Allergies acetaminophen [From Percocet] Allergy (Intermediate, Verified 06/10/23 09:36) Headache oxycodone [From Percocet] Allergy (Intermediate, Verified 06/10/23 09:36) Headache ibuprofen [From Motrin] Allergy (Mild, Verified 06/10/23 09:36) SWELLING SALMON Adverse Reaction (Mild, Uncoded 06/10/23 09:36) VOMITING Medication List - Last Reconciled 06/10/23 by Sara Atkinson RN atorvastatin 80 mg PO DAILY blood sugar diagnostic As directed blood-glucose meter (FreeStyle Lite Meter kit) As directed docusate sodium (Colace) 100 mg PO BID dulaglutide (Trulicity) 3 mg subcut BECKHAM@0900 glipizide 10 mg PO BID lisinopril 5 mg PO DAILY metoprolol succinate ER 25 mg PO BID multivitamin 1 tab PO DAILY omega 3-lqb-zil-fish oil 300-1,000 mg (Fish Oil) 1 cap PO DAILY pen needle, diabetic (BD Keira 2nd Gen Pen Needle) As directed polyethylene glycol 3350 (Miralax) 17 grams PO BID sennosides (senna) 8.6 mg PO BEDTIME tamsulosin 0.4 mg PO Q12H tramadol 50 mg PO TID PRN warfarin See Protocol 5 mg orally 5mg x 1 day/ 2.5mg x 6 days; Nursing Note INR 1.9?? out of therapeutic range of 2-3 After speaking with pt, not able to determine why INR low Medications and supplements reviewed Patient status: no changes Medications or supplements: no changes Diet: no changes Denies any signs and symptoms of bleeding or clotting or unusual bruising Bleeding, bruising, clotting discussed Nutritional guidance given: To have reds today and tomorrow Dose: Increased tomorrow's dose to 5mg(from 2.5mg F/U INR Date : 2 weeks?? Patient verbalizing understanding of instructions given. Anti-Coag Initial Assessment Social Hx Patient Tobacco Use Status: Never used Tobacco alcohol intake: never Alcohol intake frequency: former alcohol drinker Coding Level of Care Code Est Patient Level 1 Diagnoses Current use of anticoagulant therapy Z79.01 Results AMB INR Fingerstick AMB INR Fingerstick 1.9 Last Edit by Sara Atkinson RN on 06/10/23 09:45 interface delay Assessment & Plan Assessment & Plan (1) Current use of anticoagulant therapy: Code(s): Z79.01 - prison (current) use of anticoagulants Category: Medical
== END 2023-06-10 10:03 | disposition home or self-care (01) ==
LOC: HO.ACS 09:18
PROVIDERS: PCP Internal Medicine; Visit Provider Internal Medicine
DX: Z79.01 Long term (current) use of anticoagulants (principal)

== ENCOUNTER → 2023-06-10 09:18 | Outpatient (BNVA) | payer OTHER, SELFPAY | PROVIDERS: PCP Internal Medicine; Visit Provider Internal Medicine | DX: I48.0 Paroxysmal atrial fibrillation (principal); Z79.01 Long term (current) use of anticoagulants; Z51.81 Encounter for therapeutic drug level monitoring | CPT/HCPCS: 85610; 99211 ==

== ENCOUNTER 2023-06-28 09:37 | Outpatient (AMB) | payer OTHER, SELFPAY ==
[2023-06-28 09:43] LABS: ~PT, ~INR - Anti Coag Clinic 2.1 (0.9-1.1)
--- NOTE | 2023-06-28 09:50 | MHC.OFFVISCO ---
Intake Intake Visit Reasons: Anticoagulation Allergies acetaminophen [From Percocet] Allergy (Intermediate, Verified 06/28/23 09:37) Headache oxycodone [From Percocet] Allergy (Intermediate, Verified 06/28/23 09:37) Headache ibuprofen [From Motrin] Allergy (Mild, Verified 06/28/23 09:37) SWELLING SALMON Adverse Reaction (Mild, Uncoded 06/28/23 09:37) VOMITING Medication List - Last Reconciled 06/28/23 by Soraya Roberts RN atorvastatin 80 mg PO DAILY blood sugar diagnostic As directed blood-glucose meter (FreeStyle Lite Meter kit) As directed docusate sodium (Colace) 100 mg PO BID dulaglutide (Trulicity) 3 mg subcut BECKHAM@0900 glipizide 10 mg PO BID lisinopril 5 mg PO DAILY metoprolol succinate ER 25 mg PO BID multivitamin 1 tab PO DAILY omega 4-kql-fon-fish oil 300-1,000 mg (Fish Oil) 1 cap PO DAILY pen needle, diabetic (BD Keira 2nd Gen Pen Needle) As directed polyethylene glycol 3350 (Miralax) 17 grams PO BID sennosides (senna) 8.6 mg PO BEDTIME tamsulosin 0.4 mg PO Q12H tramadol 50 mg PO TID PRN warfarin See Protocol 5 mg orally 5mg x 1 day/ 2.5mg x 6 days; Nursing Note INR: 2.1 in therapeutic range Medications and supplements reviewed No changes in health, diet, medications, or supplements, Denies any signs and symptoms of bleeding or bruising or clotting. Bleeding, bruising, clotting discussed Nutritional guidance given REVIEW FOOD LIST, TO HELP RAISE THE INR HE LIKES COOPER , ARAVIND, PINEAPPLE AND AVOCADO- DOESNT LIKE OTHER VEGETABLES Dose: KEEP SAME 5MG X 1 DAY/2.5MG X 6 DAYS F/U INR: 3 WEEKS Patient verbalizes understanding of instructions given Anti-Coag Initial Assessment Social Hx Patient Tobacco Use Status: Never used Tobacco alcohol intake: never Alcohol intake frequency: former alcohol drinker Coding Level of Care Code Est Patient Level 1 Diagnoses Current use of anticoagulant therapy Z79.01 Results AMB INR Fingerstick AMB INR Fingerstick 2.1 Last Edit by Soraya Roberts RN on 06/28/23 09:43 MANUAL ENTRY DUE TO ONGOING INTERFACING ISSUES Assessment & Plan Assessment & Plan (1) Current use of anticoagulant therapy: Code(s): Z79.01 - senior care (current) use of anticoagulants Category: Medical
== END 2023-06-28 09:53 | disposition home or self-care (01) ==
LOC: HO.ACS 09:37
PROVIDERS: PCP Internal Medicine; Visit Provider Internal Medicine
DX: Z79.01 Long term (current) use of anticoagulants (principal)

== ENCOUNTER → 2023-06-28 09:37 | Outpatient (BNVA) | payer OTHER, SELFPAY | PROVIDERS: PCP Internal Medicine; Visit Provider Internal Medicine | DX: I48.0 Paroxysmal atrial fibrillation (principal); Z79.01 Long term (current) use of anticoagulants; Z51.81 Encounter for therapeutic drug level monitoring | CPT/HCPCS: 85610; 99211 ==

== ENCOUNTER 2023-07-19 09:40 | Outpatient (AMB) | payer OTHER, SELFPAY ==
[2023-07-19 10:02] LABS: Prothrombin Time Whole Bld POC 32.5 sec (11.1-13.5); ~PT, ~INR - Anti Coag Clinic 2.7 (0.9-1.1)
--- NOTE | 2023-07-19 10:07 | MHC.OFFVISCO ---
Intake Intake Visit Reasons: Anticoagulation Allergies acetaminophen [From Percocet] Allergy (Intermediate, Verified 07/19/23 09:57) Headache oxycodone [From Percocet] Allergy (Intermediate, Verified 07/19/23 09:57) Headache ibuprofen [From Motrin] Allergy (Mild, Verified 07/19/23 09:57) SWELLING SALMON Adverse Reaction (Mild, Uncoded 07/19/23 09:57) VOMITING Medication List - Last Reconciled 07/19/23 by Sara Atkinson, RAMÍREZ atorvastatin 80 mg PO DAILY blood sugar diagnostic As directed blood-glucose meter (FreeStyle Lite Meter kit) As directed docusate sodium (Colace) 100 mg PO BID dulaglutide (Trulicity) 3 mg subcut BECKHAM@0900 glipizide 10 mg PO BID lisinopril 5 mg PO DAILY metoprolol succinate ER 25 mg PO BID multivitamin 1 tab PO DAILY omega 8-lcu-ghf-fish oil 300-1,000 mg (Fish Oil) 1 cap PO DAILY pen needle, diabetic (BD Keira 2nd Gen Pen Needle) As directed polyethylene glycol 3350 (Miralax) 17 grams PO BID sennosides (senna) 8.6 mg PO BEDTIME tamsulosin 0.4 mg PO Q12H tramadol 50 mg PO TID PRN warfarin See Protocol 5 mg orally 5mg x 1 day/ 2.5mg x 6 days; Nursing Note INR: 2.7 in therapeutic range pf 2-3 Medications and supplements reviewed: no changes No changes in health, diet, medications, or supplements, Denies any signs and symptoms of bleeding or bruising or clotting. Bleeding, bruising, clotting discussed Nutritional guidance given to continue to balance reds and greens Dose: cont usual dose of 2.5mgX6 days and 5mg X 1 day (Mon) F/U INR: 4 weeks Patient verbalizes understanding of instructions given Anti-Coag Initial Assessment Social Hx Patient Tobacco Use Status: Never used Tobacco alcohol intake: never Alcohol intake frequency: former alcohol drinker Coding Level of Care Code Est Patient Level 1 Diagnoses Current use of anticoagulant therapy Z79.01 Assessment & Plan Assessment & Plan (1) Current use of anticoagulant therapy: Code(s): Z79.01 - [facility] (current) use of anticoagulants Category: Medical
== END 2023-07-19 10:09 | disposition home or self-care (01) ==
LOC: HO.ACS 09:40
PROVIDERS: PCP Internal Medicine; Visit Provider Internal Medicine
DX: Z79.01 Long term (current) use of anticoagulants (principal)

== ENCOUNTER → 2023-07-19 09:40 | Outpatient (BNVA) | payer OTHER, SELFPAY | PROVIDERS: PCP Internal Medicine; Visit Provider Internal Medicine | DX: I48.0 Paroxysmal atrial fibrillation (principal); Z79.01 Long term (current) use of anticoagulants; Z51.81 Encounter for therapeutic drug level monitoring | CPT/HCPCS: 85610; 99211 ==

== ENCOUNTER 2023-08-28 09:02 | Outpatient (AMB) | payer OTHER, SELFPAY ==
--- NOTE | 2023-08-28 09:07 | MHC.OFFVISCO ---
Intake Intake Visit Reasons: Anticoagulation Allergies acetaminophen [From Percocet] Allergy (Intermediate, Verified 08/28/23 09:02) Headache oxycodone [From Percocet] Allergy (Intermediate, Verified 08/28/23 09:02) Headache ibuprofen [From Motrin] Allergy (Mild, Verified 08/28/23 09:02) SWELLING SALMON Adverse Reaction (Mild, Uncoded 08/28/23 09:02) VOMITING Medication List - Last Reconciled 08/28/23 by Ifrah Mandel RN atorvastatin 80 mg PO DAILY blood sugar diagnostic As directed blood-glucose meter (FreeStyle Lite Meter kit) As directed docusate sodium (Colace) 100 mg PO BID dulaglutide (Trulicity) 3 mg subcut BECKHAM@0900 glipizide 10 mg PO BID lisinopril 5 mg PO DAILY metoprolol succinate ER 25 mg PO BID multivitamin 1 tab PO DAILY omega 4-zta-whv-fish oil 300-1,000 mg (Fish Oil) 1 cap PO DAILY pen needle, diabetic (BD Keira 2nd Gen Pen Needle) As directed polyethylene glycol 3350 (Miralax) 17 grams PO BID sennosides (senna) 8.6 mg PO BEDTIME tamsulosin 0.4 mg PO Q12H tramadol 50 mg PO TID PRN warfarin See Protocol 5 mg orally 5mg x 1 day/ 2.5mg x 6 days; Nursing Note INR: 2.3- in therapeutic range of 2-3 Medications and supplements reviewed- no changes No changes in health, diet, medications, or supplements, Denies any signs and symptoms of bleeding or bruising or clotting. Bleeding, bruising, clotting discussed Nutritional guidance given Dose: 5mg x 1. 2.5mg x 6 F/U INR: 4 weeks Patient verbalizes understanding of instructions given Anti-Coag Initial Assessment Social Hx Patient Tobacco Use Status: Never used Tobacco alcohol intake: never Alcohol intake frequency: former alcohol drinker Coding Level of Care Code Est Patient Level 1 Diagnoses Current use of anticoagulant therapy Z79.01 Results AMB INR Fingerstick AMB INR Fingerstick 2.3 Last Edit by Ifrah Mandel RN on 08/28/23 09:08 interface delay Assessment & Plan Assessment & Plan (1) Current use of anticoagulant therapy: Code(s): Z79.01 - [facility] (current) use of anticoagulants Category: Medical
[2023-08-28 09:08] LABS: Prothrombin Time Whole Bld POC 27.5 sec (11.1-13.5); ~PT, ~INR - Anti Coag Clinic 2.3 (0.9-1.1)
== END 2023-08-28 09:13 | disposition home or self-care (01) ==
LOC: HO.ACS 09:02
PROVIDERS: PCP Internal Medicine; Visit Provider Internal Medicine
DX: Z79.01 Long term (current) use of anticoagulants (principal)

== ENCOUNTER → 2023-08-28 09:02 | Outpatient (BNVA) | payer OTHER, SELFPAY | PROVIDERS: PCP Internal Medicine; Visit Provider Internal Medicine | DX: I48.0 Paroxysmal atrial fibrillation (principal); Z51.81 Encounter for therapeutic drug level monitoring; Z79.01 Long term (current) use of anticoagulants | CPT/HCPCS: 85610; 99211 ==

== ENCOUNTER 2023-09-25 09:03 | Outpatient (AMB) | payer OTHER, SELFPAY ==
--- NOTE | 2023-09-25 09:06 | MHC.OFFVISCO ---
Intake Intake Visit Reasons: Anticoagulation Allergies acetaminophen [From Percocet] Allergy (Intermediate, Verified 09/25/23 09:03) Headache oxycodone [From Percocet] Allergy (Intermediate, Verified 09/25/23 09:03) Headache ibuprofen [From Motrin] Allergy (Mild, Verified 09/25/23 09:03) SWELLING SALMON Adverse Reaction (Mild, Uncoded 09/25/23 09:03) VOMITING Medication List - Last Reconciled 09/25/23 by Ifrah Mandel RN atorvastatin 80 mg PO DAILY blood sugar diagnostic As directed blood-glucose meter (FreeStyle Lite Meter kit) As directed docusate sodium (Colace) 100 mg PO BID dulaglutide (Trulicity) 3 mg subcut BECKHAM@0900 glipizide 10 mg PO BID lisinopril 5 mg PO DAILY metoprolol succinate ER 25 mg PO BID multivitamin 1 tab PO DAILY omega 5-gxn-gxz-fish oil 300-1,000 mg (Fish Oil) 1 cap PO DAILY pen needle, diabetic (BD Keira 2nd Gen Pen Needle) As directed polyethylene glycol 3350 (Miralax) 17 grams PO BID sennosides (senna) 8.6 mg PO BEDTIME tamsulosin 0.4 mg PO Q12H tramadol 50 mg PO TID PRN warfarin See Protocol 5 mg orally 5mg x 1 day/ 2.5mg x 6 days; Nursing Note INR: 2.0- in therapeutic range of 2-3 Medications and supplements reviewed- no changes No changes in health, diet, medications, or supplements, Denies any signs and symptoms of bleeding or bruising or clotting. Bleeding, bruising, clotting discussed Nutritional guidance given - no greens for 2 days, eat a red today Dose: 5mg x 1. 2.5mg x 6 F/U INR: 4 weeks Patient verbalizes understanding of instructions given Anti-Coag Initial Assessment Social Hx Patient Tobacco Use Status: Never used Tobacco alcohol intake: never Alcohol intake frequency: former alcohol drinker Coding Level of Care Code Est Patient Level 1 Diagnoses Current use of anticoagulant therapy Z79.01 Results AMB INR Fingerstick AMB INR Fingerstick 2.0 Last Edit by Ifrah Mandel RN on 09/25/23 09:08 Assessment & Plan Assessment & Plan (1) Current use of anticoagulant therapy: Code(s): Z79.01 - detention (current) use of anticoagulants Category: Medical
[2023-09-25 09:07] LABS: Prothrombin Time Whole Bld POC 24.3 sec (11.1-13.5)
== END 2023-09-25 09:12 | disposition home or self-care (01) ==
LOC: HO.ACS 09:03
PROVIDERS: PCP Internal Medicine; Visit Provider Internal Medicine
DX: Z79.01 Long term (current) use of anticoagulants (principal)

== ENCOUNTER → 2023-09-25 09:03 | Outpatient (BNVA) | payer OTHER, SELFPAY | PROVIDERS: PCP Internal Medicine; Visit Provider Internal Medicine | DX: I48.0 Paroxysmal atrial fibrillation (principal); Z79.01 Long term (current) use of anticoagulants; Z51.81 Encounter for therapeutic drug level monitoring | CPT/HCPCS: 85610; 99211 ==

== ENCOUNTER 2023-10-22 23:16 | Emergency (ER) | payer OTHER, SELFPAY ==
[2023-10-22 23:26] VITALS: BP 127/94; PULSE 60; RESP 20; TEMP 36.4; O2SAT 99; BMI 30.1
== END 2023-10-23 02:02 | disposition left against medical advice (07) ==
PROVIDERS: Emergency Provider Emergency Medicine
DX: M54.2 Cervicalgia (principal); M54.50 Low back pain, unspecified
CPT/HCPCS: 99281

== ENCOUNTER 2023-10-23 15:29 | Outpatient (AMB) | payer OTHER, SELFPAY ==
[2023-10-23 15:38] VITALS: BP 130/78; PULSE 84; TEMP 36.8; O2SAT 96; BMI 31.4
--- NOTE | 2023-10-23 15:38 | AM.OFFWIN_ITS ---
Intake Vital Signs 10/23/23 15:38 Height 5 ft 3 in Weight 177 lb 8 oz BMI 31.4 BP 130/78 Blood Pressure Location Rt brachial Position Sitting Pulse 84 Pulse Source Pulse Oximeter Temp 98.2 F Temp Source Temporal Artery Scan Pulse Oximetry (%) 96 Intake Visit Reasons: Pain neck and shoulders Intake Note: pt is here for pain in neck and shoulders Patient Tobacco Use Status: Never used Tobacco Allergies acetaminophen [From Percocet] Allergy (Intermediate, Verified 10/23/23 15:38) Headache oxycodone [From Percocet] Allergy (Intermediate, Verified 10/23/23 15:38) Headache ibuprofen [From Motrin] Allergy (Mild, Verified 10/23/23 15:38) SWELLING SALMON Adverse Reaction (Mild, Uncoded 10/22/23 23:28) VOMITING Do you need a note to return to daycare/school/sports/work: No HPI HPI Comments History of Present Illness Details 78 y/o male patient who presents to walk in clinic with c/o Neck pain that radiates down to his both shoulders. 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 Review of Systems Const All systems reviewed & are unremarkable except as noted in HPI and below Physical Exam Vital Signs: Last Vital Signs Temp 98.2 F 10/23/23 15:38 Pulse 84 10/23/23 15:38 BP 130/78 10/23/23 15:38 Pulse Ox 96 10/23/23 15:38 BMI result Body Mass Index 31.4 Const General: comfortable and no acute distress Nutritional Appearance: obese Orientation/consciousness: patient oriented x3 Limitations: language barrier Neck Neck: Yes normal visual inspection, Yes full ROM, Yes no lymphadenopathy and Yes no JVD Neuro General: patient oriented x3, gait normal and moves all extremities Extrem Right upper extremity: shoulder/upper arm Details: normal to inspection and t enderness Location: of the scapula Left upper extremity: shoulder/upper arm Details: tenderness Location: of the scapula Psych Speech and movement: Normal speech and movement present Assessment & Plan Assessment & Plan (1) Cervical pain (neck): Code(s): M54.2 - Cervicalgia Plan: OTC Pain relief medications Ice/Hot Lidocaine patch for pain relief. Medications: New cyclobenzaprine 10 mg PO BEDTIME 7 tabs 0RF M54.2 - Cervicalgia lidocaine 5% leave on most painful area for up to 12 hrs 1 patch topical DAILY 15 ea 0RF M54.2 - Cervicalgia Coding Level of Care Code Est Pt Level 3 (08777) Diagnoses Cervical pain (neck) M54.2 Time Spent (min) 15
== END 2023-10-23 18:10 | disposition home or self-care (01) ==
PROVIDERS: Visit Provider Nurse Practitioner Family
DX: M54.2 Cervicalgia (principal)
CPT/HCPCS: 99213

== ENCOUNTER 2023-10-25 08:45 | Outpatient (AMB) | payer OTHER, SELFPAY ==
[2023-10-25 09:10] LABS: Prothrombin Time Whole Bld POC 33.9 sec (11.1-13.5); ~PT, ~INR - Anti Coag Clinic 2.8 (0.9-1.1)
--- NOTE | 2023-10-25 09:13 | MHC.OFFVISCO ---
Intake Intake Visit Reasons: Anticoagulation Allergies acetaminophen [From Percocet] Allergy (Intermediate, Verified 10/25/23 09:05) Headache oxycodone [From Percocet] Allergy (Intermediate, Verified 10/25/23 09:05) Headache ibuprofen [From Motrin] Allergy (Mild, Verified 10/25/23 09:05) SWELLING [place]MON Adverse Reaction (Mild, Uncoded 10/25/23 09:05) VOMITING Medication List - Last Reconciled 10/25/23 by Soraya Roberts RN atorvastatin 80 mg PO DAILY blood sugar diagnostic As directed blood-glucose meter (FreeStyle Lite Meter kit) As directed cyclobenzaprine 10 mg PO BEDTIME docusate sodium (Colace) 100 mg PO BID dulaglutide (Trulicity) 3 mg subcut BECKHAM@0900 glipizide 10 mg PO BID lidocaine 5% 1 patch topical DAILY lisinopril 5 mg PO DAILY metoprolol succinate ER 25 mg PO BID multivitamin 1 tab PO DAILY omega 4-qnj-tjo-fish oil 300-1,000 mg (Fish Oil) 1 cap PO DAILY pen needle, diabetic (BD Keira 2nd Gen Pen Needle) As directed polyethylene glycol 3350 (Miralax) 17 grams PO BID sennosides (senna) 8.6 mg PO BEDTIME tamsulosin 0.4 mg PO Q12H warfarin See Protocol 5 mg orally 5mg x 1 day/ 2.5mg x 6 days; Nursing Note INR: 2.8 in therapeutic range Medications and supplements reviewed No changes in health, diet, medications, or supplements, Denies any signs and symptoms of bleeding or bruising or clotting. Bleeding, bruising, clotting discussed Nutritional guidance given - eat a mix of fruits and vegetables Dose: 5mg x 1 day/ 2.5mg x 6 days F/U INR: 1 month Patient verbalizes understanding of instructions given Anti-Coag Initial Assessment Social Hx Patient Tobacco Use Status: Never used Tobacco alcohol intake: never Alcohol intake frequency: former alcohol drinker Questionnaires HAS-BLED Does the patient had uncontrolled Hypertension?: No Does the patient have renal disease?: No Does the patient have liver disease?: No Does the patient have a history of stroke?: Yes (QUESTION OF TIA IN THE PAST) Has the patient had major bleeding or predisposition to bleeding?: No Does the patient have labile INRs?: No Is the patient over 65 years of age?: Yes Is the patient on medications that gives them a predisposition to bleeding?: Yes Does the patient use alcohol?: No HAS-BLED Score: 3 CHADSVASC Age: 75 or over Gender: Male Does the patient have a history of CHF?: No Does the patient have a history of Hypertension?: Yes Does the patient have a history of Stroke/TIA/Thromboembolism?: Yes (POSSIBLE TIA) Does the patient have a history of Vascular Disease (prior MS, PAD or aortic plaque)?: Yes (CARDIAC CATH 2003 MS) Does the patient have a history of Diabetes?: Yes CHADS VACS Score: 7 Edgar Prediction Score Rsk VTE Active Cancer: No Previous VTE, excluding superficial vein thrombosis: No Reduced mobility: No Already known Thrombophilic Condition: No With-in last month Trauma and/or Surgery: No Elderly 70 year or older: Yes Heart and/or Respiratory Failure: No Acute Myocardial infarction and/or Ischemic Stroke: Yes (MS QUESTION OF TIA 2002) Acute Infection and/or Rheumatologic Disorder: Yes Obesity (BMI 30 or greater): No Ongoing Hormonal Treatment: No Score: 3 Edgar Score less than 4; Low Risk of VTE Edgar Score 4 or greater; High Risk of VTE Coding Level of Care Code Est Patient Level 1 Diagnoses Current use of anticoagulant therapy Z79.01 Results AMB INR Fingerstick AMB INR Fingerstick 2.8 Last Edit by Soraya Roberts RN on 10/25/23 09:12 manual entry failed interfacing ongoing Assessment & Plan Assessment & Plan (1) Current use of anticoagulant therapy: Code(s): Z79.01 - [facility] (current) use of anticoagulants Category: Medical
== END 2023-10-25 09:19 | disposition home or self-care (01) ==
PROVIDERS: PCP Internal Medicine; Visit Provider Internal Medicine
DX: Z79.01 Long term (current) use of anticoagulants (principal)

== ENCOUNTER → 2023-10-25 08:45 | Outpatient (BNVA) | payer OTHER, SELFPAY | PROVIDERS: Visit Provider Internal Medicine | DX: I48.0 Paroxysmal atrial fibrillation (principal); Z79.01 Long term (current) use of anticoagulants; Z51.81 Encounter for therapeutic drug level monitoring | CPT/HCPCS: 85610; 99211 ==

== ENCOUNTER 2023-11-22 08:56 | Outpatient (AMB) | payer OTHER, SELFPAY ==
--- NOTE | 2023-11-22 09:07 | MHC.OFFVISCO ---
Intake Intake Visit Reasons: Anticoagulation Allergies acetaminophen [From Percocet] Allergy (Intermediate, Verified 11/22/23 09:01) Headache oxycodone [From Percocet] Allergy (Intermediate, Verified 11/22/23 09:01) Headache ibuprofen [From Motrin] Allergy (Mild, Verified 11/22/23 09:01) SWELLING SALMON Adverse Reaction (Mild, Uncoded 11/22/23 09:01) VOMITING Medication List - Last Reconciled 11/22/23 by Soraya Roberts RN atorvastatin 80 mg PO DAILY blood sugar diagnostic As directed blood-glucose meter (FreeStyle Lite Meter kit) As directed cyclobenzaprine 10 mg PO BEDTIME docusate sodium (Colace) 100 mg PO BID dulaglutide (Trulicity) 3 mg subcut BECKHAM@0900 glipizide 10 mg PO BID lidocaine 5% 1 patch topical DAILY lisinopril 5 mg PO DAILY metoprolol succinate ER 25 mg PO BID multivitamin 1 tab PO DAILY omega 3-xpw-lxf-fish oil 300-1,000 mg (Fish Oil) 1 cap PO DAILY pen needle, diabetic (BD Keira 2nd Gen Pen Needle) As directed polyethylene glycol 3350 (Miralax) 17 grams PO BID sennosides (senna) 8.6 mg PO BEDTIME tamsulosin 0.4 mg PO Q12H tramadol 50 mg PO TID PRN warfarin See Protocol 5 mg orally 5mg x 1 day/ 2.5mg x 6 days; Nursing Note INR: 2.8 in therapeutic range Medications and supplements reviewed No changes in health, diet, medications, or supplements, Denies any signs and symptoms of bleeding or bruising or clotting. Bleeding, bruising, clotting discussed Nutritional guidance given Dose: 5MG X 1DAY/ 2.5MG X 6 DAYS F/U INR: 1 MONTH Patient verbalizes understanding of instructions given Anti-Coag Initial Assessment Social Hx Patient Tobacco Use Status: Never used Tobacco alcohol intake: never Alcohol intake frequency: former alcohol drinker Questionnaires HAS-BLED Does the patient had uncontrolled Hypertension?: No Does the patient have renal disease?: No Does the patient have liver disease?: No Does the patient have a history of stroke?: Yes (QUESTION OF TIA IN THE PAST) Has the patient had major bleeding or predisposition to bleeding?: No Does the patient have labile INRs?: No Is the patient over 65 years of age?: Yes Is the patient on medications that gives them a predisposition to bleeding?: Yes Does the patient use alcohol?: No HAS-BLED Score: 3 CHADSVASC Age: 75 or over Gender: Male Does the patient have a history of CHF?: No Does the patient have a history of Hypertension?: Yes Does the patient have a history of Stroke/TIA/Thromboembolism?: Yes (POSSIBLE TIA) Does the patient have a history of Vascular Disease (prior ND, PAD or aortic plaque)?: Yes (CARDIAC CATH 2002 ND) Does the patient have a history of Diabetes?: Yes CHADS VACS Score: 7 Edgar Prediction Score Rsk VTE Active Cancer: No Previous VTE, excluding superficial vein thrombosis: No Reduced mobility: No Already known Thrombophilic Condition: No With-in last month Trauma and/or Surgery: No Elderly 70 year or older: Yes Heart and/or Respiratory Failure: No Acute Myocardial infarction and/or Ischemic Stroke: Yes (ND QUESTION OF TIA 2002) Acute Infection and/or Rheumatologic Disorder: Yes Obesity (BMI 30 or greater): No Ongoing Hormonal Treatment: No Score: 3 Edgar Score less than 4; Low Risk of VTE Edgar Score 4 or greater; High Risk of VTE Coding Level of Care Code Est Patient Level 1 Diagnoses Current use of anticoagulant therapy Z79.01 Assessment & Plan Assessment & Plan (1) Current use of anticoagulant therapy: Code(s): Z79.01 - half-way (current) use of anticoagulants Category: Medical
[2023-11-22 09:09] LABS: Prothrombin Time Whole Bld POC 33.2 sec (11.1-13.5); ~PT, ~INR - Anti Coag Clinic 2.8 (0.9-1.1)
== END 2023-11-22 09:14 | disposition home or self-care (01) ==
LOC: HO.ACS 08:56
PROVIDERS: PCP Internal Medicine; Visit Provider Internal Medicine
DX: Z79.01 Long term (current) use of anticoagulants (principal)

== ENCOUNTER → 2023-11-22 08:56 | Outpatient (BNVA) | payer OTHER, SELFPAY | PROVIDERS: PCP Internal Medicine; Visit Provider Internal Medicine | DX: I48.0 Paroxysmal atrial fibrillation (principal); Z79.01 Long term (current) use of anticoagulants; Z51.81 Encounter for therapeutic drug level monitoring | CPT/HCPCS: 85610; 99211 ==

== ENCOUNTER 2023-12-18 13:27 | Emergency (ER) | payer OTHER, SELFPAY ==
--- NOTE | ~2023-12-18 | CT_ITS ---
EXAMINATION: CT HEAD WITHOUT CONTRAST CT CERVICAL SPINE WITHOUT CONTRAST CLINICAL INFORMATION: Neck trauma COMPARISON: CT head 10/12/2020 TECHNIQUE: Contiguous axial imaging was performed from the skull base to vertex without intravenous administration of contrast. Contiguous axial imaging was performed from the upper chest through the skull base without intravenous administration of contrast. Coronal and sagittal reformats were obtained at the acquisition workstation. This CT examination was performed using dose optimization techniques as appropriate, variously including the following: * Automated exposure control * Adjustment of mA and/or kV according to patient size (this includes techniques or standardized protocols for targeted exams where dose is matched to indication/reason for exam; i.e. extremities or head) * Use of iterative reconstruction technique DLP: 1048 mGy-cm FINDINGS: Head: There is no evidence of acute intracranial hemorrhage or edematous territorial infarction. Meneses-white matter differentiation appears preserved. The ventricles and cortical sulci are proportional without significant volume loss. Few scattered hypodensities in the periventricular and deep white matter likely representing mild chronic microangiopathy. No evidence for obstructive hydrocephalus. No abnormal mass effect or midline shift. No acute extra-axial fluid collections. No acute soft tissue or osseous abnormalities. The mastoid air cells and visualized paranasal sinuses are clear. Cervical Spine: The atlantooccipital and atlantoaxial articulations remain well aligned. Straightening of the normal cervical lordosis. Minimal anterolisthesis of C2 over C3 and minimal retrolisthesis of C4 over C5. Large bridging osteophytes throughout cervical spine. Few foci of gas adjacent to the left anterior osteophytes at C3-C4 likely secondary to degenerative changes. Multilevel intervertebral disc space narrowing, most prominent at C4-C5 and C5-C6. Mild to moderate bilateral facet arthropathy at C2-C3. No evidence of acute fracture or traumatic subluxation. There is no prevertebral soft tissue swelling. The thyroid gland and remaining cervical soft tissues are within normal limits. The lung apices demonstrate no abnormalities. CT/CT cervical spine wo IV con IMPRESSION: 1. No acute intracranial pathology. 2. Multilevel cervical spondylosis as detailed with findings most prominent at C4-C5 and C5-C6.Large bridging osteophytes throughout cervical spine. Few foci of gas adjacent to the left anterior osteophytes at C3-C4 likely secondary to degenerative changes. No priors available for comparison. No acute fracture involving the cervical spine. Electronically signed by: Jordan Achanaril MD 12/18/2023 04:54 PM EDT RP
[2023-12-18 13:45] VITALS: BP 127/63; PULSE 74; RESP 16; TEMP 36.3; O2SAT 99; BMI 31.0
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
[2023-12-18 14:43] LABS: MANUAL DIFF FLAG NO
[2023-12-18 14:49] LABS: Basophils Percent Auto 0.3 % (0-2); Eosinophils Absolute Auto 0.2 X10*3/uL (0.0-0.4); Hematocrit 39.7 % (42.0-52.0); Hemoglobin 13.9 g/dl (14.0-18.0); Imm Gran Abs Auto 0.01 X10*3/uL (0.00-0.03); Imm Gran Pct Auto 0.2 % (0.0-0.4); Lymphocytes Absolute Auto 2.1 X10*3/uL (1.2-4.9); Lymphocytes Percent Auto 36.5 % (20-40); Mean Corpuscular Hemoglobin 32.6 pg (27.0-33.0); Mean Corpuscular Volume 93.2 fL (80.0-98.0); Mean Platelet Volume 9.7 fL (9.4-12.4); Monocytes Absolute Auto 0.4 X10*3/uL (0.1-1.2); Monocytes Percent Auto 6.6 % (2-11); Neutrophils Percent Auto 52.4 % (45-73); Platelet Count 152 X10*3/uL (160-400); Red Blood Count 4.26 X10*6/uL (4.60-5.80); Red Cell Distribution Width 13.3 % (11.0-16.0); White Blood Count 5.7 X10*3/uL (4.8-10.8)
[2023-12-18 14:53] LABS: INTERNATIONAL NORM RATIO 3.1 (0.9-1.1); Prothrombin Time 37.7 SEC (11.1-13.3)
[2023-12-18 14:56] LABS: Anion Gap 10 (12-20); Blood Urea Nitrogen 14 mg/dL (9-16); Calcium 8.8 mg/dL (8.4-10.2); Carbon Dioxide 25 mmol/L (22-29); Chloride 110 mmol/L (96-108); Creatinine Clr Calc Pharmacy 58.8; Estimated Glomerular Filt Rate > 60; Glucose Random 228 mg/dL (60-115); Potassium 3.9 mmol/L (3.3-5.1); Sodium 141 mmol/L (135-145)
[2023-12-18 15:14] VITALS: BP 128/69; PULSE 69; RESP 18; TEMP 36.8; O2SAT 99
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
[2023-12-18 17:23] VITALS: BP 129/67; PULSE 60; RESP 18; TEMP 36.4; O2SAT 98
== END 2023-12-18 17:37 | disposition home or self-care (01) ==
PROVIDERS: Emergency Medicine; Emergency Provider Emergency Medicine; PCP Internal Medicine
DX: S06.0X0A Concussion without loss of consciousness, initial encounter (principal); W22.8XXA Striking against or struck by other objects, initial encounter; Y93.89 Activity, other specified; Y92.9 Unspecified place or not applicable; R42 Dizziness and giddiness; Y99.9 Unspecified external cause status; M47.892 Other spondylosis, cervical region; I48.91 Unspecified atrial fibrillation; I10 Essential (primary) hypertension; E11.9 Type 2 diabetes mellitus without complications; Z79.01 Long term (current) use of anticoagulants; Z79.899 Other long term (current) drug therapy
CPT/HCPCS: 36415; 70450; 72125; 80048; 85025; 85610; 99284

== ENCOUNTER 2023-12-25 09:17 | Outpatient (AMB) | payer OTHER, SELFPAY ==
[2023-12-25 09:30] LABS: Prothrombin Time Whole Bld POC 33.6 sec (11.1-13.5); ~PT, ~INR - Anti Coag Clinic 2.8 (0.9-1.1)
--- NOTE | 2023-12-25 09:32 | MHC.OFFVISCO ---
Intake Intake Visit Reasons: Anticoagulation Allergies oxycodone [From Percocet] Allergy (Intermediate, Verified 12/25/23 09:26) Headache ibuprofen [From Motrin] Allergy (Mild, Verified 12/25/23 09:26) SWELLING SALMON Adverse Reaction (Mild, Uncoded 12/18/23 13:54) VOMITING Medication List - Last Reconciled 12/25/23 by Essence Lay, RN atorvastatin 80 mg PO DAILY blood sugar diagnostic As directed blood-glucose meter (FreeStyle Lite Meter kit) As directed cyclobenzaprine 10 mg PO BEDTIME docusate sodium (Colace) 100 mg PO BID dulaglutide (Trulicity) 3 mg subcut BECKHAM@0900 glipizide 10 mg PO BID lidocaine 5% 1 patch topical DAILY lisinopril 5 mg PO DAILY metoprolol succinate ER 25 mg PO BID multivitamin 1 tab PO DAILY omega 2-wvw-nra-fish oil 300-1,000 mg (Fish Oil) 1 cap PO DAILY pen needle, diabetic (BD Keira 2nd Gen Pen Needle) As directed polyethylene glycol 3350 (Miralax) 17 grams PO BID sennosides (senna) 8.6 mg PO BEDTIME tamsulosin 0.4 mg PO Q12H tramadol 50 mg PO TID PRN warfarin See Protocol 5 mg orally 5mg x 1 day/ 2.5mg x 6 days; Nursing Note NO CP,SOB,DIET/MED CHANGES,FALLS OR SX OF BLEEDING. CONTINUE PRESENT DOSE AND FOLLOW-UP IN 4 WEEKS. GOOD UNDERSTANDING OF DOSING INSTR. Anti-Coag Initial Assessment Social Hx Patient Tobacco Use Status: Never used Tobacco alcohol intake: never Alcohol intake frequency: former alcohol drinker Coding Level of Care Code Est Patient Level 1 Diagnoses Current use of anticoagulant therapy Z79.01 Assessment & Plan Assessment & Plan (1) Current use of anticoagulant therapy: Code(s): Z79.01 - terminal gauger (current) use of anticoagulants Category: Medical
== END 2023-12-25 09:34 | disposition home or self-care (01) ==
LOC: HO.ACS 09:17
PROVIDERS: PCP Internal Medicine; Visit Provider Internal Medicine
DX: Z79.01 Long term (current) use of anticoagulants (principal)

== ENCOUNTER → 2023-12-25 09:17 | Outpatient (BNVA) | payer OTHER, SELFPAY | PROVIDERS: PCP Internal Medicine; Visit Provider Internal Medicine | DX: I48.0 Paroxysmal atrial fibrillation (principal); Z79.01 Long term (current) use of anticoagulants; Z51.81 Encounter for therapeutic drug level monitoring | CPT/HCPCS: 85610; 99211 ==

== ENCOUNTER 2024-01-18 15:31 | Emergency (ER) | payer OTHER, SELFPAY ==
--- NOTE | ~2024-01-18 | CT_ITS ---
EXAMINATION: CT ABDOMEN AND PELVIS WITHOUT CONTRAST CLINICAL INFORMATION: Pain, assess for hemorrhage, on anticoagulation. COMPARISON: 01/23/2023 TECHNIQUE: Multidetector volumetric imaging was performed from the superior aspect of the liver through the pubic symphysis. Sagittal and coronal reformatted images were obtained on the technologist's workstation. This CT examination was performed using dose optimization techniques as appropriate, variously including the following: *Automated exposure control *Adjustment of mA and/or kV according to patient size (this includes techniques or standardized protocols for targeted exams where dose is matched to indication/reason for exam; i.e. extremities or head) *Use of iterative reconstruction technique DLP: 507 mGy-cm FINDINGS: LUNG BASES: The visualized lung bases are unremarkable. LIVER, GALLBLADDER, AND BILIARY TREE: Extensive changes of diffuse hepatic steatosis. No focal lesion. No biliary ductal dilatation. Clips consistent with cholecystectomy. PANCREAS: Unremarkable. SPLEEN: Unremarkable. ADRENAL GLANDS: Unremarkable. KIDNEYS AND URETERS: The kidneys are normal in size, shape, and attenuation. No hydronephrosis, hydroureter, or calculi seen. No perinephric stranding. Large cyst right lower pole cortex. Bosniak 1. No follow-up indicated. BLADDER: Unremarkable. GASTROINTESTINAL TRACT: The small and large bowel are unremarkable. The appendix is unremarkable. ABDOMINAL WALL: No significant hernia is appreciated. LYMPH NODES: Normal. VASCULAR: Unremarkable. PELVIC VISCERA: Moderate prostatomegaly. OSSEOUS STRUCTURES: Unremarkable. CT/CT abdomen pelvis wo IV con IMPRESSION: No evidence for any retroperitoneal hemorrhage. No acute findings. Hepatic steatosis. Fleischner guidelines were followed. Electronically signed by: Lake Joyner MD 01/18/2024 05:47 PM EDT
--- NOTE | ~2024-01-18 | XR_ITS ---
EXAMINATION: XR LUMBOSACRAL SPINE CLINICAL INFORMATION: Low back pain COMPARISON: CT abdomen/pelvis January 23, 2023 TECHNIQUE: Three views of the lumbosacral spine. FINDINGS: 5 nonrib-bearing lumbar vertebral bodies. Grade 1 anterolisthesis of L4 on L5. Degenerative disc disease at L3-4, L4-5, and L5-S1. Disc bulge at L3 for results in moderate neural foraminal stenosis. No acute fracture of the lumbar spine, sacrum, or coccyx. Soft tissue structures within normal limits. XR/XR lumbar spine 2-3V IMPRESSION: 1. No acute compression fracture of the lumbar spine. 2. Degenerative disc disease from L3 to S1 resulting in mild to moderate bilateral neural foraminal stenosis. 3. Grade 1 anterolisthesis of L4 and L5. Electronically signed by: Carlo Dahl DO 01/18/2024 04:14 PM EDT
[2024-01-18 15:35] VITALS: BP 130/64; PULSE 85; RESP 20; TEMP 36.2; O2SAT 98; BMI 30.7
--- NOTE | 2024-01-18 15:36 | ED_ITS ---
HPI - General Adult General Chief complaint: Extremity Injury, Lower Stated complaint: pain down left leg Time Seen by Provider: 01/18/24 16:45 Source: patient and family Mode of arrival: ambulatory Limitations: language barrier History of Present Illness ED Provider: Angela Bui APRN HPI narrative: 78-year-old man with a past medical history of paroxysmal atrial fibrillation on warfarin, diabetes mellitus, hypertension, hyperlipidemia, BPH here with complaints left back pain with radiation down the left leg x 2 days. No known injury or trauma. Taking tramadol twice daily which does improve the pain however when the tramadol wears off the pain returns. He does report numbness and tingling in both his hands and feet which is not a new finding for him. He denies any numbness in the groin. No bowel or bladder incontinence. No fevers or chills. Related Data Home Medications ?Medication ?Instructions ?Recorded ?Confirmed atorvastatin 80 mg tablet 80 mg PO DAILY 04/27/20 11/22/23 blood sugar diagnostic #10 ea 04/27/20 11/22/23 blood-glucose meter (FreeStyle #1 ea 06/19/21 11/22/23 Lite Meter kit) pen needle, diabetic 32 gauge x #50 ea 06/19/21 11/22/23/32 (BD Keira 2nd Gen Pen Needle) lisinopril 5 mg tablet 5 mg PO DAILY 07/05/22 11/22/23 metoprolol succinate 25 mg 25 mg PO BID 07/05/22 11/22/23 tablet,extended release 24 hr dulaglutide 3 mg/0.5 mL 3 mg subcut BECKHAM@0900 11/24/22 11/22/23 subcutaneous pen injector (Trulicity) glipizide 5 mg tablet 10 mg PO BID 11/24/22 11/22/23 multivitamin 1 tab PO DAILY 11/24/22 11/22/23 omega 9-rex-jpj-fish oil 300 1 cap PO DAILY 11/24/22 11/22/23 mg-1,000 mg capsule,delayed release (Fish Oil) tamsulosin 0.4 mg capsule 0.4 mg PO Q12H 11/24/22 11/22/23 warfarin 5 mg tablet 5 mg PO .COMPLEX 02/21/23 12/25/23 tramadol 50 mg tablet 50 mg PO TID PRN 11/22/23 11/22/23 Previous Rx's ?Medication ?Instructions ?Recorded docusate sodium 100 mg capsule 100 mg PO BID #20 caps 01/23/23 (Colace) polyethylene glycol 3350 17 17 g PO BID #238 grams 01/23/23 gram/dose oral powder (Miralax) sennosides 8.6 mg tablet (senna) 8.6 mg PO BEDTIME #14 tabs 01/23/23 cyclobenzaprine 10 mg tablet 10 mg PO BEDTIME #7 tabs 10/23/23 lidocaine 5 % topical patch 1 patch topical DAILY #15 ea 10/23/23 cyclobenzaprine 10 mg tablet 10 mg PO TID PRN muscle spasm #15 01/18/24 tabs lidocaine 5 % topical patch 1 patch topical DAILY #15 ea 01/18/24 (Lidoderm) Allergies Allergy/AdvReac Type Severity Reaction Status Date / Time oxycodone [From Percocet] Allergy Intermediate Headache Verified 01/18/24 15:37 ibuprofen [From Motrin] Allergy Mild SWELLING Verified 01/18/24 15:37 SALMON AdvReac Mild VOMITING Uncoded 12/18/23 13:54 Review of Systems 2 Review of Systems: Yes all other systems are reviewed and are negative Constitutional: Constitutional: Reports no additional constitutional complaints, Denies body ache(s), Denies chills, Denies fever(s), Denies headache(s) and Denies weakness Eyes: Eyes: Reports no additional eye complaints and Denies change in vision ENT: Reports system reviewed and no additional complaints, except as documented, Denies dizziness, Denies headache(s), Denies nasal congestion, Denies nasal discharge and Denies neck pain Cardiovascular: Cardiovascular: Reports no additional cardiovascular complaints, Denies chest pain, Denies leg edema and Denies dyspnea Respiratory: Respiratory: Reports no additional respiratory complaints, Denies cough and Denies dyspnea Gastrointestinal: Gastrointestinal: Reports no additional gastrointestinal complaints, Denies abdominal pain, Denies diarrhea, Denies nausea and Denies vomiting Genitourinary: Genitourinary: Denies urinary incontinence Musculoskeletal: Musculoskeletal: Reports no additional musculoskeletal complaints, Reports back pain, Denies arthralgias, Denies joint swelling, Denies neck pain, Denies numbness, Reports radiating pain into limb and Denies tingling Integumentary/Breasts: Skin/Breast: Reports system reviewed and no additional complaints, except as docu and Denies rash Neurologic: Reports system reviewed and no additional complaints, except as documented, Denies Abnormal speech present, Denies dizziness, Denies headache(s), Denies numbness, Denies tingling and Denies weakness PMFSH Past Medical History Attestation statement: The following information was validated with the patient. 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 Physical Exam ED Vital Signs: Vital Signs - 24 hr 01/18/24 15:35 01/18/24 16:34 01/18/24 18:09 Temperature 97.2 F 97.3 F 97.0 F Pulse Rate 85 69 72 Respiratory Rate 20 16 16 Blood Pressure 130/64 129/64 119/58 L Pulse Oximetry 98 98 99 Oxygen Delivery Method Room Air Room Air Room Air BMI result Body Mass Index 30.7 Const General: cooperative, healthy appearing, comfortable and no acute distress Orientation/consciousness: patient oriented x3 Limitations: no limitations [facility] Head: Yes normal to inspection Ears: hearing grossly normal bilaterally General nose exam: Normal external nose present Face and sinus: Yes normal facial exam Mouth: Normal oral and palatal mucosa present Throat: Yes posterior oropharynx normal Eyes General: appearance normal, both eyes and all related structures Pupils: Equal, round and reactive pupils present Neck Neck: Yes normal visual inspection Chest Chest palpation & inspection: normal inspection of the chest Resp Effort & Inspection: normal respiratory effort Auscultation: clear to auscultation bilaterally Cardio Rate: regular rate Rhythm: regular rhythm Peripheral pulses: Peripheral pulses 2+ throughout GI Inspection: Yes normal to inspection Palpation (GI): Soft to palpation and nontender Auscultation: normal bowel sounds Back/Spine/Pelvis Other: There is tenderness to the midline lumbar spine with no step-offs deformities. Thoracic/Lumbar Spine: thoracic and lumbar spine normal to inspection Skin General skin exam: no rashes or lesions noted Neuro General: patient oriented x3, moves all extremities, no focal motor deficits and normal sensation to monofilament Cranial nerves: Yes CN's II-XII intact bilaterally, Yes Equal, round and reactive pupils present, Yes Bilaterally intact EOM present, Yes Nystagmus not present, Yes Normal facial strength present and Yes Midline tongue present Cognition (Neuro): normal cognition Speech: No Abnormal speech present Gait exam (Neuro): Normal gait present Motor exam (neuro): 5/5 motor strength present throughout Sensory Exam: Normal double simultaneous stimulation for sensation Deep tendon reflexes (DTR's): Right patellar reflex intensity grade: 2+ and Left patellar reflex intensity grade: 2+ Extrem General: Yes normal to inspection Course Course Course Narrative: RME performed by Layla Graham PA-C. Patient is a 78 year old assigned male at presenting to the emergency department with low back pain that radiates into her legs. Patient states over the last 2 days he has been low back pain. Detailed physical exam and review of systems are deferred to the section forest fire warden. EKG, labs, and imaging ordered. Patient placed back in the waiting room pending room availability and results. Reevaluation(s) Reevaluation #1: Labs are at baseline. X-ray shows mild arthritis otherwise no acute finding. CT is unremarkable. Patient reports improved after receiving a dose of tramadol. Likely lumbar radiculopathy. Patient be discharged home with recommendations to continue tramadol, take Flexeril and Lidoderm patches. Reviewed worrisome signs and symptoms of when to return to the emergency room. Comfortable plan for discharge home. Medications Administered Discontinued Medications Generic Name Dose Route Start Last Admin Trade Name Freq PRN Reason Stop Dose Admin Tramadol HCl 50 mg 01/18/24 17:14 01/18/24 17:48 Tramadol Hcl 50 Mg Tablet PO 01/18/24 17:15 50 mg ONCE ONE Administration Medical Decision Making Medical Decision Making [facility] [place] Narrative: 78-year-old man with a past medical history of paroxysmal atrial fibrillation on warfarin, diabetes mellitus, hypertension, hyperlipidemia, BPH here with complaints left back pain with radiation down the left leg x 2 days. No known injury or trauma. Taking tramadol twice daily which does improve the pain however when the tramadol wears off the pain returns. He does report numbness and tingling in both his hands and feet which is not a new finding for him. He denies any numbness in the groin. No bowel or bladder incontinence. No fevers or chills. On exam patient has tenderness in the midline lumbar spine with no step-offs deformities. He has no neurological deficits or red flag symptoms. Will obtain labs, UA, CT Differential Diagnosis Differential Diagnoses: The differential diagnosis associated with the presentation includes Lumbar radiculopathy, lumbar strain, herniated disc Low suspicion for epidural abscess with no risk factors of same, no neurological deficits or red flag symptoms Low suspicion for ACS with no reports of chest pain, shortness of breath, diaphoresis or vomiting Low suspicion for pyelonephritis or renal colic with no CVA tenderness, urinary symptoms reported Low suspicion for malignancy with no red flag symptoms, more acute onset Low suspicion for cord compression, cauda equina with normal neurological exam and no red flag symptoms Retroperitoneal hemorrhage Admission/Observation Consideration of admission/observation: Escalation of care including admission/observation considered Lab Data MDM Lab Attestation statement: I reviewed the patient's lab results. 01/18/24 16:08 01/18/24 16:08 Labs: Lab Results 01/18/24 01/18/24 Range/Units 16:08 17:16 WBC 6.9 (4.8-10.8) X10*3/uL RBC 4.45 L (4.60-5.80) X10*6/uL Hgb 14.5 (14.0-18.0) g/dl Hct 40.6 L (42.0-52.0) % MCV 91.2 (80.0-98.0) fL MCH 32.6 (27.0-33.0) pg MCHC 35.7 (31.0-36.0) g/dl RDW 12.9 (11.0-16.0) % Plt Count 158 L (160-400) X10*3/uL MPV 9.3 L (9.4-12.4) fL Immature Gran % (Auto) 0.1 (0.0-0.4) % Neut % (Auto) 54.3 (45-73) % Lymph % (Auto) 35.4 (20-40) % Sandoval % (Auto) 6.3 (2-11) % Eos % (Auto) 3.5 (0-4) % Baso % (Auto) 0.4 (0-2) % Lymph # (Auto) 2.5 (1.2-4.9) X10*3/uL Sandoval # (Auto) 0.4 (0.1-1.2) X10*3/uL Eos # (Auto) 0.2 (0.0-0.4) X10*3/uL Baso # (Auto) 0.0 (0.0-0.2) X10*3/uL Abs Immat Gran (auto) 0.01 (0.00-0.03) X10*3/uL Absolute Neuts (auto) 3.8 (2.0-8.3) x10*3/uL Absolute Nucleated RBC 0.000 (0.0-0.012) X10*3/uL Nucleated RBC % (auto) 0.0 (0.0-0.2) /100WBC PT 26.5 H (10.9-12.4) SEC INR 2.3 H (0.9-1.1) Sodium 140 (135-145) mmol/L Potassium 3.9 (3.3-5.1) mmol/L Chloride 108 (96-108) mmol/L Carbon Dioxide 22 (22-29) mmol/L Anion Gap 14 (12-20) BUN 18 H (9-16) mg/dL Creatinine 1.16 (0.5-1.4) mg/dL Estim Creat Clear Calc 49.4 Estimated GFR > 60 Random Glucose 139 H (60-115) mg/dL Calcium 9.6 D (8.4-10.2) mg/dL Magnesium 2.0 (1.6-2.6) mg/dL Total Bilirubin 0.9 (0.0-1.0) mg/dL AST 24 (5-37) U/L ALT 29 (0-40) U/L Alkaline Phosphatase 78 (39-117) U/L Troponin I High Sens < 2.7 (<3.5-35.0) ng/L Total Protein 7.4 (6.5-8.0) g/dL Albumin 4.2 (3.5-5.0) g/dL Urine Color Yellow Urine Appearance Clear Urine pH 6.5 (5.0-9.0) Ur Specific [place] 1.020 (1.005-1.025) Urine Protein Negative (Neg-Trace) mg/dL Urine Glucose (UA) Negative (Negative) mg/dL Urine Ketones Negative (Negative) mg/dL Urine Blood Negative (Negative) Urine Nitrite Negative (Negative) Ur Leukocyte Esterase Negative (Negative) Independent Interpretation I performed an independent interpretation of an: Plain X-Ray and CT Scan Interpretation: I independently viewed the x-ray/Ct scan and agree with the radiology report Radiology Impression Discussion of test interpretation with radiology: I have reviewed the radiologist's reading. Radiologist Impression: [place] [id number] XRay Report Signed Patient: Paulie Perez MR#: [id number] : 1945 Acct:[id number] Age/Sex: 78 / M ADM Date: 01/18/24 Loc: .ED Attending Dr: Ordering Physician: Layla Graham Date of Service: 01/18/24 Procedure(s): XR lumbar spine 2-3V Accession Number(s): [id number] cc: Stef Valencia III, MD; Layla Graham~ EXAMINATION: XR LUMBOSACRAL SPINE CLINICAL INFORMATION: Low back pain COMPARISON: CT abdomen/pelvis January 23, 2023 TECHNIQUE: Three views of the lumbosacral spine. FINDINGS: 5 nonrib-bearing lumbar vertebral bodies. Grade 1 anterolisthesis of L4 on L5. Degenerative disc disease at L3-4, L4-5, and L5-S1. Disc bulge at L3 for results in moderate neural foraminal stenosis. No acute fracture of the lumbar spine, sacrum, or coccyx. Soft tissue structures within normal limits. XR/XR lumbar spine 2-3V IMPRESSION: 1. No acute compression fracture of the lumbar spine. 2. Degenerative disc disease from L3 to S1 resulting in mild to moderate bilateral neural foraminal stenosis. 3. Grade 1 anterolisthesis of L4 and L5. Electronically signed by: Carlo Dahl DO 01/18/2024 04:14 PM EDT [address] [address] [address] Scan Report Signed Patient: Paulie Perez MR#: [id number] : 1945 Acct:[id number] Age/Sex: 78 / M ADM Date: 01/18/24 Loc: HO.ED Attending Dr: Ordering Physician: Angela Barbosa NP Date of Service: 01/18/24 Procedure(s): CT abdomen pelvis wo IV con Accession Number(s): [id number] cc: Stef Valencia III, MD; Angela Barbosa NP~ EXAMINATION: CT ABDOMEN AND PELVIS WITHOUT CONTRAST CLINICAL INFORMATION: Pain, assess for hemorrhage, on anticoagulation. COMPARISON: 01/23/2023 TECHNIQUE: Multidetector volumetric imaging was performed from the superior aspect of the liver through the pubic symphysis. Sagittal and coronal reformatted images were obtained on the technologist's workstation. This CT examination was performed using dose optimization techniques as appropriate, variously including the following: *Automated exposure control *Adjustment of mA and/or kV according to patient size (this includes techniques or standardized protocols for targeted exams where dose is matched to indication/reason for exam; i.e. extremities or head) *Use of iterative reconstruction technique DLP: 507 mGy-cm FINDINGS: LUNG BASES: The visualized lung bases are unremarkable. LIVER, GALLBLADDER, AND BILIARY TREE: Extensive changes of diffuse hepatic steatosis. No focal lesion. No biliary ductal dilatation. Clips consistent with cholecystectomy. PANCREAS: Unremarkable. SPLEEN: Unremarkable. ADRENAL GLANDS: Unremarkable. KIDNEYS AND URETERS: The kidneys are normal in size, shape, and attenuation. No hydronephrosis, hydroureter, or calculi seen. No perinephric stranding. Large cyst right lower pole cortex. Bosniak 1. No follow-up indicated. BLADDER: Unremarkable. GASTROINTESTINAL TRACT: The small and large bowel are unremarkable. The appendix is unremarkable. ABDOMINAL WALL: No significant hernia is appreciated. LYMPH NODES: Normal. VASCULAR: Unremarkable. PELVIC VISCERA: Moderate prostatomegaly. OSSEOUS STRUCTURES: Unremarkable. CT/CT abdomen pelvis wo IV con IMPRESSION: No evidence for any retroperitoneal hemorrhage. No acute findings. Hepatic steatosis. Fleischner guidelines were followed. Electronically signed by: Lake Joyner MD 01/18/2024 05:47 PM EDT RP Independent Historian Clinical information obtained from an independent historian. History obtained from or confirmed by: Spouse Discharge Plan Discharge Clinical Impression: Acute left lumbar radiculopathy Patient Disposition: Home, Self-Care Instructions: Lumbar Radiculopathy (ED) Additional Instructions: Heat or ice Gentle stretching No heavy lifting or bending Follow-up with your PCP as you may need physical therapyCall to establish and follow up with a primary care provider. continue tramadol If you already have a primary care provider, please follow up with them. Llame para establecer y hacer un seguimiento con un proveedor de atenci?n primaria. Si ya tiene un proveedor de atenci?n primaria, bhupendra un seguimiento con ?l. Prescriptions: New cyclobenzaprine 10 mg tablet 10 mg PO TID PRN (Reason: muscle spasm) Qty: 15 0RF lidocaine [Lidoderm] 5 % adhesive patch,medicated 1 patch topical DAILY Qty: 15 0RF Rx Instructions: leave on most painful area for up to 12 hrs No Action tamsulosin 0.4 mg capsule 0.4 mg PO Q12H glipizide 5 mg tablet 10 mg PO BID Trulicity 3 mg/0.5 mL pen injector 3 mg subcut BECKHAM@0900 multivitamin Tablet 1 tab PO DAILY omega 7-hwx-ayw-fish oil [Fish Oil] 300-1,000 mg Capsule,Delayed Release(Dr/Ec) 1 cap PO DAILY docusate sodium [Colace] 100 mg capsule 100 mg PO BID Qty: 20 0RF polyethylene glycol 3350 [Miralax] 17 gram/dose powder 17 g PO BID Qty: 238 0RF sennosides [senna] 8.6 mg tablet 8.6 mg PO BEDTIME Qty: 14 0RF cyclobenzaprine 10 mg tablet 10 mg PO BEDTIME Qty: 7 0RF lidocaine 5 % adhesive patch,medicated 1 patch topical DAILY Qty: 15 0RF Rx Instructions: leave on most painful area for up to 12 hrs atorvastatin 80 mg tablet 80 mg PO DAILY (DME) blood sugar diagnostic Strip See Rx Instructions Not Applicable BID Qty: 10 Rx Instructions: As directed (DME) pen needle, diabetic [BD Keira 2nd Gen Pen Needle] 32 gauge x 5/32 needle See Rx Instructions .ROUTE .MEDSUPPLY Qty: 50 Rx Instructions: As directed (DME) blood-glucose meter [FreeStyle Lite Meter] Kit See Rx Instructions .ROUTE TID Qty: 1 Rx Instructions: As directed lisinopril 5 mg tablet 5 mg PO DAILY metoprolol succinate 25 mg tablet extended release 24 hr 25 mg PO BID warfarin 5 mg tablet 5 mg PO .COMPLEX Protocol: Dose Management Condition: Saturday (Week One) Dose/Route: 2.5 mg Instruction: 0.5 x 5 mg tablets Condition: Saturday Dose/Route: 5 mg Instruction: 1 x 5 mg tablet Condition: Saturday Dose/Route: 2.5 mg Instruction: 0.5 x 5 mg tablets Condition: Saturday Dose/Route: 2.5 mg Instruction: 0.5 x 5 mg tablets Condition: Dose/Route: 2.5 mg Instruction: 0.5 x 5 mg tablets Condition: Saturday Dose/Route: 2.5 mg Instruction: 0.5 x 5 mg tablets Condition: Saturday Dose/Route: 2.5 mg Instruction: 0.5 x 5 mg tablets Condition: Saturday (Week Two) Dose/Route: 2.5 mg Instruction: 0.5 x 5 mg tablets Condition: Saturday Dose/Route: 5 mg Instruction: 1 x 5 mg tablet Condition: Saturday Dose/Route: 2.5 mg Instruction: 0.5 x 5 mg tablets Condition: Saturday Dose/Route: 2.5 mg Instruction: 0.5 x 5 mg tablets Condition: Dose/Route: 2.5 mg Instruction: 0.5 x 5 mg tablets Condition: Saturday Dose/Route: 2.5 mg Instruction: 0.5 x 5 mg tablets Condition: Saturday Dose/Route: 2.5 mg Instruction: 0.5 x 5 mg tablets Protocol Text: Adjustment Start Date: Saturday12/25/23 INR Value: 2.8 INR Date: 12/25/23 Recheck Date: 01/22/24 Rx Instructions: 5 mg orally 5mg x 1 day/ 2.5mg x 6 days; tramadol 50 mg tablet 50 mg PO TID PRN Referrals: Stef Valencia III, MD [Primary Care Provider] - 1 week Print Language: Kinyarwanda
--- NOTE | 2024-01-18 15:38 | ECG_ITS ---
Test Reason : back pain Blood Pressure : / mmHG Vent. Rate : 079 BPM Atrial Rate : 079 BPM P-R Int : 172 ms QRS Dur : 086 ms QT Int : 368 ms P-R-T Axes : 069 031 064 degrees QTc Int : 421 ms Normal sinus rhythm Normal ECG When compared with ECG of 24-NOV-2022 10:20, Normal sinus rhythm has replaced Atrial fibrillation Referred By: Layla Graham Electronically Signed By:ELAINA FRANCE
[2024-01-18 16:13] LABS: MANUAL DIFF FLAG NO
[2024-01-18 16:17] LABS: Appearance Urine Clear; Color Urine Yellow; Glucose Urine UA Negative (Negative); Leukocyte Esterase Urine Negative (Negative); Nitrite Urine Negative (Negative); PH 6.5 (5.0-9.0); Urine Blood Negative (Negative); Urine Ketones Negative (Negative); Urine Protein Negative (Neg-Trace)
[2024-01-18 16:18] LABS: Basophils Percent Auto 0.4 % (0-2); Eosinophils Absolute Auto 0.2 X10*3/uL (0.0-0.4); Eosinophils Percent Auto 3.5 % (0-4); Hematocrit 40.6 % (42.0-52.0); Hemoglobin 14.5 g/dl (14.0-18.0); Imm Gran Abs Auto 0.01 X10*3/uL (0.00-0.03); Imm Gran Pct Auto 0.1 % (0.0-0.4); Lymphocytes Absolute Auto 2.5 X10*3/uL (1.2-4.9); Lymphocytes Percent Auto 35.4 % (20-40); Mean Corpuscular HGB Conc 35.7 g/dl (31.0-36.0); Mean Corpuscular Hemoglobin 32.6 pg (27.0-33.0); Mean Corpuscular Volume 91.2 fL (80.0-98.0); Mean Platelet Volume 9.3 fL (9.4-12.4); Monocytes Absolute Auto 0.4 X10*3/uL (0.1-1.2); Monocytes Percent Auto 6.3 % (2-11); Neutrophils Absolute Auto 3.8 x10*3/uL (2.0-8.3); Neutrophils Percent Auto 54.3 % (45-73); Platelet Count 158 X10*3/uL (160-400); Red Blood Count 4.45 X10*6/uL (4.60-5.80); Red Cell Distribution Width 12.9 % (11.0-16.0); White Blood Count 6.9 X10*3/uL (4.8-10.8)
[2024-01-18 16:30] LABS: Alanine Aminotransferase 29 U/L (0-40); Albumin Level 4.2 g/dL (3.5-5.0); Alkaline Phosphatase 78 U/L (39-117); Anion Gap 14 (12-20); Aspartate Amino Transferase 24 U/L (5-37); Bilirubin Total 0.9 mg/dL (0.0-1.0); Blood Urea Nitrogen 18 mg/dL (9-16); Calcium 9.6 mg/dL (8.4-10.2); Carbon Dioxide 22 mmol/L (22-29); Chloride 108 mmol/L (96-108); Creatinine Clr Calc Pharmacy 49.4; Estimated Glomerular Filt Rate > 60; Glucose Random 139 mg/dL (60-115); Potassium 3.9 mmol/L (3.3-5.1); Sodium 140 mmol/L (135-145); Total Protein 7.4 g/dL (6.5-8.0)
[2024-01-18 16:34] VITALS: BP 129/64; PULSE 69; RESP 16; TEMP 36.3; O2SAT 98
[2024-01-18 16:38] LABS: Troponin-I High Sensitivity < 2.7 ng/L (<3.5-35.0)
[2024-01-18 17:29] LABS: INTERNATIONAL NORM RATIO 2.3 (0.9-1.1); Prothrombin Time 26.5 SEC (10.9-12.4)
[2024-01-18] MEDS: traMADoL HCL 50 MG TABLET PO (17:48)
[2024-01-18 18:09] VITALS: BP 119/58; PULSE 72; RESP 16; TEMP 36.1; O2SAT 99
--- NOTE | 2024-01-18 18:20 | PC.NURSE ---
pt medicated for pain by float nurse, pt to discharge home.
[2024-01-18 18:21] VITALS: BP 119/58; PULSE 72; RESP 16; TEMP 36.1; O2SAT 99
== END 2024-01-18 18:21 | disposition home or self-care (01) ==
PROVIDERS: Nurse Practitioner Family; Physician Assistant Medical; Emergency Provider Emergency Medicine; PCP Internal Medicine
DX: M54.16 Radiculopathy, lumbar region (principal); M54.50 Low back pain, unspecified; E11.9 Type 2 diabetes mellitus without complications; I10 Essential (primary) hypertension; E78.5 Hyperlipidemia, unspecified; I48.0 Paroxysmal atrial fibrillation; Z79.02 Long term (current) use of antithrombotics/antiplatelets; Z79.01 Long term (current) use of anticoagulants; Z79.899 Other long term (current) drug therapy
CPT/HCPCS: 36415; 72100; 74176; 80053; 81003; 83735; 84484; 85025; 85610; 93005; 99284

== ENCOUNTER 2024-02-06 10:18 | Outpatient (AMB) | payer OTHER, SELFPAY ==
[2024-02-06 10:25] LABS: Prothrombin Time Whole Bld POC 27.9 sec (11.1-13.5); ~PT, ~INR - Anti Coag Clinic 2.3 (0.9-1.1)
--- NOTE | 2024-02-06 10:26 | MHC.OFFVISCO ---
Intake Intake Visit Reasons: Anticoagulation Allergies oxycodone [From Percocet] Allergy (Intermediate, Verified 02/06/24 10:19) Headache ibuprofen [From Motrin] Allergy (Mild, Verified 02/06/24 10:19) SWELLING SALMON Adverse Reaction (Mild, Uncoded 02/06/24 10:19) VOMITING Medication List - Last Reconciled 02/06/24 by Soraya Roberts RN atorvastatin 80 mg PO DAILY blood sugar diagnostic As directed blood-glucose meter (FreeStyle Lite Meter kit) As directed cyclobenzaprine 10 mg PO TID PRN cyclobenzaprine 10 mg PO BEDTIME docusate sodium (Colace) 100 mg PO BID dulaglutide (Trulicity) mg subcut glipizide 10 mg PO BID lidocaine 5% (Lidoderm) 1 patch topical DAILY lidocaine 5% 1 patch topical DAILY lisinopril 5 mg PO DAILY metoprolol succinate ER 25 mg PO BID multivitamin 1 tab PO DAILY omega 0-jlv-xyr-fish oil 300-1,000 mg (Fish Oil) 1 cap PO DAILY pen needle, diabetic (BD Keira 2nd Gen Pen Needle) As directed polyethylene glycol 3350 (Miralax) 17 grams PO BID sennosides (senna) 8.6 mg PO BEDTIME tamsulosin 0.4 mg PO Q12H tramadol 50 mg PO TID PRN warfarin See Protocol 5 mg orally 5mg x 1 day/ 2.5mg x 6 days; Nursing Note INR: 2.3 in therapeutic range Medications and supplements reviewed No changes in health, diet, medications, or supplements, Denies any signs and symptoms of bleeding or bruising or clotting. 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
== END 2024-02-06 10:28 | disposition home or self-care (01) ==
LOC: HO.ACS 10:18
PROVIDERS: PCP Internal Medicine; Visit Provider Internal Medicine
DX: Z79.01 Long term (current) use of anticoagulants (principal)

== ENCOUNTER → 2024-02-06 10:18 | Outpatient (BNVA) | payer OTHER, SELFPAY | PROVIDERS: PCP Internal Medicine; Visit Provider Internal Medicine | DX: I48.0 Paroxysmal atrial fibrillation (principal); Z79.01 Long term (current) use of anticoagulants; Z51.81 Encounter for therapeutic drug level monitoring | CPT/HCPCS: 85610; 99211 ==

== ENCOUNTER 2024-03-05 09:52 | Outpatient (AMB) | payer OTHER, SELFPAY ==
[2024-03-05 10:26] LABS: Prothrombin Time Whole Bld POC 31.9 sec (11.1-13.5); ~PT, ~INR - Anti Coag Clinic 2.7 (0.9-1.1)
--- NOTE | 2024-03-05 10:30 | MHC.OFFVISCO ---
Intake Intake Visit Reasons: Anticoagulation Allergies oxycodone [From Percocet] Allergy (Intermediate, Verified 03/05/24 10:22) Headache ibuprofen [From Motrin] Allergy (Mild, Verified 03/05/24 10:22) SWELLING SALMON Adverse Reaction (Mild, Uncoded 03/05/24 10:22) VOMITING Medication List - Last Reconciled 03/05/24 by Sara Atkinson, RN atorvastatin 80 mg PO DAILY blood sugar diagnostic As directed blood-glucose meter (FreeStyle Lite Meter kit) As directed cyclobenzaprine 10 mg PO TID PRN cyclobenzaprine 10 mg PO BEDTIME docusate sodium (Colace) 100 mg PO BID dulaglutide (Trulicity) mg subcut glipizide 10 mg PO BID lidocaine 5% (Lidoderm) 1 patch topical DAILY lidocaine 5% 1 patch topical DAILY lisinopril 5 mg PO DAILY metoprolol succinate ER 25 mg PO BID multivitamin 1 tab PO DAILY omega 0-ygo-evk-fish oil 300-1,000 mg (Fish Oil) 1 cap PO DAILY pen needle, diabetic (BD Keira 2nd Gen Pen Needle) As directed polyethylene glycol 3350 (Miralax) 17 grams PO BID sennosides (senna) 8.6 mg PO BEDTIME tamsulosin 0.4 mg PO Q12H tramadol 50 mg PO TID PRN warfarin See Protocol 5 mg orally 5mg x 1 day/ 2.5mg x 6 days; Nursing Note INR: 2.7 in therapeutic range 2-3 Medications and supplements reviewed No changes in health, diet, medications, or supplements, Denies any signs and symptoms of bleeding or bruising or clotting. 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
== END 2024-03-05 10:31 | disposition home or self-care (01) ==
LOC: HO.ACS 09:52
PROVIDERS: PCP Internal Medicine; Visit Provider Internal Medicine
DX: Z79.01 Long term (current) use of anticoagulants (principal)

== ENCOUNTER → 2024-03-05 09:52 | Outpatient (BNVA) | payer OTHER, SELFPAY | PROVIDERS: PCP Internal Medicine; Visit Provider Internal Medicine | DX: I48.0 Paroxysmal atrial fibrillation (principal); Z79.01 Long term (current) use of anticoagulants; Z51.81 Encounter for therapeutic drug level monitoring | CPT/HCPCS: 85610; 99211 ==

== ENCOUNTER 2024-04-01 00:07 | Emergency (ER) | payer OTHER, SELFPAY ==
[2024-04-01] VITALS (8 sets, daily range): BP systolic 103–178; BP diastolic 58–91; PULSE 91–158; RESP 15–20; TEMP 36.6–37.2; O2SAT 97–98; BMI 31.2
--- NOTE | 2024-04-01 | ECG_ITS ---
Test Reason : HR ELEVATED Blood Pressure : / mmHG Vent. Rate : 130 BPM Atrial Rate : 000 BPM P-R Int : 000 ms QRS Dur : 082 ms QT Int : 326 ms P-R-T Axes : 000 083 064 degrees QTc Int : 479 ms Atrial fibrillation with rapid ventricular response Nonspecific ST abnormality Abnormal ECG When compared with ECG of 18-JAN-2024 15:38, Atrial fibrillation has replaced Sinus rhythm Vent. rate has increased BY 51 BPM Referred By: Lora Chou Electronically Signed By:ALMA ALCOCER
--- NOTE | ~2024-04-01 | CT_ITS ---
EXAMINATION: CT HEAD WITHOUT CONTRAST CT CERVICAL SPINE WITHOUT CONTRAST CLINICAL INFORMATION: Fall. COMPARISON: CT head and cervical spine from 12/18/2023. TECHNIQUE: Contiguous axial imaging was performed from the skull base to vertex without intravenous administration of contrast. Contiguous axial imaging was performed from the upper chest through the skull base without intravenous administration of contrast. Coronal and sagittal reformats were obtained at the acquisition workstation. This CT examination was performed using dose optimization techniques as appropriate, variously including the following: *Automated exposure control. *Adjustment of mA and/or kV according to patient size (this includes techniques or standardized protocols for targeted exams where dose is matched to indication/reason for exam; i.e. extremities or head). *Use of iterative reconstruction technique. DLP: 1143 mGy-cm FINDINGS: Head: There is no evidence of acute intracranial hemorrhage or edematous territorial infarction. Meneses-white matter differentiation is preserved. There is no abnormal attenuation within the brain parenchyma. The ventricles are normal in morphology and size. No evidence for obstructive hydrocephalus. No abnormal mass effect or midline shift. No extra-axial fluid collections. Calcific atherosclerotic disease of the intracranial internal carotid and vertebral arteries. No hyperdense vessel sign. No acute soft tissue or osseous abnormalities. The mastoid air cells and visualized paranasal sinuses are clear. Moderate degenerative arthropathy of the temporomandibular joints. Bilateral lens extractions. Cervical Spine: The atlantooccipital and atlantoaxial articulations remain well aligned. Moderate degenerative arthropathy of the atlantodental articulation. Straightening of the normal cervical lordosis. Otherwise, there is anatomic alignment of the vertebral bodies and posterior elements. No evidence of acute fracture or subluxation. The vertebral body heights are maintained. Advanced degenerative disc disease from C4-C6. Mild to moderate degenerative disc disease at all additional levels. 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 There appears to be at least moderate spinal canal stenosis from C3-C6. Facet and uncovertebral joint arthropathy leads to osseous encroachment on the neural foramina from C3-C6. Exuberant bridging anterior osteophytosis from C3-T1. There is no prevertebral soft tissue swelling. The thyroid gland and remaining cervical soft tissues are within normal limits. The lung apices demonstrate no abnormalities. CT/CT cervical spine wo IV con IMPRESSION: 1. No evidence of acute intracranial hemorrhage or edematous territorial infarction. 2. No evidence of acute fracture or traumatic subluxation of the cervical spine. 3. 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 There appears to be at least moderate spinal canal stenosis from C3-C6. Electronically signed by: Parveen Bailey DO 04/01/2024 02:32 AM ARACEL[facility]
--- NOTE | 2024-04-01 00:19 | ECG_ITS ---
Test Reason : RYTHEM CHANGE Blood Pressure : / mmHG Vent. Rate : 098 BPM Atrial Rate : 098 BPM P-R Int : 186 ms QRS Dur : 082 ms QT Int : 354 ms P-R-T Axes : 081 084 073 degrees QTc Int : 451 ms Normal sinus rhythm Normal ECG When compared with ECG of 01-APR-2024 00:22, Sinus rhythm has replaced Atrial fibrillation Referred By: Lora Chou Electronically Signed By:ALMA ALCOCER
[2024-04-01 00:26] LABS: MANUAL DIFF FLAG NO
--- NOTE | 2024-04-01 00:27 | MHC.EDTECH ---
Patient BIBA,place on the electronic device monitor,EKG taken per order and signed by provider,vitals taken. Patient has a C-Collar in place at this time,call schmitz in reach
[2024-04-01 00:29] LABS: Basophils Percent Auto 0.3 % (0-2); Eosinophils Absolute Auto 0.3 X10*3/uL (0.0-0.4); Eosinophils Percent Auto 3.6 % (0-4); Hematocrit 41.4 % (42.0-52.0); Hemoglobin 14.6 g/dl (14.0-18.0); Imm Gran Abs Auto 0.02 X10*3/uL (0.00-0.03); Imm Gran Pct Auto 0.3 % (0.0-0.4); Lymphocytes Absolute Auto 2.9 X10*3/uL (1.2-4.9); Lymphocytes Percent Auto 40.9 % (20-40); Mean Corpuscular HGB Conc 35.3 g/dl (31.0-36.0); Mean Corpuscular Hemoglobin 32.4 pg (27.0-33.0); Mean Corpuscular Volume 91.8 fL (80.0-98.0); Mean Platelet Volume 9.5 fL (9.4-12.4); Monocytes Absolute Auto 0.6 X10*3/uL (0.1-1.2); Monocytes Percent Auto 8.2 % (2-11); Neutrophils Absolute Auto 3.4 x10*3/uL (2.0-8.3); Neutrophils Percent Auto 46.7 % (45-73); Platelet Count 142 X10*3/uL (160-400); Red Blood Count 4.51 X10*6/uL (4.60-5.80); Red Cell Distribution Width 13.2 % (11.0-16.0); White Blood Count 7.2 X10*3/uL (4.8-10.8)
[2024-04-01] MEDS: Metoprolol Tartrate 5 MG/5 ML VIAL IVPUSH (00:33)
[2024-04-01 00:47] LABS: Albumin Level 4.2 g/dL (3.5-5.0); Alkaline Phosphatase 86 U/L (39-117); Anion Gap 13 (12-20); Aspartate Amino Transferase 28 U/L (5-37); Bilirubin Total 0.9 mg/dL (0.0-1.0); Blood Urea Nitrogen 19 mg/dL (9-16); Calcium 9.2 mg/dL (8.4-10.2); Carbon Dioxide 24 mmol/L (22-29); Chloride 106 mmol/L (96-108); Creatinine Clr Calc Pharmacy 49.4; Estimated Glomerular Filt Rate > 60; Glucose Random 241 mg/dL (60-115); Potassium 3.8 mmol/L (3.3-5.1); Sodium 139 mmol/L (135-145); Total Protein 7.3 g/dL (6.5-8.0)
--- NOTE | 2024-04-01 00:47 | PC.NURSE ---
motor vehicle parts interpreter at bedside, pt a&ox4, respirations even and unlabored. pt reports fall saturday afternoon when trying to lift an object into the back of his truck. pt reports head strike and thinners but denies loc. pt reports today he felt as if he was trembling and felt palpations. on arrival, pt noted to be afib 140-150bpm, aware. 18G placed in left ac, labs obtained, ekg obtained. pt assisted with urinal at bedside, urine sample obtained. pt in c collar by ems, denies neck pain.
--- NOTE | 2024-04-01 00:49 | PC.NURSE ---
after medication administration, pt noted to be in afib at 125-146bpm, provider aware.
[2024-04-01 00:54] LABS: Appearance Urine Clear; Color Urine Yellow; Glucose Urine UA 250 mg/dL (Negative); Leukocyte Esterase Urine Negative (Negative); Nitrite Urine Negative (Negative); PH 6.5 (5.0-9.0); Specific Gravity - Urine <= 1.005 (1.005-1.025); Urine Blood Negative (Negative); Urine Ketones Negative (Negative); Urine Protein Negative (Neg-Trace)
[2024-04-01 00:56] LABS: Troponin-I High Sensitivity < 2.7 ng/L (<3.5-35.0)
[2024-04-01 00:58] LABS: Alanine Aminotransferase 27 U/L (0-40)
[2024-04-01 00:59] LABS: Bacteria Urine None Seen (None Seen); Hyaline Casts Urine 0-2 /LPF (0-2); RBC Urine 0-2 /HPF (0-2); Squamous Epithelial Cell Urine 0-2 /HPF (0-2); WBC Urine 0-5 /HPF (0-5)
--- NOTE | 2024-04-01 01:05 | MHC.EDTECH ---
EKG taken per order and signed by provider
--- NOTE | 2024-04-01 01:08 | PC.NURSE ---
pt noted to be normal sinus 94-98bp, repeat ekg completed, provider aware.
--- NOTE | 2024-04-01 01:56 | ED.GENADULT ---
HPI - General Adult General Chief complaint: Fall Stated complaint: FALL Time Seen by Provider: 04/01/24 00:31 Source: patient and EMS Mode of arrival: EMS Limitations: no limitations History of Present Illness ED Provider: Dr. Lora Chou HPI narrative: patient comes to the emergency room complaining of palpitations. Patient states that 2 days ago, patient was standing on top of his pickup truck , patient fell backwards landing on his back hitting the back of his head. Patient states that he had mild discomfort in his shoulders, patient was able to get up, knows that he bumped his head on the ground, patient is on Coumadin. Patient states that he was not having any neck pain or headache, therefore decided not to come to the emergency room. However, today, patient states that when he was eating dinner he started having sudden onset of palpitations. No chest pain or shortness of breath. EMS states that when they picked him up, the patient's heart rate was between 140-150. On arrival to the ED, heart rate in the 150s to 160s. Patient states that he did not take his metoprolol for the last couple of days, states that he ran out of refills. Otherwise, patient states that he is compliant with his medications. Related Data Home Medications ?Medication ?Instructions ?Recorded ?Confirmed atorvastatin 80 mg tablet 80 mg PO DAILY 04/27/20 03/05/24 blood sugar diagnostic #10 ea 04/27/20 03/05/24 blood-glucose meter (FreeStyle #1 ea 06/19/21 03/05/24 Lite Meter kit) pen needle, diabetic 32 gauge x #50 ea 06/19/21 03/05/24/32 (BD Keira 2nd Gen Pen Needle) lisinopril 5 mg tablet 5 mg PO DAILY 07/05/22 03/05/24 metoprolol succinate 25 mg 25 mg PO BID 07/05/22 03/05/24 tablet,extended release 24 hr glipizide 5 mg tablet 10 mg PO BID 11/24/22 03/05/24 multivitamin 1 tab PO DAILY 11/24/22 03/05/24 omega 4-esm-hqm-fish oil 300 1 cap PO DAILY 11/24/22 03/05/24 mg-1,000 mg capsule,delayed release (Fish Oil) tamsulosin 0.4 mg capsule 0.4 mg PO Q12H 11/24/22 03/05/24 warfarin 5 mg tablet 5 mg PO .COMPLEX 02/21/23 03/05/24 tramadol 50 mg tablet 50 mg PO TID PRN 11/22/23 03/05/24 dulaglutide 1.5 mg/0.5 mL mg subcut 02/06/24 03/05/24 subcutaneous pen injector (Trulicity) Previous Rx's ?Medication ?Instructions ?Recorded docusate sodium 100 mg capsule 100 mg PO BID #20 caps 01/23/23 (Colace) polyethylene glycol 3350 17 17 g PO BID #238 grams 01/23/23 gram/dose oral powder (Miralax) sennosides 8.6 mg tablet (senna) 8.6 mg PO BEDTIME #14 tabs 01/23/23 cyclobenzaprine 10 mg tablet 10 mg PO BEDTIME #7 tabs 10/23/23 lidocaine 5 % topical patch 1 patch topical DAILY #15 ea 10/23/23 cyclobenzaprine 10 mg tablet 10 mg PO TID PRN muscle spasm #15 01/18/24 tabs lidocaine 5 % topical patch 1 patch topical DAILY #15 ea 01/18/24 (Lidoderm) metoprolol tartrate 25 mg tablet 25 mg PO BID #90 tabs 04/01/24 Allergies Allergy/AdvReac Type Severity Reaction Status Date / Time oxycodone [From Percocet] Allergy Intermediate Headache Verified 04/01/24 00:28 ibuprofen [From Motrin] Allergy Mild SWELLING Verified 04/01/24 00:28 SALMON AdvReac Mild VOMITING Uncoded 04/01/24 00:28 Review of Systems Review of Systems: Constitutional : No Weight loss, No Fever, No Chills, No Night Sweats, No Fatigue, No Malaise ENT/Mouth : No Hearing loss, No Ear Pain, No Nasal Congestion, No Sinus Pain, No Hoarseness, No sore throat, No Rhinorrhea, No Swallowing Difficulty Eyes: No Eye Pain, No Swelling, No Redness, No Foreign Body, No Discharge, No Vision Changes Cardiovascular : No Chest Pain, No SOB, No Dyspnea on Exertion, No Orthopnea, No Edema, Complaining of palpitations Respiratory : No Cough, No Sputum, No Wheezing, No Smoke Exposure, No Dyspnea Gastrointestinal : No Nausea, No Vomiting, No Diarrhea, No Constipation, No abdominal Pain, No Hematochezia, No Melena Genitourinary : no irregular bleeding, No Dysuria, No Urinary Frequency, No Hematuria, No Urinary Incontinence, No Urgency, No Flank Pain, No Urinary Flow Changes, No Hesitancy Musculoskeletal : complaining of mild bilateral shoulder pain that started after he fell on the floor, No Myalgias, No Joint Swelling Skin : No Skin Lesions, No rash Neuro : No Weakness, No Numbness, No Paresthesias, No Loss of Consciousness, No Dizziness, No Headache Psych : No Anxiety/Panic, No Depression, No SI/HI/AH/VH, No Social Issues, Heme/Lymph: No Bruising, No Bleeding,No Lymphadenopathy Endocrine : No Polyuria, No Polydipsia, No Temperature Intolerance [facility] Past Medical History Medical History Heart attack High cholesterol Diabetes Hypertension Diabetes Paroxysmal A-fib Current use of anticoagulant therapy Surgical History History of laparoscopic cholecystectomy (11/27/22) Social History Social History Alcohol intake: never Patient Tobacco Use Status: Never used Tobacco Smoked in Last 30 Days: No Use of substances other than those prescribed or required for medical reasons: No Advance Directives: No Do you have a plan to hurt others: No Plan service: No 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 Oriented X3. No acute distress. Eyes: Pupils equal, round and reactive to light. ENT: Pharynx normal. Neck: Normal inspection. Neck supple. No lymph nodes noted. No crepitus CVS: irregularly irregular, heart rate in the 140s to 160s, Pulses normal. Normal S1 and S2 Respiratory: No respiratory distress. Breath sounds normal. No Wheezing. No rales Abdomen: Soft and nontender. No rigidity. No distention. Skin: Skin warm and dry. Normal skin color. Normal skin turgor. Extremities: No lower extremity edema. No Lacerations. No Rash Neuro: Oriented X 3. No motor deficit. No sensory deficit. Moving all extremities. No slurred speech. CN 2 through 12 grossly intact Psych: calm, cooperative, normal affect Medications Administered Discontinued Medications Generic Name Dose Route Start Last Admin Trade Name Freq PRN Reason Stop Dose Admin Metoprolol Tartrate 5 mg 04/01/24 00:31 04/01/24 00:33 Metoprolol Tartrate 5 Mg/5 Ml Vial IVPUSH 04/01/24 00:32 5 mg ONCE ONE Administration Protocol Metoprolol Tartrate 12.5 mg 04/01/24 01:56 04/01/24 02:25 Metoprolol Tartrate 12.5 Mg Halftab PO 04/01/24 01:57 12.5 mg ONCE ONE Administration Protocol Medical Decision Making Medical Decision Making MDM Narrative: patient known to take metoprolol at home, has been out of medications for couple of days. Patient was given 5 mg IV push of metoprolol. Patient's blood pressure 128/81, heart rate 154 my interpretation of EKG: Atrial fibrillation with RVR, heart rate 130, no ST segment depression or elevation, no T-wave inversion, QTC 479 patient converted back to sinus rhythm after a single dose of 5 mg IV metoprolol. Patient denies chest pain or shortness of breath, patient states that he feels back to normal. Patient was given an additional dose of 12.5 mg of metoprolol. patient will resume his p.o. medications at home tomorrow. 25 mg b.i.d.. My interpretation of EKG 2: Sinus rhythm, heart rate 98, no ST segment depression or elevation, no T-wave inversion, QTC 451 my interpretation of labs, normal hematology and chemistry, normal troponin, INR therapeutic at 2.[address] of head CT: No acute intracranial abnormality. CT scan of the neck no obvious acute abnormality, chronic degenerative changes I reviewed patient's record, patient's PCP sent metoprolol 25 mg b.i.d. 180 tablets in January of 2024. Patient should have enough medications until April. However, patient states that he only received medication for 1 month and no refills were given to him. Patient requesting that we print out his prescription so he can take it directly to his pharmacy, printed copy given to the patient - patient's blood pressure 115/63, heart rate 98, respirations 15, oxygen saturation 97% on room air. - patient's head CT and cervical spine did not show any acute abnormality. Urinalysis negative for UTI Differential Diagnosis Differential Diagnoses: The differential diagnosis associated with the presentation includes ( atrial fibrillation with a RVR, atrial flutter, intracranial bleed, contusion, concussion, cervical spine injury) Admission/Observation Consideration of admission/observation: Escalation of care including admission/observation considered ( given patient's initial presentation, admission/observation was considered) Lab Data MDM Lab Attestation statement: I reviewed the patient's lab results. 04/01/24 00:22 04/01/24 00:22 Labs: Lab Results 04/01/24 04/01/24 Range/Units 00:22 00:35 WBC 7.2 (4.8-10.8) X10*3/uL RBC 4.51 L (4.60-5.80) X10*6/uL Hgb 14.6 (14.0-18.0) g/dl Hct 41.4 L (42.0-52.0) % MCV 91.8 (80.0-98.0) fL MCH 32.4 (27.0-33.0) pg MCHC 35.3 (31.0-36.0) g/dl RDW 13.2 (11.0-16.0) % Plt Count 142 L (160-400) X10*3/uL MPV 9.5 (9.4-12.4) fL Immature Gran % (Auto) 0.3 (0.0-0.4) % Neut % (Auto) 46.7 (45-73) % Lymph % (Auto) 40.9 H (20-40) % Weber % (Auto) 8.2 (2-11) % Eos % (Auto) 3.6 (0-4) % Baso % (Auto) 0.3 (0-2) % Lymph # (Auto) 2.9 (1.2-4.9) X10*3/uL Weber # (Auto) 0.6 (0.1-1.2) X10*3/uL Eos # (Auto) 0.3 (0.0-0.4) X10*3/uL Baso # (Auto) 0.0 (0.0-0.2) X10*3/uL Abs Immat Gran (auto) 0.02 (0.00-0.03) X10*3/uL Absolute Neuts (auto) 3.4 (2.0-8.3) x10*3/uL Absolute Nucleated RBC 0.000 (0.0-0.012) X10*3/uL Nucleated RBC % (auto) 0.0 (0.0-0.2) /100WBC Sodium 139 (135-145) mmol/L Potassium 3.8 (3.3-5.1) mmol/L Chloride 106 (96-108) mmol/L Carbon Dioxide 24 (22-29) mmol/L Anion Gap 13 (12-20) BUN 19 H (9-16) mg/dL Creatinine 1.17 (0.5-1.4) mg/dL Estim Creat Clear Calc 49.4 Estimated GFR > 60 Random Glucose 241 H (60-115) mg/dL Calcium 9.2 (8.4-10.2) mg/dL Total Bilirubin 0.9 (0.0-1.0) mg/dL AST 28 (5-37) U/L ALT 27 (0-40) U/L Alkaline Phosphatase 86 (39-117) U/L Troponin I High Sens < 2.7 (<3.5-35.0) ng/L B-Natriuretic Peptide 29 (<100) pg/mL Total Protein 7.3 (6.5-8.0) g/dL Albumin 4.2 (3.5-5.0) g/dL Urine Color Yellow Urine Appearance Clear Urine pH 6.5 (5.0-9.0) Ur Specific [place] <= 1.005 (1.005-1.025) Urine Protein Negative (Neg-Trace) mg/dL Urine Glucose (UA) 250 H (Negative) mg/dL Urine Ketones Negative (Negative) mg/dL Urine Blood Negative (Negative) Urine Nitrite Negative (Negative) Ur Leukocyte Esterase Negative (Negative) Urine RBC 0-2 (0-2) /HPF Urine WBC 0-5 (0-5) /HPF Ur Squamous Epith Cells 0-2 (0-2) /HPF Urine Bacteria None Seen (None Seen) Hyaline Casts 0-2 (0-2) /LPF Independent Interpretation I performed an independent interpretation of an: CT Scan Independent Historian Clinical information obtained from an independent historian. History obtained from or confirmed by: EMS Critical Care Time Critical Care Time Critical Care Time: Yes Total Critical Care Time: 60 Attestation: I have personally provided critical care time. Time includes review of lab data, radiology results, discussion with consultants, and monitoring for potential decompensation. Intervention performed as documented. Discharge Plan Discharge Clinical Impression: Atrial fibrillation with RVR, Closed head injury Patient Disposition: Home, Self-Care Instructions: A-fib (Atrial Fibrillation) (ED), Head Injury (ED) Additional Instructions: Please follow-up with your primary care physician tomorrow. If you have any worsening or new symptoms, please return to the emergency room or call 911 Prescriptions: New metoprolol tartrate 25 mg tablet 25 mg PO BID Qty: 90 0RF No Action tamsulosin 0.4 mg capsule 0.4 mg PO Q12H glipizide 5 mg tablet 10 mg PO BID multivitamin Tablet 1 tab PO DAILY omega 6-qjb-xia-fish oil [Fish Oil] 300-1,000 mg Capsule,Delayed Release(Dr/Ec) 1 cap PO DAILY cyclobenzaprine 10 mg tablet 10 mg PO TID PRN (Reason: muscle spasm) Qty: 15 0RF lidocaine [Lidoderm] 5 % adhesive patch,medicated 1 patch topical DAILY Qty: 15 0RF Rx Instructions: leave on most painful area for up to 12 hrs docusate sodium [Colace] 100 mg capsule 100 mg PO BID Qty: 20 0RF polyethylene glycol 3350 [Miralax] 17 gram/dose powder 17 g PO BID Qty: 238 0RF sennosides [senna] 8.6 mg tablet 8.6 mg PO BEDTIME Qty: 14 0RF cyclobenzaprine 10 mg tablet 10 mg PO BEDTIME Qty: 7 0RF lidocaine 5 % adhesive patch,medicated 1 patch topical DAILY Qty: 15 0RF Rx Instructions: leave on most painful area for up to 12 hrs atorvastatin 80 mg tablet 80 mg PO DAILY (DME) blood sugar diagnostic Strip See Rx Instructions Not Applicable BID Qty: 10 Rx Instructions: As directed (DME) pen needle, diabetic [BD Keira 2nd Gen Pen Needle] 32 gauge x 5/32 needle See Rx Instructions .ROUTE .MEDSUPPLY Qty: 50 Rx Instructions: As directed (DME) blood-glucose meter [FreeStyle Lite Meter] Kit See Rx Instructions .ROUTE TID Qty: 1 Rx Instructions: As directed lisinopril 5 mg tablet 5 mg PO DAILY metoprolol succinate 25 mg tablet extended release 24 hr 25 mg PO BID warfarin 5 mg tablet 5 mg PO .COMPLEX Protocol: Dose Management Condition: Saturday (Week One) Dose/Route: 2.5 mg Instruction: 0.5 x 5 mg tablets Condition: Saturday Dose/Route: 5 mg Instruction: 1 x 5 mg tablet Condition: Saturday Dose/Route: 2.5 mg Instruction: 0.5 x 5 mg tablets Condition: Saturday Dose/Route: 2.5 mg Instruction: 0.5 x 5 mg tablets Condition: Dose/Route: 2.5 mg Instruction: 0.5 x 5 mg tablets Condition: Saturday Dose/Route: 2.5 mg Instruction: 0.5 x 5 mg tablets Condition: Saturday Dose/Route: 2.5 mg Instruction: 0.5 x 5 mg tablets Condition: Saturday (Week Two) Dose/Route: 2.5 mg Instruction: 0.5 x 5 mg tablets Condition: Saturday Dose/Route: 5 mg Instruction: 1 x 5 mg tablet Condition: Saturday Dose/Route: 2.5 mg Instruction: 0.5 x 5 mg tablets Condition: Saturday Dose/Route: 2.5 mg Instruction: 0.5 x 5 mg tablets Condition: Dose/Route: 2.5 mg Instruction: 0.5 x 5 mg tablets Condition: Saturday Dose/Route: 2.5 mg Instruction: 0.5 x 5 mg tablets Condition: Saturday Dose/Route: 2.5 mg Instruction: 0.5 x 5 mg tablets Protocol Text: Adjustment Start Date: 03/05/24 INR Value: 2.7 INR Date: 03/05/24 Recheck Date: 04/02/24 Rx Instructions: 5 mg orally 5mg x 1 day/ 2.5mg x 6 days; tramadol 50 mg tablet 50 mg PO TID PRN Trulicity 1.5 mg/0.5 mL pen injector subcut Print Language: Polish
[2024-04-01] MEDS: Metoprolol Tartrate 12.5 MG HALFTAB PO (02:25)
[2024-04-01 02:32] LABS: B Type Natriuretic Peptide 29 pg/mL (<100)
--- NOTE | 2024-04-01 02:33 | PC.NURSE ---
pt medicated per mar, tolerated well with water.
== END 2024-04-01 03:05 | disposition home or self-care (01) ==
PROVIDERS: Emergency Provider Emergency Medicine; PCP Internal Medicine
DX: S09.90XA Unspecified injury of head, initial encounter (principal); R51.9 Headache, unspecified; M25.512 Pain in left shoulder; M25.511 Pain in right shoulder; M54.2 Cervicalgia; I48.20 Chronic atrial fibrillation, unspecified; W17.89XA Other fall from one level to another, initial encounter; Y93.89 Activity, other specified; Y92.812 Truck as the place of occurrence of the external cause; Y99.8 Other external cause status; Z79.01 Long term (current) use of anticoagulants; Z79.899 Other long term (current) drug therapy
CPT/HCPCS: 36415; 70450; 72125; 80053; 81001; 83880; 84484; 85025; 93005; 99284; 99285

== ENCOUNTER → 2024-04-01 00:19 | Outpatient (BNV) | payer OTHER, SELFPAY | PROVIDERS: Emergency Provider Emergency Medicine; PCP Internal Medicine; Visit Provider Internal Medicine | DX: I48.91 Unspecified atrial fibrillation (principal); R94.31 Abnormal electrocardiogram [ECG] [EKG] | CPT/HCPCS: 93010 ==

== ENCOUNTER 2024-04-03 10:19 | Outpatient (AMB) | payer OTHER, SELFPAY ==
[2024-04-03 10:25] LABS: Prothrombin Time Whole Bld POC 23.8 sec (11.1-13.5)
--- NOTE | 2024-04-03 10:28 | MHC.OFFVISCO ---
Intake Intake Visit Reasons: Anticoagulation Allergies oxycodone [From Percocet] Allergy (Intermediate, Verified 04/03/24 10:20) Headache ibuprofen [From Motrin] Allergy (Mild, Verified 04/03/24 10:20) SWELLING SALMON Adverse Reaction (Mild, Uncoded 04/01/24 00:28) VOMITING Medication List - Last Reconciled 04/03/24 by Essence Lay RN atorvastatin 80 mg PO DAILY blood sugar diagnostic As directed blood-glucose meter (FreeStyle Lite Meter kit) As directed cyclobenzaprine 10 mg PO TID PRN cyclobenzaprine 10 mg PO BEDTIME docusate sodium (Colace) 100 mg PO BID dulaglutide (Trulicity) mg subcut glipizide 10 mg PO BID lidocaine 5% (Lidoderm) 1 patch topical DAILY lidocaine 5% 1 patch topical DAILY lisinopril 5 mg PO DAILY metoprolol succinate ER 25 mg PO BID metoprolol tartrate 25 mg PO BID multivitamin 1 tab PO DAILY omega 7-apc-cfl-fish oil 300-1,000 mg (Fish Oil) 1 cap PO DAILY pen needle, diabetic (BD Keira 2nd Gen Pen Needle) As directed polyethylene glycol 3350 (Miralax) 17 grams PO BID sennosides (senna) 8.6 mg PO BEDTIME tamsulosin 0.4 mg PO Q12H tramadol 50 mg PO TID PRN warfarin See Protocol 5 mg orally 5mg x 1 day/ 2.5mg x 6 days; Nursing Note NO CP,SOB,DIET/MED CHANGES,FALLS OR SX OF BLEEDING. CONTINUE PRESENT DOSE AND FOLLOW-UP IN 4 WEEKS GOOD UNDERSTANDING OF DOSING INSTR. Anti-Coag Initial Assessment Social Hx Patient Tobacco Use Status: Never used Tobacco alcohol intake: never Alcohol intake frequency: former alcohol drinker Coding Level of Care Code Est Patient Level 1 Diagnoses Current use of anticoagulant therapy Z79.01 Assessment & Plan Assessment & Plan (1) Current use of anticoagulant therapy: Code(s): Z79.01 - longterm (current) use of anticoagulants Category: Medical
== END 2024-04-03 10:29 | disposition home or self-care (01) ==
LOC: HO.ACS 10:19
PROVIDERS: PCP Internal Medicine; Visit Provider Internal Medicine
DX: Z79.01 Long term (current) use of anticoagulants (principal)

== ENCOUNTER → 2024-04-03 10:19 | Outpatient (BNVA) | payer OTHER, SELFPAY | PROVIDERS: PCP Internal Medicine; Visit Provider Internal Medicine | DX: I48.0 Paroxysmal atrial fibrillation (principal); Z79.01 Long term (current) use of anticoagulants; Z51.81 Encounter for therapeutic drug level monitoring | CPT/HCPCS: 85610; 99211 ==

== ENCOUNTER 2024-05-01 09:43 | Outpatient (AMB) | payer OTHER, SELFPAY ==
--- NOTE | 2024-05-01 09:49 | MHC.OFFVISCO ---
Intake Intake Visit Reasons: Anticoagulation Allergies oxycodone [From Percocet] Allergy (Intermediate, Verified 05/01/24 09:43) Headache ibuprofen [From Motrin] Allergy (Mild, Verified 05/01/24 09:43) SWELLING SALMON Adverse Reaction (Mild, Uncoded 05/01/24 09:43) VOMITING Medication List - Last Reconciled 05/01/24 by Sara Atkinson RN atorvastatin 80 mg PO DAILY blood sugar diagnostic As directed blood-glucose meter (FreeStyle Lite Meter kit) As directed cyclobenzaprine 10 mg PO TID PRN cyclobenzaprine 10 mg PO BEDTIME docusate sodium (Colace) 100 mg PO BID dulaglutide (Trulicity) mg subcut glipizide 10 mg PO BID lidocaine 5% (Lidoderm) 1 patch topical DAILY lidocaine 5% 1 patch topical DAILY lisinopril 5 mg PO DAILY metoprolol succinate ER 25 mg PO BID metoprolol tartrate 25 mg PO BID multivitamin 1 tab PO DAILY omega 9-pkz-vdd-fish oil 300-1,000 mg (Fish Oil) 1 cap PO DAILY pen needle, diabetic (BD Keira 2nd Gen Pen Needle) As directed polyethylene glycol 3350 (Miralax) 17 grams PO BID sennosides (senna) 8.6 mg PO BEDTIME tamsulosin 0.4 mg PO Q12H tramadol 50 mg PO TID PRN warfarin See Protocol 5 mg orally 5mg x 1 day/ 2.5mg x 6 days; Nursing Note INR: 2.2 in therapeutic range of 2-3 Medications and supplements reviewed No changes in health, diet, medications, or supplements, Denies any signs and symptoms of bleeding or bruising or clotting. Bleeding, bruising, clotting discussed Nutritional guidance given Dose: 2.5mg X 6 days and 5mg X 1 day F/U INR: 4 weeks Patient verbalizes understanding of instructions given Anti-Coag Initial Assessment Social Hx Patient Tobacco Use Status: Never used Tobacco alcohol intake: never Alcohol intake frequency: former alcohol drinker Coding Level of Care Code Est Patient Level 1 Diagnoses Current use of anticoagulant therapy Z79.01 Results AMB INR Fingerstick AMB INR Fingerstick 2.2 Last Edit by Sara Atkinson RN on 05/01/24 09:49 interface delay Assessment & Plan Assessment & Plan (1) Current use of anticoagulant therapy: Code(s): 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
[2024-05-01 09:57] LABS: Prothrombin Time Whole Bld POC 26.2 sec (11.1-13.5); ~PT, ~INR - Anti Coag Clinic 2.2 (0.9-1.1)
== END 2024-05-01 09:53 | disposition home or self-care (01) ==
LOC: HO.ACS 09:43
PROVIDERS: PCP Internal Medicine; Visit Provider Internal Medicine
DX: Z79.01 Long term (current) use of anticoagulants (principal)

== ENCOUNTER → 2024-05-01 09:43 | Outpatient (BNVA) | payer OTHER, SELFPAY | PROVIDERS: PCP Internal Medicine; Visit Provider Internal Medicine | DX: I48.0 Paroxysmal atrial fibrillation (principal); Z79.01 Long term (current) use of anticoagulants; Z51.81 Encounter for therapeutic drug level monitoring | CPT/HCPCS: 85610; 99211 ==

== ENCOUNTER 2024-06-05 09:29 | Outpatient (AMB) | payer OTHER, SELFPAY ==
[2024-06-05 09:39] LABS: Prothrombin Time Whole Bld POC 26.8 sec (11.1-13.5); ~PT, ~INR - Anti Coag Clinic 2.2 (0.9-1.1)
--- NOTE | 2024-06-05 09:40 | MHC.OFFVISCO ---
Intake Intake Visit Reasons: Anticoagulation Allergies oxycodone [From Percocet] Allergy (Intermediate, Verified 06/05/24 09:33) Headache ibuprofen [From Motrin] Allergy (Mild, Verified 06/05/24 09:33) SWELLING SALMON Adverse Reaction (Mild, Uncoded 06/05/24 09:33) VOMITING Medication List - Last Reconciled 06/05/24 by Soraya Roberts RN atorvastatin 80 mg PO DAILY blood sugar diagnostic As directed blood-glucose meter (FreeStyle Lite Meter kit) As directed cyclobenzaprine 10 mg PO TID PRN cyclobenzaprine 10 mg PO BEDTIME docusate sodium (Colace) 100 mg PO BID dulaglutide (Trulicity) mg subcut glipizide 10 mg PO BID lidocaine 5% (Lidoderm) 1 patch topical DAILY lidocaine 5% 1 patch topical DAILY lisinopril 5 mg PO DAILY metoprolol succinate ER 25 mg PO BID metoprolol tartrate 25 mg PO BID multivitamin 1 tab PO DAILY omega 7-cws-squ-fish oil 300-1,000 mg (Fish Oil) 1 cap PO DAILY pen needle, diabetic (BD Keira 2nd Gen Pen Needle) As directed polyethylene glycol 3350 (Miralax) 17 grams PO BID sennosides (senna) 8.6 mg PO BEDTIME tamsulosin 0.4 mg PO Q12H tramadol 50 mg PO TID PRN warfarin See Protocol 5 mg orally 5mg x 1 day/ 2.5mg x 6 days; Nursing Note INR: 2.2 in therapeutic range Medications and supplements reviewed No changes in health, diet, medications, or supplements, Denies any signs and symptoms of bleeding or bruising or clotting. 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
--- OUTSIDE RECORDS SUMMARY | 2024-06-05 10:01 | XMS_ITS | Data Portability ---
Author Organization [employer] Address [address] [place] [id number] Care Team Providers Care Shipping Manager Name Role Phone ADITI ROSEN Primary Care Provider [phone] HIM [facility] OTHER Assessment Encounter Date Assessment Date Assessment LastModified by Organization Details LastModified Time 01/21/2024 01/21/2024 Mr. Paulie De Los Santos is a 78yoM w/ a chronic lower back pain who is seen today for a wellness check. Mr. De Los Santos and his family report that he was recently started on flexeril to help control his lower back pain. He reports significant improvement in his pain but yesterday drove a car and then learned that he was not supposed to drive while taking flexeril. He does state that it makes him sleepy after taking it. His family was concerned that he had been driving while taking the flexeril and requested a well check today. He denies any current concerns and feels at his baseline. VSS. Medic on site reports no acute distress. Encouraged safe medication use. och1 Not available 01/21/2024 14:53:20 Plan of Treatment Reminders Order Date Submit Date Provider Last Modified By Organization Details Last Modified Time Details Appointments None record ed. Lab None record ed. Referral None record ed. Procedures None record ed. Surgeries None record ed. Imaging None record ed. Medication Orders None record ed. Patient TargetsNo targets recorded. Patient InstructionsNo instructions recorded. Reason for Referral None Reported. Medical Equipment None Reported. Medications Name Sig Start Date Stop Date Status Note LastModified by Organization Details LastModified Time cyclobenzapr ine 10 mg tablet TAKE 1 TABLET BY MOUTH 3 TIMES A DAY NEEDED FOR MUSCLE SPASM active Not Available Not Available No t Available atorvastatin 80 mg tablet TAKE 1 TABLET BY MOUTH DAILY active Not Available Not Available Not Available cefuroxime axetil 250 mg tablet TAKE 1 TABLET BY MOUTH TWICE DAILY FOR 7 DAYS active Not Available Not Available No t Available senna 8.6 mg tablet TAKE 1 TABLET BY MOUTH AT BEDTIME active Not Available Not Available No t Available tramadol 50 mg tablet TAKE 1 TABLET BY MOUTH EVERY 8 HOURS NEEDED FOR PAIN active Not Available Not Available No t Available tamsulosin 0.4 mg capsule TAKE 1 CAPSULE BY MOUTH EVERY 12 HOURS. TAKE 30 MINUTES AFTER SAME MEAL EVERY DAY active Not Available Not Available No t Available lidocaine 5 % topical patch APPLY 1 PATCH TOPICALLY DAILY LEAVE ON MOST PAINFUL AREA FOR UP TO 12 HRS active Not Available Not Available No t Available warfarin 5 mg tablet active Not Available Not Available No t Available docusate sodium 100 mg capsule TAKE ONE CAPSULE BY MOUTH TWICE DAILY active Not Available Not Available No t Available lisinopril 5 mg tablet TAKE 1 TABLET BY MOUTH DAILY active Not Available Not Available Not Available metoprolol succinate ER 25 mg tablet,exten ded release 24 hr TAKE 1 TABLET BY MOUTH TWICE DAILY active Not Available Not Available No t Available polyethylene glycol 3350 17 gram/dose oral powder MIX 17 GRAMS IN LIQUID AND DRINK BY MOUTH TWICE DAILY active Not Available Not Available No t Available glipizide 5 mg tablet TAKE 2 TABLETS BY MOUTH TWICE DAILY active Not Available Not Available No t Available FreeStyle Lite Strips USE TO TEST BLOOD SUGAR TWICE DAILY active Not Available Not Available Not Available Refresh Optive 0.5 %-0.9 % eye drops INSTILL 1 DROP INTO BOTH EYES NEEDED active Not Available Not Available No t Available Trulicity 1.5 mg/0.5 mL subcutaneous pen injector ADMINISTER 1.5 MG UNDER THE SKIN EVERY 7 DAYS DIRECTED active Not Available Not Available No t Available Trulicity 3 mg/0.5 mL subcutaneous pen injector ADMINISTER 3 MG UNDER THE SKIN EVERY 7 DAYS active Not Available Not Available No t Available Vitals Date Recorded Oxygen saturation Oxygen saturation in Arterial blood by Pulse oximetry Respiratory rate Body temperature Heart rate Systolic blood pressure Diastolic blood pressure Provider Name and Address Organization Details Last Updated DateTime 4 98 % 98 % 18 /min 97.6 [degF] 76 /min 112 mm[Hg] 67 mm[Hg] Not Available [employer] - production 4 14:08:06 Social History None recorded. Functional Status None recorded. Mental Status None recorded. Family History Nothing Reported. Medical History No medical history recorded. Past Encounters Encounter ID Performer Location Encounter Start Date Encounter Closed Date Diagnosis/Indication Diagnosis SNOMED-CT Code Diagnosis ICD10 Code Diagnosis Note [id number] Adelita Hu MD [address] [phone] 01/21/2024 13:54:07 01/21/2024 23:43:57 Fatigue 31901974 R53.83 Health Concerns Section Related Observation LastModified by Organization Detai ls LastModified Time None Recorded Concern Status LastModified by Organization Details LastModified Time None Recorded Advance Directives Directive None Recorded Payers Encounter Date Sequence Insurance Name Policy Number Policy Parks Covered Member ID Parks Member ID Guarantor Name 01/21/2024 1 [facility] - DOS ON OR AFTER 2022 - DUAL ELIGIBLE - RETIREMENT OPTIONS AND ONE CARE (MEDICARE REPLACEMENT/AD VANTAGE - HMO) Paulie De Los Santos [id number] Paulie De Los Santos Notes Date Note Type Note Provider Name and Address Organization Details Recorded Time 01/21/2024 text/html [facility] Nurse Triage Notes (Brianna Guerrero): Reason For Request: Son calling in, dad is lethargic. Son is concerned, pt is not his normal self Chief Complaints: Weakness/Lethargy PMH: Heart Disease Other Allergies: IBU, percocet Comments: Son calling in to place a referral, identified via name and . PMHx- son unsure, but per HLD and is on coumadin. ALLERGIESD- IBU and percocet. Patient took Flexeril and became lethargic, however, during intake, he woke up, is awake, alert, conversating, per son was fixing his sox, he went to the bathroom and is now sitting down to eat something. Son would still like member evaluated for a wellness check. .................. .................. .................. .................. .................. .................. .................. ............... Tool Crib Attendant Note From Rachael Solano: Sent to a call for a pt complaining of lethargy. SC[facility] arrives on scene, pt is alert and oriented, airway is patent. Pt's primary language is Serbian. VNA serves as marine reporter during visit. Pt states he is being treated for chronic left lower back pain with Flexeril by PCP x 3 days. Pt states he was concerned because he saw spots while driving yesterday. Pt also complains of lethargy while taking Flexeril. Pt is advised he should not drive while taking Flexeril. Pt is advised that dizziness and drowsiness is a side effect of Flexeril. Pt states he feels better today, than yesterday. Pt states he understands and has no other concerns. BP:112/67, P:76, RR:18, SpO2:98% RA, T:97.6; Head: unremarkable; Lung sounds: clear bilaterally; Abdomen: soft, non-tender, no distention; Back: unremarkable; Extremities: unremarkable; Skin: pink, warm, dry; [facility] consulted and no orders are given. Red flags discussed. Pt has no further questions. .................. .................. .................. .................. .................. .................. .................. ............... Disposition: Manda Hu MD [address], [place], [address], [email or web address] 01/21/2024 20:57:22
--- OUTSIDE RECORDS SUMMARY | 2024-06-05 10:01 | XMS_ITS | Encounter Summary ---
Author Organization [facility] Address [address] [place] [address] Care Team Providers Care Armature Balancer Name Role Phone Stef Valencia MD Primary Care Provider [phone] Reason for Visit * Reason Comments home Health Cert Encounter Details Date Type Department Care Team (Late st Contact Info) Description 05/12/2024 Billing Patient Not Present Adult Medicine [address] [phone] Stef Valencia MD [address] [place] [phone] Type 2 diabetes mellitus without complication, unspecified whether map maker insulin use (CMS/HCC) (Primary Dx); Paroxysmal atrial fibrillation (CMS/HCC); Essential (primary) hypertension; Hyperlipidemia, unspecified hyperlipidemia type Social History Tobacco Use Types Packs/Day Years Used Date Smoking Tobacco: Never Smokeless Tobacco: Never Alcohol Use Standard Drinks/Week Comments Never 0 (1 standard drink = 0.6 oz pur e alcohol) Sex and Gender Information Value Date Recorded Sex Assigned at Not on file Legal Sex Male 4:16 PM EST Gender Identity Not on file Sexual Orientation Not on file documented as of this encounter Progress Notes * Elba Amaya LPN - 05/12/2024 1:46 PM EST Start of Care Date: 11/29/22 Date of certification period: 01/23/24-03/22/24 Date of service = signature date 03/24/24 Hospice patient: No Home Care Agency: [facility] documented in this encounter Plan of Treatment Upcoming Encounters Date Type Department Care Team (Late st Contact Info) Description 09/03/2024 11:30 AM EDT Office Visit Adult Medicine [address] [phone] Stef Valencia MD [address] [place] [phone] documented as of this encounter Visit Diagnoses Diagnosis Type 2 diabetes mellitus without complication, unspecified whether map maker insulin use (CMS/[facility])- Primary Paroxysmal atrial fibrillation (CMS/[facility]) Atrial fibrillation Essential (primary) hypertension Unspecified essential hypertension Hyperlipidemia, unspecified hyperlipidemia type documented in this encounter Care Teams Armature Balancer Relationship Specialty Start Date End Date Stef Valencia MD [address] [place] [phone] PCP - General Internal Medicine 02/18/24 documented as of this encounter
--- OUTSIDE RECORDS SUMMARY | 2024-06-05 10:01 | XMS_ITS | Encounter Summary ---
Author Organization [facility] Address [address] [place] [address] Care Team Providers Care Vp Integrity Name Role Phone Stef Valencia MD Primary Care Provider [phone] Reason for Visit * Reason Onset Date Comments Fitting for DME 05/21/2024 Encounter Details Date Type Department Care Team (Late st Contact Info) Description 05/21/2024 Telephone Adult [address] [phone] Ivana Means LPN Fitting for DME Social History Tobacco Use Types Packs/Day Years [...] as of this encounter Progress Notes * Ivana Means LPN - 05/22/2024 9:30 AM EST Rx signed and faxed to [employer] @ [phone] to process for [facility] Also uploaded the rx into the portal * Ivana Means LPN - 05/21/2024 12:55 PM EST Received request from [facility] for serge campoverde for pt Rx set up and to [facility] to sign documented in this encounter Plan of Treatment Upcoming Encounters Date Type Department Care Team (Late st Contact Info) Description 09/03/2024 11:30 AM EDT Office Visit Adult Medicine [facility] [address] [place] [phone] Stef Valencia MD [address] [place] [phone] documented as of this encounter Visit Diagnoses Diagnosis DDD (degenerative disc disease), cervical- Primary Degeneration of cervical intervertebral disc Chronic pain of both shoulders documented in this encounter Orders General Supply Count Last Ordered Date First Or dered Date GENERAL SUPPLY 1 05/21/2024 documented in this encounter Additional Health Concerns Assessment Noted Time PHQ-9 Depression Total Score: 1 05/21/19 25 9:41 AM EST A fall risk assessment has been complete d for the patient 05/21/2024 9:40 AM EST documented as of this encounter Care Teams Vp Integrity Relationship Specialty Start Date End Date Stef Valencia MD [address] [place] [id number] PCP - General Internal Medicine 02/18/24 documented as of this encounter
--- OUTSIDE RECORDS SUMMARY | 2024-06-05 10:01 | XMS_ITS | Clinical Summary ---
Author Organization [facility] [address] [place] [address] [place] [phone] Phone Care Team Providers Care Shipping Technician Name Role Phone Stef Valencia MD Primary Care Provider [phone] Allergies Active Allergy Reactions Criticality Noted Date Comments Fish Containing Products Nausea And Vomiting 05/05/2013 Stomach pain Ibuprofen 11/09/2011 Other 12/03/2014 Seasonal allergies Oxycodone-Acetaminophe n 08/02/2022 headaches Medications tamsulosin (FLOMAX) 0.4 mg 24 hr capsule TAKE 1 CAPSULE BY MOUTH EVERY 12 HOURS, 30 MINUTES AFTER MEALS 06/20/19 24 Active omega-3 acid ethyl esters (LOVAZA) 1 gram capsule Take 1,000 Caps by mouth daily. 01/24/20 17 Active pen needle, diabetic 32 gauge x 5/32 needle Use one daily with ozempic . 04/18/19 22 Active blood-gluc,BP meter,adult cuff device 1 Device by Does not apply route daily. 10/06/19 23 Active dulaglutide (TRULICITY) 3 mg/0.5 mL pen injector injection Inject 0.5 mL (3 mg total) under the skin every 7 (seven) days. 3 mL 1 03/10/20 24 Active atorvastatin (LIPITOR) 80 mg tablet TAKE 1 TABLET BY MOUTH DAILY 90 tablet 1 03/18/20 24 Active dulaglutide (Trulicity) 1.5 mg/0.5 mL pen injector injectionIndi cations:Type 2 diabetes mellitus with cataract (CMS/HCC) ADMINISTER 1.5 MG UNDER THE SKIN EVERY 7 DAYS DIRECTED 6 mL 1 03/18/20 24 Active metoprolol succinate (TOPROL-XL) 25 mg 24 hr tablet Take 1 tablet (25 mg total) by mouth 2 (two) times a day. 180 tablet 03/27/20 24 Active blood sugar diagnostic (FreeStyle Lite Strips) test strip Use as instructedUSE TO TEST BLOOD SUGAR TWICE DAILY 100 each 1 04/27/19 25 Active glipiZIDE (GLUCOTROL) 5 mg tablet Take 2 tablets (10 mg total) by mouth 2 (two) times a day. 180 tablet 04/27/19 25 Active warfarin (COUMADIN) 5 mg tablet Take 1 Tablet by mouth daily. May cause heavy bleeding. Take at same time every day. Do not change dietary habits. 90 tablet 1 04/27/19 25 Active lisinopriL (PRINIVIL,ZES TRIL) 5 mg tablet TAKE 1 TABLET BY MOUTH DAILY 90 tablet 1 05/19/19 25 Active traMADoL (ULTRAM) 50 mg tablet Take 1 tablet (50 mg total) by mouth every 8 (eight) hours if needed for severe pain. Max Daily Amount: 150 mg 84 tablet 06/02/19 25 Active lisinopriL (PRINIVIL,ZES TRIL) 5 mg tablet Take 1 tablet (5 mg total) by mouth 1 (one) time each day. 07/28/19 24 2024 Discontinued traMADoL (ULTRAM) 50 mg tablet Take 1 tablet (50 mg total) by mouth 3 (three) times a day. Max Daily Amount: 150 mg 84 tablet 03/30/20 24 2024 Discontinued traMADoL (ULTRAM) 50 mg tablet Take 1 tablet (50 mg total) by mouth every 8 (eight) hours if needed for severe pain. Max Daily Amount: 150 mg 84 tablet 04/27/19 25 2024 Discontinued(R nicolas) Active Problems Problem Noted Date Diagnosed Date Chronic knee pain 09/24/2019 Shoulder pain 09/24/2019 Allergic rhinitis 10/23/2018 Chronic cough 10/23/2018 Dyspnea on exertion 10/23/2018 Overview (01/13/2024): Last Assessment & Plan: Patient describes exertional dyspnea has been ongoing for quite some time. Nuclear stress test in July 2021 did not show any evidence of ischemia or infarct. Echocardiogram showed normal heart function without any significant valve disease. Pulmonary function testing did not show any underlying lung etiology. Obesity (BMI 30.0-34.9) 10/23/2018 [employer] (background diabetic retinopathy) 04/30/2017 Obstructive sleep apnea 11/08/2015 Type 2 diabetes mellitus with cataract 4 Overview (01/13/2024): Nuclear sclorosis Eye exam 05/05/13. A-fib 11/09/2011 Overview (01/13/2024): Last Assessment & Plan: The patient has a history of paroxysmal atrial fibrillation. The patient continues on rate control therapy with beta harley. Also, the patient has a [id number] score of 3 and continues on anticoagulation therapy with warfarin. No episodes of abnormal bleeding have been noted. Will continue current therapy. Bladder stone 11/09/2011 HTN (hypertension) 11/09/2011 Overview (01/13/2024): Last Assessment & Plan: The patient has a history of arterial hypertension. The patient's blood pressure today was noted to be well controlled. We'll continue the current antihypertensive medication regimen. Hyperlipidemia 11/09/2011 Overview (01/13/2024): Last Assessment & Plan: The patient has a history of hyperlipidemia. He is currently on atorvastatin 80 mg orally daily. Last lipid panel in April 2022 showed a total cholesterol of 213, triglycerides 311, HDL 47, and LDL 104. During today's visit, I emphasized the importance of dietary changes in order to treat his elevated cholesterol and triglycerides. We agreed to repeat his lipid panel 6 to 8 weeks after the implementation of dietary changes. If his lipids remain elevated, then we will need to consider further optimization to his medication regimen. Encounters Date Type Department Care Team Description 05/21/2024 9:30 AM EST Office Visit Adult Medicine [address] [phone] Keyla Guzmán PA Hypertension, unspecified type (Primary Dx); Type 2 diabetes mellitus with cataract (CMS/HCC); Chronic knee pain, unspecified laterality; Hyperlipidemia, unspecified hyperlipidemia type; Encounter for long-term (current) use of medications; DDD (degenerative disc disease), cervical 05/21/2024 Telephone Adult Medicine [address] [phone] Ivana Means LPN Fitting for DME 05/12/2024 Billing Patient Not Present Adult Medicine [address] [phone] Stef Valencia MD Type 2 diabetes mellitus without complication, unspecified whether ocean transportation intermediary insulin use (CMS/HCC) (Primary Dx); Paroxysmal atrial fibrillation (CMS/HCC); Essential (primary) hypertension; Hyperlipidemia, unspecified hyperlipidemia type 05/01/2024 Billing Patient Not Present Adult Medicine [address] [phone] Stef Valencia MD Type 2 diabetes mellitus without complication, unspecified whether ocean transportation intermediary insulin use (CMS/HCC) (Primary Dx); Paroxysmal atrial fibrillation (CMS/HCC); Essential (primary) hypertension; Hyperlipidemia, unspecified hyperlipidemia type 04/06/2024 Telephone Adult Medicine [address] [phone] Thania Dejesus RN 03/22/2024 Telephone Adult Medicine [address] [phone] Jackie Pitts MA faxed order ([facility]. order #[id number]) 03/19/2024 Telephone Adult [address] [phone] Stef Valencia MD [facility] Order ([facility]Order #[id number], [id number], [id number], [id number]) from Last 3 Months Immunizations Name Administration Dates Next Due Influenza Quadravalent, MDCK , 0.5ml, preservative free (Flucelvax) 6mo and older 03/03/2018 Influenza trivalent, 0.5mL ( Fluzone High-dose) 65yo and older 01/22/2017 Pneumococcal conjugate 13 va lent (Prevnar 13, PCV13) 2mo and older 03/03/2018 Pneumococcal polysaccharide 23 valent (Pneumovax 23) 2yo and older 10/13/2015,10/01/2013,08/06/2003 Td Tetanus diptheria (Tdvax) 7yo and older 01/22,12/21/2011,08/06/2003 Tetanus Toxoid, Unspecified 08/06/2003 Surgical History Surgery Date Site/Laterality Comments CATARACT EXTRACTION PROCEDURE: HISTORICAL CATARACT REMOVAL; COMMENT: 40 yr ago COLONOSCOPY 11/05/2018 PROCEDURE: HISTORICAL COLONOSCOPY; COMMENT: negative, no further screening recommended due to advanced age Medical History Medical History Date Comments HTN (hypertension) 11/09/2011 DX:HTN (hyper tension) Historical Medical DX 11/09/2011 DX:Hyperli pidemia LDL goal < 70 Paroxysmal A-fib ([facility]) 11/09/2011 DX:Pa roxysmal A-fib ([facility]) Type 2 diabetes mellitus wit h cataract ([facility]) 05/20/2013 DX:Type 2 diabetes mellitus with cataract ([facility]); COMMENT: Nuclear sclorosis Eye exam 05/05/13. 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[facility]) Family History Medical History Relation Name Comments No Known Problems Brother No Known Problems Father No Known Problems Mother Other: unknown causes Other parent s No Known Problems Sister Relation Name Status Comments Brother Alive Father Mother Other Sister (Age 35) from unknown disease Social History Tobacco Use Types Packs/Day Years Used Date Smoking Tobacco: Never Smokeless Tobacco: Never Tobacco Cessation:Counseling Given: Not Answered Alcohol Use Standard Drinks/Week Comments Never 0 (1 standard drink = 0.6 oz pur e alcohol) Sex and Gender Information Value Date Recorded Sex Assigned at Not on file Legal Sex Male 4:16 PM EST Gender Identity Not on file Sexual Orientation Not on file Obstetrics History Last Filed Vital Signs Vital Sign Reading Time Taken Comments Blood Pressure 110/60 05/21/2024 9:37 AM EST Pulse 92 05/21/2024 9:37 AM EST Temperature 36.2 ??C (97.1 ??F) 05/21/2024 9:37 AM ES T Respiratory Rate 12 02/19/2024 9:33 AM EST Oxygen Saturation 96% 05/21/2024 9:37 AM EST Inhaled Oxygen Concentration - - Weight 77.7 kg (171 lb 3.2 oz) 05/21/2024 9:37 A M EST Height 157.5 cm (5' 2.01 ) 05/21/2024 9:37 AM ES T Body Mass Index 31.3 05/21/2024 9:37 AM EST Plan of Treatment Upcoming Encounters Date Type Department Care Team (Late st Contact Info) Description 09/03/2024 11:30 AM EDT Office Visit Adult Medicine [facility] [address] [place] [phone] Stef Valencia MD [address] [place] [phone] Health Maintenance Due Date Last Done Comments Diabetes: Annual Foot Exam 1956 Zoster Vaccines (1 of 2) 1996 RSV Immunization Patients 60+ Years Old (1 - 1-dose 75+ series) 2021 Medicare Annual Wellness Visit 03/24/2022 Social Influencers of Health Screening 03/24/2022 COVID-19 Vaccine ( season) 2023 07/23/2020 Influenza Vaccine (#1) 2023 03/03/2018, 2016 Diabetes: Blood Sugar Control Test (HGBA1C) 11/18/2024 05/21/2024, 02/20/2024, 08/21/2023, Additional history exists Diabetes: Annual Retina Eye Exam 12/17/2024 12/18/2023 Diabetes: Annual Urine Albumin-Creatinine Ratio (uACR) 02/19/2025 02/20/2024, 08/21/2023 Diabetes: Annual GFR (Glomerular Filtration Rate) 02/19/2025 02/20/2024, 08/21/2023, 08/21/2023 Hypertension/CHF/CAD Annual BMP Blood Test 02/19/2025 02/20/2024, 08/21/2023, 08/21/2023 Depression Screening 05/21/2025 05/21/2024 Falls Risk Assessment 05/21/2025 05/21/2024 DTaP,Tdap,and Td Vaccines (4 - Td or Tdap) 01/22/2027 01/22/2017, 12/21/2011, 08/06/2003 Cholesterol Screening (Lipid Panel) 02/19/2029 02/20/2024, 08/21/2023, 08/21/2023 Pneumococcal Vaccine: 50+ Years Completed 03/03/2018, 10/13/2015, 10/01/2013, Additional history exists Hepatitis C Screening Completed 05/22/2018 HIB Vaccines Aged Out No longer eligi ble based on patient's age to complete this topic HPV Vaccines Aged Out No longer eligi ble based on patient's age to complete this topic Hepatitis A Vaccines Aged Out No long er eligible based on patient's age to complete this topic Hepatitis B Vaccines Aged Out No long er eligible based on patient's age to complete this topic IPV Vaccines Aged Out No longer eligi ble based on patient's age to complete this topic MMR Vaccines Aged Out No longer eligi ble based on patient's age to complete this topic Meningococcal ACWY Vaccine Aged Out N o longer eligible based on patient's age to complete this topic Meningococcal B Vacine Aged Out No lo nger eligible based on patient's age to complete this topic RSV Immunization Patients Under 20 months Aged Out No longer eligible based on patient's age to complete this topic Varicella Vaccines Aged Out No longer eligible based on patient's age to complete this topic Procedures Procedure Name Priority Date/Time Associated Diagnosis Comments HEMOGLOBIN A1C Routine 05/21/2024 10:17 AM EST Type 2 diabetes mellitus with cataract (CMS/HCC) EXTERNAL CT REPORT 04/01/2024 MICROALBUMIN CREATININE URINE RATIO Routine 02/20/2024 10:29 AM EST Type 2 diabetes mellitus without complication, without long-term current use of insulin (CMS/HCC) COMPREHENSIVE METABOLIC PANEL Routine 02/20/2024 10:29 AM EST Encounter for long-term (current) use of medications LIPID PANEL WITH REFLEX TO DIRECT LDL Routine 02/20/2024 10:29 AM EST Hyperlipidemia, unspecified hyperlipidemia type DIABETES EYE EXAM Routine 12/18/2023 HEPATITIS C SCREENING Routine 05/22/2018 from Last 3 Months or Most Recently Relevant to Health Maintenance Results * Hemoglobin A1c (05/21/2024 10:17 AM EST) [facility] Hemoglobin A1C 6.0 <6.5 % LAB CHEMISTRY METHOD 05/21/2024 2:11 PM EST [facility] Mean Bld Glu Estim. 126 mg/dL LAB CHEMISTRY METHOD 05/21/2024 2:11 PM [facility] Blood Venous blood specimen / Unknown Venipuncture / Unknown 05/21/2024 10:17 AM EST 05/21/2024 10:17 AM EST Keyla SMART LAB BLOOD ORDERABLES Fi nal Result [facility] [address] [place] [address], * External CT Report (04/01/2024) Anatomical Region Laterality Modality Computed Tomogra phy Provider Onbase IMG CT PROCEDURES Final Resul t * (ABNORMAL) Lipid panel with reflex to direct LDL (02/20/2024 10:29 AM EST) [facility] Cholesterol 165 0 - 200 mg/dL LAB CHEMISTRY METHOD 02/20/2024 2:43 PM [facility] Triglycerides 208(H) 0 - 150 mg/dL LAB CHEMISTRY METHOD 02/20/2024 2:43 PM [facility] HDL 45 >=40 mg/dL LAB CHEMISTRY METHOD 02/20/2024 2:43 PM [facility] LDL Calculated 78 0 - 100 mg/dL LAB CHEMISTRY METHOD 02/20/2024 2:43 PM [facility] VLDL Cholesterol Omar 41.6 mg/dL LAB CHEMISTRY METHOD 02/20/2024 2:43 PM [facility] Non HDL Chol. (LDL+VLDL) 120 <145 mg/dL LAB CHEMISTRY METHOD 02/20/2024 2:43 PM EST [facility] Chol/HDL Ratio 3.7 0.0 - 4.4 LAB CHEMISTRY METHOD 02/20/2024 2:43 PM EST [facility] Blood Venous blood specimen / Unknown Venipuncture / Unknown 02/20/2024 10:29 AM EST 02/20/2024 10:29 AM EST us Stef Valencia MD LAB BLOOD ORDERABLES Final Resu lt Performing Organization Address [facility]/ZIP Co de Phone Number [facility] [address] [place] [address], [place] [phone] * Microalbumin creatinine urine ratio (02/20/2024 10:29 AM EST) Creatinine, Urine 121.0 mg/dL LAB CHEMISTRY METHOD 02/20/2024 2:26 PM EST [facility] Microalb, Ur 11.1 0.0 - 29.0 mg/L LAB CHEMISTRY METHOD 02/20/2024 2:26 PM EST [facility] Microalb/Creat Ratio 9 <30 mg/g creat LAB CHEMISTRY METHOD 02/20/2024 2:26 PM EST [facility] Urine Urine specimen obtained by clean catch procedure / Unknown Non-blood Collection / Unknown 02/20/2024 10:29 AM EST 02/20/2024 10:29 AM EST us Stef Valencia MD LAB URINE ORDERABLES Final Resu lt Performing Organization Address [facility]/ZIP Co de Phone Number [facility] [address] [place] [address], [place] [phone] * (ABNORMAL) Comprehensive metabolic panel (02/20/2024 10:29 AM EST) Sodium 140 133 - 145 mmol/L LAB CHEMISTRY METHOD 02/20/2024 2:43 PM [facility] Potassium 3.8 3.5 - 5.5 mmol/L LAB CHEMISTRY METHOD 02/20/2024 2:43 PM [facility] Chloride 105 96 - 110 mmol/L LAB CHEMISTRY METHOD 02/20/2024 2:43 PM [facility] CO2 26 21 - 32 mmol/L LAB CHEMISTRY METHOD 02/20/2024 2:43 PM [facility] Anion Gap 9 3 - 11 LAB CHEMISTRY METHOD 02/20/2024 2:43 PM [facility] Glucose 227(H) 70 - 100 mg/dL LAB CHEMISTRY METHOD 02/20/2024 2:43 PM [facility] BUN 15 5 - 25 mg/dL LAB CHEMISTRY METHOD 02/20/2024 2:43 PM [facility] Creatinine 1.00 0.70 - 1.30 mg/dL LAB CHEMISTRY METHOD 02/20/2024 2:43 PM [facility] eGFR 78 >=60 mL/min/1. 73m2 LAB CHEMISTRY METHOD 02/20/2024 2:43 PM [facility] Comment:Calculation based on the??Chronic Kidney Disease Epidemiology Collaboration (CKD-EPI) equation refit??without adjustment for race. BUN/Creatinine Ratio 15.0 LAB CHEMISTRY METHOD 02/20/2024 2:43 PM [facility] Calcium 9.7 8.5 - 10.5 mg/dL LAB CHEMISTRY METHOD 02/20/2024 2:43 PM [facility] AST (SGOT) 30 10 - 42 unit/L LAB CHEMISTRY METHOD 02/20/2024 2:43 PM [facility] ALT (SGPT) 45 10 - 60 unit/L LAB CHEMISTRY METHOD 02/20/2024 2:43 PM [facility] Alkaline Phosphatase 87 42 - 121 unit/L LAB CHEMISTRY METHOD 02/20/2024 2:43 PM EST [facility] Total Protein 7.3 6.0 - 8.0 g/dL LAB CHEMISTRY METHOD 02/20/2024 2:43 PM EST [facility] Albumin 3.9 3.2 - 5.0 g/dL LAB CHEMISTRY METHOD 02/20/2024 2:43 PM EST [facility] Total Bilirubin 0.8 0.0 - 1.4 mg/dL LAB CHEMISTRY METHOD 02/20/2024 2:43 PM EST [facility] Blood Venous blood specimen / Unknown Venipuncture / Unknown 02/20/2024 10:29 AM EST 02/20/2024 10:29 AM EST Stef Valencia MD LAB BLOOD ORDERABLES Final Resu lt [facility] [address] [place] [address], * Diabetes Eye Exam (12/18/2023) Pathologist [facility] Diabetes: Annual Retina Eye Exam abstracted Historical Provider HEALTH MAINTENANCE Final Result * Hepatitis C Screening (05/22/2018) Pathologist [facility] Hepatitis C Screening abstracted Historical Provider HEALTH MAINTENANCE Final Result from Last 3 Months or Most Recently Relevant to Health Maintenance Insurance [facility] MEDICARE Member Subscriber Plan / Payer (Ef fective 2017-Present) Name:Paulie De Los Santos Relation to Subscriber:Self Name:Paulie De Los Santos Payer ID:[id number] Group ID:[id number] Type:Not on file Address: [place] [address] [place] [phone] Care Teams Shipping Technician Relationship Specialty Start Date End Date Stef Valencia MD [address] [place] [id number] PCP - General Internal Medicine 02/18/24
--- OUTSIDE RECORDS SUMMARY | 2024-06-05 10:01 | XMS_ITS | Encounter Summary ---
Author Organization [facility] Address [address] [place] [address] Care Team Providers Care Children Teacher Name Role Phone Stef Valencia MD Primary Care Provider [phone] Reason for Visit * Reason Comments med review Encounter Details Date Type Department Care Team (Late st Contact Info) Description 05/21/2024 9:30 AM EST Office Visit Adult Medicine [facility] [address] [place] [phone] Keyla Guzmán PA [address] [place] [phone] Hypertension, unspecified type (Primary Dx); Type 2 diabetes mellitus with cataract (CMS/HCC); Chronic knee pain, unspecified laterality; Hyperlipidemia, unspecified hyperlipidemia type; Encounter for long-term (current) use of medications; DDD (degenerative disc disease), cervical Social History Tobacco Use Types Packs/Day Years [...] on file documented as of this encounter Last Filed Vital Signs Vital Sign Reading Time Taken Comments Blood Pressure 110/60 05/21/2024 9:37 AM EST Pulse 92 05/21/2024 9:37 AM EST Temperature 36.2 ??C (97.1 ??F) 05/21/2024 9:37 AM ES T Respiratory Rate - - Oxygen Saturation 96% 05/21/2024 9:37 AM EST Inhaled Oxygen Concentration - - Weight 77.7 kg (171 lb 3.2 oz) 05/21/2024 9:37 A M EST Height 157.5 cm (5' 2.01 ) 05/21/2024 9:37 AM ES T Body Mass Index 31.3 05/21/2024 9:37 AM EST documented in this encounter Progress Notes * BING Justin - 05/21/2024 9:30 AM EST CHIEF COMPLAINT: med review IDENTIFIER: Paulie De Los Santos is a 79 y.o. old male. HPI: Patient is a 79-year-old male who presents to the office today for medication review. [place] Citizen interpretation is provided via video field care advocate Quintin, #[id number]. Hypertension: Blood pressure in the office today is at goal, 110/60. The patient is on lisinopril 5mg and metoprolol 25 mg BID. He denies having any chest pain, dizziness, lightheadedness or headaches. Follows with cardiology, Dr. Reyes. Hypercholesterolemia: Lipid panel from 02/2024 shows LDL at 78. Patient is on atorvastatin 80 mg. Type 2 diabetes: Hemoglobin A1c from 02/2024 was controlled at 6.6. He reports fasting AM sugars around 80-115. He is on trulicity 1.5 mg weekly and glipizide 10 mg BID. Patient does not exercise. Hereports eating everything . Last eye examination was 7 months ago, notes occasional blurry vision.He denies polydipsia, notes occasional polyuria. Patient denies dysuria or hematuria. Chronic knee and shoulder pain: Patient is on CSC for tramadol 50 mg TID. His pain is well-controlled with use of medication. UDS was last completed 07/2023. Cervical DDD: Patient is requesting special wedge-like pillow for his neck. States he previously received this. I do not see records regarding this. CT cervical spine from 12/2023 shows multilevel cervical spondylosis as detailed with findings most prominent at C4-C5 and C5-C6. Large bridging osteophytes throughout cervical spine, few foci of gas adjacent to the left anterior osteophytes at C3-C4 likely secondary to degenerative changes. ROS: GENERAL: No malaise, significant weight loss or fever NECK: No lumps, goiter, pain or significant neck swelling RESPIRATORY: No cough, wheezing or shortness of breath CARDIOVASCULAR: No chest pain, leg swelling or palpitations : No dysuria, oliguria, polyuria, hematuria, flank pain MUSCULOSKELETAL: No joint pain or swelling, back pain, or muscle pain. 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) ([facility]) 04/30/2017 Obstructive sleep apnea 11/08/2015 Type 2 diabetes mellitus with cataract ([facility]) 05/20/2013 A-fib ([facility]) 11/09/2011 Bladder stone 11/09/2011 HTN (hypertension) 11/09/2011 Hyperlipidemia 11/09/2011 Past Surgical History: Procedure Laterality Date CATARACT EXTRACTION PROCEDURE: HISTORICAL CATARACT REMOVAL; COMMENT: 40 yr ago COLONOSCOPY 11/05/2018 PROCEDURE: HISTORICAL COLONOSCOPY; COMMENT: negative, no further screening recommended due to advanced age SOCIAL HISTORY: Social History Tobacco Use Smoking status: Never Smokeless tobacco: Never Substance Use Topics Alcohol use: Never FAMILY HISTORY: Family History Problem Relation Name Age of Onset Other (Other: unknown causes) Other parents No Known Problems Mother No Known Problems Father No Known Problems Sister No Known Problems Brother Family Status Relation Name Status Other (Not Specified) Mother Father Sister at age 35 from unknown disease Brother Alive No partnership data on file MEDICATIONS DISCONTINUED/REORDERED: Medications Discontinued During This Encounter Medication Reason traMADoL (ULTRAM) 50 mg tablet ACTIVE MEDICATIONS: Outpatient Medications Marked as Taking for the 05/21/24 encounter (Office Visit) with BING Justin Medication Sig Dispense Refill atorvastatin (LIPITOR) 80 mg tablet TAKE 1 TABLET BY MOUTH DAILY 90 tablet 1 blood sugar diagnostic (FreeStyle Lite Strips) test strip Use as instructedUSE TO TEST BLOOD SUGAR TWICE DAILY 100 each 1 blood-gluc,BP meter,adult cuff device 1 Device by Does not apply route daily. dulaglutide (Trulicity) 1.5 mg/0.5 mL pen injector injection ADMINISTER 1.5 MG UNDER THE SKIN EVERY7 DAYS DIRECTED 6 mL 1 glipiZIDE (GLUCOTROL) 5 mg tablet Take 2 tablets (10 mg total) by mouth 2 (two) times a day. 180 tablet 0 lisinopriL (PRINIVIL,ZESTRIL) 5 mg tablet TAKE 1 TABLET BY MOUTH DAILY 90 tablet 1 metoprolol succinate (TOPROL-XL) 25 mg 24 hr tablet Take 1 tablet (25 mg total) by mouth 2 (two) times a day. 180 tablet 0 tamsulosin (FLOMAX) 0.4 mg 24 hr capsule TAKE 1 CAPSULE BY MOUTH EVERY 12 HOURS, 30 MINUTES AFTER MEALS traMADoL (ULTRAM) 50 mg tablet Take 1 tablet (50 mg total) by mouth every 8 (eight) hours if neededfor severe pain. Max Daily Amount: 150 mg 84 tablet 0 warfarin (COUMADIN) 5 mg tablet Take 1 Tablet by mouth daily. May cause heavy bleeding. Take at same time every day. Do not change dietary habits. 90 tablet 1 ALLERGIES: Allergies Allergen Reactions Fish Containing Products Nausea And Vomiting Stomach pain Ibuprofen Other Seasonal allergies Oxycodone-Acetaminophen headaches PHYSICAL EXAM: Visit Vitals BP 110/60 (BP Location: Left arm, Patient Position: Sitting, BP Cuff Size: Adult long) Pulse 92 Temp 36.2 ??C (97.1 ??F) (Temporal) Ht 1.575 m (62.01 ) Wt 77.7 kg (171 lb 3.2 oz) SpO2 96% BMI 31.30 kg/m?? Smoking Status Never BSA 1.79 m?? APPEARANCE: Alert and in no acute distress HEART: RRR with normal S1 and S2, no murmurs, no gallops LUNG: clear to auscultation, no wheezing, rales, or rhonchi. Able to talk in full complete sentences NEURO: Awake, alert and oriented x 3. No focal neurological deficits LABS: Hemoglobin A1C Date Value Ref Range Status 02/20/2024 6.6 (H) <6.5 % Final IMPRESSION: 1. Hypertension, unspecified type 2. Type 2 diabetes mellitus with cataract (CMS/HCC) 3. Chronic knee pain, unspecified laterality 4. Hyperlipidemia, unspecified hyperlipidemia type 5. Encounter for long-term (current) use of medications 6. DDD (degenerative disc disease), cervical PLAN: Hypertension: Controlled. Continue lisinopril 5 mg and metoprolol 25 mg BID. Hypercholesterolemia: Continue atorvastatin 80 mg. Type 2 diabetes: Will update A1c. Continue current regimen. Recommended scheduling next eye examination. Chronic knee and shoulder pain: Pain is controlled. Continue per CSC. UDS is up to date. Cervical DDD: Patient with chronic neck pain due to degenerative disc disease. Requesting wedge pillow. Follow up scheduled in 3 months with PCP for CSC follow up. All questions and concerns were addressed. Paulie De Los Santos verbalizes understanding and agrees with this treatment plan. Patient was reminded to call or return to the office if any new or existingproblems arise. Orders Placed This Encounter Procedures Hemoglobin A1c None BING Justin on 05/21/2024 at 10:57 AM EST Today's documentation was made using voice recognition software.This note may contain grammatical errors secondary to this software. documented in this encounter Plan of Treatment Upcoming Encounters Date Type Department Care Team (Late st Contact Info) Description 09/03/2024 11:30 AM EDT Office Visit Adult Medicine [address] [phone] Stef Valencia MD [address] [place] [phone] documented as of this encounter Results * Hemoglobin A1c (05/21/2024 10:17 AM EST) Hemoglobin A1C 6.0 <6.5 % LAB CHEMISTRY METHOD 05/21/2024 2:11 PM EST [facility] Mean Bld Glu Estim. 126 mg/dL LAB CHEMISTRY METHOD 05/21/2024 2:11 PM EST [facility] Blood Venous blood specimen / Unknown Venipuncture / Unknown 05/21/2024 10:17 AM EST 05/21/2024 10:17 AM EST us Keyla SMART LAB BLOOD ORDERABLES Fi nal Result [facility] [address] [place] [address], documented in this encounter Visit Diagnoses Diagnosis Hypertension, unspecified type- Primary Type 2 diabetes mellitus with cataract ([facility]/HCC) Chronic knee pain, unspecified laterality Hyperlipidemia, unspecified hyperlipidemia type Encounter for long-term (current) use of medications Encounter for long-term (current) use of other medications DDD (degenerative disc disease), cervical Degeneration of cervical intervertebral disc documented in this encounter Discontinued Medications Medication Sig Discontinue Reason Start Date End Da te traMADoL (ULTRAM) 50 mg tablet Take 1 tablet (50 mg total) by mouth 3 (three) times a day. Max Daily Amount: 150 mg 03/30/2024 05/21/2024 documented as of this encounter Additional Health Concerns Assessment Noted Time PHQ-9 Depression Total Score: 1 05/21/19 25 9:41 AM EST A fall risk assessment has been complete d for the patient 05/21/2024 9:40 AM EST documented as of this encounter Care Teams Children Teacher Relationship Specialty Start Date End Date Stef Valencia MD [address] [place] [phone] PCP - General Internal Medicine 02/18/24 documented as of this encounter
== END 2024-06-05 09:42 | disposition home or self-care (01) ==
LOC: HO.ACS 09:30
PROVIDERS: PCP Internal Medicine; Visit Provider Internal Medicine
DX: Z79.01 Long term (current) use of anticoagulants (principal)

== ENCOUNTER → 2024-06-05 09:29 | Outpatient (BNVA) | payer OTHER, SELFPAY | PROVIDERS: PCP Internal Medicine; Visit Provider Internal Medicine | DX: I48.0 Paroxysmal atrial fibrillation (principal); Z51.81 Encounter for therapeutic drug level monitoring; Z79.01 Long term (current) use of anticoagulants | CPT/HCPCS: 85610; 99211 ==

== ENCOUNTER 2024-07-08 10:08 | Outpatient (AMB) | payer OTHER, SELFPAY ==
--- NOTE | 2024-07-08 10:13 | MHC.OFFVISCO ---
Intake Intake Visit Reasons: Anticoagulation Allergies oxycodone [From Percocet] Allergy (Intermediate, Verified 07/08/24 10:09) Headache ibuprofen [From Motrin] Allergy (Mild, Verified 07/08/24 10:09) SWELLING [place] Adverse Reaction (Mild, Uncoded 07/08/24 10:09) VOMITING Medication List - Last Reconciled 07/08/24 by Ifrah Mandel RN atorvastatin 80 mg PO DAILY blood sugar diagnostic As directed blood-glucose meter (FreeStyle Lite Meter kit) As directed cyclobenzaprine 10 mg PO TID PRN cyclobenzaprine 10 mg PO BEDTIME docusate sodium (Colace) 100 mg PO BID dulaglutide (Trulicity) mg subcut glipizide 10 mg PO BID lidocaine 5% (Lidoderm) 1 patch topical DAILY lidocaine 5% 1 patch topical DAILY lisinopril 5 mg PO DAILY metoprolol succinate ER 25 mg PO BID metoprolol tartrate 25 mg PO BID multivitamin 1 tab PO DAILY omega 6-vgb-kjn-fish oil 300-1,000 mg (Fish Oil) 1 cap PO DAILY pen needle, diabetic (BD Keira 2nd Gen Pen Needle) As directed polyethylene glycol 3350 (Miralax) 17 grams PO BID sennosides (senna) 8.6 mg PO BEDTIME tamsulosin 0.4 mg PO Q12H tramadol 50 mg PO TID PRN warfarin See Protocol 5 mg orally 5mg x 1 day/ 2.5mg x 6 days; Nursing Note INR: 2.4- in therapeutic range of 2-3 Medications and supplements reviewed- no changes No changes in health, diet, medications, or supplements, Denies any signs and symptoms of bleeding or bruising or clotting. Bleeding, bruising, clotting discussed Nutritional guidance given Dose: 5mg x 1. 2.5mg x 6 F/U INR: 4 weeks Patient verbalizes understanding of instructions given Anti-Coag Initial Assessment Social Hx Patient Tobacco Use Status: Never used Tobacco alcohol intake: never Alcohol intake frequency: former alcohol drinker Coding Level of Care Code Est Patient Level 1 Diagnoses Current use of anticoagulant therapy Z79.01 Results AMB INR Fingerstick AMB INR Fingerstick 2.4 Last Edit by Ifrah Mandel RN on 07/08/24 10:15 interface delay Assessment & Plan Assessment & Plan (1) Current use of anticoagulant therapy: Code(s): Z79.01 - residential (current) use of anticoagulants Category: Medical
--- OUTSIDE RECORDS SUMMARY | 2024-07-08 11:38 | XMS_ITS | Data Portability ---
Author Organization [facility] [employer] [facility] [employer] Address [address] [place] [phone] Care Team Providers Care Deputy Juvenile Officer Name Role Phone ADITI ROSEN Primary Care Provider [phone] HIM [facility] OTHER Assessment Encounter Date Assessment [...] /min 112 mm[Hg] 67 mm[Hg] Not Available [employer] production 4 14:08:06 Social History None recorded. Functional Status None recorded. Mental Status None recorded. Family History Nothing Reported. Medical History No medical history recorded. Past Encounters Encounter ID Performer Location Encounter Start Date Encounter Closed Date Diagnosis/Indication Diagnosis SNOMED-CT Code Diagnosis ICD10 Code Diagnosis Note [id number] Adelita Hu MD [address] [phone] 01/21/2024 13:54:07 01/21/2024 23:43:57 Fatigue 66656603 R53.83 Health Concerns Section Related Observation LastModified by Organization Detai ls LastModified Time None Recorded Concern Status LastModified by Organization Details LastModified Time None Recorded Advance Directives Directive None Recorded Payers Encounter Date Sequence Insurance Name Policy Number Policy Parks Covered Member ID Parks Member ID Guarantor Name 01/21/2024 1 [facility] - DOS ON OR AFTER 2022 - DUAL ELIGIBLE - HALFWAY OPTIONS AND ONE CARE (MEDICARE REPLACEMENT/AD VANTAGE - HMO) Paulie De Los Santos [id number] Paulie De Los Santos Notes Date Note [...] .................. .................. .................. .................. .................. .................. ............... Training Analyst Note From Rachael Solano: Sent to a call for a pt complaining of lethargy. [facility] arrives on scene, pt is alert and oriented, airway is patent. Pt's primary language is German. VNA serves as material planning analyst during visit. Pt states he is being [...] .................. ............... Disposition: Manda Hu MD [address], [place], [phone], [employer] 01/21/2024 20:57:22
--- OUTSIDE RECORDS SUMMARY | 2024-07-08 11:38 | XMS_ITS | Clinical Summary ---
Author Organization [facility] [address] [place] [address] [address] [place] [address] Phone Care Team Providers Care Claim Professional Name Role Phone Stef Valencia MD Primary Care Provider [phone] Allergies Active Allergy Reactions Criticality Noted Date Comments Fish Containing Products Nausea And Vomiting 05/05/2013 Stomach pain Ibuprofen 11/09/2011 Other 12/03/2014 Seasonal allergies Oxycodone-Acetaminophe n 08/02/2022 headaches Medications omega-3 acid ethyl esters (LOVAZA) 1 gram [...] dulaglutide (Trulicity) 1.5 mg/0.5 mL pen injector injectionIndica tions:Type 2 diabetes mellitus with cataract ADMINISTER 1.5 MG UNDER THE SKIN EVERY [...] DAILY 100 each 1 04/27/19 25 Active warfarin (COUMADIN) 5 mg tablet Take 1 Tablet by mouth daily. May cause heavy bleeding. Take at same time every day. Do not change dietary habits. 90 tablet 1 04/27/19 25 Active lisinopriL (PRINIVIL,ZESTR IL) 5 mg tablet TAKE 1 TABLET BY MOUTH DAILY 90 tablet 1 05/19/19 25 Active tamsulosin (FLOMAX) 0.4 mg 24 hr capsule Take 1 capsule (0.4 mg total) by mouth 1 (one) time each day. Capsules should be taken 30 minutes following the same meal each day. 90 capsule 1 06/27/19 25 Active glipiZIDE (GLUCOTROL) 5 mg tablet Take 2 tablets (10 mg total) by mouth 2 (two) times a day. 360 tablet 1 06/27/19 25 Active traMADoL (ULTRAM) 50 mg tabletIndicatio ns:Shoulder pain, unspecified chronicity, unspecified laterality Take 1 tablet (50 mg total) by mouth every 8 (eight) hours if needed for severe pain. Max Daily Amount: 150 mg 84 tablet 07/01/19 25 Active tamsulosin (FLOMAX) 0.4 mg 24 hr capsule TAKE 1 CAPSULE BY MOUTH EVERY 12 HOURS, 30 MINUTES AFTER MEALS 06/20/19 24 025 Discontin ued(Reord er) glipiZIDE (GLUCOTROL) 5 mg tablet Take 2 tablets (10 mg total) by mouth 2 (two) times a day. 180 tablet 04/27/19 25 025 Discontin ued(Reord er) traMADoL (ULTRAM) 50 mg tablet Take 1 tablet (50 mg total) by mouth every 8 (eight) hours if needed for severe pain. Max Daily Amount: 150 mg 84 tablet 06/02/19 25 025 Discontin ued(Reord er) Active Problems Problem Noted Date Diagnosed Date [...] underlying lung etiology. 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 A-fib 11/09/2011 Overview (01/13/2024): Last Assessment & Plan: The patient has a history of paroxysmal atrial fibrillation. The patient continues on rate control therapy with beta harley. Also, the patient has a [id number] score of 3 and continues on anticoagulation [...] 05/21/2024 9:30 AM EST Office Visit Adult [address] [phone] Keyla Guzmán PA Hypertension, unspecified type (Primary Dx); Type 2 diabetes mellitus with cataract (CMS/HCC); Chronic knee pain, unspecified laterality; Hyperlipidemia, unspecified hyperlipidemia type; Encounter for long-term (current) use of medications; DDD (degenerative disc disease), cervical 05/21/2024 Telephone Adult Medicine [address] [phone] Ivana Means LPN Fitting for DME 05/12/2024 Billing Patient Not Present Adult Medicine [address] [phone] Stef Valencia MD Type 2 diabetes mellitus without complication, unspecified whether intermediate school teacher insulin use (CMS/HCC) (Primary Dx); Paroxysmal atrial fibrillation (CMS/HCC); Essential (primary) hypertension; Hyperlipidemia, unspecified hyperlipidemia type 05/01/2024 Billing Patient Not Present Adult Medicine [address] [phone] Stef Valencia MD Type 2 diabetes mellitus without complication, unspecified whether intermediate school teacher insulin use (CMS/HCC) (Primary Dx); Paroxysmal atrial fibrillation (CMS/HCC); Essential (primary) hypertension; Hyperlipidemia, unspecified hyperlipidemia type from Last 3 Months Immunizations Name Administration [...] pidemia LDL goal < 70 Paroxysmal A-fib (CMS/HCC) 11/09/2011 DX:Pa roxysmal A-fib (HCC) Type 2 diabetes mellitus with cataract 05/20/2013 DX:Type 2 diabetes mellitus with cataract (HCC); COMMENT: Nuclear sclorosis Eye exam 05/05/13. 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) Family History Medical History Relation Name Comments [...] 11:30 AM EDT Office Visit Adult Medicine [address] [phone] Stef Valencia MD [address] [place] [id number] Health Maintenance Due Date Last Done Comments [...] EST Type 2 diabetes mellitus with cataract ([facility]/HCC) MICROALBUMIN CREATININE URINE RATIO Routine 02/20/2024 10:29 AM EST Type 2 diabetes mellitus without complication, without long-term current use of insulin ([facility]) COMPREHENSIVE METABOLIC PANEL Routine 02/20/2024 10:29 AM [...] LAB CHEMISTRY METHOD 05/21/2024 2:11 PM EST [facility] Mean Bld Glu Estim. 126 mg/dL LAB CHEMISTRY METHOD 05/21/2024 2:11 PM EST [facility] Blood Venous blood specimen / Unknown Venipuncture / Unknown 05/21/2024 10:17 AM EST 05/21/2024 10:17 AM EST us Keyla SMART LAB BLOOD ORDERABLES Fi nal Result [facility] [address] [place] [address], [place] [phone] * (ABNORMAL) Lipid panel with reflex to direct LDL (02/20/2024 10:29 AM EST) Cholesterol 165 0 - 200 mg/dL LAB CHEMISTRY METHOD 02/20/2024 2:43 PM EST [facility] Triglycerides 208(H) 0 - 150 mg/dL LAB CHEMISTRY METHOD 02/20/2024 2:43 PM EST [facility] HDL 45 >=40 mg/dL LAB CHEMISTRY METHOD 02/20/2024 2:43 PM EST [facility] LDL Calculated 78 0 - 100 mg/dL LAB CHEMISTRY METHOD 02/20/2024 2:43 PM EST [facility] VLDL Cholesterol Omar 41.6 mg/dL LAB CHEMISTRY METHOD 02/20/2024 2:43 PM EST [facility] Non HDL Chol. (LDL+VLDL) 120 <145 mg/dL LAB CHEMISTRY METHOD 02/20/2024 2:43 PM [facility] Chol/HDL Ratio 3.7 0.0 - 4.4 LAB CHEMISTRY METHOD 02/20/2024 2:43 PM [facility] Blood Venous blood specimen / Unknown Venipuncture / Unknown 02/20/2024 10:29 AM EST 02/20/2024 10:29 AM EST us Stef Valencia MD LAB BLOOD ORDERABLES Final Resu lt [facility] [address] [place] [address], [place] [phone] * Microalbumin creatinine urine ratio (02/20/2024 10:29 AM EST) Creatinine, Urine 121.0 mg/dL LAB CHEMISTRY METHOD 02/20/2024 2:26 PM [facility] Microalb, Ur 11.1 0.0 - 29.0 mg/L LAB CHEMISTRY METHOD 02/20/2024 2:26 PM [facility] Microalb/Creat Ratio 9 <30 mg/g creat LAB CHEMISTRY METHOD 02/20/2024 2:26 PM [facility] Urine Urine specimen obtained by clean catch procedure / Unknown Non-blood Collection / Unknown 02/20/2024 10:29 AM EST 02/20/2024 10:29 AM EST us Stef Valencia MD LAB URINE ORDERABLES Final Resu lt [facility] [address] [place] [address], * (ABNORMAL) Comprehensive metabolic panel (02/20/2024 10:29 AM EST) Pathologist [facility] Sodium 140 133 - 145 mmol/L LAB CHEMISTRY METHOD 02/20/2024 2:43 PM [facility] Potassium 3.8 3.5 - 5.5 mmol/L LAB CHEMISTRY METHOD 02/20/2024 2:43 PM [facility] Chloride 105 96 - 110 mmol/L LAB CHEMISTRY METHOD 02/20/2024 2:43 PM [facility] CO2 26 21 - 32 mmol/L LAB CHEMISTRY METHOD 02/20/2024 2:43 PM [facility] Anion Gap 9 3 - 11 LAB CHEMISTRY METHOD 02/20/2024 2:43 PM [facility] Glucose 227(H) 70 - 100 mg/dL LAB CHEMISTRY METHOD 02/20/2024 2:43 PM [facility] BUN 15 5 - 25 mg/dL LAB CHEMISTRY METHOD 02/20/2024 2:43 PM [facility] Creatinine 1.00 0.70 - 1.30 mg/dL LAB CHEMISTRY METHOD 02/20/2024 2:43 PM [facility] eGFR 78 >=60 mL/min/1. 73m2 LAB CHEMISTRY METHOD 02/20/2024 2:43 PM [facility] Comment:Calculation based on the??Chronic Kidney Disease Epidemiology Collaboration (CKD-EPI) equation refit??without adjustment for race. BUN/Creatinine Ratio 15.0 LAB CHEMISTRY METHOD 02/20/2024 2:43 PM [facility] Calcium 9.7 8.5 - 10.5 mg/dL LAB CHEMISTRY METHOD 02/20/2024 2:43 PM [facility] AST (SGOT) 30 10 - 42 unit/L LAB CHEMISTRY METHOD 02/20/2024 2:43 PM [facility] ALT (SGPT) 45 10 - 60 unit/L LAB CHEMISTRY METHOD 02/20/2024 2:43 PM [facility] Alkaline Phosphatase 87 42 - 121 unit/L LAB CHEMISTRY METHOD 02/20/2024 2:43 PM [facility] Total Protein 7.3 6.0 - 8.0 g/dL LAB CHEMISTRY METHOD 02/20/2024 2:43 PM [facility] Albumin 3.9 3.2 - 5.0 g/dL LAB CHEMISTRY METHOD 02/20/2024 2:43 PM [facility] Total Bilirubin 0.8 0.0 - 1.4 mg/dL LAB CHEMISTRY METHOD 02/20/2024 2:43 PM [facility] Blood Venous blood specimen / Unknown Venipuncture / Unknown 02/20/2024 10:29 AM EST 02/20/2024 10:29 AM EST us Stef Valencia MD LAB BLOOD ORDERABLES Final Resu lt [facility] [address] [place] [address], * Diabetes Eye Exam (12/18/2023) Diabetes: Annual Retina Eye Exam abstracted us Historical Provider HEALTH MAINTENANCE Final Result * Hepatitis C Screening (05/22/2018) Pathologist [facility] Hepatitis C Screening abstracted us Historical Provider HEALTH MAINTENANCE Final Result from Last 3 Months or Most Recently Relevant to Health Maintenance Insurance [employer] Member Subscriber Plan / Payer (Ef fective 2017-Present) Name:Paulie De Los Santos Relation to Subscriber:Self Name:Paulie De Los Santos Payer ID:[id number] Group ID:[id number] Type:Not on file Address: [address] [facility] [place] [address] Care Teams Claim Professional Relationship Specialty Start Date End Date Stef Valenica MD [address] [place] [address] PCP - General Internal Medicine 02/18/24
[2024-07-08 15:50] LABS: ~PT, ~INR - Anti Coag Clinic 2.4 (0.9-1.1)
== END 2024-07-08 10:19 | disposition home or self-care (01) ==
LOC: HO.ACS 10:08
PROVIDERS: PCP Internal Medicine; Visit Provider Internal Medicine Medical Oncology
DX: Z79.01 Long term (current) use of anticoagulants (principal)

== ENCOUNTER → 2024-07-08 10:08 | Outpatient (BNVA) | payer OTHER, SELFPAY | PROVIDERS: PCP Internal Medicine; Visit Provider Internal Medicine Medical Oncology | DX: I48.0 Paroxysmal atrial fibrillation (principal); Z79.01 Long term (current) use of anticoagulants; Z51.81 Encounter for therapeutic drug level monitoring | CPT/HCPCS: 85610; 99211 ==

== ENCOUNTER 2024-08-12 01:59 | Emergency (ER) | payer OTHER, SELFPAY ==
[2024-08-12 02:00] VITALS: BP 126/49; PULSE 77; RESP 16; TEMP 36; O2SAT 97; BMI 31.5
[2024-08-12 05:37] VITALS: BP 143/70; PULSE 77; RESP 16; TEMP 36.4; O2SAT 98
--- NOTE | 2024-08-12 05:56 | ED.NECK ---
HPI - Neck Pain/Injury General Chief Complaint: Back Pain/Injury Stated Complaint: shoulder/back pain Time Seen by Provider: 08/12/24 05:45 Source: patient Mode of arrival: ambulatory Limitations: no limitations History of Present Illness ED Provider: Dr. Willard Raygoza HPI Narrative: 79-year-old male with a history of atrial fibrillation on warfarin who presents emergency department for evaluation of neck and shoulder pain x1 week. Patient states that the pain came on gradually in his gotten progressively worse. He describes the pain is a tightness. Patient states the pain is worse with movement. The pain is 5/10 at its worst. Patient states he did not take any pain medications at home. States he generally feels weak but has no localized weakness, or numbness of his upper extremities. He denied fever, chills, chest pain, shortness of breath, nausea, vomiting, diarrhea. Related Data Home Medications ?Medication ?Instructions ?Recorded ?Confirmed atorvastatin 80 mg tablet 80 mg PO DAILY 04/27/20 06/05/24 blood sugar diagnostic #10 ea 04/27/20 06/05/24 blood-glucose meter (FreeStyle #1 ea 06/19/21 06/05/24 Lite Meter kit) pen needle, diabetic 32 gauge x #50 ea 06/19/21 06/05/24/32 (BD Keira 2nd Gen Pen Needle) lisinopril 5 mg tablet 5 mg PO DAILY 07/05/22 06/05/24 metoprolol succinate 25 mg 25 mg PO BID 07/05/22 06/05/24 tablet,extended release 24 hr glipizide 5 mg tablet 10 mg PO BID 11/24/22 06/05/24 multivitamin 1 tab PO DAILY 11/24/22 06/05/24 omega 2-vjk-nzg-fish oil 300 1 cap PO DAILY 11/24/22 06/05/24 mg-1,000 mg capsule,delayed release (Fish Oil) tamsulosin 0.4 mg capsule 0.4 mg PO Q12H 11/24/22 06/05/24 warfarin 5 mg tablet 5 mg PO .COMPLEX 02/21/23 07/08/24 tramadol 50 mg tablet 50 mg PO TID PRN 11/22/23 06/05/24 dulaglutide 3 mg/0.5 mL mg subcut 06/05/24 06/05/24 subcutaneous pen injector (Trulicity) Previous Rx's ?Medication ?Instructions ?Recorded docusate sodium 100 mg capsule 100 mg PO BID #20 caps 01/23/23 (Colace) polyethylene glycol 3350 17 17 g PO BID #238 grams 01/23/23 gram/dose oral powder (Miralax) sennosides 8.6 mg tablet (senna) 8.6 mg PO BEDTIME #14 tabs 01/23/23 cyclobenzaprine 10 mg tablet 10 mg PO BEDTIME #7 tabs 10/23/23 lidocaine 5 % topical patch 1 patch topical DAILY #15 ea 10/23/23 cyclobenzaprine 10 mg tablet 10 mg PO TID PRN muscle spasm #15 01/18/24 tabs lidocaine 5 % topical patch 1 patch topical DAILY #15 ea 01/18/24 (Lidoderm) metoprolol tartrate 25 mg tablet 25 mg PO BID #90 tabs 04/01/24 cyclobenzaprine 5 mg tablet 5 mg PO TID PRN muscle spasm or 08/12/24 pain #14 tabs Allergies Allergy/AdvReac Type Severity Reaction Status Date / Time oxycodone [From Percocet] Allergy Intermediate Headache Verified 08/12/24 02:04 ibuprofen [From Motrin] Allergy Mild SWELLING Verified 08/12/24 02:04 SALMON AdvReac Mild VOMITING Uncoded 08/12/24 02:04 Review of Systems Review of Systems: Yes all other systems are reviewed and are negative [facility] Past Medical History [facility] Narrative: Social history: He denies tobacco, alcohol and drug use Medical History Heart attack High cholesterol Diabetes Hypertension Diabetes Paroxysmal A-fib Current use of anticoagulant therapy Surgical History History of laparoscopic cholecystectomy (11/27/22) Social History Social History Alcohol intake: never Patient Tobacco Use Status: Never used Tobacco Advance Directives: No Advance Directives Information Provided: Yes service: No Current occupational status: 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 Physical Exam Vital Signs: Vital Signs: Last Vital Signs Temp 97.6 F 08/12/24 05:37 Pulse 77 08/12/24 05:37 Resp 16 08/12/24 05:37 BP 143/70 H 08/12/24 05:37 Pulse Ox 98 08/12/24 05:37 O2 Del Method Room Air 08/12/24 05:37 BMI result Body Mass Index 31.5 Vital signs were normal Exam: General: Awake, alert in no distress Head: Normocephalic, atraumatic EENT: PERRL, Lids normal, sclera normal, conjunctiva normal, nose normal , ears normal, throat without erythema or exudates Neck: Patient has tenderness and spasm of his trapezius muscles bilaterally, he was limited range of motion of his neck secondary to pain and spasm Lung: breath sounds symmetric, no wheezing, rales or rhonchi Chest: symmetric movement, nontender Heart: regular rate and rhythm, normal S1, S2 no murmurs or rubs Abdomen: soft, non-tender, nondistended, normal bowel sounds Back: no vertebral tenderness, no CVAT Extremities: no deformities, moves all extremities symmetrically Neuro: Awake, alert, oriented, normal speech, cranial nerves intact, moves all extremities symmetrically Psych: Pleasant, cooperative Medical Decision Making Medical Decision Making MDM Narrative: 79-year-old male with a history of atrial fibrillation on warfarin who presents emergency department for evaluation of neck and shoulder pain x1 week. Pain came on gradually, is constant but waxes and wanes in intensity, 5 at of 10 time my evaluation, pain is worse with movement. The patient states he was tramadol at home but did not take any tramadol for the pain. Review of systems were negative. Vital signs were normal. Exam did reveal tenderness palpation he was trapezius muscles with spasm and he was muscles and limited range of motion of his neck secondary to pain. Differential diagnosis: ?Includes but is not limited to musculoskeletal strain, musculoskeletal spasm Course: 06:05 Patient was exam is consistent with musculoskeletal injury of the neck/trapezius muscles with spasm of these muscles. Patient was advised to take his tramadol as prescribed by his provider. He was given a prescription for Flexeril 5 mg pills every 6 hours as needed for pain or spasm. He was given printed and verbal instructions and discharged home. Admission/Observation Consideration of admission/observation: Escalation of care including admission/observation considered (No) Chronic Conditions Patient?s care impacted by: Other (Atrial fibrillation on warfarin) Discharge Plan Discharge Clinical Impression: Acute neck sprain, Muscle spasm Patient Disposition: Home, Self-Care Instructions: Muscle Spasm (ED), Ice Pack Application (ED) Additional Instructions: Your exam is consistent with muscle strain and spasm of your neck muscles. You most likely injured your neck muscle several days prior which caused inflammation, pain and spasm of these muscles. Apply ice to the areas that hurt on your neck, for 15 minutes every 2-4 hours for the next 2-3 days to help reduce the pain. Take your tramadol as prescribed by your doctor for pain. Take extra-strength Tylenol 500 mg pills, 2 pills every 6 hours as needed for pain. Take Flexeril (cyclobenzaprine) 10 mg pills, 1 pill every 6-8 hours as needed for pain or spasm. ?This medication will make you sleepy. ?Do not drive or work while taking this medication. Follow-up with your doctor in 2 days. Please return to the emergency department if your symptoms get worse or if you develop any symptoms that are concerning to you. Prescriptions: New cyclobenzaprine 5 mg tablet 5 mg PO TID PRN (Reason: muscle spasm or pain) Qty: 14 0RF No Action tamsulosin 0.4 mg capsule 0.4 mg PO Q12H glipizide 5 mg tablet 10 mg PO BID multivitamin Tablet 1 tab PO DAILY omega 9-pjv-yom-fish oil [Fish Oil] 300-1,000 mg Capsule,Delayed Release(Dr/Ec) 1 cap PO DAILY cyclobenzaprine 10 mg tablet 10 mg PO TID PRN (Reason: muscle spasm) Qty: 15 0RF lidocaine [Lidoderm] 5 % adhesive patch,medicated 1 patch topical DAILY Qty: 15 0RF Rx Instructions: leave on most painful area for up to 12 hrs metoprolol tartrate 25 mg tablet 25 mg PO BID Qty: 90 0RF docusate sodium [Colace] 100 mg capsule 100 mg PO BID Qty: 20 0RF polyethylene glycol 3350 [Miralax] 17 gram/dose powder 17 g PO BID Qty: 238 0RF sennosides [senna] 8.6 mg tablet 8.6 mg PO BEDTIME Qty: 14 0RF cyclobenzaprine 10 mg tablet 10 mg PO BEDTIME Qty: 7 0RF lidocaine 5 % adhesive patch,medicated 1 patch topical DAILY Qty: 15 0RF Rx Instructions: leave on most painful area for up to 12 hrs atorvastatin 80 mg tablet 80 mg PO DAILY (DME) blood sugar diagnostic Strip See Rx Instructions Not Applicable BID Qty: 10 Rx Instructions: As directed (DME) pen needle, diabetic [BD Keira 2nd Gen Pen Needle] 32 gauge x 5/32 needle See Rx Instructions .ROUTE .MEDSUPPLY Qty: 50 Rx Instructions: As directed (DME) blood-glucose meter [FreeStyle Lite Meter] Kit See Rx Instructions .ROUTE TID Qty: 1 Rx Instructions: As directed lisinopril 5 mg tablet 5 mg PO DAILY metoprolol succinate 25 mg tablet extended release 24 hr 25 mg PO BID warfarin 5 mg tablet 5 mg PO .COMPLEX Protocol: Dose Management Condition: Saturday (Week One) Dose/Route: 2.5 mg Instruction: 0.5 x 5 mg tablets Condition: Saturday Dose/Route: 5 mg Instruction: 1 x 5 mg tablet Condition: Saturday Dose/Route: 2.5 mg Instruction: 0.5 x 5 mg tablets Condition: Saturday Dose/Route: 2.5 mg Instruction: 0.5 x 5 mg tablets Condition: Dose/Route: 2.5 mg Instruction: 0.5 x 5 mg tablets Condition: Saturday Dose/Route: 2.5 mg Instruction: 0.5 x 5 mg tablets Condition: Saturday Dose/Route: 2.5 mg Instruction: 0.5 x 5 mg tablets Condition: Saturday (Week Two) Dose/Route: 2.5 mg Instruction: 0.5 x 5 mg tablets Condition: Saturday Dose/Route: 5 mg Instruction: 1 x 5 mg tablet Condition: Saturday Dose/Route: 2.5 mg Instruction: 0.5 x 5 mg tablets Condition: Saturday Dose/Route: 2.5 mg Instruction: 0.5 x 5 mg tablets Condition: Dose/Route: 2.5 mg Instruction: 0.5 x 5 mg tablets Condition: Saturday Dose/Route: 2.5 mg Instruction: 0.5 x 5 mg tablets Condition: Saturday Dose/Route: 2.5 mg Instruction: 0.5 x 5 mg tablets Protocol Text: Adjustment Start Date: Saturday07/08/24 INR Value: 2.4 INR Date: 07/08/24 Recheck Date: 08/05/24 Additional Instructions: cont same dosing Rx Instructions: 5 mg orally 5mg x 1 day/ 2.5mg x 6 days; tramadol 50 mg tablet 50 mg PO TID PRN Trulicity 3 mg/0.5 mL pen injector subcut Print Language: Nam[place]
[2024-08-12 06:49] VITALS: BP 143/70; PULSE 77; RESP 16; TEMP 36.4; O2SAT 98
== END 2024-08-12 06:49 | disposition home or self-care (01) ==
PROVIDERS: Emergency Provider Emergency Medicine Emergency Medical Services; PCP Internal Medicine
DX: S13.9XXA Sprain of joints and ligaments of unspecified parts of neck, initial encounter (principal); X58.XXXA Exposure to other specified factors, initial encounter; M62.838 Other muscle spasm; M54.2 Cervicalgia; E11.9 Type 2 diabetes mellitus without complications; I10 Essential (primary) hypertension; E78.00 Pure hypercholesterolemia, unspecified; I48.0 Paroxysmal atrial fibrillation; Z90.49 Acquired absence of other specified parts of digestive tract; Z79.01 Long term (current) use of anticoagulants; Z79.02 Long term (current) use of antithrombotics/antiplatelets; Z79.899 Other long term (current) drug therapy; Z79.85 Long-term (current) use of injectable non-insulin antidiabetic drugs; Y93.9 Activity, unspecified; Y92.9 Unspecified place or not applicable; Y99.9 Unspecified external cause status
CPT/HCPCS: 99283

== ENCOUNTER 2024-08-31 09:14 | Outpatient (AMB) | payer OTHER, SELFPAY ==
[2024-08-31 09:19] LABS: Prothrombin Time Whole Bld POC 20.7 sec (11.1-13.5); ~PT, ~INR - Anti Coag Clinic 1.7 (0.9-1.1)
--- NOTE | 2024-08-31 09:25 | MHC.OFFVISCO ---
Intake Intake Visit Reasons: Anticoagulation Allergies oxycodone [From Percocet] Allergy (Intermediate, Verified 08/31/24 09:15) Headache ibuprofen [From Motrin] Allergy (Mild, Verified 08/31/24 09:15) SWELLING SALMON Adverse Reaction (Mild, Uncoded 08/31/24 09:15) VOMITING Medication List - Last Reconciled 08/31/24 by Sara Atkinson, RN atorvastatin 80 mg PO DAILY blood sugar diagnostic As directed blood-glucose meter (FreeStyle Lite Meter kit) As directed cyclobenzaprine 10 mg PO TID PRN cyclobenzaprine 5 mg PO TID PRN cyclobenzaprine 10 mg PO BEDTIME docusate sodium (Colace) 100 mg PO BID dulaglutide (Trulicity) mg subcut glipizide 10 mg PO BID lidocaine 5% (Lidoderm) 1 patch topical DAILY lidocaine 5% 1 patch topical DAILY lisinopril 5 mg PO DAILY metoprolol succinate ER 25 mg PO BID metoprolol tartrate 25 mg PO BID multivitamin 1 tab PO DAILY omega 0-bqv-csx-fish oil 300-1,000 mg (Fish Oil) 1 cap PO DAILY pen needle, diabetic (BD Keira 2nd Gen Pen Needle) As directed polyethylene glycol 3350 (Miralax) 17 grams PO BID sennosides (senna) 8.6 mg PO BEDTIME tamsulosin 0.4 mg PO Q12H tramadol 50 mg PO TID PRN warfarin See Protocol 5 mg orally 5mg x 1 day/ 2.5mg x 6 days; Nursing Note INR: 1.7 out of therapeutic range of 2-3 Medications and supplements reviewed Patient status: well Medications or supplements: no changes Diet: no changes Denies any signs and symptoms of bleeding or clotting or unusual bruising Bleeding, bruising, clotting discussed Nutritional guidance given: no greens (juju) next 3 days Dose: 5mg today, then increased dose of 5mg (2.5mg) tomorrow then return to usual dose of2.5mg X 6 days and 5mg X 1 day (Mon) F/U INR Date: 4 weeks?? Patient verbalizing understanding of instructions given. 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
--- OUTSIDE RECORDS SUMMARY | 2024-08-31 09:25 | XMS_ITS | Clinical Summary ---
Author Organization [facility] [address] [facility] Address [address] [place] [address] Phone Care Team Providers Care Music Education Adjunct Professor Name Role Phone Stef Vlaencia MD Primary Care Provider [phone] Allergies Active Allergy Reactions Criticality Noted Date [...] dulaglutide (Trulicity) 1.5 mg/0.5 mL pen injector injectionIndic ations:Type 2 diabetes mellitus with cataract (CMS/HCC V24, CMS/HCC V28) ADMINISTER 1.5 MG UNDER THE SKIN EVERY 7 DAYS DIRECTED 6 mL 1 03/18/20 24 Active blood sugar diagnostic (FreeStyle Lite Strips) test strip Use as instructedUSE TO TEST BLOOD SUGAR TWICE DAILY 100 each 1 04/27/19 25 Active warfarin (COUMADIN) 5 mg tablet Take 1 Tablet by mouth daily. May cause heavy bleeding. Take at same time every day. Do not change dietary habits. 90 tablet 1 04/27/19 25 Active lisinopriL (PRINIVIL,ZEST RIL) 5 mg tablet TAKE 1 TABLET BY [...] 06/27/19 25 Active traMADoL (ULTRAM) 50 mg tabletIndicati ons:Shoulder pain, unspecified chronicity, unspecified laterality Take 1 tablet (50 mg total) by mouth every 8 (eight) hours if needed for severe pain. Max Daily Amount: 150 mg 84 tablet 08/06/19 25 Active metoprolol succinate (TOPROL-XL) 25 mg 24 hr tablet TAKE 1 TABLET(25 MG) BY MOUTH TWICE DAILY 180 tablet 1 08/13/19 25 Active metoprolol succinate (TOPROL-XL) 25 mg 24 hr tablet Take 1 tablet (25 mg total) by mouth 2 (two) times a day. 180 tablet 03/27/20 24 2024 Discontinued traMADoL (ULTRAM) 50 mg tabletIndicati ons:Shoulder pain, unspecified chronicity, unspecified laterality Take 1 tablet (50 mg total) by mouth every 8 (eight) hours if needed for severe pain. Max Daily Amount: 150 mg 84 tablet 07/01/19 25 2024 Discontinued Active Problems Problem Noted Date Diagnosed Date [...] underlying lung etiology. 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 A-fib ([facility] [place], [facility] V28) 11/09/2011 Overview (01/13/2024): Last Assessment & Plan: The patient has a history of paroxysmal atrial fibrillation. The patient continues on rate control therapy with beta harley. Also, the patient has a [id number] score of 3 and continues on anticoagulation [...] consider further optimization to his medication regimen. Immunizations Name Administration Dates Next Due Influenza [...] pidemia LDL goal < 70 Paroxysmal A-fib ([facility] V2 4, [facility] V28) 11/09/2011 DX:Paroxysmal A-fib ([facility]) Type 2 diabetes mellitus wit h cataract ([facility] [place], [facility] V28) 05/20/2013 DX:Type 2 diabetes mellitus with cataract ([facility]); COMMENT: Nuclear sclorosis Eye exam 05/05/13. Kidney stone DX:Kidney stone Umbilical hernia DX:Umbilical he rnia Diabetic acetonemia ([facility], [facility] V28) DX:Diabetic acetonemia ([facility]) Family History Medical History Relation Name Comments [...] 11:30 AM EDT Office Visit Adult Medicine [facility] [address] [place] [phone] Stef Valencia MD [address] [place] [address] Health Maintenance Due Date Last Done Comments Diabetes: Annual Foot Exam 1955 Zoster Vaccines (1 of 2) 1996 RSV Immunization Adult Patients (1 - 1-dose 75+ series) 2021 Medicare Annual Wellness Visit 03/24/2022 Social Influencers of Health Screening 03/24/2022 COVID-19 Vaccine ( season) 2023 07/23/2020 Diabetes: Blood Sugar Control Test (HGBA1C) 11/18/2024 05/21/2024, 02/20/2024, 08/21/2023, Additional history exists Influenza Vaccine (Season Ended) 2024 03/03/2018, 01/22/2017 Diabetes: Annual Retina Eye Exam 12/17/2024 12/18/2023 [...] age to complete this topic Meningococcal B Vaccine Aged Out No l onger eligible based on patient's age to complete [...] EST Type 2 diabetes mellitus with cataract ([facility] V24, [facility] V28) MICROALBUMIN CREATININE URINE RATIO Routine 02/20/2024 10:29 AM EST Type 2 diabetes mellitus without complication, without long-term current use of insulin ([facility] V24, [facility] V28) COMPREHENSIVE METABOLIC PANEL Routine 02/20/2024 10:29 AM [...] LAB CHEMISTRY METHOD 05/21/2024 2:11 PM EST [facility] Mean Bld Glu Estim. 126 mg/dL LAB CHEMISTRY METHOD 05/21/2024 2:11 PM [facility] Blood Venous blood specimen / Unknown Venipuncture / Unknown 05/21/2024 10:17 AM EST 05/21/2024 10:17 AM EST Keyla SMART LAB BLOOD ORDERABLES nal Result [facility] [address] [place] [address], * (ABNORMAL) Lipid panel with reflex to direct LDL (02/20/2024 10:29 AM EST) Cholesterol 165 0 - 200 mg/dL LAB CHEMISTRY METHOD 02/20/2024 2:43 PM [facility] Triglycerides 208(H) 0 - 150 mg/dL LAB CHEMISTRY METHOD 02/20/2024 2:43 PM [facility] HDL 45 >=40 mg/dL LAB CHEMISTRY METHOD 02/20/2024 2:43 PM [facility] LDL Calculated 78 0 - 100 mg/dL LAB CHEMISTRY METHOD 02/20/2024 2:43 PM [facility] VLDL Cholesterol Omar 41.6 mg/dL LAB CHEMISTRY METHOD 02/20/2024 2:43 PM [facility] Non HDL Chol. (LDL+VLDL) 120 <145 mg/dL LAB CHEMISTRY METHOD 02/20/2024 2:43 PM EST [facility] Chol/HDL Ratio 3.7 0.0 - 4.4 LAB CHEMISTRY METHOD 02/20/2024 2:43 PM EST [facility] Blood Venous blood specimen / Unknown Venipuncture / Unknown 02/20/2024 10:29 AM EST 02/20/2024 10:29 AM EST us Stef Valencia MD LAB BLOOD ORDERABLES Final Resu lt Performing Organization Address [facility]/ZIP Co de Phone Number [facility] [address] [place] [address], [place] [phone] * Microalbumin creatinine urine ratio (02/20/2024 10:29 AM EST) Creatinine, Urine 121.0 mg/dL LAB CHEMISTRY METHOD 02/20/2024 2:26 PM EST [facility] Microalb, Ur 11.1 0.0 - 29.0 mg/L LAB CHEMISTRY METHOD 02/20/2024 2:26 PM EST [facility] Microalb/Creat Ratio 9 <30 mg/g creat LAB CHEMISTRY METHOD 02/20/2024 2:26 PM EST [facility] Urine Urine specimen obtained by clean catch procedure / Unknown Non-blood Collection / Unknown 02/20/2024 10:29 AM EST 02/20/2024 10:29 AM EST us Stef Valencia MD LAB URINE ORDERABLES Final Resu lt Performing Organization Address City/[facility]/ZIP Co de Phone Number [facility] [address] [place] [address], [place] [phone] * (ABNORMAL) Comprehensive metabolic panel (02/20/2024 10:29 AM EST) Sodium 140 133 - 145 mmol/L LAB CHEMISTRY METHOD 02/20/2024 2:43 PM [facility] Potassium 3.8 3.5 - 5.5 mmol/L LAB CHEMISTRY METHOD 02/20/2024 2:43 PM [facility] Chloride 105 96 - 110 mmol/L LAB CHEMISTRY METHOD 02/20/2024 2:43 PM [facility] CO2 26 21 - 32 mmol/L LAB CHEMISTRY METHOD 02/20/2024 2:43 PM [facility] Anion Gap 9 3 - 11 LAB CHEMISTRY METHOD 02/20/2024 2:43 PM [facility] Glucose 227(H) 70 - 100 mg/dL LAB CHEMISTRY METHOD 02/20/2024 2:43 PM [facility] BUN 15 5 - 25 mg/dL LAB CHEMISTRY METHOD 02/20/2024 2:43 PM [facility] Creatinine 1.00 0.70 - 1.30 mg/dL LAB CHEMISTRY METHOD 02/20/2024 2:43 PM [facility] eGFR 78 >=60 mL/min/1. 73m2 LAB CHEMISTRY METHOD 02/20/2024 2:43 PM [facility] Comment:Calculation based on the??Chronic Kidney Disease Epidemiology Collaboration (CKD-EPI) equation refit??without adjustment for race. BUN/Creatinine Ratio 15.0 LAB CHEMISTRY METHOD 02/20/2024 2:43 PM [facility] Calcium 9.7 8.5 - 10.5 mg/dL LAB CHEMISTRY METHOD 02/20/2024 2:43 PM [facility] AST (SGOT) 30 10 - 42 unit/L LAB CHEMISTRY METHOD 02/20/2024 2:43 PM [facility] ALT (SGPT) 45 10 - 60 unit/L LAB CHEMISTRY METHOD 02/20/2024 2:43 PM [facility] Alkaline Phosphatase 87 42 - 121 unit/L LAB CHEMISTRY METHOD 02/20/2024 2:43 PM [facility] Total Protein 7.3 6.0 - 8.0 g/dL LAB CHEMISTRY METHOD 02/20/2024 2:43 PM EST [facility] Albumin 3.9 3.2 - 5.0 g/dL LAB CHEMISTRY METHOD 02/20/2024 2:43 PM EST [facility] Total Bilirubin 0.8 0.0 - 1.4 mg/dL LAB CHEMISTRY METHOD 02/20/2024 2:43 PM EST [facility] Blood Venous blood specimen / Unknown Venipuncture / Unknown 02/20/2024 10:29 AM EST 02/20/2024 10:29 AM EST Stef Valencia MD LAB BLOOD ORDERABLES Final Resu lt [facility] [address] [place] [address], * Diabetes Eye Exam (12/18/2023) [facility] Diabetes: Annual Retina Eye Exam abstracted Historical Provider HEALTH MAINTENANCE Final Result * Hepatitis C Screening (05/22/2018) [facility] Hepatitis C Screening abstracted Bjorn Roberts MD HEALTH MAINTENANCE Final Result from Last 3 Months or Most Recently Relevant to Health Maintenance Insurance [facility] MEDIC[facility] Member Subscriber Plan / Payer (Ef fective 2017-Present) Name:NANCY DE LOS SANTOS Relation to Subscriber:Self Name:Nancy De Los Santos Payer ID:[id number] Group ID:[id number] Type:Not on file Address: [place] [address] [place] [phone] Care Teams Music Education Adjunct Professor Relationship Specialty Start Date End Date Stef Valencia MD [address] [place] [address] PCP - General Internal Medicine 02/18/24
--- OUTSIDE RECORDS SUMMARY | 2024-08-31 09:25 | XMS_ITS | Data Portability ---
Author Organization [facility] Address [address] [place] [address] Care Team Providers Care Equities Trader Name Role Phone ADITI ROSEN Primary Care Provider [phone] HIM [facility] OTHER Assessment Encounter Date Assessment [...] /min 112 mm[Hg] 67 mm[Hg] Not Available [employer] CountEDNow - production 4 14:08:06 Social History None recorded. Functional Status None recorded. Mental Status None recorded. Family History Nothing Reported. Medical History No medical history recorded. Past Encounters Encounter ID Performer Location Encounter Start Date Encounter Closed Date Diagnosis/Indication Diagnosis SNOMED-CT Code Diagnosis ICD10 Code Diagnosis Note [id number] Adelita Hu MD [address] [address] 01/21/2024 13:54:07 01/21/2024 23:43:57 Fatigue 84494840 R53.83 Health Concerns Section Related Observation LastModified by Organization Detai ls LastModified Time None Recorded Concern Status LastModified by Organization Details LastModified Time None Recorded Advance Directives Directive None Recorded Payers Insurance Date Sequence Insurance Name Policy Number Policy Parks Covered Member ID Parks Member ID Guarantor Name 01/21/2024 1 [facility] - DOS ON OR AFTER 2022 - DUAL ELIGIBLE - SENIOR LIVING OPTIONS AND ONE CARE (MEDICARE REPLACEMENT/AD VANTAGE - HMO) Paulie De Los Santos [id number] Paulie De Los Santos Notes Date Note [...] .................. .................. .................. .................. .................. .................. ............... Hr Coordinator Note From Rachael Solano: Sent to a call for a pt complaining of lethargy. SC8 arrives on scene, pt is alert and oriented, airway is patent. Pt's primary language is Hungarian. VNA serves as ropeman during visit. Pt states he is being [...] .................. ............... Disposition: Manda Hu MD [address], [place], [address], [employer] 01/21/2024 20:57:22
== END 2024-08-31 09:30 | disposition home or self-care (01) ==
LOC: HO.ACS 09:14
PROVIDERS: PCP Internal Medicine; Visit Provider Internal Medicine Medical Oncology
DX: Z79.01 Long term (current) use of anticoagulants (principal)

== ENCOUNTER → 2024-08-31 09:14 | Outpatient (BNVA) | payer OTHER, SELFPAY | PROVIDERS: PCP Internal Medicine; Visit Provider Internal Medicine Medical Oncology | DX: I48.0 Paroxysmal atrial fibrillation (principal); Z79.01 Long term (current) use of anticoagulants; Z51.81 Encounter for therapeutic drug level monitoring | CPT/HCPCS: 85610; 99211 ==

== ENCOUNTER 2024-10-13 09:52 | Outpatient (AMB) | payer OTHER, SELFPAY ==
--- NOTE | 2024-10-13 10:04 | MHC.OFFVISCO ---
Intake Intake Visit Reasons: Anticoagulation Allergies oxycodone (From Percocet) Allergy (Intermediate, Verified 10/13/24 10:00) Headache ibuprofen (From Motrin) Allergy (Mild, Verified 10/13/24 10:00) SWELLING SALMON Adverse Reaction (Mild, Uncoded 10/13/24 10:00) VOMITING Medication List - Last Reconciled 10/13/24 by Ifrah Mandel RN atorvastatin 80 mg PO DAILY blood sugar diagnostic As directed blood-glucose meter (FreeStyle Lite Meter kit) As directed cyclobenzaprine 10 mg PO TID PRN cyclobenzaprine 5 mg PO TID PRN cyclobenzaprine 10 mg PO BEDTIME docusate sodium (Colace) 100 mg PO BID dulaglutide (Trulicity) mg subcut glipizide 10 mg PO BID lidocaine 5% (Lidoderm) 1 patch topical DAILY lidocaine 5% 1 patch topical DAILY lisinopril 5 mg PO DAILY metoprolol succinate ER 25 mg PO BID metoprolol tartrate 25 mg PO BID multivitamin 1 tab PO DAILY omega 0-uhs-ila-fish oil 300-1,000 mg (Fish Oil) 1 cap PO DAILY pen needle, diabetic (BD Keira 2nd Gen Pen Needle) As directed polyethylene glycol 3350 (Miralax) 17 grams PO BID sennosides (senna) 8.6 mg PO BEDTIME tamsulosin 0.4 mg PO Q12H tramadol 50 mg PO TID PRN warfarin See Protocol 5 mg orally 5mg x 1 day/ 2.5mg x 6 days; Nursing Note INR: 2.8- in therapeutic range of 2-3 Medications and supplements reviewed- no changes No changes in health, diet, medications, or supplements, Denies any signs and symptoms of bleeding or bruising or clotting. 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
[2024-10-13 10:05] LABS: Prothrombin Time Whole Bld POC 34.0 sec (11.1-13.5); ~PT, ~INR - Anti Coag Clinic 2.8 (0.9-1.1)
--- OUTSIDE RECORDS SUMMARY | 2024-10-13 10:48 | XMS_ITS | Data Portability ---
Author Organization Cognitive Code [facility] Address [address] [place] [address] Care Team Providers Care Senior Cytogenetic Technologist Name Role Phone ADITI ROSEN Primary Care Provider HIM [facility] OTHER Assessment Encounter Date Assessment [...] no acute distress. Encouraged safe medication use. [facility] Not available 01/21/2024 14:53:20 Plan of Treatment [...] /min 112 mm[Hg] 67 mm[Hg] Not Available InstEDNow - production 4 14:08:06 Social History None recorded. Functional Status None recorded. Mental Status None recorded. Family History Nothing Reported. Medical History No medical history recorded. Past Encounters Encounter ID Performer Location Encounter Start Date Encounter Closed Date Diagnosis/Indication Diagnosis SNOMED-CT Code Diagnosis ICD10 Code Diagnosis Note [id number] Adelita Hu MD [address] [address] 01/21/2024 13:54:07 01/21/2024 23:43:57 Fatigue 48717333 R53.83 Health Concerns Section Related Observation LastModified by Organization Detai ls LastModified Time None Recorded Concern Status LastModified by Organization Details LastModified Time None Recorded Advance Directives Directive None Recorded Payers Insurance Date Sequence Insurance Name Policy Number Policy Parks Covered Member ID Parks Member ID Guarantor Name 01/21/2024 1 [facility] - DOS ON OR AFTER 2022 - DUAL ELIGIBLE - CORRECTION OPTIONS AND ONE CARE (MEDICARE REPLACEMENT/AD VANTAGE - HMO) Paulie De Los Santos [id number] Paulie De Los Santos Notes Date Note [...] .................. .................. .................. .................. .................. .................. ............... Echo Vascular Technologist Note From Rachael Solano: Sent to a call for a pt complaining of lethargy. SC8 arrives on scene, pt is alert and oriented, airway is patent. Pt's primary language is Kiswahili. VNA serves as per diem interpreter during visit. Pt states he is being [...] .................. ............... Disposition: Manda Hu MD [address] [facility],[address], [place], [address], [employer] 01/21/2024 20:57:22
--- OUTSIDE RECORDS SUMMARY | 2024-10-13 10:48 | XMS_ITS | Patient Health Record ---
Author Organization [facility] Address [address] [place] [address] Care Team Providers Care Circulation Manager Name Role Phone Adonis Zepeda Unavailable [phone] Reason For Referral No Information Plan Of Treatment No Information
--- OUTSIDE RECORDS SUMMARY | 2024-10-13 10:48 | XMS_ITS | Encounter Summary ---
Author Organization [facility] Address [address] [place] [address] Care Team Providers Care Industrial Psychology Professor Name Role Phone Stef Valencia MD Primary Care Provider [phone] Reason for Visit * Reason Onset Date Comments home health cert 09/15/2024 Encounter Details Date Type Department Care Team (Late st Contact Info) Description 09/15/2024 Telephone Adult Medicine [address] [phone] Meredith Rodriguez [place] home health cert Social History Tobacco Use Types Packs/Day Years [...] on file documented as of this encounter Plan of Treatment Not on file documented as of this encounter Visit Diagnoses Not on filedocumented in this encounter Additional Health Concerns Assessment Noted Time PHQ-9 Depression Total Score: 1 05/21/19 25 9:41 AM EST A fall risk assessment has been complete d for the patient 05/21/2024 9:40 AM EST documented as of this encounter Care Teams Industrial Psychology Professor Relationship Specialty Start Date End Date Stef Valencia MD [address] [place] [phone] PCP - General Internal Medicine 02/18/24 documented as of this encounter
== END 2024-10-13 10:11 | disposition home or self-care (01) ==
LOC: HO.ACS 09:52
PROVIDERS: PCP Internal Medicine; Visit Provider Internal Medicine Medical Oncology
DX: Z79.01 Long term (current) use of anticoagulants (principal)

== ENCOUNTER → 2024-10-13 09:52 | Outpatient (BNVA) | payer OTHER, SELFPAY | PROVIDERS: PCP Internal Medicine; Visit Provider Internal Medicine Medical Oncology | DX: Z79.01 Long term (current) use of anticoagulants (principal) | CPT/HCPCS: 85610; 99211 ==

== ENCOUNTER → 2024-10-21 20:17 | Outpatient (BNV) | payer OTHER, SELFPAY | PROVIDERS: PCP Internal Medicine; Visit Provider Student in an Organized Health Care Education/Training Program | DX: S90.31XA Contusion of right foot, initial encounter (principal) | CPT/HCPCS: 73620 ==

== ENCOUNTER 2024-10-21 20:52 | Emergency (ER) | payer OTHER, SELFPAY ==
--- NOTE | ~2024-10-21 | XR_ITS ---
CLINICAL HISTORY: pain, object fell on foot 3 view left foot Comparison: None provided Findings: Bones intact. No dislocations. Moderate degenerative spurring. No ankle effusion. No radiopaque foreign body. IMPRESSION: 1. No acute findings. Moderate DJD. This document has been electronically signed by: Oumou Roach MD on 10/21/2024 22:06:03
[2024-10-21 21:00] VITALS: BP 130/53; PULSE 81; RESP 20; TEMP 36; O2SAT 97; BMI 29.8
--- NOTE | 2024-10-22 00:07 | ED.EXTPRO ---
HPI - Extremity Problem General Chief complaint: Extremity Problem Stated complaint: Injury to foot Time Seen by Provider: 10/22/24 00:02 Source: patient and family Mode of arrival: ambulatory Limitations: no limitations History of Present Illness ED Provider: Dr. Lora Chou HPI Narrative: patient comes to the emergency room complaining of a contusion on the left foot. Patient states that he was lowering a gate from a truck and it fell on his foot. Patient states that he noticed that his foot is more swollen, takes Coumadin for AFib, denies any other injuries. Patient states that he has been ambulatory but he was concerned about the foot injury because he is diabetic. Patient denies any lacerations or open wounds on his feet. Related Data Home Medications ?Medication ?Instructions ?Recorded ?Confirmed atorvastatin 80 mg tablet 80 mg PO DAILY 04/27/20 08/31/24 blood sugar diagnostic #10 ea 04/27/20 08/31/24 blood-glucose meter (FreeStyle #1 ea 06/19/21 08/31/24 Lite Meter kit) pen needle, diabetic 32 gauge x #50 ea 06/19/21 08/31/24/32 (BD Keira 2nd Gen Pen Needle) lisinopril 5 mg tablet 5 mg PO DAILY 07/05/22 08/31/24 metoprolol succinate 25 mg 25 mg PO BID 07/05/22 08/31/24 tablet,extended release 24 hr glipizide 5 mg tablet 10 mg PO BID 11/24/22 08/31/24 multivitamin 1 tab PO DAILY 11/24/22 08/31/24 omega 6-oxs-afd-fish oil 300 1 cap PO DAILY 11/24/22 08/31/24 mg-1,000 mg capsule,delayed release (Fish Oil) tamsulosin 0.4 mg capsule 0.4 mg PO Q12H 11/24/22 08/31/24 warfarin 5 mg tablet 5 mg PO .COMPLEX 02/21/23 10/13/24 tramadol 50 mg tablet 50 mg PO TID PRN 11/22/23 08/31/24 dulaglutide 3 mg/0.5 mL mg subcut 06/05/24 08/31/24 subcutaneous pen injector (Trulicity) Previous Rx's ?Medication ?Instructions ?Recorded docusate sodium 100 mg capsule 100 mg PO BID #20 caps 01/23/23 (Colace) polyethylene glycol 3350 17 17 g PO BID #238 grams 01/23/23 gram/dose oral powder (Miralax) sennosides 8.6 mg tablet (senna) 8.6 mg PO BEDTIME #14 tabs 01/23/23 cyclobenzaprine 10 mg tablet 10 mg PO BEDTIME #7 tabs 10/23/23 lidocaine 5 % topical patch 1 patch topical DAILY #15 ea 10/23/23 cyclobenzaprine 10 mg tablet 10 mg PO TID PRN muscle spasm #15 01/18/24 tabs lidocaine 5 % topical patch 1 patch topical DAILY #15 ea 01/18/24 (Lidoderm) metoprolol tartrate 25 mg tablet 25 mg PO BID #90 tabs 04/01/24 cyclobenzaprine 5 mg tablet 5 mg PO TID PRN muscle spasm or 08/12/24 pain #14 tabs Allergies Allergy/AdvReac Type Severity Reaction Status Date / Time oxycodone (From Percocet) Allergy Intermediate Headache Verified 10/21/24 21:04 ibuprofen (From Motrin) Allergy Mild SWELLING Verified 10/21/24 21:04 SALMON AdvReac Mild VOMITING Uncoded 10/21/24 21:04 Review of Systems Review of Systems: Constitutional : No Weight loss, No Fever, No Chills, No Night Sweats, No Fatigue, No Malaise ENT/Mouth : No Hearing loss, No Ear Pain, No Nasal Congestion, No Sinus Pain, No Hoarseness, No sore throat, No Rhinorrhea, No Swallowing Difficulty Eyes: No Eye Pain, No Swelling, No Redness, No Foreign Body, No Discharge, No Vision Changes Cardiovascular : No Chest Pain, No SOB, No Dyspnea on Exertion, No Orthopnea, No Edema, No Palpitations Respiratory : No Cough, No Sputum, No Wheezing, No Smoke Exposure, No Dyspnea Gastrointestinal : No Nausea, No Vomiting, No Diarrhea, No Constipation, No abdominal Pain, No Hematochezia, No Melena Genitourinary : no irregular bleeding, No Dysuria, No Urinary Frequency, No Hematuria, No Urinary Incontinence, No Urgency, No Flank Pain, No Urinary Flow Changes, No Hesitancy Musculoskeletal : Complaining of pain in the dorsum of the left foot, No Myalgias, No Joint Swelling Skin : No Skin Lesions, No rash Neuro : No Weakness, No Numbness, No Paresthesias, No Loss of Consciousness, No Dizziness, No Headache Psych : No Anxiety/Panic, No Depression, No SI/HI/AH/VH, No Social Issues, Heme/Lymph: No Bruising, No Bleeding,No Lymphadenopathy Endocrine : No Polyuria, No Polydipsia, No Temperature Intolerance [facility] Past Medical History Medical History Heart attack High cholesterol Diabetes Hypertension Diabetes Paroxysmal A-fib Current use of anticoagulant therapy Surgical History History of laparoscopic cholecystectomy (11/27/22) Social History Social History Unable to assess alcohol history related to: Unknown Alcohol intake: never Patient Tobacco Use Status: Never used Tobacco Smoked in Last 30 Days: No Use of substances other than those prescribed or required for medical reasons: Unknown Advance Directives: No Advance Directives Information Provided: Yes service: No 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 Oriented X3. No acute distress. Eyes: Pupils equal, round and reactive to light. ENT: Pharynx normal. Neck: Normal inspection. Neck supple. No lymph nodes noted. No crepitus CVS: Normal heart rate and rhythm. Pulses normal. Normal S1 and S2 Respiratory: No respiratory distress. Breath sounds normal. No Wheezing. No rales Abdomen: Soft and nontender. No rigidity. No distention. Skin: Skin warm and dry. Normal skin color. Normal skin turgor. Extremities: No lower extremity edema. dorsum of the left foot is a bit swollen, ecchymosis at the bases of the 2nd 3rd 4th toes. Neuro: Oriented X 3. No motor deficit. No sensory deficit. Moving all extremities. No slurred speech. CN 2 through 12 grossly intact Psych: calm, cooperative, normal affect Medical Decision Making Medical Decision Making MDM Narrative: X-ray: No acute abnormality. Patient is on Coumadin for atrial fibrillation. At this time, patient states that he would like to prefer to check his INR, he has an appointment coming up. Patient states that his INR is consistently within therapeutic ranges. Independent Interpretation I performed an independent interpretation of an: Plain X-Ray Radiology Impression Discussion of test interpretation with radiology: I have reviewed the radiologist's reading. Radiologist Impression: Bones intact. No dislocations. Moderate degenerative spurring. No ankle effusion. No radiopaque foreign body. IMPRESSION: 1. No acute findings. Moderate DJD. Discharge Plan Discharge Clinical Impression: Contusion of foot Patient Disposition: Home, Self-Care Instructions: Foot Contusion (ED) Additional Instructions: Please follow-up with your primary care physician tomorrow. If you have any worsening or new symptoms, please return to the emergency room or call 911 Prescriptions: No Action tamsulosin 0.4 mg capsule 0.4 mg PO Q12H glipizide 5 mg tablet 10 mg PO BID multivitamin Tablet 1 tab PO DAILY omega 5-kie-gpd-fish oil [Fish Oil] 300-1,000 mg Capsule,Delayed Release(Dr/Ec) 1 cap PO DAILY cyclobenzaprine 10 mg tablet 10 mg PO TID PRN (Reason: muscle spasm) Qty: 15 0RF lidocaine [Lidoderm] 5 % adhesive patch,medicated 1 patch topical DAILY Qty: 15 0RF Rx Instructions: leave on most painful area for up to 12 hrs metoprolol tartrate 25 mg tablet 25 mg PO BID Qty: 90 0RF cyclobenzaprine 5 mg tablet 5 mg PO TID PRN (Reason: muscle spasm or pain) Qty: 14 0RF docusate sodium [Colace] 100 mg capsule 100 mg PO BID Qty: 20 0RF polyethylene glycol 3350 [Miralax] 17 gram/dose powder 17 g PO BID Qty: 238 0RF sennosides [senna] 8.6 mg tablet 8.6 mg PO BEDTIME Qty: 14 0RF cyclobenzaprine 10 mg tablet 10 mg PO BEDTIME Qty: 7 0RF lidocaine 5 % adhesive patch,medicated 1 patch topical DAILY Qty: 15 0RF Rx Instructions: leave on most painful area for up to 12 hrs atorvastatin 80 mg tablet 80 mg PO DAILY (DME) blood sugar diagnostic Strip See Rx Instructions Not Applicable BID Qty: 10 Rx Instructions: As directed (DME) pen needle, diabetic [BD Keira 2nd Gen Pen Needle] 32 gauge x 5/32 needle See Rx Instructions .ROUTE .MEDSUPPLY Qty: 50 Rx Instructions: As directed (DME) blood-glucose meter [FreeStyle Lite Meter] Kit See Rx Instructions .ROUTE TID Qty: 1 Rx Instructions: As directed lisinopril 5 mg tablet 5 mg PO DAILY metoprolol succinate 25 mg tablet extended release 24 hr 25 mg PO BID warfarin 5 mg tablet 5 mg PO .COMPLEX Protocol: Dose Management Condition: Saturday (Week One) Dose/Route: 2.5 mg Instruction: 0.5 x 5 mg tablets Condition: Saturday Dose/Route: 5 mg Instruction: 1 x 5 mg tablet Condition: Saturday Dose/Route: 2.5 mg Instruction: 0.5 x 5 mg tablets Condition: Saturday Dose/Route: 2.5 mg Instruction: 0.5 x 5 mg tablets Condition: Dose/Route: 2.5 mg Instruction: 0.5 x 5 mg tablets Condition: Saturday Dose/Route: 2.5 mg Instruction: 0.5 x 5 mg tablets Condition: Saturday Dose/Route: 2.5 mg Instruction: 0.5 x 5 mg tablets Condition: Saturday (Week Two) Dose/Route: 2.5 mg Instruction: 0.5 x 5 mg tablets Condition: Saturday Dose/Route: 5 mg Instruction: 1 x 5 mg tablet Condition: Saturday Dose/Route: 2.5 mg Instruction: 0.5 x 5 mg tablets Condition: Saturday Dose/Route: 2.5 mg Instruction: 0.5 x 5 mg tablets Condition: Dose/Route: 2.5 mg Instruction: 0.5 x 5 mg tablets Condition: Saturday Dose/Route: 2.5 mg Instruction: 0.5 x 5 mg tablets Condition: Saturday Dose/Route: 2.5 mg Instruction: 0.5 x 5 mg tablets Protocol Text: Adjustment Start Date: Saturday10/13/24 INR Value: 2.8 INR Date: 10/13/24 Recheck Date: 11/10/24 Additional Instructions: cont reg dosing call with any changes in medications Rx Instructions: 5 mg orally 5mg x 1 day/ 2.5mg x 6 days; tramadol 50 mg tablet 50 mg PO TID PRN Trulicity 3 mg/0.5 mL pen injector subcut Print Language: Chilean
[2024-10-22 00:16] VITALS: BP 130/53; PULSE 81; RESP 20; TEMP 36; O2SAT 97
== END 2024-10-22 00:17 | disposition home or self-care (01) ==
PROVIDERS: Emergency Provider Emergency Medicine; PCP Internal Medicine
DX: S90.32XA Contusion of left foot, initial encounter (principal); I48.91 Unspecified atrial fibrillation; M79.672 Pain in left foot; X58.XXXA Exposure to other specified factors, initial encounter; Y93.9 Activity, unspecified; Y92.9 Unspecified place or not applicable; Y99.8 Other external cause status; Z79.01 Long term (current) use of anticoagulants; Z79.899 Other long term (current) drug therapy
CPT/HCPCS: 73620; 99283; 99284

== ENCOUNTER 2024-11-10 09:49 | Outpatient (AMB) | payer OTHER, SELFPAY ==
[2024-11-10 10:03] LABS: Prothrombin Time Whole Bld POC 33.4 sec (11.1-13.5); ~PT, ~INR - Anti Coag Clinic 2.8 (0.9-1.1)
--- NOTE | 2024-11-10 10:03 | MHC.OFFVISCO ---
Intake Intake Visit Reasons: Anticoagulation Allergies oxycodone (From Percocet) Allergy (Intermediate, Verified 11/10/24 09:57) Headache ibuprofen (From Motrin) Allergy (Mild, Verified 11/10/24 09:57) SWELLING SALMON Adverse Reaction (Mild, Uncoded 11/10/24 09:57) VOMITING Medication List - Last Reconciled 11/10/24 by Sara Atkinson RN atorvastatin 80 mg PO DAILY blood sugar diagnostic As directed blood-glucose meter (FreeStyle Lite Meter kit) As directed cyclobenzaprine 10 mg PO TID PRN cyclobenzaprine 5 mg PO TID PRN cyclobenzaprine 10 mg PO BEDTIME docusate sodium (Colace) 100 mg PO BID dulaglutide (Trulicity) mg subcut glipizide 10 mg PO BID lidocaine 5% (Lidoderm) 1 patch topical DAILY lidocaine 5% 1 patch topical DAILY lisinopril 5 mg PO DAILY metoprolol succinate ER 25 mg PO BID metoprolol tartrate 25 mg PO BID multivitamin 1 tab PO DAILY omega 8-sht-kgf-fish oil 300-1,000 mg (Fish Oil) 1 cap PO DAILY pen needle, diabetic (BD Keira 2nd Gen Pen Needle) As directed polyethylene glycol 3350 (Miralax) 17 grams PO BID sennosides (senna) 8.6 mg PO BEDTIME tamsulosin 0.4 mg PO Q12H tramadol 50 mg PO TID PRN warfarin See Protocol 5 mg orally 5mg x 1 day/ 2.5mg x 6 days; Nursing Note INR: 2.8 in therapeutic range of 2-3 Medications and supplements reviewed No changes in health, diet, medications, or supplements, Denies any signs and symptoms of bleeding or bruising or clotting. Bleeding, bruising, clotting discussed Nutritional guidance given Dose: 2.5mg X 6 days and 5mg X 1 day (Mon) F/U INR: 4 weeks Patient verbalizes understanding of instructions given Anti-Coag Initial Assessment Social Hx Patient Tobacco Use Status: Never used Tobacco alcohol intake: never Alcohol intake frequency: former alcohol drinker Coding Level of Care Code Est Patient Level 1 Diagnoses Current use of anticoagulant therapy Z79.01 Results AMB INR Fingerstick AMB INR Fingerstick 2.8 Last Edit by Sara Atkinson RN on 11/10/24 10:03 interface delay Assessment & Plan Assessment & Plan (1) Current use of anticoagulant therapy: Code(s): Z79.01 - longterm (current) use of anticoagulants Category: Medical
--- OUTSIDE RECORDS SUMMARY | 2024-11-10 10:27 | XMS_ITS | Patient Health Record ---
Author Organization [facility] Address [address] [place] [address] Care Team Providers Care Munitions Handler Name Role Phone Adonis Zepeda Unavailable [phone] Reason For Referral No Information Plan Of Treatment No Information
--- OUTSIDE RECORDS SUMMARY | 2024-11-10 10:27 | XMS_ITS | Encounter Summary ---
Author Organization [facility] Address [address] [place] [address] Care Team Providers Care Drawstring Knotter Name Role Phone Stef Valencia MD Primary Care Provider [phone] Encounter Details Date Type Department Care Team (Late Contact Info) Description 09/15/2024 Billing Patient Not Present Adult Medicine [address] [phone] Stef Valencia MD [address] [place] [phone] Social History Tobacco Use Types Packs/Day Years [...] as of this encounter Plan of Treatment Upcoming Encounters Date Type Department Care Team (Late Contact Info) Description 12/01/2024 7:30 AM EDT Office Visit Adult Medicine [address] [phone] Keyla Guzmán PA [address] [place] [address] [phone] documented as of this encounter Visit Diagnoses Not on filedocumented in this encounter Additional Health Concerns Assessment Noted Time PHQ-9 Depression Total Score: 1 05/21/19 25 9:41 AM EST A fall risk assessment has been complete d for the patient 05/21/2024 9:40 AM EST documented as of this encounter Care Teams Drawstring Knotter Relationship Specialty Start Date End Date Stef Valencia MD [address] [place] [id number] PCP - General Internal Medicine 02/18/24 documented as of this encounter
--- OUTSIDE RECORDS SUMMARY | 2024-11-10 10:27 | XMS_ITS | Data Portability ---
Author Organization [facility] Address [address] [place] [address] Care Team Providers Care Hand Cultivator Name Role Phone ADITI ROSEN Primary Care Provider [phone] HIM [facility] OTHER Assessment Encounter Date Assessment [...] no acute distress. Encouraged safe medication use. [facility] Not available 01/21/2024 14:53:20 Plan of Treatment [...] Respiratory rate Body temperature Heart rate Systolic And Diastolic Provider Name and Address Organization Details Last Updated DateTime 4 98 % 98 % 18 /min 97.6 [degF] 76 /min 112/67 mm[Hg] Not Available [facility] - production 4 14:08:06 Social History None recorded. Functional Status None recorded. Mental Status None recorded. Family History Nothing Reported. Medical History No medical history recorded. Past Encounters Encounter ID Performer Location Encounter Start Date Encounter Closed Date Diagnosis/Indication Diagnosis SNOMED-CT Code Diagnosis ICD10 Code Diagnosis Note [id number] Adelita Hu MD Main - [address] [phone] 01/21/2024 13:54:07 01/21/2024 23:43:57 Fatigue 46411852 R53.83 Health Concerns Section Related Observation LastModified by Organization Detai ls LastModified Time None Recorded Concern Status LastModified by Organization Details LastModified Time None Recorded Advance Directives Directive None Recorded Payers Insurance Date Sequence Insurance Name Policy Number Policy Parks Covered Member ID Parks Member ID Guarantor Name 01/21/2024 1 [facility] - DOS ON OR AFTER 2022 - DUAL ELIGIBLE - [facility] OPTIONS AND ONE CARE (MEDICARE REPLACEMENT/AD VANTAGE - HMO) Paulie De Los Santos [id number] Paulie De Los Santos
== END 2024-11-10 10:06 | disposition home or self-care (01) ==
LOC: HO.ACS 09:49
PROVIDERS: PCP Internal Medicine; Visit Provider Internal Medicine Medical Oncology
DX: Z79.01 Long term (current) use of anticoagulants (principal)

== ENCOUNTER → 2024-11-10 09:49 | Outpatient (BNVA) | payer OTHER, SELFPAY | PROVIDERS: PCP Internal Medicine; Visit Provider Internal Medicine Medical Oncology | DX: I48.0 Paroxysmal atrial fibrillation (principal); Z79.01 Long term (current) use of anticoagulants; Z51.81 Encounter for therapeutic drug level monitoring | CPT/HCPCS: 85610; 99211 ==

== ENCOUNTER 2024-12-08 09:52 | Outpatient (AMB) | payer OTHER, SELFPAY ==
[2024-12-08 10:05] LABS: Prothrombin Time Whole Bld POC 26.8 sec (11.1-13.5); ~PT, ~INR - Anti Coag Clinic 2.2 (0.9-1.1)
--- NOTE | 2024-12-08 10:08 | MHC.OFFVISCO ---
Intake Intake Visit Reasons: Anticoagulation Allergies oxycodone (From Percocet) Allergy (Intermediate, Verified 12/08/24 10:00) Headache ibuprofen (From Motrin) Allergy (Mild, Verified 12/08/24 10:00) SWELLING SALMON Adverse Reaction (Mild, Uncoded 12/08/24 10:00) VOMITING Medication List - Last Reconciled 12/08/24 by Soraya Roberts RN atorvastatin 80 mg PO DAILY blood sugar diagnostic As directed blood-glucose meter (FreeStyle Lite Meter kit) As directed cyclobenzaprine 10 mg PO TID PRN cyclobenzaprine 5 mg PO TID PRN cyclobenzaprine 10 mg PO BEDTIME docusate sodium (Colace) 100 mg PO BID doxycycline hyclate 100 mg PO BID dulaglutide (Trulicity) mg subcut glipizide 10 mg PO BID lidocaine 5% (Lidoderm) 1 patch topical DAILY lidocaine 5% 1 patch topical DAILY lisinopril 5 mg PO DAILY metoprolol succinate ER 25 mg PO BID metoprolol tartrate 25 mg PO BID multivitamin 1 tab PO DAILY omega 7-uwl-mte-fish oil 300-1,000 mg (Fish Oil) 1 cap PO DAILY pen needle, diabetic (BD Keira 2nd Gen Pen Needle) As directed polyethylene glycol 3350 (Miralax) 17 grams PO BID sennosides (senna) 8.6 mg PO BEDTIME tamsulosin 0.4 mg PO Q12H tramadol 50 mg PO TID PRN warfarin See Protocol 5 mg orally 5mg x 1 day/ 2.5mg x 6 days; Nursing Note INR: 2.2 in therapeutic range +Covid 12/01/24 sinus symptoms - still slightly congested- came to clinic wearing mask Medications and supplements reviewed- on doxycycline until 12/11/24 Denies any signs and symptoms of bleeding or bruising or clotting. Bleeding, bruising, clotting discussed Nutritional guidance given - increase greens next week by 2 servings due to delayed onset of elevated INR next week - INR lower end of range now Dose: keep same dose for now 5mg mondays/ 2.5mg x 6 days F/U INR: 1 month unless health changes or med changes Patient verbalizes understanding of instructions given Anti-Coag Initial Assessment Social Hx Patient Tobacco Use Status: Never used Tobacco alcohol intake: never Alcohol intake frequency: former alcohol drinker Questionnaires HAS-BLED Does the patient had uncontrolled Hypertension?: No Does the patient have renal disease?: No Does the patient have liver disease?: No Does the patient have a history of stroke?: Yes (TIA IN THE PAST) Has the patient had major bleeding or predisposition to bleeding?: No Does the patient have labile INRs?: No Is the patient over 65 years of age?: Yes Is the patient on medications that gives them a predisposition to bleeding?: Yes Does the patient use alcohol?: No HAS-BLED Score: 3 CHADSVASC Age: 75 or over Gender: Male Does the patient have a history of CHF?: No Does the patient have a history of Hypertension?: Yes Does the patient have a history of Stroke/TIA/Thromboembolism?: Yes (POSSIBLE TIA) Does the patient have a history of Vascular Disease (prior [place], PAD or aortic plaque)?: Yes (CARDIAC CATH 2002 [place]) Does the patient have a history of Diabetes?: Yes CHADS VACS Score: 7 Edgar Prediction Score Rsk VTE Active Cancer: No Previous VTE, excluding superficial vein thrombosis: No Reduced mobility: No Already known Thrombophilic Condition: No (covid 12/01/2024 ) With-in last month Trauma and/or Surgery: No Elderly 70 year or older: Yes Heart and/or Respiratory Failure: No Acute Myocardial infarction and/or Ischemic Stroke: Yes ([place] QUESTION OF TIA 2002) Acute Infection and/or Rheumatologic Disorder: Yes Obesity (BMI 30 or greater): No Ongoing Hormonal Treatment: No .: covid 12/01/2024 Score: 4 (covid + add to score ) Edgar Score less than 4; Low Risk of VTE Edgar Score 4 or greater; High Risk of VTE Coding Level of Care Code Est Patient Level 1 Diagnoses Current use of anticoagulant therapy Z79.01 Results AMB INR Fingerstick AMB INR Fingerstick 2.2 Last Edit by Soraya Roberts RN on 12/08/24 10:04 manual entry Assessment & Plan Assessment & Plan (1) Current use of anticoagulant therapy: Code(s): Z79.01 - group home (current) use of anticoagulants Category: Medical
--- OUTSIDE RECORDS SUMMARY | 2024-12-08 10:36 | XMS_ITS | Patient Health Record ---
Author Organization [facility] Address [address] [place] [address] Care Team Providers Care Malt Liquors Sales Representative Name Role Phone Adonis Zepeda Unavailable [phone] Reason For Referral No Information Plan Of Treatment No Information
--- OUTSIDE RECORDS SUMMARY | 2024-12-08 10:36 | XMS_ITS | Encounter Summary ---
Author Organization [facility] Address [address] [place] [address] Care Team Providers Care Stone Processing Machine Operator Name Role Phone Stef Valencia MD Primary Care Provider [phone] Reason for Visit * Reason Comments home health cert Encounter Details Date Type Department Care Team (Late st Contact Info) Description 10/05/2024 Billing Patient Not Present Adult Medicine [address] [phone] Stef Valencia MD [address] [place] [phone] Social History Tobacco Use Types Packs/Day Years [...] documented as of this encounter Care Teams Stone Processing Machine Operator Relationship Specialty Start Date End Date Stef Valencia MD [address] [place] [phone] PCP - General Internal Medicine 02/18/24 documented as of this encounter
--- OUTSIDE RECORDS SUMMARY | 2024-12-08 10:36 | XMS_ITS | Encounter Summary ---
Author Organization [facility] Address [address] [place] [address] Care Team Providers Care Soil Conservationist Name Role Phone Stef Valencia MD Primary Care Provider [phone] Encounter Details Date Type Department Care Team (Late st Contact Info) Description 09/15/2024 Billing Patient Not Present Adult Medicine [address] [phone] Stef Valencia MD [address] [place] [phone] Social History Tobacco Use Types Packs/Day Years [...] documented as of this encounter Care Teams Soil Conservationist Relationship Specialty Start Date End Date Stef Valencia MD [address] [place] [id number] PCP - General Internal Medicine 02/18/24 documented as of this encounter
--- OUTSIDE RECORDS SUMMARY | 2024-12-08 10:36 | XMS_ITS | Clinical Summary ---
Author Organization [facility] Address [address] [place] [address] Phone Care Team Providers Care Medical Office Specialist Name Role Phone Stef Valencia MD Primary Care Provider [phone] Allergies Active Allergy Reactions Criticality Noted Date Comments Fish Containing Products Nausea And Vomiting 05/05/2013 Stomach pain Ibuprofen 11/09/2011 Other 12/03/2014 Seasonal allergies Oxycodone-Acetaminophe n 08/02/2022 headaches Medications pen needle, diabetic 32 gauge x needle Use one daily with ozempic . 04/18/19 22 Active blood-gluc,BP meter,adult cuff device 1 Device by Does not apply route daily. 10/06/19 23 Active warfarin (COUMADIN) 5 mg tablet Take 1 Tablet by mouth daily. May cause heavy bleeding. Take at same time every day. Do not change dietary habits. 90 tablet 1 04/27/19 25 Active glipiZIDE (GLUCOTROL) 5 mg tablet Take 2 tablets (10 mg total) by mouth 2 (two) times a day. 360 tablet 1 06/27/19 25 Active metoprolol succinate (TOPROL-XL) 25 mg 24 hr tablet TAKE 1 TABLET(25 MG) BY MOUTH TWICE DAILY 180 tablet 1 08/13/19 25 Active tamsulosin (FLOMAX) 0.4 mg 24 hr capsule Take 1 capsule (0.4 mg total) by mouth 2 (two) times a day. Capsules should be taken 30 minutes following the same meal each day. 180 capsule 1 09/04/19 25 Active atorvastatin (LIPITOR) 80 mg tablet TAKE 1 TABLET BY MOUTH DAILY 90 tablet 1 09/29/19 25 Active blood sugar diagnostic (FreeStyle Lite Strips) test strip DIRECTED TO TEST BLOOD SUGAR TWICE DAILY 100 strip 1 09/29/19 25 Active traMADoL (ULTRAM) 50 mg tabletIndicatio ns:Shoulder pain, unspecified chronicity, unspecified laterality Take 1 tablet (50 mg total) by mouth every 8 (eight) hours if needed for severe pain. Max Daily Amount: 150 mg 84 tablet 11/11/19 25 Active dulaglutide (TRULICITY) 3 mg/0.5 mL pen injector injectionIndica tions:Controlle d type 2 diabetes mellitus with retinopathy, without long-term current use of insulin, macular edema presence unspecified, unspecified laterality, unspecified reti* (CMS/HCC V24, CMS/[facility] V28) Inject 0.5 mL (3 mg total) under the skin every 7 (seven) days. 6 mL 1 11/11/19 25 Active lisinopriL (PRINIVIL,ZESTR IL) 5 mg tablet TAKE 1 TABLET BY MOUTH DAILY 90 tablet 1 11/18/19 25 Active lisinopriL (PRINIVIL,ZESTR IL) 5 mg tablet TAKE 1 TABLET BY MOUTH DAILY 90 tablet 1 05/19/19 25 025 Discontinued dulaglutide (TRULICITY) 3 mg/0.5 mL pen injector injectionIndica tions:Controlle d type 2 diabetes mellitus with retinopathy, without long-term current use of insulin, macular edema presence unspecified, unspecified laterality, unspecified reti* (CMS/HCC V24, CMS/HCC V28) Inject 0.5 mL (3 mg total) under the skin every 7 (seven) days. 6 mL 1 09/04/19 25 025 Discontinued(Re order) traMADoL (ULTRAM) 50 mg tabletIndicatio ns:Shoulder pain, unspecified chronicity, unspecified laterality Take 1 tablet (50 mg total) by mouth every 8 (eight) hours if needed for severe pain. Max Daily Amount: 150 mg 84 tablet 10/03/19 25 025 Discontinued(Re order) Active Problems Problem Noted Date Diagnosed Date [...] underlying lung etiology. Obesity (BMI 30.0-34.9) 10/23/2018 TEAM PHYSICIAN (background diabetic ret inopathy) ([facility] [place], [facility] V28) 04/30/2017 Obstructive sleep apnea 11/08/2015 Type 2 diabetes mellitus wit h cataract ([facility] [place]24, [facility] V28) 05/20/2013 Overview (01/13/2024): Nuclear sclorosis Eye exam 05/05/13. A-fib ([facility] V24, [facility] V28) 11/09/2011 Overview (01/13/2024): Last Assessment & Plan: The patient has a history of paroxysmal atrial fibrillation. The patient continues on rate control therapy with beta harley. Also, the patient has a [id number] score of 3 and continues on anticoagulation [...] Encounters Date Type Department Care Team Description 11/03/2024 Telephone Adult Medicine [address] [phone] Jackie Pitts MA 10/05/2024 Billing Patient Not Present Adult [address] [phone] Stef Valencia MD 10/02/2024 Telephone Adult [address] [phone] Stef Valencia MD 09/15/2024 Billing Patient Not Present Adult [address] [phone] Stef Valencia MD 09/15/2024 Telephone Adult [address] [phone] Meredith Rodriguez MA 09/11/2024 Telephone Adult [address] [phone] Stef Valencia MD from Last 3 Months Immunizations Name Administration [...] pidemia LDL goal < 70 Paroxysmal A-fib ([facility] V2 4, [facility] V28) 11/09/2011 DX:Paroxysmal A-fib ([facility]) Type 2 diabetes mellitus wit h cataract ([facility] V24, [facility] V28) 05/20/2013 DX:Type 2 diabetes mellitus with cataract ([facility]); COMMENT: Nuclear sclorosis Eye exam 05/05/13. Kidney stone DX:Kidney stone Umbilical hernia DX:Umbilical he rnia Diabetic acetonemia ([facility] V24, [facility] V28) DX:Diabetic acetonemia (HCC) Family History Medical History Relation [...] Sign Reading Time Taken Comments Blood Pressure 112/60 09/03/2024 11:11 AM EDT Pulse 80 09/03/2024 11:11 AM EDT Temperature 36.6 C (97.9 F) 09/03/2024 11:11 AM EDT Respiratory Rate 16 09/03/2024 11:11 AM EDT Oxygen Saturation 96% 05/21/2024 9:37 AM EST Inhaled Oxygen Concentration - - Weight 76.7 kg (169 lb) 09/03/2024 11:11 AM EDT Height 157.5 cm (5' 2 ) 09/03/2024 11:11 AM EDT Body Mass Index 30.91 09/03/2024 11:11 AM EDT Plan of Treatment Health Maintenance Due Date Last Done Comments Diabetes: Annual Foot Exam 1956 Zoster Vaccines (1 of 2) 1996 RSV Immunization Adult Patients (1 - 1-dose 75+ series) 2021 Medicare Annual Wellness Visit 03/24/2022 Social Influencers of Health Screening 03/24/2022 COVID-19 Vaccine ( season) 2023 07/23/2020 Influenza Vaccine (#1) 2024 03/03/2018, 2016 Diabetes: Annual Retina Eye Exam 12/17/2024 12/18/2023 Diabetes: Blood Sugar Control Test (HGBA1C) 03/06/2025 09/03/2024, 05/21/2024, 02/20/2024, Additional history exists Falls Risk Assessment 05/21/2025 05/21/2024 Diabetes: Annual Urine Albumin-Creatinine Ratio (uACR) 09/03/2025 09/03/2024, 02/20/2024, 08/21/2023 Diabetes: Annual GFR (Glomerular Filtration Rate) 09/03/2025 09/03/2024, 02/20/2024, 08/21/2023, Additional history exists Hypertension/CHF/CAD Annual BMP Blood Test 09/03/2025 09/03/2024, 02/20/2024, 08/21/2023, Additional history exists DTaP,Tdap,and Td Vaccines (4 - Td or Tdap) 01/22/2027 01/22/2017, 12/21/2011, 08/06/2003 Cholesterol Screening (Lipid Panel) 09/03/2029 09/03/2024, 02/20/2024, 08/21/2023, Additional history exists Pneumococcal Vaccine: 50+ Years Completed 03/03/2018, 10/13/2015, 10/01/2013, Additional history exists Hepatitis C Screening Completed 05/22/2018 Depression Screening Completed 05/21/2024 HIB Vaccines Aged Out No longer eligi [...] Procedure Name Priority Date/Time Associated Diagnosis Comments MICROALBUMIN CREATININE URINE RATIO Routine 09/03/2024 11:58 AM EDT Controlled type 2 diabetes mellitus with retinopathy, without long-term current use of insulin, macular edema presence unspecified, unspecified laterality, unspecified reti* ([facility] V24, [facility] V28) COMPREHENSIVE METABOLIC PANEL Routine 09/03/2024 11:58 AM EDT Controlled type 2 diabetes mellitus with retinopathy, without long-term current use of insulin, macular edema presence unspecified, unspecified laterality, unspecified reti* ([facility] V24, [facility] V28) Primary hypertension Encounter for long-term (current) use of medications HEMOGLOBIN A1C Routine 09/03/2024 11:58 AM EDT Controlled type 2 diabetes mellitus with retinopathy, without long-term current use of insulin, macular edema presence unspecified, unspecified laterality, unspecified reti* ([facility] V24, [facility] V28) LIPID PANEL WITH REFLEX TO DIRECT LDL Routine 09/03/2024 11:58 AM EDT Pure hypercholesterolemia DIABETES EYE EXAM Routine 12/18/2023 HEPATITIS C SCREENING Routine 05/22/2018 from Last 3 Months or Most Recently Relevant to Health Maintenance Results * (ABNORMAL) Lipid panel with reflex to direct LDL (09/03/2024 11:58 AM EDT) [facility] Cholesterol 168 0 - 200 mg/dL LAB CHEMISTRY METHOD 09/03/2024 4:41 PM EDT [facility] Triglycerides 240(H) 0 - 150 mg/dL LAB CHEMISTRY METHOD 09/03/2024 4:41 PM EDT [facility] HDL 44 >=40 mg/dL LAB CHEMISTRY METHOD 09/03/2024 4:41 PM EDT [facility] LDL Calculated 76 0 - 100 mg/dL LAB CHEMISTRY METHOD 09/03/2024 4:41 PM EDT [facility] VLDL Cholesterol Omar 48 mg/dL LAB CHEMISTRY METHOD 09/03/2024 4:41 PM EDT [facility] Non HDL Chol. (LDL+VLDL) 124 <145 mg/dL LAB CHEMISTRY METHOD 09/03/2024 4:41 PM EDT [facility] Chol/HDL Ratio 3.8 0.0 - 4.4 LAB CHEMISTRY METHOD 09/03/2024 4:41 PM EDT [facility] Blood Venous blood specimen / Unknown Venipuncture / Unknown 09/03/2024 11:58 AM EDT 09/03/2024 11:58 AM EDT us Stef Valencia MD LAB BLOOD ORDERABLES Final Resu lt [facility] [address] [place] [address], * Microalbumin creatinine urine ratio (09/03/2024 11:58 AM EDT) Creatinine, Urine 105.0 mg/dL LAB CHEMISTRY METHOD 09/04/2024 4:26 AM EDT [facility] Microalb, Ur 14.5 0.0 - 29.0 mg/L LAB CHEMISTRY METHOD 09/04/2024 4:26 AM EDT [facility] Microalb/Creat Ratio 14 <30 mg/g creat LAB CHEMISTRY METHOD 09/04/2024 4:26 AM EDT [facility] Urine Urine specimen obtained by clean catch procedure / Unknown Non-blood Collection / Unknown 09/03/2024 11:58 AM EDT 09/03/2024 11:58 AM EDT us Stef Valencia MD LAB URINE ORDERABLES Final Resu lt Performing Organization Address [facility]/ZIP Co de Phone Number [facility] [address] [place] [address], [place] [phone] * Hemoglobin A1c (09/03/2024 11:58 AM EDT) Pathologist [facility] Hemoglobin A1C 5.9 <6.5 % LAB CHEMISTRY METHOD 09/04/2024 10:47 PM EDT [facility] Mean Bld Glu Estim. 123 mg/dL LAB CHEMISTRY METHOD 09/04/2024 10:47 PM EDT [facility] Blood Venous blood specimen / Unknown Venipuncture / Unknown 09/03/2024 11:58 AM EDT 09/03/2024 11:58 AM EDT us Stef Valencia MD LAB BLOOD ORDERABLES Final Resu lt Performing Organization Address [facility]/ZIP Co de Phone Number [facility] [address] [place] [address], [place] [phone] * (ABNORMAL) Comprehensive metabolic panel (09/03/2024 11:58 AM EDT) Pathologist [facility] Sodium 138 133 - 145 mmol/L LAB CHEMISTRY METHOD 09/03/2024 4:41 PM EDT [facility] Potassium 4.1 3.5 - 5.5 mmol/L LAB CHEMISTRY METHOD 09/03/2024 4:41 PM EDT [facility] Chloride 105 96 - 110 mmol/L LAB CHEMISTRY METHOD 09/03/2024 4:41 PM EDT [facility] CO2 26 21 - 32 mmol/L LAB CHEMISTRY METHOD 09/03/2024 4:41 PM EDT [facility] Anion Gap 7 3 - 11 LAB CHEMISTRY METHOD 09/03/2024 4:41 PM [facility] Glucose 202(H) 70 - 100 mg/dL LAB CHEMISTRY METHOD 09/03/2024 4:41 PM [facility] BUN 13 5 - 25 mg/dL LAB CHEMISTRY METHOD 09/03/2024 4:41 PM [facility] Creatinine 0.96 0.70 - 1.30 mg/dL LAB CHEMISTRY METHOD 09/03/2024 4:41 PM [facility] eGFR 81 >=60 mL/min/1. 73m2 LAB CHEMISTRY METHOD 09/03/2024 4:41 PM [facility] Comment:Calculation based on the Chronic Kidney Disease Epidemiology Collaboration (CKD-EPI) equation refit without adjustment for race. BUN/Creatinine Ratio 13.5 LAB CHEMISTRY METHOD 09/03/2024 4:41 PM [facility] Calcium 8.8 8.5 - 10.5 mg/dL LAB CHEMISTRY METHOD 09/03/2024 4:41 PM [facility] AST (SGOT) 25 10 - 42 unit/L LAB CHEMISTRY METHOD 09/03/2024 4:41 PM [facility] ALT (SGPT) 40 10 - 60 unit/L LAB CHEMISTRY METHOD 09/03/2024 4:41 PM [facility] Alkaline Phosphatase 96 42 - 121 unit/L LAB CHEMISTRY METHOD 09/03/2024 4:41 PM [facility] Total Protein 7.2 6.0 - 8.0 g/dL LAB CHEMISTRY METHOD 09/03/2024 4:41 PM [facility] Albumin 3.9 3.2 - 5.0 g/dL LAB CHEMISTRY METHOD 09/03/2024 4:41 PM [facility] Total Bilirubin 0.9 0.0 - 1.4 mg/dL LAB CHEMISTRY METHOD 09/03/2024 4:41 PM [facility] Blood Venous blood specimen / Unknown Venipuncture / Unknown 09/03/2024 11:58 AM EDT 09/03/2024 11:58 AM EDT us Stef Valencia MD LAB BLOOD ORDERABLES Final Resu lt [facility] ([facility]) [facility] [address] [place] [address], * Diabetes Eye Exam (12/18/2023) Diabetes: Annual Retina Eye Exam abstracted Historical Provider HEALTH MAINTENANCE Final Result * Hepatitis C Screening (05/22/2018) Hepatitis C Screening abstracted Historical Provider HEALTH MAINTENANCE Final Result from Last 3 Months or Most Recently Relevant to Health Maintenance Insurance [facility] MEDICARE Member Subscriber Plan / Payer (Ef fective 2017-Present) Name:Paulie De Los Santos Relation to Subscriber:Self Name:Paulie De Los Santos Payer ID:[id number] Group ID:[id number] Type:Not on file Address: [place] [facility] [place] [address] Care Teams Medical Office Specialist Relationship Specialty Start Date End Date Stef Valencia MD [address] [place] [id number] PCP - General Internal Medicine 02/18/24
== END 2024-12-08 10:19 | disposition home or self-care (01) ==
LOC: HO.ACS 09:52
PROVIDERS: PCP Internal Medicine; Visit Provider Internal Medicine Medical Oncology
DX: Z79.01 Long term (current) use of anticoagulants (principal)

== ENCOUNTER → 2024-12-08 09:52 | Outpatient (BNVA) | payer OTHER, SELFPAY | PROVIDERS: PCP Internal Medicine; Visit Provider Internal Medicine Medical Oncology | DX: I48.0 Paroxysmal atrial fibrillation (principal); Z79.01 Long term (current) use of anticoagulants; Z51.81 Encounter for therapeutic drug level monitoring | CPT/HCPCS: 85610; 99211 ==

== ENCOUNTER 2025-01-07 09:46 | Outpatient (AMB) | payer OTHER, SELFPAY ==
--- OUTSIDE RECORDS SUMMARY | 2025-01-01 10:50 | XMS_ITS | Encounter Summary ---
Author Organization [facility] Address [address] [place] [address] Care Team Providers Care Facility Service Associate Name Role Phone Stef Valencia MD Primary Care Provider [phone] Encounter Details Date Type Department Care Team (Latest Contact Info) Description 01/01/2025 10:50 AM EDT - 01/01/2025 11:59 PM EDT Hospital Encounter XRAY - [facility] [address] [place] [address] Numbness and tingling of upper extremity Discharge Disposition: Home or Self Care Social History Tobacco Use Types Packs/Day Years [...] on file documented as of this encounter Medications at Time of Discharge atorvastatin (LIPITOR) 80 mg tablet TAKE 1 TABLET BY MOUTH DAILY 90 tablet 1 09/28/2024 blood sugar diagnostic (FreeStyle Lite Strips) test strip DIRECTED TO TEST BLOOD SUGAR TWICE DAILY 100 strip 1 09/28/2024 blood-gluc,BP meter,adult cuff device 1 Device by Does not apply route daily. 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 6 mL 1 11/10/2024 glipiZIDE (GLUCOTROL) 5 mg tablet Take 2 tablets (10 mg total) by mouth 2 (two) times a day. 360 tablet 1 06/26/2024 lisinopriL (PRINIVIL,ZESTRIL ) 5 mg tablet TAKE 1 TABLET BY MOUTH DAILY 90 tablet 1 11/17/2024 metoprolol succinate (TOPROL-XL) 25 mg 24 hr tablet TAKE 1 TABLET(25 MG) BY MOUTH TWICE DAILY 180 tablet 1 08/12/2024 pen needle, diabetic 32 gauge x needle Use one daily with ozempic . 04/18/2021 tamsulosin (FLOMAX) 0.4 mg 24 hr capsule Take 1 capsule (0.4 mg total) by mouth 2 (two) times a day. Capsules should be taken 30 minutes following the same meal each day. 180 capsule 1 09/03/2024 traMADoL (ULTRAM) 50 mg tabletIndications :Shoulder pain, unspecified chronicity, unspecified laterality Take 1 tablet (50 mg total) by mouth every 8 (eight) hours if needed for severe pain. Max Daily Amount: 150 mg 84 tablet 12/18/2024 warfarin (COUMADIN) 5 mg tablet Take 1 Tablet by mouth daily. May cause heavy bleeding. Take at same time every day. Do not change dietary habits. 90 tablet 1 12/30/2024 documented as of this encounter Discharge Disposition Disposition Code Departure Means Destination Home or Self Care documented in this encounter Plan of Treatment Upcoming Encounters Date Type Department Care Team (Late st Contact Info) Description 03/31/2025 11:00 AM EST Office Visit Adult Medicine [address] [phone] Keyla Guzmán PA [address] [place] [address] 07/08/2025 2:30 PM EDT Office Visit Adult [address] [phone] Stef Valencia MD [address] [place] [address] documented as of this encounter Procedures Procedure Name Priority Date/Time Associated Diagnosis Comments XR CERVICAL SPINE 4-5 VIEWS Routine 01/01/2025 10:58 AM EDT Numbness and tingling of upper extremity documented in this encounter Results * XR Cervical Spine 4-5 Views (01/01/2025 10:58 AM EDT) Anatomical Region Laterality Modality Spine, C-spine Radiographic Fior ging 01/01/2025 8:32 PM EDT Narrative 01/01/2025 8:34 PM EDT Cervical spine, 4 views. HISTORY: Bilateral arms numbness and tingling. There are prominent anterior lateral osteophytes with bridging at C3-4 C4-5 and C6-7 levels. There is severe narrowing of the disc spaces at C4-5 and C5-6 levels. There is severe osteophytic narrowing of the right C4-C5 and C6 neural foramina and left C4, C5-C6 and C7 neural foramina. No evidence of fractures or dislocations. There are calcifications in the neck which could be vascular in nature. There is straightening of the usual cervical lordosis probably due to muscle spasm. CONCLUSIONS: Multilevel bony and discs degenerative changes as detailed. Suggestion of muscle spasm. -------- FINAL REPORT -------- Dictated By: Mimi Callahan Dictated Date: 01/01/2025 20:32 ET Assigned Physician: Mimi Callahan Reviewed and Electronically Signed By: Mimi Callahan Signed Date: 01/01/2025 20:34 ET Workstation ID: [id number] Transcribed By: Self Edit Transcribed Date: 01/01/2025 20:32 ET Procedure Note Mimi Callahan MD - 01/01/2025 Cervical spine, 4 views. HISTORY: Bilateral arms numbness and tingling. There are prominent anterior lateral osteophytes with bridging at C3-4C4-5 and C6-7 levels. There is severe narrowing of the disc spaces at C4-5and C5-6 levels. There is severe osteophytic narrowing of the right C4-C5and C6 neural foramina and left C4, C5-C6 and C7 neural foramina. Noevidence of fractures or dislocations. There are calcifications in theneck which could be vascular in nature. There is straightening of theusual cervical lordosis probably due to muscle spasm. CONCLUSIONS: Multilevel bony and discs degenerative changes as detailed. Suggestion ofmuscle spasm. -------- FINAL REPORT -------- Dictated By: Mimi Callahan Dictated Date: 01/01/2025 20:32 ET Assigned Physician: Mimi Callahan Reviewed and Electronically Signed By: Mimi Callahan Signed Date: 01/01/2025 20:34 ET Workstation ID: [id number] Transcribed By: Self Edit Transcribed Date: 01/01/2025 20:32 ET Keyla SMART IMG XR PROCEDURES Final Result documented in this encounter Visit Diagnoses Diagnosis Numbness and tingling of upper extremity documented in this encounter Additional Health Concerns Assessment Noted Time PHQ-9 Depression Total Score: 1 05/21/19 25 9:41 AM EST A fall risk assessment has been complete d for the patient 05/21/2024 9:40 AM EST documented as of this encounter Care Teams Facility Service Associate Relationship Specialty Start Date End Date Stef Valencia MD [address] [place] [address] PCP - General Internal Medicine 02/18/24 documented as of this encounter
--- NOTE | 2025-01-07 10:04 | MHC.OFFVISCO ---
Intake Intake Visit Reasons: Anticoagulation Allergies oxycodone (From Percocet) Allergy (Intermediate, Verified 01/07/25 09:58) Headache ibuprofen (From Motrin) Allergy (Mild, Verified 01/07/25 09:58) SWELLING SALMON Adverse Reaction (Mild, Uncoded 01/07/25 09:58) VOMITING Medication List - Last Reconciled 01/07/25 by Sara Atkinson RN atorvastatin 80 mg PO DAILY blood sugar diagnostic As directed blood-glucose meter (FreeStyle Lite Meter kit) As directed cyclobenzaprine 10 mg PO TID PRN cyclobenzaprine 5 mg PO TID PRN cyclobenzaprine 10 mg PO BEDTIME docusate sodium (Colace) 100 mg PO BID doxycycline hyclate 100 mg PO BID dulaglutide (Trulicity) mg subcut glipizide 10 mg PO BID lidocaine 5% (Lidoderm) 1 patch topical DAILY lidocaine 5% 1 patch topical DAILY lisinopril 5 mg PO DAILY metoprolol succinate ER 25 mg PO BID metoprolol tartrate 25 mg PO BID multivitamin 1 tab PO DAILY omega 0-dik-tdc-fish oil 300-1,000 mg (Fish Oil) 1 cap PO DAILY pen needle, diabetic (BD Keira 2nd Gen Pen Needle) As directed polyethylene glycol 3350 (Miralax) 17 grams PO BID sennosides (senna) 8.6 mg PO BEDTIME tamsulosin 0.4 mg PO Q12H tramadol 50 mg PO TID PRN warfarin See Protocol 5 mg orally 5mg x 1 day/ 2.5mg x 6 days; Nursing Note INR: 2.3 in therapeutic range of 2-3 Medications and supplements reviewed No changes in health, diet, medications, or supplements, Denies any signs and symptoms of bleeding or bruising or clotting. Bleeding, bruising, clotting discussed Nutritional guidance given Dose: 2.5mg X 6 days and 5mg X 1 day (Mon) F/U INR: 4 weeks Patient verbalizes understanding of instructions given Anti-Coag Initial Assessment Social Hx Patient Tobacco Use Status: Never used Tobacco alcohol intake: never Alcohol intake frequency: former alcohol drinker Coding Level of Care Code Est Patient Level 1 Diagnoses Current use of anticoagulant therapy Z79.01 Results AMB INR Fingerstick AMB INR Fingerstick 2.3 Last Edit by Sara Atkinson RN on 01/07/25 10:04 interface delay Assessment & Plan Assessment & Plan (1) Current use of anticoagulant therapy: Code(s): Z79.01 - FDC (current) use of anticoagulants Category: Medical
[2025-01-07 10:12] LABS: Prothrombin Time Whole Bld POC 27.6 sec (11.1-13.5); ~PT, ~INR - Anti Coag Clinic 2.3 (0.9-1.1)
--- OUTSIDE RECORDS SUMMARY | 2025-01-07 11:39 | XMS_ITS | Encounter Summary ---
Author Organization [facility] Address [address] [place] [address] Care Team Providers Care Airline Reservationist Name Role Phone Stef Valencia MD Primary Care Provider [phone] Encounter Details Date Type Department Care Team ([facility] Contact Info) Description 09/15/2024 Billing Patient Not Present Adult Medicine [address] [phone] Stef Valencia MD [address] [place] [address] Social History Tobacco Use Types Packs/Day Years [...] Upcoming Encounters Date Type Department Care Team ([facility] Contact Info) Description 03/31/2025 11:00 AM EST Office Visit Adult Medicine [address] [phone] Keyla Guzmán PA [address] [place] [address] 07/08/2025 2:30 PM EDT Office Visit Adult Medicine [address] [phone] Stef Valencia MD [address] [place] [address] documented as of this encounter Visit Diagnoses Not on filedocumented in this encounter Additional Health Concerns Assessment Noted Time PHQ-9 Depression Total Score: 1 05/21/19 25 9:41 AM EST A fall risk assessment has been complete d for the patient 05/21/2024 9:40 AM EST documented as of this encounter Care Teams Airline Reservationist Relationship Specialty Start Date End Date Stef Valencia MD [address] [place] [phone] PCP - General Internal Medicine 02/18/24 documented as of this encounter
--- OUTSIDE RECORDS SUMMARY | 2025-01-07 11:39 | XMS_ITS | Clinical Summary ---
Author Organization [facility] [address] [facility] Address [address] [place] [address] Phone Care Team Providers Care Manager Intel Name Role Phone Stef Valencia MD Primary Care Provider [phone] Allergies Active Allergy Reactions Criticality Noted Date Comments Fish Containing Products Nausea And Vomiting 05/05/2013 Stomach pain Ibuprofen 11/09/2011 Other 12/03/2014 Seasonal allergies Oxycodone-Acetaminophe n 08/02/2022 headaches Medications pen needle, diabetic 32 gauge x needle Use one daily with ozempic . 2 Active blood-gluc,BP meter,adult cuff device 1 Device by Does not apply route daily. 3 Active glipiZIDE (GLUCOTROL) 5 mg tablet Take 2 tablets (10 mg total) by mouth 2 (two) times a day. 360 tablet 1 5 Active metoprolol succinate (TOPROL-XL) 25 mg 24 hr tablet TAKE 1 TABLET(25 MG) BY MOUTH TWICE DAILY 180 tablet 1 5 Active tamsulosin (FLOMAX) 0.4 mg 24 hr capsule Take 1 capsule (0.4 mg total) by mouth 2 (two) times a day. Capsules should be taken 30 minutes following the same meal each day. 180 capsule 1 5 Active atorvastatin (LIPITOR) 80 mg tablet TAKE 1 TABLET BY MOUTH DAILY 90 tablet 1 5 Active blood sugar diagnostic (FreeStyle Lite Strips) test strip DIRECTED TO TEST BLOOD SUGAR TWICE DAILY 100 strip 1 5 Active dulaglutide (TRULICITY) 3 mg/0.5 mL pen injector injectionIndica tions:Controlle d type 2 diabetes mellitus with retinopathy, without long-term current use of insulin, macular edema presence unspecified, unspecified laterality, unspecified retinopathy severity Inject 0.5 mL (3 mg total) under the skin every 7 (seven) days. 6 mL 1 5 Active lisinopriL (PRINIVIL,ZESTR IL) 5 mg tablet TAKE 1 TABLET BY MOUTH DAILY 90 tablet 1 5 Active traMADoL (ULTRAM) 50 mg tabletIndicatio ns:Shoulder pain, unspecified chronicity, unspecified laterality Take 1 tablet (50 mg total) by mouth every 8 (eight) hours if needed for severe pain. Max Daily Amount: 150 mg 84 tablet 5 Active warfarin (COUMADIN) 5 mg tablet Take 1 Tablet by mouth daily. May cause heavy bleeding. Take at same time every day. Do not change dietary habits. 90 tablet 1 5 Active diclofenac (VOLTAREN) 1 % topical gel Apply 2 gram four times daily to affected joint 100 g 5 Active warfarin (COUMADIN) 5 mg tablet Take 1 Tablet by mouth daily. May cause heavy bleeding. Take at same time every day. Do not change dietary habits. 90 tablet 1 5 12/31/19 25 Discontinu ed(Reorder ) traMADoL (ULTRAM) 50 mg tabletIndicatio ns:Shoulder pain, unspecified chronicity, unspecified laterality Take 1 tablet (50 mg total) by mouth every 8 (eight) hours if needed for severe pain. Max Daily Amount: 150 mg 84 tablet 5 12/19/19 25 Discontinu ed(Reorder ) Active Problems Problem Noted Date Diagnosed Date [...] underlying lung etiology. 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 A-fib [place] [place] [facility] [place]) 11/09/2011 Overview (01/13/2024): Last Assessment & Plan: The patient has a history of paroxysmal atrial fibrillation. The patient continues on rate control therapy with beta harley. Also, the patient has a [id number] score of 3 and continues on anticoagulation [...] Encounters Date Type Department Care Team Description 01/04/2025 Billing Patient Not Present Adult Medicine [address] [phone] Stef Valencia MD 01/01/2025 10:50 AM EDT - 01/01/2025 11:59 PM EDT Hospital Encounter [address] [phone] Numbness and tingling of upper extremity Discharge Disposition: Home or Self Care 12/30/2024 3:00 PM EDT Office Visit Adult [address] [phone] Keyla Guzmán PA Numbness and tingling of upper extremity (Primary Dx); Encounter for long-term (current) use of medications; Other chronic pain; Type 2 diabetes mellitus without complication, without long-term current use of insulin ([facility] V24, [facility] V28); Need for prophylactic vaccination and inoculation against influenza; Atrial fibrillation, unspecified type ([facility] V24, [facility] V28); Hypercholesterolemia 11/03/2024 Telephone Adult [address] [phone] Jackie Pitts MA from Last 3 Months Immunizations Name Administration Dates Next Due Influenza Quadravalent, MDCK , 0.5ml, preservative free (Flucelvax) 6mo and older 03/03/2018 Influenza trivalent, 0.5mL ( Fluad) 65yo and older 12/30/2024 Influenza trivalent, 0.5mL ( Fluzone High-dose) 65yo and older 01/22/2017 Pneumococcal conjugate 13 va lent (Prevnar 13, PCV13) 2mo and older 03/03/2018 Pneumococcal polysaccharide 23 valent (Pneumovax 23) 2yo and older 10/13/2015,10/01/2013,08/06/2003 Td Tetanus diptheria (Tdvax) 7yo and older 01/22,12/21/2011,08/06/2003 Td Tetanus diptheria, preser vative free (Tenivac) 7yo and older 12/21/2011 Tetanus Toxoid, Unspecified 08/06/2003 Surgical History Surgery Date Site/Laterality Comments CATARACT EXTRACTION PROCEDURE: HISTORICAL CATARACT REMOVAL; COMMENT: 40 yr ago COLONOSCOPY 11/05/2018 PROCEDURE: HISTORICAL COLONOSCOPY; COMMENT: negative, no further screening recommended due to advanced age Medical History Medical History Date Comments HTN (hypertension) 11/09/2011 DX:HTN (hyper tension) Historical Medical DX 11/09/2011 DX:Hyperli pidemia LDL goal < 70 Paroxysmal A-fib [place] [place] 4, [facility] [place]) 11/09/2011 DX:Paroxysmal A-fib (HCC) Type 2 diabetes mellitus wit h cataract [place] [place] [facility] [place]) 05/20/2013 DX:Type 2 diabetes mellitus with cataract (HCC); COMMENT: Nuclear sclorosis Eye exam 05/05/13. Kidney stone DX:Kidney stone Umbilical hernia DX:Umbilical he rnia Diabetic acetonemia [place] [place] [facility] [place] DX:Diabetic acetonemia (HCC) Family History Medical [...] Sign Reading Time Taken Comments Blood Pressure 120/64 12/30/2024 3:11 PM EDT Pulse 86 12/30/2024 3:11 PM EDT Temperature 35.8 C (96.4 F) 12/30/2024 3:11 PM EDT Respiratory Rate 16 09/03/2024 11:11 AM EDT Oxygen Saturation 97% 12/30/2024 3:11 PM EDT Inhaled Oxygen Concentration - - Weight 77.3 kg (170 lb 6.4 oz) 12/30/2024 3:11 P M EDT Height 157.5 cm (5' 2.01 ) 12/30/2024 3:11 PM ED T Body Mass Index 31.16 12/30/2024 3:11 PM EDT Plan of Treatment Upcoming Encounters Date Type Department Care Team (Late st Contact Info) Description 03/31/2025 11:00 AM EST Office Visit Adult Medicine [address] [place] [phone] Keyla Guzmán PA [address] [place] [phone] 07/08/2025 2:30 PM EDT Office Visit Adult Medicine [address] [phone] Stef Valencia MD [address] [place] [phone] Health Maintenance Due Date Last Done Comments Diabetes: Annual Foot Exam 1956 Zoster Vaccines (1 of 2) 1996 RSV Immunization Adult Patients (1 - 1-dose 75+ series) 2021 Medicare Annual Wellness Visit 03/24/2022 Social Influencers of Health Screening 03/24/2022 COVID-19 Vaccine ( season) 2024 07/23/2020 Diabetes: Annual Retina Eye Exam 12/17/2024 12/18/2023 Falls Risk Assessment 05/21/2025 05/21/2024 Diabetes: Blood Sugar Control Test (HGBA1C) 07/01/2025 01/01/2025, 09/03/2024, 05/21/2024, Additional history exists Diabetes: Annual Urine Albumin-Creatinine Ratio (uACR) 09/03/2025 09/03/2024, 02/20/2024, 08/21/2023 Diabetes: Annual GFR (Glomerular Filtration Rate) 09/03/2025 09/03/2024, 02/20/2024, 08/21/2023, Additional history exists Hypertension/CHF/CAD Annual BMP Blood Test 09/03/2025 09/03/2024, 02/20/2024, 08/21/2023, Additional history exists DTaP,Tdap,and Td Vaccines (5 - Td or Tdap) 01/22/2027 01/22/2017, 12/21/2011, 12/21/2011, Additional history exists Cholesterol Screening (Lipid Panel) 09/03/2029 09/03/2024, 02/20/2024, 08/21/2023, Additional history exists Pneumococcal Vaccine: 50+ Years Completed 03/03/2018, 10/13/2015, 10/01/2013, Additional history exists Hepatitis C Screening Completed 05/22/2018 Depression Screening Completed 05/21/2024 Influenza Vaccine Completed 12/30/2024, , 01/22/2017 HIB Vaccines Aged Out No longer eligi [...] Procedure Name Priority Date/Time Associated Diagnosis Comments DRUG ABUSE SCREEN 8A PANEL, URINE Routine 01/01/2025 3:54 PM EDT Encounter for long-term (current) use of medications Other chronic pain HEMOGLOBIN A1C Routine 01/01/2025 3:54 PM EDT Type 2 diabetes mellitus without complication, without long-term current use of insulin ([facility] V24, [facility] V28) XR CERVICAL SPINE 4-5 VIEWS Routine 01/01/2025 10:58 AM EDT Numbness and tingling of upper extremity MICROALBUMIN CREATININE URINE RATIO Routine 09/03/2024 11:58 AM EDT Controlled type 2 diabetes mellitus with retinopathy, without long-term current use of insulin, macular edema presence unspecified, unspecified laterality, unspecified reti* ([facility] V24, [facility] V28) COMPREHENSIVE METABOLIC PANEL Routine 09/03/2024 11:58 AM EDT Controlled type 2 diabetes mellitus with retinopathy, without long-term current use of insulin, macular edema presence unspecified, unspecified laterality, unspecified reti* ([facility] V24, [facility] V28) Primary hypertension Encounter for long-term (current) use of medications LIPID PANEL WITH REFLEX TO DIRECT LDL Routine 09/03/2024 11:58 AM EDT Pure hypercholesterolemia DIABETES EYE EXAM Routine 12/18/2023 HEPATITIS C SCREENING Routine 05/22/2018 from Last 3 Months or Most Recently Relevant to Health Maintenance Results * Drug abuse screen 8a panel, urine (01/01/2025 3:54 PM EDT) Amphetamine Screen, Ur Negative Negative LAB CHEMISTR[facility]:Certain OTC medicati ons containing ephedrine, phenylephrine, pseudoephedrine and phenylpropanolamine can cause false positive results. Barbiturate Screen, Ur Negative Negative LAB CHEMISTRY METHOD 01/01/2025 7:32 PM EDT [facility] Benzodiazepine Screen, Ur Negative Negative LAB CHEMISTRY METHOD 01/01/2025 7:[address] [facility] Cocaine Screen, Ur Negative Negative LAB CHEMISTRY METHOD 01/01/2025 7:32 PM EDT [facility] Opiate Screen, Ur Negative Negative LAB CHEMISTRY METHOD 01/01/2025 7:[address] [facility] Cannabinoid (THC) Screen, Ur Negative Negative LAB CHEMISTRY METHOD 01/01/2025 7:[address] [facility] Comment:Specimens from patie nts taking pantoprazole sodium (Protonix) have been shown to produce false positive results. Oxycodone Screen, Ur Negative Negative LAB CHEMISTRY METHOD 01/01/2025 7:[address] [facility] Fentanyl, Ur Negative Negative LAB CHEMISTRY METHOD 01/01/2025 7:32 PM EDT [facility] Urine Urine specimen obtained by clean catch procedure / Unknown Non-blood Collection / Unknown 01/01/2025 3:54 PM EDT 01/01/2025 3:54 PM EDT Narrative [facility] - 01/01/2025 7:32 PM EDT Assay cutoffs: Amphetamines 1000 ng/mL Barbiturates 200 ng/mL Benzodiazepines 200 ng/mL Cocaine 300 ng/mL Fentanyl 1 ng/mL Opiates 300 ng/mL Oxycodone 100 ng/mL THC 50 ng/mL Semi-quantitative assay for screening purposes only. Unconfirmed screening result should not be used for non-medical purposes. *ALTERNATE METHOD CONFIRMATION DONE UPON REQUEST ONLY* Keyla SMART LAB URINE ORDERABLES Fi nal Result Performing Organization Address City/[facility]/ZIP Co de Phone Number [facility] [address] [place] [address], [place] [phone] * Hemoglobin A1c (01/01/2025 3:54 PM EDT) Hemoglobin A1C 6.3 <6.5 % LAB CHEMISTRY METHOD 01/03/2025 11:27 AM EDT [facility] Mean Bld Glu Estim. 134 mg/dL LAB CHEMISTRY METHOD 01/03/2025 11:27 AM EDT [facility] Blood Venous blood specimen / Unknown Venipuncture / Unknown 01/01/2025 3:54 PM EDT 01/01/2025 3:54 PM EDT Keyla Guzmán [place] LAB BLOOD ORDERABLES Fi nal Result Performing Organization Address City/[facility]/ZIP Co de Phone Number [facility] [address] [place] [address], [place] [phone] * XR Cervical Spine 4-5 Views (01/01/2025 [...] Signed Date: 01/01/2025 20:34 ET Workstation ID: [id number] Transcribed By: Self Edit Transcribed Date: 01/01/2025 [...] Signed Date: 01/01/2025 20:34 ET Workstation ID: [id number] Transcribed By: Self Edit Transcribed Date: 01/01/2025 20:32 ET us Keyla SMART IMG XR PROCEDURES Final Result * (ABNORMAL) Lipid panel with reflex to direct LDL (09/03/2024 11:58 AM EDT) Cholesterol 168 0 - 200 mg/dL LAB CHEMISTRY METHOD 09/03/2024 4:41 PM EDT [facility] Triglycerides 240(H) 0 - 150 mg/dL LAB CHEMISTRY METHOD 09/03/2024 4:41 PM EDT [facility] HDL 44 >=40 mg/dL LAB CHEMISTRY METHOD 09/03/2024 4:41 PM EDT [facility] LDL Calculated 76 0 - 100 mg/dL LAB CHEMISTRY METHOD 09/03/2024 4:41 PM EDT [facility] VLDL Cholesterol Omar 48 mg/dL LAB CHEMISTRY METHOD 09/03/2024 4:41 PM EDT [facility] Non HDL Chol. (LDL+VLDL) 124 <145 mg/dL LAB CHEMISTRY METHOD 09/03/2024 4:41 PM EDT [facility] Chol/HDL Ratio 3.8 0.0 - 4.4 LAB CHEMISTRY METHOD 09/03/2024 4:41 PM EDT [facility] Blood Venous blood specimen / Unknown Venipuncture / Unknown 09/03/2024 11:58 AM EDT 09/03/2024 11:58 AM EDT us Stef Valencia MD LAB BLOOD ORDERABLES Final Resu lt [facility] [address] [place] [address], [place] [phone] * Microalbumin creatinine urine ratio (09/03/2024 11:58 AM EDT) Creatinine, Urine 105.0 mg/dL LAB CHEMISTRY METHOD 09/04/2024 4:26 AM EDT [facility] Microalb, Ur 14.5 0.0 - 29.0 mg/L LAB CHEMISTRY METHOD 09/04/2024 4:26 AM EDT [facility] Microalb/Creat Ratio 14 <30 mg/g creat LAB CHEMISTRY METHOD 09/04/2024 4:26 AM T [facility] Urine Urine specimen obtained by clean catch procedure / Unknown Non-blood Collection / Unknown 09/03/2024 11:58 AM EDT 09/03/2024 11:58 AM EDT Stef Valencia MD LAB URINE ORDERABLES Final Resu lt [facility] [address] [place] [address], [place] [phone] * (ABNORMAL) Comprehensive metabolic panel (09/03/2024 11:58 AM EDT) Pathologist [facility] Sodium 138 133 - 145 mmol/L LAB CHEMISTRY METHOD 09/03/2024 4:41 PM T [facility] Potassium 4.1 3.5 - 5.5 mmol/L LAB CHEMISTRY METHOD 09/03/2024 4:41 PM T [facility] Chloride 105 96 - 110 mmol/L LAB CHEMISTRY METHOD 09/03/2024 4:[address] [facility] CO2 26 21 - 32 mmol/L LAB CHEMISTRY METHOD 09/03/2024 4:41 PM T [facility] Anion Gap 7 3 - 11 LAB CHEMISTRY METHOD 09/03/2024 4:41 PM EDT [facility] Glucose 202(H) 70 - 100 mg/dL LAB CHEMISTRY METHOD 09/03/2024 4:[address] [facility] BUN 13 5 - 25 mg/dL LAB CHEMISTRY METHOD 09/03/2024 4:[address] [facility] Creatinine 0.96 0.70 - 1.30 mg/dL LAB CHEMISTRY METHOD 09/03/2024 4:[address] [facility] eGFR 81 >=60 mL/min/1. 73m2 LAB CHEMISTRY METHOD 09/03/2024 4:[address] [facility] Comment:Calculation based on the Chronic Kidney Disease Epidemiology Collaboration (CKD-EPI) equation refit without adjustment for race. BUN/Creatinine Ratio 13.5 LAB CHEMISTRY METHOD 09/03/2024 4:[address] [facility] Calcium 8.8 8.5 - 10.5 mg/dL LAB CHEMISTRY METHOD 09/03/2024 4:[address] [facility] AST (SGOT) 25 10 - 42 unit/L LAB CHEMISTRY METHOD 09/03/2024 4:[address] [facility] ALT (SGPT) 40 10 - 60 unit/L LAB CHEMISTRY METHOD 09/03/2024 4:[address] [facility] Alkaline Phosphatase 96 42 - 121 unit/L LAB CHEMISTRY METHOD 09/03/2024 4:[address] [facility] Total Protein 7.2 6.0 - 8.0 g/dL LAB CHEMISTRY METHOD 09/03/2024 4:[address] [facility] Albumin 3.9 3.2 - 5.0 g/dL LAB CHEMISTRY METHOD 09/03/2024 4:[address] [facility] Total Bilirubin 0.9 0.0 - 1.4 mg/dL LAB CHEMISTRY METHOD 09/03/2024 4:[address] [facility] Blood Venous blood specimen / Unknown Venipuncture / Unknown 09/03/2024 11:58 AM EDT 09/03/2024 11:58 AM EDT us Stef Valencia MD LAB BLOOD ORDERABLES Final Resu lt [facility] [address] [place] [address], * Diabetes Eye Exam (12/18/2023) Diabetes: Annual Retina Eye Exam abstracted Historical Provider HEALTH MAINTENANCE Final Result * Hepatitis C Screening (05/22/2018) Pathologist [facility] Hepatitis C Screening abstracted Historical Provider HEALTH MAINTENANCE Final Result from Last 3 Months or Most Recently Relevant to Health Maintenance Insurance [facility] MEDICARE Member Subscriber Plan / Payer (Ef fective 2017-Present) Name:Paulie De Los Santos Relation to Subscriber:Self Name:Paulie De Los Santos Payer ID:[id number] Group ID:[id number] Type:Not on file Address: [place] [address] [place] [id number] Care Teams Manager [employer] Relationship Specialty Start Date End Date Stef Valencia MD [address] [place] [address] PCP - General Internal Medicine 02/18/24
--- OUTSIDE RECORDS SUMMARY | 2025-01-07 11:39 | XMS_ITS | Patient Health Record ---
Author Organization [facility] Address [address] [place] [address] Care Team Providers Care Law Enforcement Officer Name Role Phone Adonis Zepeda Unavailable [phone] Reason For Referral No Information Plan Of Treatment No Information
--- OUTSIDE RECORDS SUMMARY | 2025-01-07 11:39 | XMS_ITS | Encounter Summary ---
Author Organization [facility] Address [address] [place] [address] Care Team Providers Care Manager Highway Name Role Phone Stef Valencia MD Primary Care Provider [phone] Reason for Visit * Reason Comments home health cert Encounter Details Date Type Department Care Team ([facility] Contact Info) Description 10/05/2024 Billing Patient Not Present Adult Medicine [address] [phone] Stef Valencia MD [address] [place] [address] Social History Tobacco Use Types Packs/Day Years [...] Upcoming Encounters Date Type Department Care Team ([facility] Contact Info) Description 03/31/2025 11:00 AM EST Office Visit Adult Medicine [address] [phone] Keyla Guzmán PA [address] [place] [address] 07/08/2025 2:30 PM EDT Office Visit Adult Medicine [address] [phone] Stef Valencia MD [address] [place], [place] documented as of this encounter Visit Diagnoses Not on filedocumented in this encounter Additional Health Concerns Assessment Noted Time PHQ-9 Depression Total Score: 1 05/21/19 25 9:41 AM EST A fall risk assessment has been complete d for the patient 05/21/2024 9:40 AM EST documented as of this encounter Care Teams Manager Highway Relationship Specialty Start Date End Date Stef Valencia MD [address] [place] [address] PCP - General Internal Medicine 02/18/24 documented as of this encounter
--- OUTSIDE RECORDS SUMMARY | 2025-01-07 11:39 | XMS_ITS | Encounter Summary ---
Author Organization [facility] Address [address] [place] [address] Care Team Providers Care Warp Drawer Name Role Phone Stef Valencia MD Primary Care Provider [phone] Reason for Visit * Reason Comments home health cert Encounter Details Date Type Department Care Team ([facility] [address] Contact Info) Description 01/04/2025 Billing Patient Not Present Adult Medicine [address] [phone] Stef Valencia MD [address] [place] [address] Social History Tobacco Use Types Packs/Day Years [...] Upcoming Encounters Date Type Department Care Team ([facility] [address] Contact Info) Description 03/31/2025 11:00 AM EST Office Visit Adult Medicine [address] [phone] Keyla Guzmán PA [address] [place] [address] 07/08/2025 2:30 PM EDT Office Visit Adult Medicine [address] [phone] Stef Valencia MD [address] [place], [place] documented as of this encounter Visit Diagnoses Not on filedocumented in this encounter Additional Health Concerns Assessment Noted Time PHQ-9 Depression Total Score: 1 05/21/19 25 9:41 AM EST A fall risk assessment has been complete d for the patient 05/21/2024 9:40 AM EST documented as of this encounter Care Teams Warp Drawer Relationship Specialty Start Date End Date Stef Valencia MD [address] [place] [address] PCP - General Internal Medicine 02/18/24 documented as of this encounter
== END 2025-01-07 10:08 | disposition home or self-care (01) ==
LOC: HO.ACS 09:46
PROVIDERS: PCP Internal Medicine; Visit Provider Internal Medicine Medical Oncology
DX: Z79.01 Long term (current) use of anticoagulants (principal)

== ENCOUNTER → 2025-01-07 09:46 | Outpatient (BNVA) | payer OTHER, SELFPAY | PROVIDERS: PCP Internal Medicine; Visit Provider Internal Medicine Medical Oncology | DX: I48.0 Paroxysmal atrial fibrillation (principal); Z79.01 Long term (current) use of anticoagulants; Z51.81 Encounter for therapeutic drug level monitoring | CPT/HCPCS: 85610; 99211 ==

== ENCOUNTER 2025-02-04 09:59 | Outpatient (AMB) | payer OTHER, SELFPAY ==
[2025-02-04 10:06] LABS: Prothrombin Time Whole Bld POC 36.0 sec (11.1-13.5); ~PT, ~INR - Anti Coag Clinic 3.0 (0.9-1.1)
--- NOTE | 2025-02-04 10:11 | MHC.OFFVISCO ---
Intake Intake Visit Reasons: Anticoagulation Allergies oxycodone (From Percocet) Allergy (Intermediate, Verified 01/07/25 09:58) Headache ibuprofen (From Motrin) Allergy (Mild, Verified 01/07/25 09:58) SWELLING [place] Adverse Reaction (Mild, Uncoded 01/07/25 09:58) VOMITING Medication List - Last Reconciled 02/04/25 by Soraya Roberts RN atorvastatin 80 mg PO DAILY blood sugar diagnostic As directed blood-glucose meter (FreeStyle Lite Meter kit) As directed cyclobenzaprine 10 mg PO TID PRN docusate sodium (Colace) 100 mg PO BID dulaglutide (Trulicity) mg subcut glipizide 10 mg PO BID lidocaine 5% (Lidoderm) 1 patch topical DAILY lidocaine 5% 1 patch topical DAILY lisinopril 5 mg PO DAILY metoprolol tartrate 25 mg PO BID multivitamin 1 tab PO DAILY omega 0-fsm-dat-fish oil 300-1,000 mg (Fish Oil) 1 cap PO DAILY pen needle, diabetic (BD Keira 2nd Gen Pen Needle) As directed polyethylene glycol 3350 (Miralax) 17 grams PO BID sennosides (senna) 8.6 mg PO BEDTIME tamsulosin 0.4 mg PO Q12H tramadol 50 mg PO TID PRN warfarin See Protocol 5 mg orally 5mg x 1 day/ 2.5mg x 6 days; Nursing Note INR: 3.0 in therapeutic range Medications and supplements reviewed No changes in health, diet, medications, or supplements, Denies any signs and symptoms of bleeding or bruising or clotting. Bleeding, bruising, clotting discussed Nutritional guidance given- greenilya today and weekly Dose: keep same dose 5mg x 1 day/2.5mg x 6 days F/U INR: 1 month Patient verbalizes understanding of instructions given Anti-Coag Initial Assessment Social Hx Patient Tobacco Use Status: Never used Tobacco alcohol intake: never Alcohol intake frequency: former alcohol drinker Coding Level of Care Code Est Patient Level 1 Diagnoses Current use of anticoagulant therapy Z79.01 Assessment & Plan Assessment & Plan (1) Current use of anticoagulant therapy: Code(s): Z79.01 - alf (current) use of anticoagulants Category: Medical
--- OUTSIDE RECORDS SUMMARY | 2025-02-04 11:37 | XMS_ITS | Encounter Summary ---
Author Organization [facility] Address [address] [place] [address] Care Team Providers Care Cooling Room Attendant Name Role Phone Stef Valencia MD Primary Care Provider [phone] Reason for Visit * Reason Comments home health cert Encounter Details Date Type Department Care Team ([facility] Contact Info) Description 10/05/2024 Billing Patient Not Present Adult Medicine [address] [phone] Stef Valencia MD [address] [place] [address] Social History Tobacco Use Types Packs/Day Years [...] Upcoming Encounters Date Type Department Care Team ([facility] Contact Info) Description 03/31/2025 11:00 AM EST Office Visit Adult Medicine [address] [phone] Keyla Guzmán PA [address] [place] [address] 07/08/2025 2:30 PM EDT Office Visit Adult Medicine [address] [phone] Stef Valencia MD [address] [place], [place] documented as of this encounter Visit Diagnoses Not on filedocumented in this encounter Additional Health Concerns Assessment Noted Time PHQ-9 Depression Total Score: 1 05/21/19 25 9:41 AM EST A fall risk assessment has been complete d for the patient 05/21/2024 9:40 AM EST documented as of this encounter Care Teams Cooling Room Attendant Relationship Specialty Start Date End Date Stef Valencia MD [address] [place] [address] PCP - General Internal Medicine 02/18/24 documented as of this encounter
--- OUTSIDE RECORDS SUMMARY | 2025-02-04 11:37 | XMS_ITS | Clinical Summary ---
Author Organization [facility] Address [address] [place] [address] Phone Care Team Providers Care Director Athletic Name Role Phone Stef Valencia MD Primary Care Provider [phone] Allergies Active Allergy Reactions Criticality Noted Date Comments Fish Containing Products Nausea And Vomiting 05/05/2013 Stomach pain Ibuprofen 11/09/2011 Other 12/03/2014 Seasonal allergies Oxycodone-Acetaminophe n 08/02/2022 headaches Medications pen needle, diabetic 32 gauge x /32 needle Use one daily with ozempic . 04/18/19 22 Active blood-gluc,BP meter,adult cuff device 1 Device by Does not apply route daily. 10/06/19 23 Active metoprolol succinate (TOPROL-XL) 25 mg 24 [...] DAILY 100 strip 1 09/29/19 25 Active dulaglutide (TRULICITY) 3 mg/0.5 mL [...] DAILY 90 tablet 1 11/18/19 25 Active warfarin (COUMADIN) 5 mg tablet Take 1 Tablet by mouth daily. May cause heavy bleeding. Take at same time every day. Do not change dietary habits. 90 tablet 1 12/31/19 25 Active diclofenac (VOLTAREN) 1 % topical gel Apply 2 gram four times daily to affected joint 100 g 12/31/19 25 Active glipiZIDE (GLUCOTROL) 5 mg tablet TAKE 2 TABLETS(10 MG) BY MOUTH TWICE DAILY 360 tablet 1 01/23/20 25 Active traMADoL (ULTRAM) 50 mg tabletIndicatio ns:Shoulder pain, unspecified chronicity, unspecified laterality Take 1 tablet (50 mg total) by mouth every 8 (eight) hours. Max Daily Amount: 150 mg 84 tablet 01/26/20 25 Active glipiZIDE (GLUCOTROL) 5 mg tablet Take 2 tablets (10 mg total) by mouth 2 (two) times a day. 360 tablet 1 06/27/19 25 025 Discontinued traMADoL (ULTRAM) 50 mg tabletIndicatio ns:Shoulder pain, unspecified chronicity, unspecified laterality Take 1 tablet (50 mg total) by mouth every 8 (eight) hours if needed for severe pain. Max Daily Amount: 150 mg 84 tablet 12/19/19 25 025 Discontinued Active Problems Problem Noted Date Diagnosed [...] underlying lung etiology. 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 A-fib ([facility] V24, [facility] V28) 11/09/2011 Overview (01/13/2024): Last Assessment & Plan: The patient has a history of paroxysmal atrial fibrillation. The patient continues on rate control therapy with beta harley. Also, the patient has a GIN7VM2-CVAc score of 3 and continues on anticoagulation [...] Encounters Date Type Department Care Team Description 02/03/2025 Telephone Adult [address] [phone] Stef Valencia MD 01/25/2025 Results Follow-Up [address] [phone] Viri Pool PA 01/04/2025 Billing Patient Not Present Adult Medicine [address] [phone] Stef Valencia MD 01/01/2025 10:50 AM EDT - 01/01/2025 11:59 PM EDT Hospital Encounter [address] [phone] Numbness and tingling of upper extremity Discharge Disposition: Home or Self Care 12/30/2024 3:00 PM EDT Office Visit Adult Medicine [address] [phone] Keyla Guzmán PA Numbness and tingling of upper extremity (Primary Dx); Encounter for long-term (current) use of medications; Other chronic pain; Type 2 diabetes mellitus without complication, without long-term current use of insulin ([facility] V24, [facility] V28); Need for prophylactic vaccination and inoculation against influenza; Atrial fibrillation, unspecified type ([facility] V24, [facility] V28); Hypercholesterolemia from Last 3 Months Immunizations Immunization Administration Dates Next Due Influenza Quadravalent, MDCK [...] pidemia LDL goal < 70 Paroxysmal A-fib ([facility] V2 4, [facility] V28) 11/09/2011 DX:Paroxysmal A-fib (HCC) Type 2 diabetes mellitus wit h cataract ([facility] V24, [facility] V28) 05/20/2013 DX:Type 2 diabetes mellitus with cataract (HCC); COMMENT: Nuclear sclorosis Eye exam 05/05/13. Kidney stone DX:Kidney stone Umbilical hernia DX:Umbilical he rnia Diabetic acetonemia ([facility] V24, [facility] V28) DX:Diabetic acetonemia (HCC) Family History Medical [...] 03/31/2025 11:00 AM EST Office Visit Adult [address] [phone] Keyla Guzmán PA [address] [place] [address] 07/08/2025 2:30 PM EDT Office Visit [address] [phone] Stef Valencia MD [address] [place] [phone] Health Maintenance Due Date Last Done Comments [...] complication, without long-term current use of insulin ([facility] V24, [facility] V28) XR CERVICAL SPINE 4-5 VIEWS Routine 01/01/2025 10:58 AM EDT Numbness and tingling of upper extremity MICROALBUMIN CREATININE URINE RATIO Routine 09/03/2024 11:58 AM EDT Controlled type 2 diabetes mellitus with retinopathy, without long-term current use of insulin, macular edema presence unspecified, unspecified laterality, unspecified reti* ([facility] V24, [facility] V28) COMPREHENSIVE METABOLIC PANEL Routine 09/03/2024 11:58 AM EDT Controlled type 2 diabetes mellitus with retinopathy, without long-term current use of insulin, macular edema presence unspecified, unspecified laterality, unspecified reti* ([facility] V24, [facility] V28) Primary hypertension Encounter for long-term (current) [...] LAB CHEMISTRY METHOD 01/01/2025 7:32 PM EDT [facility] Comment:Certain OTC medicati ons containing ephedrine, phenylephrine, pseudoephedrine and phenylpropanolamine can cause false positive results. Barbiturate Screen, Ur Negative Negative LAB CHEMISTRY METHOD [facility] Benzodiazepine Screen, Ur Negative Negative LAB CHEMISTRY METHOD 01/01/2025 7:32 PM EDT [facility] Cocaine Screen, Ur Negative Negative LAB CHEMISTRY METHOD 01/01/2025 7:32 PM EDT [facility] Opiate Screen, Ur Negative Negative LAB CHEMISTRY METHOD 01/01/2025 7:32 PM [facility] Cannabinoid (THC) Screen, Ur Negative Negative LAB CHEMISTRY METHOD 01/01/2025 7:32 PM [facility] Comment:Specimens from patie nts taking pantoprazole sodium (Protonix) have been shown to produce false positive results. Oxycodone Screen, Ur Negative Negative LAB CHEMISTRY METHOD 01/01/2025 7:32 PM EDT [facility] Fentanyl, Ur Negative Negative LAB CHEMISTRY METHOD 01/01/2025 7:32 PM EDT [facility] Urine Urine specimen obtained by clean catch procedure / Unknown Non-blood Collection / Unknown 01/01/2025 3:54 PM EDT 01/01/2025 3:54 PM EDT Narrative [facility] - 01/01/2025 7:32 PM EDT Assay cutoffs: Amphetamines 1000 ng/mL Barbiturates 200 ng/mL Benzodiazepines 200 ng/mL Cocaine 300 ng/mL Fentanyl 1 ng/mL Opiates 300 ng/mL Oxycodone 100 ng/mL THC 50 ng/mL Semi-quantitative assay for screening purposes only. Unconfirmed screening result should not be used for non-medical purposes. *ALTERNATE METHOD CONFIRMATION DONE UPON REQUEST ONLY* Keyla Guzmán AL LAB URINE ORDERABLES Fi nal Result [facility] [address] [place] [address], [place] [phone] * Hemoglobin A1c (01/01/2025 3:54 PM EDT) Hemoglobin A1C 6.3 <6.5 % LAB CHEMISTRY METHOD 01/03/2025 11:27 AM EDT [facility] Mean Bld Glu Estim. 134 mg/dL LAB CHEMISTRY METHOD 01/03/2025 11:27 AM EDT [facility] Blood Venous blood specimen / Unknown Venipuncture / Unknown 01/01/2025 3:54 PM EDT 01/01/2025 3:54 PM EDT [facility] BLOOD ORDERABLES Fi nal Result Performing Organization Address City/[facility]/ZIP Co de Phone Number [facility] [address] [place] [address], [place] [phone] * XR Cervical Spine 4-5 Views (01/01/2025 [...] Signed Date: 01/01/2025 20:34 ET Workstation ID: [id number] Transcribed By: Self Edit Transcribed Date: 01/01/2025 [...] Signed Date: 01/01/2025 20:34 ET Workstation ID: [id number] Transcribed By: Self Edit Transcribed Date: 01/01/2025 20:32 ET Keyla SMART IMG XR PROCEDURES Final Result * (ABNORMAL) Lipid panel with reflex to direct LDL (09/03/2024 11:58 AM EDT) Cholesterol 168 0 - 200 mg/dL LAB CHEMISTRY METHOD 09/03/2024 4:41 PM EDT [facility] Triglycerides 240(H) 0 - 150 mg/dL LAB CHEMISTRY METHOD 09/03/2024 4:41 PM EDT [facility] HDL 44 >=40 mg/dL LAB CHEMISTRY METHOD 09/03/2024 4:41 PM EDT [facility] LDL Calculated 76 0 - 100 mg/dL LAB CHEMISTRY METHOD 09/03/2024 4:41 PM T [facility] VLDL Cholesterol Omar 48 mg/dL LAB CHEMISTRY METHOD 09/03/2024 4:41 PM T [facility] Non HDL Chol. (LDL+VLDL) 124 <145 mg/dL LAB CHEMISTRY METHOD 09/03/2024 4:41 PM EDT [facility] Chol/HDL Ratio 3.8 0.0 - 4.4 LAB CHEMISTRY METHOD 09/03/2024 4:41 PM T [facility] Blood Venous blood specimen / Unknown Venipuncture / Unknown 09/03/2024 11:58 AM EDT 09/03/2024 11:58 AM EDT us Stef Valencia MD LAB BLOOD ORDERABLES Final Resu lt Performing Organization Address City/[facility]/ZIP Co de Phone Number [facility] [address] [place] [address], [place] [phone] * Microalbumin creatinine urine ratio (09/03/2024 11:58 AM EDT) Creatinine, Urine 105.0 mg/dL LAB CHEMISTRY METHOD 09/04/2024 4:26 AM EDT [facility] Microalb, Ur 14.5 0.0 - 29.0 mg/L LAB CHEMISTRY METHOD 09/04/2024 4:26 AM EDT [facility] Microalb/Creat Ratio 14 <30 mg/g creat LAB CHEMISTRY METHOD 09/04/2024 4:26 AM EDT [facility] Urine Urine specimen obtained by clean catch procedure / Unknown Non-blood Collection / Unknown 09/03/2024 11:58 AM EDT 09/03/2024 11:58 AM EDT us Stef Valencia MD LAB URINE ORDERABLES Final Resu lt Performing Organization Address City/[facility]/ZIP Co de Phone Number [facility] [address] [place] [address], [place] [phone] * (ABNORMAL) Comprehensive metabolic panel (09/03/2024 11:58 AM EDT) Sodium 138 133 - 145 mmol/L LAB CHEMISTRY METHOD 09/03/2024 4:41 PM EDT [facility] Potassium 4.1 3.5 - 5.5 mmol/L LAB CHEMISTRY METHOD 09/03/2024 4:41 PM EDT [facility] Chloride 105 96 - 110 mmol/L LAB CHEMISTRY METHOD 09/03/2024 4:41 PM EDT [facility] CO2 26 21 - 32 mmol/L LAB CHEMISTRY METHOD 09/03/2024 4:41 PM EDT [facility] Anion Gap 7 3 - 11 LAB CHEMISTRY METHOD 09/03/2024 4:41 PM [facility] Glucose 202(H) 70 - 100 mg/dL LAB CHEMISTRY METHOD 09/03/2024 4:41 PM [facility] BUN 13 5 - 25 mg/dL LAB CHEMISTRY METHOD 09/03/2024 4:41 PM [facility] Creatinine 0.96 0.70 - 1.30 mg/dL LAB CHEMISTRY METHOD 09/03/2024 4:41 PM [facility] eGFR 81 >=60 mL/min/1. 73m2 LAB CHEMISTRY METHOD 09/03/2024 4:41 PM [facility] Comment:Calculation based on the Chronic Kidney Disease Epidemiology Collaboration (CKD-EPI) equation refit without adjustment for race. BUN/Creatinine Ratio 13.5 LAB CHEMISTRY METHOD 09/03/2024 4:41 PM [facility] Calcium 8.8 8.5 - 10.5 mg/dL LAB CHEMISTRY METHOD 09/03/2024 4:41 PM [facility] AST (SGOT) 25 10 - 42 unit/L LAB CHEMISTRY METHOD 09/03/2024 4:41 PM [facility] ALT (SGPT) 40 10 - 60 unit/L LAB CHEMISTRY METHOD 09/03/2024 4:41 PM [facility] Alkaline Phosphatase 96 42 - 121 unit/L LAB CHEMISTRY METHOD 09/03/2024 4:41 PM [facility] Total Protein 7.2 6.0 - 8.0 g/dL LAB CHEMISTRY METHOD 09/03/2024 4:41 PM [facility] Albumin 3.9 3.2 - 5.0 g/dL LAB CHEMISTRY METHOD 09/03/2024 4:41 PM [facility] Total Bilirubin 0.9 0.0 - 1.4 mg/dL LAB CHEMISTRY METHOD 09/03/2024 4:41 PM [facility] Blood Venous blood specimen / Unknown Venipuncture / Unknown 09/03/2024 11:58 AM EDT 09/03/2024 11:58 AM EDT Stef Valencia MD LAB BLOOD ORDERABLES Final Resu lt [facility] ([facility]) [facility] [address] [place] [address], * Diabetes Eye Exam (12/18/2023) Diabetes: Annual Retina Eye Exam abstracted Historical Provider HEALTH MAINTENANCE Final Result * Hepatitis C Screening (05/22/2018) Hepatitis C Screening abstracted Historical Provider HEALTH MAINTENANCE Final Result from Last 3 Months or Most Recently Relevant to Health Maintenance Insurance [facility] MEDICARE Member Subscriber Plan / Payer (Ef fective 2017-Present) Name:Paulie De Los Santos Relation to Subscriber:Self Name:Paulie De Los Santos Payer ID:[id number] Group ID:[id number] Type:Not on file Address: [place] [address] [place] [id number] Care Teams Director Athletic Relationship Specialty Start Date End Date Stef Valencia MD [address] [place] [phone] PCP - General Internal Medicine 02/18/24
--- OUTSIDE RECORDS SUMMARY | 2025-02-04 11:37 | XMS_ITS | Encounter Summary ---
Author Organization [facility] Address [address] [place] [address] Care Team Providers Care College Sports Coach Name Role Phone Stef Valencia MD Primary Care Provider [phone] Encounter Details Date Type Department Care Team ([facility] Contact Info) Description 09/15/2024 Billing Patient Not Present Adult Medicine [address] [phone] Stef Valencia MD [address] [place] [address] Social History Tobacco Use Types Packs/Day Years [...] Upcoming Encounters Date Type Department Care Team ([facility] Contact Info) Description 03/31/2025 11:00 AM EST Office Visit Adult Medicine [address] [phone] Keyla Guzmán PA [address] [place] [address] 07/08/2025 2:30 PM EDT Office Visit Adult Medicine [address] [phone] Stef Valencia MD [address] [place] [phone] documented as of this encounter Visit Diagnoses Not on filedocumented in this encounter Additional Health Concerns Assessment Noted Time PHQ-9 Depression Total Score: 1 05/21/19 25 9:41 AM EST A fall risk assessment has been complete d for the patient 05/21/2024 9:40 AM EST documented as of this encounter Care Teams College Sports Coach Relationship Specialty Start Date End Date Stef Valencia MD [address] [place] [phone] PCP - General Internal Medicine 02/18/24 documented as of this encounter
--- OUTSIDE RECORDS SUMMARY | 2025-02-04 11:37 | XMS_ITS | Encounter Summary ---
Author Organization [facility] Address [address] [place] [address] Care Team Providers Care Early Childhood Services Coordinator Name Role Phone Stef Valencia MD Primary Care Provider [phone] Reason for Visit * Reason Comments home health cert Encounter Details Date Type Department Care Team ([facility] Contact Info) Description 01/04/2025 Billing Patient Not Present Adult Medicine [address] [phone] Stef Valencia MD [address] [place] [address] Social History Tobacco Use Types Packs/Day Years [...] Upcoming Encounters Date Type Department Care Team ([facility] Contact Info) Description 03/31/2025 11:00 AM EST Office Visit Adult Medicine [address] [phone] Keyla Guzmán PA [address] [place] [address] 07/08/2025 2:30 PM EDT Office Visit Adult Medicine [address] [phone] Stef Valencia MD [address] [place], [place] documented as of this encounter Visit Diagnoses Not on filedocumented in this encounter Additional Health Concerns Assessment Noted Time PHQ-9 Depression Total Score: 1 05/21/19 25 9:41 AM EST A fall risk assessment has been complete d for the patient 05/21/2024 9:40 AM EST documented as of this encounter Care Teams Early Childhood Services Coordinator Relationship Specialty Start Date End Date Stef Valencia MD [address] [place] [address] PCP - General Internal Medicine 02/18/24 documented as of this encounter
--- OUTSIDE RECORDS SUMMARY | 2025-02-04 11:37 | XMS_ITS | Encounter Summary ---
Author Organization [facility] [address] Address [address] [place] [address] Care Team Providers Care Adjuster Piano Action Name Role Phone Stef Valencia MD Primary Care Provider [phone] Reason for Visit * Reason Onset Date Comments faxed order 02/03/2025 [employer] order [id number] Encounter Details Date Type Department Care Team (Late Contact Info) Description 02/03/2025 Telephone Adult Medicine [address] [phone] Stef Valencia MD [address] [place] [address] Social History Tobacco Use Types Packs/Day Years [...] as of this encounter Progress Notes * Idalmis Figueredo - 02/03/2025 3:52 PM EDT [employer] order [id number] received please sign and fax to [phone] documented in this encounter Plan of Treatment Upcoming Encounters Date Type Department Care Team (Late Contact Info) Description 03/31/2025 11:00 AM EST Office Visit Adult Medicine [address] [phone] Keyla Guzmán PA [address] [place] [address] 07/08/2025 2:30 PM EDT Office Visit Adult Medicine [address] [phone] Stef Valencia MD [address] [place] [address] documented as of this encounter Visit Diagnoses Not on filedocumented in this encounter Additional Health Concerns Assessment Noted Time PHQ-9 Depression Total Score: 1 05/21/19 25 9:41 AM EST A fall risk assessment has been complete d for the patient 05/21/2024 9:40 AM EST documented as of this encounter Care Teams Adjuster Piano Action Relationship Specialty Start Date End Date Stef Valencia MD [address] [place] [address] PCP - General Internal Medicine 02/18/24 documented as of this encounter
== END 2025-02-04 10:13 | disposition home or self-care (01) ==
LOC: HO.ACS 09:59
PROVIDERS: PCP Internal Medicine; Visit Provider Internal Medicine Medical Oncology
DX: Z79.01 Long term (current) use of anticoagulants (principal)

== ENCOUNTER → 2025-02-04 09:59 | Outpatient (BNVA) | payer OTHER, SELFPAY | PROVIDERS: PCP Internal Medicine; Visit Provider Internal Medicine Medical Oncology | DX: Z79.01 Long term (current) use of anticoagulants (principal) | CPT/HCPCS: 85610; 99211 ==

== ENCOUNTER 2025-03-18 10:29 | Outpatient (AMB) | payer OTHER, SELFPAY ==
[2025-03-18 10:36] LABS: Prothrombin Time Whole Bld POC 21.6 sec (11.1-13.5); ~PT, ~INR - Anti Coag Clinic 1.8 (0.9-1.1)
--- NOTE | 2025-03-18 10:38 | MHC.OFFVISCO ---
Intake Intake Visit Reasons: Anticoagulation Allergies oxycodone (From Percocet) Allergy (Intermediate, Verified 03/18/25 10:31) Headache ibuprofen (From Motrin) Allergy (Mild, Verified 03/18/25 10:31) SWELLING SALMON Adverse Reaction (Mild, Uncoded 03/18/25 10:31) VOMITING Medication List - Last Reconciled 03/18/25 by Sara Atkinson RN atorvastatin 80 mg PO DAILY blood sugar diagnostic As directed blood-glucose meter (FreeStyle Lite Meter kit) As directed cyclobenzaprine 10 mg PO TID PRN docusate sodium (Colace) 100 mg PO BID dulaglutide (Trulicity) mg subcut glipizide 10 mg PO BID lidocaine 5% (Lidoderm) 1 patch topical DAILY lidocaine 5% 1 patch topical DAILY lisinopril 5 mg PO DAILY metoprolol tartrate 25 mg PO BID multivitamin 1 tab PO DAILY omega 0-dgs-xtc-fish oil 300-1,000 mg (Fish Oil) 1 cap PO DAILY pen needle, diabetic (BD Keira 2nd Gen Pen Needle) As directed polyethylene glycol 3350 (Miralax) 17 grams PO BID sennosides (senna) 8.6 mg PO BEDTIME tamsulosin 0.4 mg PO Q12H tramadol 50 mg PO TID PRN warfarin See Protocol 5 mg orally 5mg x 1 day/ 2.5mg x 6 days; Nursing Note INR: 1.8 out of therapeutic range of 2-3 Medications and supplements reviewed No changes in health, diet, medications, or supplements, Denies any signs and symptoms of bleeding or bruising or clotting. Bleeding, bruising, clotting discussed Nutritional guidance given Dose: increase today's dose to 5mg then resume usual dose of 2.5mg X 6 days and 5mg X 1 day (Mon) F/U INR: 04/19/24 Patient verbalizes understanding of instructions given Anti-Coag Initial Assessment Social Hx Patient Tobacco Use Status: Never used Tobacco alcohol intake: never Alcohol intake frequency: former alcohol drinker Coding Level of Care Code Est Patient Level 1 Diagnoses Current use of anticoagulant therapy Z79.01 Results AMB INR Fingerstick AMB INR Fingerstick 1.8 Last Edit by Sara Atkinson RN on 03/18/25 10:37 interface delay Assessment & Plan Assessment & Plan (1) Current use of anticoagulant therapy: Code(s): Z79.01 - director long term care (current) use of anticoagulants Category: Medical
--- OUTSIDE RECORDS SUMMARY | 2025-03-18 12:56 | XMS_ITS | Patient Health Record ---
Author Organization [facility] Address [address] [place] [address] Care Team Providers Care Irrigation Specialist Name Role Phone Adonis Zepeda Unavailable [phone] Reason For Referral No Information Plan Of Treatment No Information
--- OUTSIDE RECORDS SUMMARY | 2025-03-18 12:57 | XMS_ITS | Clinical Summary ---
Author Organization [facility] [address] [facility] Address [address] [place] [phone] Phone Care Team Providers Care Supervisor Mechanic Boilermaking Name Role Phone Stef Valencia MD Primary Care Provider [phone] Allergies Active Allergy Reactions Criticality Noted Date Comments Fish Containing Products Nausea And Vomiting 05/05/2013 Stomach pain Ibuprofen 11/09/2011 Other 12/03/2014 Seasonal allergies Oxycodone-Acetaminophe n 08/02/2022 headaches Medications pen needle, diabetic 32 gauge x /32 needle Use one daily with ozempic . 04/18/19 22 Active blood-gluc,BP meter,adult cuff device 1 Device by Does not apply route daily. 10/06/19 23 Active tamsulosin (FLOMAX) 0.4 mg 24 hr [...] Max Daily Amount: 150 mg 84 tablet 02/24/20 25 Active metoprolol succinate (TOPROL-XL) 25 mg 24 hr tablet TAKE 1 TABLET(25 MG) BY MOUTH TWICE DAILY 180 tablet 1 03/10/20 25 Active metoprolol succinate (TOPROL-XL) 25 mg 24 hr tablet TAKE 1 TABLET(25 MG) BY MOUTH TWICE DAILY 180 tablet 1 08/13/19 25 025 Discontinued traMADoL (ULTRAM) 50 mg tabletIndicatio ns:Shoulder pain, unspecified chronicity, unspecified laterality Take 1 tablet (50 mg total) by mouth every 8 (eight) hours. Max Daily Amount: 150 mg 84 tablet 01/26/20 25 025 Discontinued(Re order) Active Problems Problem [...] underlying lung etiology. 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 A-fib ([facility] V24, [facility] V28) 11/09/2011 Overview (01/13/2024): Last Assessment & Plan: The patient has a history of paroxysmal atrial fibrillation. The patient continues on rate control therapy with beta harley. Also, the patient has a [id number] score of 3 and continues on anticoagulation [...] Department Care Team Description 02/03/2025 Telephone Adult Medicine [address] [phone] Stef Valencia MD 01/25/2025 Results Follow-Up Adult Medicine [address] [phone] Viri Pool PA 01/04/2025 Billing Patient Not Present Adult Medicine [address] [phone] Stef Valencia MD 01/01/2025 10:50 AM EDT - 01/01/2025 11:59 PM EDT Hospital Encounter [address] [phone] Numbness and tingling of upper extremity Discharge Disposition: Home or Self Care 12/30/2024 3:00 PM EDT Office Visit Adult Medicine [address] [phone] Keyla Guzmán PA Numbness and tingling of upper extremity (Primary Dx); Encounter for long-term (current) use of medications; Other chronic pain; Type 2 diabetes mellitus without complication, without long-term current use of insulin ([facility] V24, [facility] V28); Need for prophylactic vaccination and inoculation against influenza; Atrial fibrillation, unspecified type ([facility] V24, [facility] V28); Hypercholesterolemia from Last 3 Months Immunizations [...] pidemia LDL goal < 70 Paroxysmal A-fib ([facility] V2 4, [facility] V28) 11/09/2011 DX:Paroxysmal A-fib (HCC) Type 2 diabetes mellitus wit h cataract ([facility] V24, [facility] V28) 05/20/2013 DX:Type 2 diabetes mellitus with cataract (HCC); COMMENT: Nuclear sclorosis Eye exam 05/05/13. Kidney stone DX:Kidney stone Umbilical hernia DX:Umbilical he rnia Diabetic acetonemia ([facility] V24, [facility] V28) DX:Diabetic acetonemia (HCC) Family History Medical [...] 11:00 AM EST Office Visit Adult Medicine [address] [phone] Keyla Guzmán PA [address] [place] [address] 07/08/2025 2:30 PM EDT Office Visit [address] [phone] Stef Valencia MD [address] [place] [phone] Health Maintenance Due Date Last Done Comments [...] complication, without long-term current use of insulin ([facility] V24, [facility] V28) XR CERVICAL SPINE 4-5 VIEWS Routine 01/01/2025 10:58 AM EDT Numbness and tingling of upper extremity MICROALBUMIN CREATININE URINE RATIO Routine 09/03/2024 11:58 AM EDT Controlled type 2 diabetes mellitus with retinopathy, without long-term current use of insulin, macular edema presence unspecified, unspecified laterality, unspecified reti* ([facility] V24, [facility] V28) COMPREHENSIVE METABOLIC PANEL Routine 09/03/2024 11:58 AM EDT Controlled type 2 diabetes mellitus with retinopathy, without long-term current use of insulin, macular edema presence unspecified, unspecified laterality, unspecified reti* ([facility] V24, [facility] V28) Primary hypertension Encounter for long-term (current) [...] LAB CHEMISTRY METHOD 01/01/2025 7:32 PM EDT [facility] Comment:Certain OTC medicati ons containing ephedrine, phenylephrine, pseudoephedrine and phenylpropanolamine can cause false positive results. Barbiturate Screen, Ur Negative Negative LAB CHEMISTRY METHOD 01/01/2025 7:32 PM EDT [facility] Benzodiazepine Screen, Ur Negative Negative LAB CHEMISTRY METHOD 01/01/2025 7:32 PM EDT [facility] Cocaine Screen, Ur Negative Negative LAB CHEMISTRY METHOD 01/01/2025 7:32 PM EDT [facility] Opiate Screen, Ur Negative Negative LAB CHEMISTRY METHOD 01/01/2025 7:32 PM EDT [facility] Cannabinoid (THC) Screen, Ur Negative Negative LAB CHEMISTRY METHOD 01/01/2025 7:32 PM EDT [facility] Comment:Specimens from patie nts taking pantoprazole sodium (Protonix) have been shown to produce false positive results. Oxycodone Screen, Ur Negative Negative LAB CHEMISTRY METHOD 01/01/2025 7:32 PM EDT [facility] Fentanyl, Ur Negative Negative LAB CHEMISTRY METHOD 01/01/2025 7:32 PM EDT [facility] Urine Urine specimen obtained by clean catch procedure / Unknown Non-blood Collection / Unknown 01/01/2025 3:54 PM EDT 01/01/2025 3:54 PM EDT Narrative [facility] - 01/01/2025 7:32 PM EDT Assay cutoffs: Amphetamines 1000 ng/mL Barbiturates 200 ng/mL Benzodiazepines 200 ng/mL Cocaine 300 ng/mL Fentanyl 1 ng/mL Opiates 300 ng/mL Oxycodone 100 ng/mL THC 50 ng/mL Semi-quantitative assay for screening purposes only. Unconfirmed screening result should not be used for non-medical purposes. *ALTERNATE METHOD CONFIRMATION DONE UPON REQUEST ONLY* [facility] URINE ORDERABLES Fi nal Result Performing Organization Address City/[facility]/ZIP Co de Phone Number [facility] [address] [place] [address], [place] [phone] * Hemoglobin A1c (01/01/2025 3:54 PM EDT) Hemoglobin A1C 6.3 <6.5 % LAB CHEMISTRY METHOD 01/03/2025 11:27 AM EDT [facility] Mean Bld Glu Estim. 134 mg/dL LAB CHEMISTRY METHOD 01/03/2025 11:27 AM EDT [facility] Blood Venous blood specimen / Unknown Venipuncture / Unknown 01/01/2025 3:54 PM EDT 01/01/2025 3:54 PM EDT [employer] [employer] [facility] BLOOD ORDERABLES Fi nal Result Performing Organization Address City/[facility]/ZIP Co de Phone Number [facility] [address] [place] [address], [place] [phone] * XR Cervical Spine 4-5 Views (01/01/2025 [...] Signed Date: 01/01/2025 20:34 ET Workstation ID: [id number] Transcribed By: Self Edit Transcribed Date: 01/01/2025 [...] Signed Date: 01/01/2025 20:34 ET Workstation ID: [id number] Transcribed By: Self Edit Transcribed Date: 01/01/2025 20:32 ET us Keyla SMART IMG XR PROCEDURES Final Result * (ABNORMAL) Lipid panel with reflex to direct LDL (09/03/2024 11:58 AM EDT) Cholesterol 168 0 - 200 mg/dL LAB CHEMISTRY METHOD 09/03/2024 4:41 PM EDT [facility] Triglycerides 240(H) 0 - 150 mg/dL LAB CHEMISTRY METHOD 09/03/2024 4:41 PM EDT [facility] HDL 44 >=40 mg/dL LAB CHEMISTRY METHOD 09/03/2024 4:41 PM EDT [facility] LDL Calculated 76 0 - 100 mg/dL LAB CHEMISTRY METHOD 09/03/2024 4:41 PM EDT [facility] VLDL Cholesterol Omar 48 mg/dL LAB CHEMISTRY METHOD 09/03/2024 4:41 PM EDT [facility] Non HDL Chol. (LDL+VLDL) 124 <145 mg/dL LAB CHEMISTRY METHOD 09/03/2024 4:41 PM EDT [facility] Chol/HDL Ratio 3.8 0.0 - 4.4 LAB CHEMISTRY METHOD 09/03/2024 4:41 PM T [facility] Blood Venous blood specimen / Unknown Venipuncture / Unknown 09/03/2024 11:58 AM EDT 09/03/2024 11:58 AM EDT us Stef Valencia MD LAB BLOOD ORDERABLES Final Resu lt [facility] [address] [place] [address], [place] [phone] * Microalbumin creatinine urine ratio (09/03/2024 11:58 AM EDT) Creatinine, Urine 105.0 mg/dL LAB CHEMISTRY METHOD 09/04/2024 4:26 AM EDT [facility] Microalb, Ur 14.5 0.0 - 29.0 mg/L LAB CHEMISTRY METHOD 09/04/2024 4:26 AM EDT [facility] Microalb/Creat Ratio 14 <30 mg/g creat LAB CHEMISTRY METHOD 09/04/2024 4:26 AM EDT [facility] Urine Urine specimen obtained by clean catch procedure / Unknown Non-blood Collection / Unknown 09/03/2024 11:58 AM EDT 09/03/2024 11:58 AM EDT us Stef Valencia MD LAB URINE ORDERABLES Final Resu lt Performing Organization Address [facility]/ZIP Co de Phone Number [facility] [address] [place] [address], [place] [phone] * (ABNORMAL) Comprehensive metabolic panel (09/03/2024 11:58 AM EDT) Sodium 138 133 - 145 mmol/L LAB CHEMISTRY METHOD 09/03/2024 4:41 PM EDT [facility] Potassium 4.1 3.5 - 5.5 mmol/L LAB CHEMISTRY METHOD 09/03/2024 4:41 PM EDT [facility] Chloride 105 96 - 110 mmol/L LAB CHEMISTRY METHOD 09/03/2024 4:41 PM EDT [facility] CO2 26 21 - 32 mmol/L LAB CHEMISTRY METHOD 09/03/2024 4:41 PM EDT [facility] Anion Gap 7 3 - 11 LAB CHEMISTRY METHOD 09/03/2024 4:41 PM [facility] Glucose 202(H) 70 - 100 mg/dL LAB CHEMISTRY METHOD 09/03/2024 4:41 PM [facility] BUN 13 5 - 25 mg/dL LAB CHEMISTRY METHOD 09/03/2024 4:41 PM [facility] Creatinine 0.96 0.70 - 1.30 mg/dL LAB CHEMISTRY METHOD 09/03/2024 4:41 PM [facility] eGFR 81 >=60 mL/min/1. 73m2 LAB CHEMISTRY METHOD 09/03/2024 4:41 PM [facility] Comment:Calculation based on the Chronic Kidney Disease Epidemiology Collaboration (CKD-EPI) equation refit without adjustment for race. BUN/Creatinine Ratio 13.5 LAB CHEMISTRY METHOD 09/03/2024 4:41 PM [facility] Calcium 8.8 8.5 - 10.5 mg/dL LAB CHEMISTRY METHOD 09/03/2024 4:41 PM [facility] AST (SGOT) 25 10 - 42 unit/L LAB CHEMISTRY METHOD 09/03/2024 4:41 PM [facility] ALT (SGPT) 40 10 - 60 unit/L LAB CHEMISTRY METHOD 09/03/2024 4:41 PM [facility] Alkaline Phosphatase 96 42 - 121 unit/L LAB CHEMISTRY METHOD 09/03/2024 4:41 PM [facility] Total Protein 7.2 6.0 - 8.0 g/dL LAB CHEMISTRY METHOD 09/03/2024 4:41 PM [facility] Albumin 3.9 3.2 - 5.0 g/dL LAB CHEMISTRY METHOD 09/03/2024 4:41 PM [facility] Total Bilirubin 0.9 0.0 - 1.4 mg/dL LAB CHEMISTRY METHOD 09/03/2024 4:41 PM EDT [facility] Blood Venous blood specimen / Unknown Venipuncture / Unknown 09/03/2024 11:58 AM EDT 09/03/2024 11:58 AM EDT us Stef Valencia MD LAB BLOOD ORDERABLES Final Resu lt [facility] [address] [place] [address], * Diabetes Eye Exam (12/18/2023) Diabetes: Annual Retina Eye Exam abstracted Historical Provider HEALTH MAINTENANCE Final Result * Hepatitis C Screening (05/22/2018) Hepatitis C Screening abstracted Historical Provider HEALTH MAINTENANCE Final Result from Last 3 Months or Most Recently Relevant to Health Maintenance Insurance [facility] MEDICARE Member Subscriber Plan / Payer (Ef fective 2017-Present) Name:Paulie De Los Santos Relation to Subscriber:Self Name:Paulie De Los Santos Payer ID:[id number] Group ID:[id number] Type:Not on file Address: [place] [address] [place] [phone] Care Teams Supervisor Mechanic Boilermaking Relationship Specialty Start Date End Date Stef Valencia MD [address] [place] [phone] PCP - General Internal Medicine 02/18/24
--- OUTSIDE RECORDS SUMMARY | 2025-03-18 12:57 | XMS_ITS | Encounter Summary ---
Author Organization [facility] Address [address] [place] [address] Care Team Providers Care Project Economist Name Role Phone Stef Valencia MD Primary Care Provider [phone] Reason for Visit * Reason Comments home health cert Encounter Details Date Type Department Care Team ([facility] Contact Info) Description 01/04/2025 Billing Patient Not Present Adult Medicine [address] [phone] Stef Valencia MD [address] [place] [address] Social History Tobacco Use Types Packs/Day Years [...] Upcoming Encounters Date Type Department Care Team ([facility] Contact Info) Description 03/31/2025 11:00 AM EST Office Visit Adult Medicine [address] [phone] Keyla Guzmán PA [address] [place] [address] 07/08/2025 2:30 PM EDT Office Visit Adult Medicine [address] [phone] Stef Valencia MD [address] [place], [place] documented as of this encounter Visit Diagnoses Not on filedocumented in this encounter Additional Health Concerns Assessment Noted Time PHQ-9 Depression Total Score: 1 05/21/19 25 9:41 AM EST A fall risk assessment has been complete d for the patient 05/21/2024 9:40 AM EST documented as of this encounter Care Teams Project Economist Relationship Specialty Start Date End Date Stef Valencia MD [address] [place] [address] PCP - General Internal Medicine 02/18/24 documented as of this encounter
--- OUTSIDE RECORDS SUMMARY | 2025-03-18 12:57 | XMS_ITS | Encounter Summary ---
Author Organization [facility] Address [address] [place] [address] Care Team Providers Care Data Management Manager Name Role Phone Stef Valencia MD Primary Care Provider Encounter Details Date Type Department Care Team ([facility] Contact Info) Description 09/15/2024 Billing Patient Not Present Adult Medicine [address] [phone] Stef Valencia MD [address] [place] [address] Social History Tobacco Use Types Packs/Day Years [...] Upcoming Encounters Date Type Department Care Team ([facility] Contact Info) Description 03/31/2025 11:00 AM EST Office Visit Adult Medicine [address] [phone] Keyla Guzmán PA [address] [place] [address] 07/08/2025 2:30 PM EDT Office Visit Adult Medicine [address] [phone] Stef Valencia MD [address] [place] [phone] documented as of this encounter Visit Diagnoses Not on filedocumented in this encounter Additional Health Concerns Assessment Noted Time PHQ-9 Depression Total Score: 1 05/21/19 25 9:41 AM EST A fall risk assessment has been complete d for the patient 05/21/2024 9:40 AM EST documented as of this encounter Care Teams Data Management Manager Relationship Specialty Start Date End Date Stef Valencia MD [address] [place] [phone] PCP - General Internal Medicine 02/18/24 documented as of this encounter
--- OUTSIDE RECORDS SUMMARY | 2025-03-18 12:57 | XMS_ITS | Encounter Summary ---
Author Organization [facility] Address [address] [place] [address] Care Team Providers Care Front Services Agent Name Role Phone Stef Valencia MD Primary Care Provider [phone] Reason for Visit * Reason Comments home health cert Encounter Details Date Type Department Care Team ([facility] Contact Info) Description 10/05/2024 Billing Patient Not Present Adult Medicine [address] [phone] Stef Valencia MD [address] [place] [address] Social History Tobacco Use Types Packs/Day Years [...] Upcoming Encounters Date Type Department Care Team ([facility] Contact Info) Description 03/31/2025 11:00 AM EST Office Visit Adult Medicine [address] [phone] Keyla Guzmán PA [address] [place] [address] 07/08/2025 2:30 PM EDT Office Visit Adult Medicine [address] [phone] Stef Valencia MD [address] [place], [place] documented as of this encounter Visit Diagnoses Not on filedocumented in this encounter Additional Health Concerns Assessment Noted Time PHQ-9 Depression Total Score: 1 05/21/19 25 9:41 AM EST A fall risk assessment has been complete d for the patient 05/21/2024 9:40 AM EST documented as of this encounter Care Teams Front Services Agent Relationship Specialty Start Date End Date Stef Valencia MD [address] [place] [address] PCP - General Internal Medicine 02/18/24 documented as of this encounter
== END 2025-03-18 10:42 | disposition home or self-care (01) ==
LOC: HO.ACS 10:29
PROVIDERS: PCP Internal Medicine; Visit Provider Internal Medicine Medical Oncology
DX: Z79.01 Long term (current) use of anticoagulants (principal)

== ENCOUNTER → 2025-03-18 10:29 | Outpatient (BNVA) | payer OTHER, SELFPAY | PROVIDERS: PCP Internal Medicine; Visit Provider Internal Medicine Medical Oncology | DX: I48.0 Paroxysmal atrial fibrillation (principal); Z51.81 Encounter for therapeutic drug level monitoring; Z79.01 Long term (current) use of anticoagulants | CPT/HCPCS: 85610; 99211 ==